=== PATIENT | male | born 1985 | race Caucasian/White ===

== ENCOUNTER 2020-10-06 15:49 | Emergency (ER) | payer SELFPAY ==
[2020-10-06 16:39] VITALS: BP 167/94; PULSE 85; RESP 16; TEMP 36.9; O2SAT 98; BMI 22.6
--- NOTE | 2020-10-06 19:53 | ED.DENTAL ---
HPI - Dental/Oral General Chief complaint: Dental/Oral Stated complaint: swollen face Source: patient Mode of arrival: ambulatory Limitations: no limitations History of Present Illness HPI Narrative: 35-year-old male no significant past medical history presents with 3 days of dental pain with abscess. He does not describe fevers, chills, diaphoresis, chest pain or pressure, palpitations, weakness, lightheadedness, nausea, vomiting, diarrhea or edema. MD Complaint: tooth pain Teeth map: 1. Swelling and erythema 2. Tooth 11. Is broken with significant caries Onset (ago): day(s) (3) Duration: constant Severity: moderate Severity scale (1-10): 8 Relieving factors: nothing Exacerbating factors: chewing, cold, heat and drinking fluids Context: history of dental caries and poor dental care Associated symptoms: gum swelling Treatment prior to arrival: oral analgesic Related Data Previous Rx's Medication Instructions Recorded amoxicillin-pot clavulanate 1 tab PO Q12H 10 Days #20 tab 10/06/20 [Augmentin] Allergies Allergy/AdvReac Type Severity Reaction Status Date / Time No Known Allergies Allergy Verified 10/06/20 20:34 Review of Systems Review of Systems: Constitutional: No Fever, No Chills ENT/Mouth: No swallowing difficulty, no change in voice, positive dental pain, positive jaw pain, positive facial swelling Eyes: No Eye Pain, No Swelling Cardiovascular: No Chest Pain, No SOB Respiratory: No Cough, No Sputum, No Wheezing, No Smoke Exposure, No Dyspnea Gastrointestinal: No Nausea, No Vomiting, No Diarrhea Genitourinary: No Dysuria Musculoskeletal: No Myalgias Skin: No rash Neuro: No Weakness, No Numbness, No Headache Yes all other systems are reviewed and are negative [facility] Past Medical History Attestation statement: The following information was validated with the patient. Social History Social History Advance Directives: No Advance Directives Information Provided: Yes Physical Exam Vital Signs: Vital Signs: Last Vital Signs Temp 98.9 F 10/06/20 20:54 Pulse 61 10/06/20 20:54 Resp 16 10/06/20 20:54 BP 157/97 H 10/06/20 20:54 Pulse Ox 98 10/06/20 20:54 Body Mass Index 22.6 Appearance: Alert. Oriented X3. Moderate distress. Eyes: Pupils equal, round and reactive to light. ENT: Pharynx normal. Tooth 11. Multiple caries, swelling noted above the dentate line, facial swelling noted, negative sinus pain to palpation and percussion. Neck: Normal inspection. Neck supple. CVS: Normal heart rate and rhythm. Pulses normal. Respiratory: No respiratory distress. Breath sounds normal. Abdomen: Soft and nontender. Skin: Skin warm and dry. Normal skin color. Normal skin turgor. Extremities: No lower extremity edema. Neuro: No motor deficit. No sensory deficit. Course Course Course Narrative: 35-year-old male with no significant past medical history presents with dental abscess and caries. Discussion with patient regarding care, plan is to try to drain the abscess, lidocaine 2%, 2 mL injected in to the dentate line above the tooth 11., 18 gauge needle used in attempt to aspirate, small amount of purulent and sanguineous fluid expressed from site. Patient tolerated procedure well although it was very painful for him. We did provide pain management of oxycodone 5 mg tablet. Patient will be discharged home with Augmentin, he does not have a dentist he was given a dental sheet and advised to make phone calls to find provider that would accept him tomorrow or the following day. Patient verbalized understanding of and agrees to plan of care to discharge home. MDM - Dental/Oral Differential Diagnosis Differential diagnosis: Likely gingival abscess, dental caries, toothache, dental abscess, fracture of tooth and aphthous ulcer Medical Records Attestation: I reviewed the patient's medical records. Lab Data Attestation: I reviewed the patient's lab results. Discharge Plan Discharge Clinical Impression: Dental abscess Patient Disposition: Home, Self-Care Instructions: Dental Abscess (ED) Additional Instructions: You were evaluated for dental abscess. Please follow-up with a dentist tomorrow. You must call and make an appointment. Please take Augmentin as directed. This is an antibiotic. Use Anbesol or Orajel for pain management. You may alternate Tylenol and Motrin. Thank you for choosing this emergency department for evaluation. Please follow-up with primary care physician as needed. Return to the emergency department for any new, concerning, or worsening symptoms. Prescriptions: New amoxicillin-pot clavulanate [Augmentin] 875-125 mg tablet 1 tab PO Q12H 10 Days Qty: 20 RF: 0 Interventions: ED Discharge Assessment Last Done: 10/06/20 20:56 Discharge Date/Time: 10/06/20 20:57
[2020-10-06] MEDS: Amoxicillin/Potassium Clav 875 MG TABLET PO (20:40)
[2020-10-06] MEDS: Ibuprofen 600 MG TABLET PO (20:40)
[2020-10-06] MEDS: Lidocaine HCl 2 % MPF 5 ML VIAL SUBCUT (20:41)
[2020-10-06] MEDS: oxyCODONE HCl Immed Release 5 MG TABLET PO (20:42)
[2020-10-06 20:54] VITALS: BP 157/97; PULSE 61; RESP 16; TEMP 37.2; O2SAT 98
--- NOTE | 2021-07-29 09:00 | ECG_ITS ---
Test Reason : DIZZINESS Blood Pressure : / mmHG Vent. Rate : 066 BPM Atrial Rate : 066 BPM P-R Int : 146 ms QRS Dur : 114 ms QT Int : 394 ms P-R-T Axes : 053 065 089 degrees QTc Int : 413 ms Normal sinus rhythm Cannot rule out Anteroseptal infarct (cited on or before 29-JUL-2021) ST & T wave abnormality, consider lateral ischemia Abnormal ECG When compared with ECG of 29-JUL-2021 01:52, ST less elevated in Anterior leads Referred By: Molly Lal Electronically Signed By:SAI MORIN MD
== END 2020-10-06 20:57 | disposition home or self-care (01) ==
PROVIDERS: Emergency Provider Emergency Medicine
DX: K04.7 Periapical abscess without sinus (principal)
CPT/HCPCS: 90471; 90715; 93005; 99284

== ENCOUNTER 2020-11-26 07:44 | Outpatient (REF) | payer MEDICAID, SELFPAY | END 2020-11-26 07:45 | disposition home or self-care (01) | LOC: HO.LAB 07:44 | PROVIDERS: Visit Provider Internal Medicine | DX: Z20.822 Contact with and (suspected) exposure to COVID-19 (principal) | CPT/HCPCS: 36415; C9803; U0003; U0005 ==

== ENCOUNTER 2020-12-21 22:30 | Emergency (ER) | payer MEDICAID, SELFPAY ==
--- NOTE | ~2020-12-21 | XR_ITS ---
EXAMINATION: XR CHEST CLINICAL INFORMATION: Chest pain COMPARISON: None TECHNIQUE: 2 views of the chest were obtained. FINDINGS: The lungs are clear with no focal consolidation. No evidence of pneumothorax, pulmonary edema, or pleural effusions. The cardiomediastinal silhouette is unremarkable. No acute osseous findings. XR/XR chest 2V IMPRESSION: No acute cardiopulmonary findings.
[2020-12-21 23:09] VITALS: BP 121/76; PULSE 86; RESP 18; TEMP 36.7; O2SAT 99; BMI 22.6
--- NOTE | 2020-12-22 00:53 | ECG_ITS ---
Test Reason : CP Blood Pressure : / mmHG Vent. Rate : 085 BPM Atrial Rate : 085 BPM P-R Int : 138 ms QRS Dur : 074 ms QT Int : 334 ms P-R-T Axes : 066 077 066 degrees QTc Int : 397 ms Normal sinus rhythm Normal ECG No previous ECGs available Referred By: Jodee Simeon Electronically Signed By:Jose Alfredo Hawley
--- NOTE | 2020-12-22 01:05 | ED.CHESTPAIN ---
HPI - Chest Pain General Chief Complaint: Chest Pain Stated Complaint: high bp Time Seen by Provider: 12/21/20 23:44 Source: patient Mode of arrival: ambulatory Limitations: no limitations History of Present Illness HPI narrative: 2 days of chest pain in patient at times can be coughing, walking, moving or at rest and feels a punch in chest some mild dyspnea, no fevers, no pain now MD complaint: chest pain Onset (ago): day(s) (2) Timing of current episode: episodic Prior episodes: No Onset: during rest and during exertion Pain location: substernal Pain radiation: none Severity: mild Relieving factors: nothing Exacerbating factors: nothing Associated symptoms: dyspnea Treatment prior to arrival: none Related Data Previous Rx's Medication Instructions Recorded amoxicillin-pot clavulanate 1 tab PO Q12H 10 Days #20 tab 10/06/20 [Augmentin] Allergies Allergy/AdvReac Type Severity Reaction Status Date / Time No Known Allergies Allergy Verified 12/21/20 23:09 Review of Systems Review of Systems: Constitutional : No Weight loss, No Fever, No Chills ENT/Mouth : No sore throat, No Rhinorrhea Eyes: No Eye Pain, No Swelling Cardiovascular : pos Chest Pain, pos SOB, no Dyspnea on Exertion, No Orthopnea, No Edema, No Palpitations Respiratory : No Cough, No Sputum Gastrointestinal : no Nausea, No Vomiting, No Diarrhea, No abdominal Pain, No Hematochezia, No Melena Genitourinary : No Dysuria, No Urinary Frequency Musculoskeletal : No joint pain, No Myalgias, No Joint Swelling Skin : No Skin Lesions, No rash Neuro : No Weakness, No Numbness, No Dizziness, No Headache Psych : No Anxiety/Panic, No Depression Heme/Lymph: No Bruising, No Lymphadenopathy Endocrine : No Polyuria, No Polydipsia All other systems reviewed and are negative PMFSH Past Medical History Attestation statement: The following information was validated with the patient. Medical History HTN (hypertension) Social History Social History Smoking Status: Current every day smoker Use of substances other than those prescribed or required for medical reasons: No Advance Directives: No Physical Exam Vital Signs: Vital Signs: Last Vital Signs Temp 98.0 F 12/21/20 23:09 Pulse 86 12/21/20 23:09 Resp 18 12/21/20 23:09 BP 121/76 12/21/20 23:09 Pulse Ox 99 12/21/20 23:09 Body Mass Index 22.6 Appearance: Alert. Oriented X3. No acute distress. Eyes: Pupils equal, round and reactive to light. ENT: Pharynx normal. Neck: Normal inspection. Neck supple. CVS: Normal heart rate and rhythm. Pulses normal. Respiratory: No respiratory distress. Breath sounds normal. Abdomen: Soft and nontender. Skin: Skin warm and dry. Normal skin color. Normal skin turgor. Extremities: No lower extremity edema. No calf ttp Neuro: Oriented X 3. No motor deficit. No sensory deficit. MDM - Chest Pain MDM Narrative Medical decision making narrative: 35 yo male atypical chest pain, PERC negative, no pain now, not related to exertion seems atypical - distal pulses symmetric and intact doubt dissection, will obtain CXR, COVID swab, EKG, troponin x 1, dispo per results and findings Lab Data Result diagrams: 12/22/20 01:38 Labs: Lab Results 12/22/20 12/22/20 12/22/20 Range/Units 01:38 01:38 01:38 Sodium 141 (135-145) mmol/L Potassium 4.2 (3.3-5.1) mmol/L Chloride 102 (96-108) mmol/L Carbon Dioxide 31 H (22-29) mmol/L Anion Gap 12 (12-20) BUN 12 (9-16) mg/dL Creatinine 1.04 (0.5-1.4) mg/dL Estim Creat Clear Calc 89.0 Estimated GFR > 60 Random Glucose 74 (60-115) mg/dL Calcium 8.8 (8.4-10.2) mg/dL Troponin I High Sens < 3.5 (<3.5-35.0) ng/L COVID-19 (INDU) Negative (Negative) COVID-19 Clin Com See Note ECG Data ECG #1: Attestation: I personally reviewed and interpreted this ECG as follows: ECG interpretation date: 12/22/20 ECG interpretation time: 01:06 Interpretation: Rate: 85 Rhythm: NSR [place]: normal Normal P waves. Normal TEE. Normal QRS complex. ST T wave : normal, no BRITTANI qTC: normal prior studies: no acute ischemia The study has been interpreted contemporaneously by me. . Discharge Plan Discharge Clinical Impression: Atypical chest pain Patient Disposition: Home, Self-Care Instructions: Chest Pain (ED) Additional Instructions: return to ED for any worsening symptoms or concerns chest xray, EKG, heart markers in your blood, COVID swab were negative Prescriptions: No Action amoxicillin-pot clavulanate [Augmentin] 875-125 mg tablet 1 tab PO Q12H 10 Days Qty: 20 RF: 0 Referrals: Physician,None [Primary Care Provider] - 2 days (if not better, obtain PCP ) Stand Alone Forms: Work/School Release
[2020-12-22 02:01] LABS: COVID-19 Test Negative (Negative)
[2020-12-22 02:05] LABS: Blood Urea Nitrogen 12 mg/dL (9-16); Calcium 8.8 mg/dL (8.4-10.2); Estimated Glomerular Filt Rate > 60; Glucose Random 74 mg/dL (60-115)
[2020-12-22 02:08] LABS: Anion Gap 12 (12-20); Carbon Dioxide 31 mmol/L (22-29); Chloride 102 mmol/L (96-108); Potassium 4.2 mmol/L (3.3-5.1); Sodium 141 mmol/L (135-145)
[2020-12-22 02:10] LABS: Troponin-I High Sensitivity < 3.5 ng/L (<3.5-35.0)
== END 2020-12-22 02:32 | disposition home or self-care (01) ==
PROVIDERS: Emergency Provider Emergency Medicine
DX: R07.89 Other chest pain (principal); R06.00 Dyspnea, unspecified; F17.200 Nicotine dependence, unspecified, uncomplicated; Z20.822 Contact with and (suspected) exposure to COVID-19; Z71.6 Tobacco abuse counseling; Z79.899 Other long term (current) drug therapy
CPT/HCPCS: 36415; 71046; 80048; 84484; 87635; 93005; 99283

== ENCOUNTER 2021-07-29 01:43 | Observation (INO) | payer MEDICAID, SELFPAY ==
[2021-07-29] VITALS (15 sets, daily range): BP systolic 106–132; BP diastolic 65–93; PULSE 58–85; RESP 12–20; TEMP 36.8–37.1; O2SAT 94–100; BMI 25.0
--- NOTE | ~2021-07-29 | XR_ITS ---
EXAMINATION: XR CHEST CLINICAL INFORMATION: Chest pain COMPARISON: 12/22/2020 TECHNIQUE: Frontal view of the chest was obtained. FINDINGS: No significant abnormality is noted involving the heart, lungs, mediastinum, bony thorax or soft tissues. XR/XR chest 1V IMPRESSION: Unremarkable examination.
--- NOTE | 2021-07-29 01:59 | ECG_ITS ---
Test Reason : CHEST TIGHTNESS Blood Pressure : / mmHG Vent. Rate : 080 BPM Atrial Rate : 080 BPM P-R Int : 144 ms QRS Dur : 078 ms QT Int : 356 ms P-R-T Axes : 063 071 105 degrees QTc Int : 410 ms Normal sinus rhythm ST elevation in Anterior leads * ACUTE NM Abnormal ECG When compared with ECG of 22-DEC-2020 00:00, Anteroseptal infarct is now Present T wave inversion now evident in Anterolateral leads Referred By: Kojo Harmon Electronically Signed By:SAI MORIN MD
--- NOTE | 2021-07-29 02:15 | PC.NURSE ---
Pt transferred from 13H into room 9. IV x 2 established, IV to LAC placed by EMS infiltrated and removed. EKG and labs obtained and sent. Pt medicated with one Nitro per DEC. at bedside. Awaiting labs.
[2021-07-29] MEDS: Nitroglycerin 0.4 MG TAB.SUBL SUBLINGUAL (02:22)
--- NOTE | 2021-07-29 02:26 | ED_ITS ---
HPI - Chest Pain General Chief Complaint: Chest Pain Stated Complaint: chest tightness Time Seen by Provider: 07/29/21 01:58 Source: patient Mode of arrival: EMS History of Present Illness HPI narrative: 35-year-old male with history of cocaine use in recent NV secondary to cocaine use and treated at [facility] with stent vijay palmer now presents via EMS with acute onset of nonradiating chest discomfort that worsens with deep inspiration but is not associated with dizziness, headache, nausea, sweating, and ?a little bit of shortness of breath?. Patient states that this pain started while he was cleaning up his room in denies any use of cocaine after he was discharged from [facility]. Patient does state that he has continue to smoke cigarettes and is taking his medications as prescribed. Patient states that the pain is worse with sitting up. EMS provided aspirin as well as initial dose of nitro and patient states that pa in did improve but has now returned. Related Data Home Medications Medication Instructions Recorded Confirmed aspirin 81 mg tablet 81 mg PO DAILY 07/29/21 07/29/21 atorvastatin 80 mg tablet 80 mg PO BEDTIME 07/29/21 07/29/21 lisinopril 2.5 mg tablet 2.5 mg PO DAILY 07/29/21 07/29/21 metoprolol succinate 25 mg 12.5 mg PO DAILY 07/29/21 07/29/21 tablet,extended release 24 hr ticagrelor 90 mg tablet (Brilinta) 90 mg PO BID 07/29/21 07/29/21 Allergies Allergy/AdvReac Type Severity Reaction Status Date / Time No Known Allergies Allergy Verified 12/21/20 23:09 Review of Systems Review of Systems: Pertinent positives and negatives as stated in HPI 10 point review of systems is otherwise negative. [facility] Past Medical History Source: nursing notes reviewed Medical History HTN (hypertension) Social History Social History Advance Directives: No Physical Exam Vital Signs: Vital Signs: Last Vital Signs Temp 98.8 F 07/29/21 01:52 Pulse 80 07/29/21 02:29 Resp 16 07/29/21 02:29 BP 107/70 07/29/21 02:29 Pulse Ox 97 07/29/21 02:29 Body Mass Index 25.0 VITAL SIGNS: Reviewed. GENERAL: Well developed, well nourished, in no acute distress. HEAD: Normocephalic/atraumatic EYES: PERRLA, EOMI OROPHARYNX: no oral lesions noted, posterior pharynx clear NECK: Supple, no adenopathy LUNGS: Normal breath sounds. No adventitious sounds or accessory muscle use. SpO2<100>, there is chest wall reproducible pain on palpation along the anterior chest and on to mid axillary, there is no crepitus CARDIOVASCULAR: Regular rate and rhythm without noted murmurs, no JVD or lower extremity edema. ABDOMEN: Soft, non-tender, non-distended with bowel sounds, no palpable masses SKIN: Inspection of the skin reveals no rashes, ulcerations, jaundice, pallor, or petechiae. NEUROLOGIC: Alert and oriented x 4. Strength and sensation to light touch were grossly intact x 4. Course Course Course Narrative: 35-year-old male with history and clinical presentation concerning for possible ischemia and on review EKG Q-waves are noted as well as T-wave inversions in lead 1 as well as V4. Obtaining further EKGs from [facility] as well as providing further nitro, labs, and chest x-ray. Low clinical suspicion for pericarditis, pneumonia. On review of all investigations troponin is mildly elevated at 12 and on comparison for of EKG with [facility] findings there are comparable Q-wave and ischemic changes. This case was discussed with Cardiology and both the current EKG as well as a comparison from [facility] were provided for review. At this time there are no acute interventions recommended in this case was discussed with the inpatient hospitalist who accepts admission. Patient is currently asymptomatic for chest pain and will obtain serial troponins. MDM - Chest Pain Lab Data Result diagrams: 07/29/21 02:20 07/29/21 02:20 Labs: Lab Results 07/29/21 07/29/21 07/29/21 Range/Units 02:20 02:20 02:20 WBC 6.0 (4.8-10.8) X10*3/uL RBC 4.04 L (4.60-5.80) X10*6/uL Hgb 11.3 L (14.0-18.0) g/dl Hct 33.9 L (42-52) % MCV 83.9 (80-98) fL MCH 28.0 (27.0-33.0) pg MCHC 33.3 (31.0-36.0) g/dl RDW 13.6 (11.0-16.0) % Plt Count 194 (160-400) X10*3/uL MPV 11.2 (9.4-12.4) fL Immature Gran % (Auto) 0.2 (0.0-0.4) % Neut % (Auto) 65.2 (45-73) % Lymph % (Auto) 24.6 (20-40) % [place] % (Auto) 8.8 (2-11) % Eos % (Auto) 0.7 (0-4) % Baso % (Auto) 0.5 (0-2) % Lymph # (Auto) 1.5 (1.2-4.9) X10*3/uL [place] # (Auto) 0.5 (0.1-1.2) X10*3/uL Eos # (Auto) 0.0 (0.0-0.4) X10*3/uL Baso # (Auto) 0.0 (0.0-0.2) X10*3/uL Abs Immat Gran (auto) 0.01 (0.00-0.03) X10*3/uL Absolute Neuts (auto) 3.9 (2.0-8.3) X10*3/uL Absolute Nucleated RBC 0.000 (0.0-0.012) X10*3/uL Nucleated RBC % (auto) 0.0 (0.0-0.2) /100WBC PT (9.9-13.0) SEC INR (0.9-1.1) APTT (24.1-38.0) SEC Sodium 139 (135-145) mmol/L Potassium 4.2 (3.3-5.1) mmol/L Chloride 102 (96-108) mmol/L Carbon Dioxide 29 (22-29) mmol/L Anion Gap 12 (12-20) BUN 16 (9-16) mg/dL Creatinine 0.87 (0.5-1.4) mg/dL Estim Creat Clear Calc 110.7 Estimated GFR > 60 Random Glucose 90 (60-115) mg/dL Calcium 9.3 (8.4-10.2) mg/dL Troponin I High Sens 12.9 (<3.5-35.0) ng/L COVID-19 (INDU) (Negative) COVID-19 Clin Com 07/29/21 07/29/21 Range/Units 02:20 02:20 WBC (4.8-10.8) X10*3/uL RBC (4.60-5.80) X10*6/uL Hgb (14.0-18.0) g/dl Hct (42-52) % MCV (80-98) fL MCH (27.0-33.0) pg MCHC (31.0-36.0) g/dl RDW (11.0-16.0) % Plt Count (160-400) X10*3/uL MPV (9.4-12.4) fL Immature Gran % (Auto) (0.0-0.4) % Neut % (Auto) (45-73) % Lymph % (Auto) (20-40) % [place] % (Auto) (2-11) % Eos % (Auto) (0-4) % Baso % (Auto) (0-2) % Lymph # (Auto) (1.2-4.9) X10*3/uL [place] # (Auto) (0.1-1.2) X10*3/uL Eos # (Auto) (0.0-0.4) X10*3/uL Baso # (Auto) (0.0-0.2) X10*3/uL Abs Immat Gran (auto) (0.00-0.03) X10*3/uL Absolute Neuts (auto) (2.0-8.3) X10*3/uL Absolute Nucleated RBC (0.0-0.012) X10*3/uL Nucleated RBC % (auto) (0.0-0.2) /100WBC PT 11.9 (9.9-13.0) SEC INR 1.0 (0.9-1.1) APTT 31.8 (24.1-38.0) SEC Sodium (135-145) mmol/L Potassium (3.3-5.1) mmol/L Chloride (96-108) mmol/L Carbon Dioxide (22-29) mmol/L Anion Gap (12-20) BUN (9-16) mg/dL Creatinine (0.5-1.4) mg/dL Estim Creat Clear Calc Estimated GFR Random Glucose (60-115) mg/dL Calcium (8.4-10.2) mg/dL Troponin I High Sens (<3.5-35.0) ng/L COVID-19 (INDU) Negative (Negative) COVID-19 Clin Com See Note ECG Data ECG #1: Attestation: I personally reviewed and interpreted this ECG as follows: Prior ECG tracings: available for review (Unfortunately, there are no dates or times listed on the provided EKGs however most recent demonstrate the same pattern of injury as on patient's presentation today.) Ischemic changes: q waves and t wave inversions Interpretation: Normal sinus rhythm, HR-80, no STEMI but there are noted Q-waves in T-wave inversions demonstrating history of recent NV and on review of EKG from [facility] consistent. Discharge Plan Discharge Clinical Impression: Chest pain, ACS (acute coronary syndrome) Patient Disposition: Admitted As Inpatient Prescriptions: No Action atorvastatin 80 mg Tablet 80 mg PO BEDTIME RF: 0 aspirin 81 mg Tablet 81 mg PO DAILY RF: 0 metoprolol succinate 25 mg Tablet Extended Release 24 Hr 12.5 mg PO DAILY RF: 0 lisinopril 2.5 mg Tablet 2.5 mg PO DAILY RF: 0 Brilinta 90 mg Tablet 90 mg PO BID RF: 0
[2021-07-29 02:32] LABS: Basophils Percent Auto 0.5 % (0-2); Eosinophils Percent Auto 0.7 % (0-4); Hematocrit 33.9 % (42-52); Hemoglobin 11.3 g/dl (14.0-18.0); Imm Gran Abs Auto 0.01 X10*3/uL (0.00-0.03); Imm Gran Pct Auto 0.2 % (0.0-0.4); Lymphocytes Absolute Auto 1.5 X10*3/uL (1.2-4.9); Lymphocytes Percent Auto 24.6 % (20-40); MANUAL DIFF FLAG NO; Mean Corpuscular HGB Conc 33.3 g/dl (31.0-36.0); Mean Corpuscular Volume 83.9 fL (80-98); Mean Platelet Volume 11.2 fL (9.4-12.4); Monocytes Absolute Auto 0.5 X10*3/uL (0.1-1.2); Monocytes Percent Auto 8.8 % (2-11); Neutrophils Absolute Auto 3.9 X10*3/uL (2.0-8.3); Neutrophils Percent Auto 65.2 % (45-73); Platelet Count 194 X10*3/uL (160-400); Red Blood Count 4.04 X10*6/uL (4.60-5.80); Red Cell Distribution Width 13.6 % (11.0-16.0)
--- NOTE | 2021-07-29 02:33 | PC.NURSE ---
Pt noted to be pain free at this time after one Nitro by EMS and an additional Nitro by CELI Laws. CXR at bedside.
[2021-07-29 02:38] LABS: Prothrombin Time 11.9 SEC (9.9-13.0)
[2021-07-29 02:40] LABS: Partial Thromboplastin Time 31.8 SEC (24.1-38.0)
[2021-07-29 02:46] LABS: Anion Gap 12 (12-20); Blood Urea Nitrogen 16 mg/dL (9-16); COVID-19 Test Negative (Negative); Calcium 9.3 mg/dL (8.4-10.2); Carbon Dioxide 29 mmol/L (22-29); Chloride 102 mmol/L (96-108); Creatinine Clr Calc Pharmacy 110.7; Estimated Glomerular Filt Rate > 60; Glucose Random 90 mg/dL (60-115); IDNOW Serial# 9DD0AD1C; Potassium 4.2 mmol/L (3.3-5.1); Sodium 139 mmol/L (135-145)
[2021-07-29 02:54] LABS: Troponin-I High Sensitivity 12.9 ng/L (<3.5-35.0)
[2021-07-29 04:47] LABS: Amphetamine Screen Urine Not Detected (Not Detect); Barbiturates, Urine Not Detected (Not Detect); Benzodiazepines Screen Urine Not Detected (Not Detect); Cannabinoid Screen Urine Not Detected (Not Detect); Cocaine Screen Urine POSITIVE (Not Detect); Fentanyl, urine Not Detected (Not Detect); Opiate Screen Urine Not Detected (Not Detect); Phencyclidine Screen Urine Not Detected (Not Detect)
--- NOTE | 2021-07-29 04:48 | PM.IMHP ---
History of Present Illness Date of Service: 07/29/21 Chief Complaint: Chest pain 35-year-old male with a past medical history of cocaine abuse, recent STEMI on 07/14/21 status post stent placement, currently on Brilinta presented to the hospital today with a chief complaint of chest pain. Patient reports that he was cleaning his room mentioned only felt tightness in his left side of the chest, 7 of 10 in intensity, nonradiating, no associated lightheadedness dizziness or sweating; subsequently call EMS; mentions that EMS gave him sublingual nitroglycerin with slight improvement in his pain and in the ER he got another dose of sublingual nitroglycerin with improvement in his pain. At the time of my interview patient denies any chest pain palpitations lightheadedness or dizziness. Denies any fever chills cough. Denies any numbness tingling or focal weakness. Patient reports that he has been complaint with his home medications including Brilinta. Patient denies using any more cocaine after the heart stent. Review of all other systems is negative except mentioned above ER course: Per ER team patient chest pain improved; troponin was 12.9. Holding new EKGs were sent to Dr. borges, not concern for STEMI. Admitted to the hospital for further management. [facility] Medical History HTN (hypertension) Pertinent family history: Grandfather has heart disease Social History Advance Directives: No Meds Allergies Allergy/AdvReac Type Severity Reaction Status Date / Time No Known Allergies Allergy Verified 12/21/20 23:09 Active Medications: Current Medications Nitroglycerin (Nitroglycerin 0.4 Mg Tab.Subl) 0.4 mg SUBLINGUAL [id number] PRN PRN Reason: Chest Pain Last Admin: 07/29/21 02:22 Dose: 0.4 mg Documented by: Home Medications Medication Instructions Recorded Confirmed Last Taken Type aspirin 81 mg tablet 81 mg PO DAILY 07/29/21 07/29/21 07/28/21 09:00 History atorvastatin 80 mg tablet 80 mg PO BEDTIME 07/29/21 07/29/21 07/27/21 21:00 History lisinopril 2.5 mg tablet 2.5 mg PO DAILY 07/29/21 07/29/2107/28/21 09:00 History metoprolol succinate 25 mg 12.5 mg PO DAILY 07/29/21 07/29/21 07/28/21 09:00 History tablet,extended release 24 hr ticagrelor 90 mg tablet (Brilinta) 90 mg PO BID 07/29/21 07/29/21 07/28/21 21:00 History Physical Exam Vital Signs and Narrative: Vital Signs: Last Vital Signs Temp 98.8 F 07/29/21 01:52 Pulse 76 07/29/21 04:20 Resp 16 07/29/21 04:20 BP 129/93 H 07/29/21 04:20 Pulse Ox 100 07/29/21 04:20 Body Mass Index 25.0 Gen: Appears be in no acute distress HEENT: NCAT, Moist mucosa. Pulmonary: Vesicular breath sounds, fair air entry CVS: Normal S1-S2 Abdomen: BS+, Soft, Nontender Extremities: Warm well perfused Neuro: Alert and awake. Results Labs CBC and Chem 7: 07/29/21 02:20 07/29/21 02:20 Labs: Laboratory Results - last 24 hr 07/29/21 07/29/21 07/29/21 02:20 02:20 02:20 MCV 83.9 MCH 28.0 MCHC 33.3 RDW 13.6 Plt Count 194 MPV 11.2 Immature Gran % (Auto) 0.2 Neut % (Auto) 65.2 Lymph % (Auto) 24.6 [place] % (Auto) 8.8 Eos % (Auto) 0.7 Baso % (Auto) 0.5 Lymph # (Auto) 1.5 [place] # (Auto) 0.5 Eos # (Auto) 0.0 Baso # (Auto) 0.0 Abs Immat Gran (auto) 0.01 Absolute Neuts (auto) 3.9 Absolute Nucleated RBC 0.000 Nucleated RBC % (auto) 0.0 PT INR APTT Anion Gap 12 Estim Creat Clear Calc 110.7 Estimated GFR > 60 Random Glucose 90 Calcium 9.3 Troponin I High Sens 12.9 Urine Opiates Screen Urine Fentanyl Screen Ur Barbiturates Screen Ur Phencyclidine Scrn Ur Amphetamines Screen U Benzodiazepines Scrn Urine Cocaine Screen U Marijuana (THC) Screen COVID-19 (INDU) COVID-19 Clin Com 07/29/21 07/29/2107/29/21 02:20 02:20 04:26 MCV MCH MCHC RDW Plt Count MPV Immature Gran % (Auto) Neut % (Auto) Lymph % (Auto) [place] % (Auto) Eos % (Auto) Baso % (Auto) Lymph # (Auto) [place] # (Auto) Eos # (Auto) Baso # (Auto) Abs Immat Gran (auto) Absolute Neuts (auto) Absolute Nucleated RBC Nucleated RBC % (auto) PT 11.9 INR 1.0 APTT 31.8 Anion Gap Estim Creat Clear Calc Estimated GFR Random Glucose Calcium Troponin I High Sens Urine Opiates Screen Not Detected Urine Fentanyl Screen Not Detected Ur Barbiturates Screen Not Detected Ur Phencyclidine Scrn Not Detected Ur Amphetamines Screen Not Detected U Benzodiazepines Scrn Not Detected Urine Cocaine Screen POSITIVE H U Marijuana (THC) Screen Not Detected COVID-19 (INDU) Negative COVID-19 Clin Com See Note Imaging Radiologist's Impressions: Impressions Chest X-Ray 07/29/21 02:26 IMPRESSION: Unremarkable examination. Assessment and Plan (1) Chest pain: Status: Acute 35-year-old male with a past medical history of cocaine abuse, recent STEMI on 07/14/21 status post stent placement, currently on Brilinta presented to the hospital today with a chief complaint of chest pain. Chest pain: Currently improved. Initial troponin 12.9. EKG were sent to Cardiology. Telemetry Cycle cardiac enzymes Sublingual nitroglycerin p.r.n. Continue home aspirin statin Brilinta. History of hypertension/hyperlipidemia: Stable. Continue home medications. DVT prophylaxis: Lovenox Code status: Full code Quality Stroke Does the patient have a stroke diagnosis?: No VTE Prior VTE?: No VTE Risk Level:: Medical - moderate - high VTE Device Contraindication: Treatment Not Indicated VTE Drug Contraindication: N/A - Med Ordered
[2021-07-29 05:18] LABS: MANUAL DIFF FLAG NO
[2021-07-29 05:19] LABS: Basophils Percent Auto 0.6 % (0-2); Eosinophils Percent Auto 0.6 % (0-4); Hematocrit 34.4 % (42-52); Hemoglobin 11.4 g/dl (14.0-18.0); Imm Gran Abs Auto 0.02 X10*3/uL (0.00-0.03); Imm Gran Pct Auto 0.3 % (0.0-0.4); Lymphocytes Absolute Auto 1.6 X10*3/uL (1.2-4.9); Lymphocytes Percent Auto 25.2 % (20-40); Mean Corpuscular HGB Conc 33.1 g/dl (31.0-36.0); Mean Corpuscular Hemoglobin 28.1 pg (27.0-33.0); Mean Corpuscular Volume 84.7 fL (80-98); Monocytes Absolute Auto 0.5 X10*3/uL (0.1-1.2); Neutrophils Absolute Auto 4.1 X10*3/uL (2.0-8.3); Neutrophils Percent Auto 65.3 % (45-73); Platelet Count 185 X10*3/uL (160-400); Red Blood Count 4.06 X10*6/uL (4.60-5.80); Red Cell Distribution Width 13.7 % (11.0-16.0); White Blood Count 6.2 X10*3/uL (4.8-10.8)
[2021-07-29] MEDS: Enoxaparin Sodium 40 MG/0.4 ML SYRINGE SUBCUT (05:23)
[2021-07-29 05:37] LABS: Anion Gap 12 (12-20); Blood Urea Nitrogen 14 mg/dL (9-16); Calcium 9.2 mg/dL (8.4-10.2); Carbon Dioxide 28 mmol/L (22-29); Chloride 103 mmol/L (96-108); Creatinine Clr Calc Pharmacy 114.7; Estimated Glomerular Filt Rate > 60; Glucose Random 115 mg/dL (60-115); Potassium 3.8 mmol/L (3.3-5.1); Sodium 139 mmol/L (135-145)
[2021-07-29 05:38] LABS: Troponin-I High Sensitivity 17.1 ng/L (<3.5-35.0)
[2021-07-29] MEDS: Aspirin 81 MG TAB.CHEW PO (08:16)
[2021-07-29] MEDS: Metoprolol Succinate ER 12.5 MG HALFTAB.ER.24H PO (08:17)
[2021-07-29] MEDS: Ticagrelor 90 MG TABLET PO ×2 (08:17→21:03)
[2021-07-29] MEDS: lisinopriL 2.5 MG TABLET PO (08:17)
[2021-07-29] MEDS: 0.9 % Sodium Chloride Flush 3 ML SYRINGE IVFLUSH ×2 (08:18→16:15)
--- NOTE | 2021-07-29 08:22 | PC.NURSE ---
Pt resting quietly in bed, alert/oriented. Denies any pain or discomfort at this time. NSR on tele. Skin color nomral for ethnicity, warm and dry. Speaking full sentences. Accepted AM meds but request to have Suboxone later in morning. Aware/agreeable to admission
--- NOTE | 2021-07-29 09:21 | P.CONCA_ITS ---
History of Present Illness History of Present Illness Date of Service: 07/29/21 Requesting physician: Anderson Tobin Consult reason: chest pain Chief complaint: Chest pain Narrative: I was requested to see Lyndon in cardiology consultation today for symptoms of precordial chest discomfort. He is a 35-year-old male with prior history of cocaine and polysubstance abuse suffering anterior STEMI in May this year undergoing complex stenting of the LAD into the diagonal branch for thrombotic plaque rupture. Patient subsequently developed ischemic cardiomyopathy with LVEF of 30-35%. He has presently to [facility] in the past as well with chest pain and has been ruled out and discharged home. He currently takes all his medications has been compliant within also compliant with his cardiac rehabilitation however he said he was data being again in cocaine the other day. He was cleaning his apartment and then developed precordial chest discomfort with some reproducible component. Patient then called 911 got sublingual nitroglycerin in the ambulance with partial relief and then got another sublingual nitroglycerin while in the ED with resolution of his discomfort. He EKG shows normal sinus rhythm with anteroseptal and anterior myocardial infarction with ST T wave changes suggestive of recent myocardial infarction. This is unchanged compared to his recent EKG end of June at [facility]. His troponins are flat and negative. His U tox is positive for cocaine. He has remained chest pain-free and hemodynamically stable. Currently complains of headaches Review of Systems Constitutional: Constitutional: Reports no additional constitutional complaints Eyes: Eyes: Reports no additional eye complaints Cardiovascular: Cardiovascular: Reports chest pain, Denies syncope, Denies l ightheadedness, Denies radiating jaw, neck or arm pain, Denies palpitations and Denies dyspnea Respiratory: Respiratory: Reports no additional respiratory complaints and Denies dyspnea Gastrointestinal: Gastrointestinal: Reports no additional gastrointestinal complaints Genitourinary: Genitourinary: Reports no additional male genitourinary complaints Musculoskeletal: Musculoskeletal: Reports no additional musculoskeletal complaints Integumentary/Breasts: Skin/Breast: Reports system reviewed and no additional complaints, except as docu Neurologic: Reports system reviewed and no additional complaints, except as documented and Denies syncope Psychiatric: Psychiatric: Reports no additional psychiatric complaints Endocrine: Endocrine: Reports no additional endocrine complaints and Denies palpitations Hematologic/Lymphatic: Hematologic/Lymphatic: Reports no additional hematologic/lymphatic complaints Allergic/Immunologic: Allergic/Immunologic: Reports no additional allergic/i mmunologic complaints [facility] Past Medical History Medical History CAD (coronary artery disease) HTN (hypertension) Ischemic cardiomyopathy Polysubstance dependence STEMI (ST elevation myocardial infarction) Family History Family History Family/Other CAD (coronary artery disease) Social History Social History Patient Tobacco Use Status: Current everyday Tobacco user Use of substances other than those prescribed or required for medical reasons: Yes Substance Use Type: Crack/Cocaine and Marijuana Advance Directives: No Meds Allergies Allergy/AdvReac Type Severity Reaction Status Date / Time No Known Allergies Allergy Verified 12/21/20 23:09 Active Medications: Current Medications Acetaminophen (Acetaminophen 325 Mg Tablet) 650 mg PO Q6H PRN PRN Reason: Pain, Mild (Pain Scale 1-3) Aspirin (Aspirin 81 Mg Tab.Chew) 81 mg PO DAILY [facility] Last Admin: 07/29/21 08:16 Dose: 81 mg Documented by: Atorvastatin Calcium (Atorvastatin Calcium 80 Mg Tablet) 80 mg PO BEDTIME [facility] Buprenorphine/Naloxone (Buprenorphine/Naloxone 4/1 Mg Film) 1 film SUBLINGUAL DAILY [facility] Enoxaparin Sodium (Enoxaparin Sodium 40 Mg/0.4 Ml Syringe) 40 mg SUBCUT Q24H [facility] Last Admin: 07/29/21 05:23 Dose: 40 mg Documented by: Lisinopril (Lisinopril 2.5 Mg Tablet) 2.5 mg PO DAILY [facility]; Protocol Last Admin: 07/29/21 08:17 Dose: 2.5 mg Documented by: Melatonin (Melatonin 3 Mg Tablet) 6 mg PO BEDTIME PRN PRN Reason: Insomnia Metoprolol Succinate (Metoprolol Succinate Er 12.5 Mg Halftab.Er.24h) 12.5 mg PO DAILY [facility]; Protocol Last Admin: 07/29/21 08:17 Dose: 12.5 mg Documented by: Nitroglycerin (Nitroglycerin 0.4 Mg Tab.Subl) 0.4 mg SUBLINGUAL Q5MX3 PRN PRN Reason: Chest Pain Senna (Sennosides 8.6 Mg Tablet) 17.2 mg PO BEDTIME PRN PRN Reason: Constipation Sodium Chloride (0.9 % Sodium Chloride Flush 3 Ml Syringe) 3 ml IVFLUSH QSHIFT [facility] Last Admin: 07/29/21 08:18 Dose: 3 ml Documented by: Ticagrelor (Ticagrelor 90 Mg Tablet) 90 mg PO BID [facility] Last Admin: 07/29/21 08:17 Dose: 90 mg Documented by: Trazodone HCl (Trazodone Hcl 25 Mg Halftab) 25 mg PO BEDTIME [facility] Home Medications Medication Instructions Recorded Confirmed Last Taken Type aspirin 81 mg tablet 81 mg PO DAILY 07/29/21 07/29/21 07/28/21 09:00 History atorvastatin 80 mg tablet 80 mg PO BEDTIME 07/29/21 07/29/21 07/27/21 21:00 History buprenorphine 4 mg-naloxone 1 mg 1 strip SUBLINGUAL DAILY 07/29/21 07/29/21 Unknown History sublingual film (Suboxone) lisinopril 2.5 mg tablet 2.5 mg PO DAILY 07/29/21 07/29/21 07/28/21 09:00 History metoprolol succinate 25 mg 12.5 mg PO DAILY 07/29/21 07/29/21 07/28/21 09:00 History tablet,extended release 24 hr ticagrelor 90 mg tablet (Brilinta) 90 mg PO BID 07/29/21 07/29/21 07/28/21 21:00 History trazodone 50 mg tablet 25 mg PO BEDTIME 07/29/21 07/29/21 07/27/21 21:00 History Physical Exam Vital Signs: Vital Signs: Last Vital Signs Temp 98.8 F 07/29/21 01:52 Pulse 64 07/29/21 09:06 Resp 12 07/29/21 09:06 BP 112/82 07/29/21 09:06 Pulse Ox 100 07/29/21 09:06 Body Mass Index 25.0 Const: General: cooperative, comfortable, no acute distress, alert and awake Nutritional Appearance: average body habitus Orientation/consciousness: patient oriented x3 Limitations: no limitations HENMT: Head: Yes normocephalic Neck: Neck: Yes trachea midline, Yes supple and Yes no JVD Chest: Chest palpation & inspection: normal inspection of the chest Resp: Effort & Inspection: normal respiratory effort Auscultation: clear to auscultation bilaterally Cardio: Jugular venous distension: no JVD Palpation: abnormal PMI displaced PMI Rate: regular rate Rhythm: regular rhythm Heart sounds: S1 normal heart sound present, S2 normal heart sound present, no click, no gallops, no murmurs and no rubs Peripheral pulses: Peripheral pulses 2+ throughout GI: Auscultation: normal bowel sounds Skin: General skin exam: no rashes or lesions noted Neuro: General: patient oriented x3 and no focal motor deficits Extrem: General: Yes no clubbing, cyanosis or edema Psych: Appearance: grossly normal Results Labs and Meds Result diagrams: 07/29/21 05:14 07/29/21 05:14 Lab results: Laboratory Results - last 24 hr 07/29/21 07/29/21 07/29/21 02:20 02:20 02:20 WBC 6.0 RBC 4.04 L Hgb 11.3 L Hct 33.9 L MCV 83.9 MCH 28.0 MCHC 33.3 RDW 13.6 Plt Count 194 MPV 11.2 Immature Gran % (Auto) 0.2 Neut % (Auto) 65.2 Lymph % (Auto) 24.6 [place] % (Auto) 8.8 Eos % (Auto) 0.7 Baso % (Auto) 0.5 Lymph # (Auto) 1.5 [place] # (Auto) 0.5 Eos # (Auto) 0.0 Baso # (Auto) 0.0 Abs Immat Gran (auto) 0.01 Absolute Neuts (auto) 3.9 Absolute Nucleated RBC 0.000 Nucleated RBC % (auto) 0.0 PT INR APTT Sodium 139 Potassium 4.2 Chloride 102 Carbon Dioxide 29 Anion Gap 12 BUN 16 Creatinine 0.87 Estim Creat Clear Calc 110.7 Estimated GFR > 60 Random Glucose 90 Calcium 9.3 Troponin I High Sens 12.9 Urine Opiates Screen Urine Fentanyl Screen Ur Barbiturates Screen Ur Phencyclidine Scrn Ur Amphetamines Screen U Benzodiazepines Scrn Urine Cocaine Screen U Marijuana (THC) Screen COVID-19 (INDU) COVID-19 Clin Com 07/29/21 07/29/21 07/29/21 02:20 02:20 04:26 WBC RBC Hgb Hct MCV MCH MCHC RDW Plt Count MPV Immature Gran % (Auto) Neut % (Auto) Lymph % (Auto) [place] % (Auto) Eos % (Auto) Baso % (Auto) Lymph # (Auto) [place] # (Auto) Eos # (Auto) Baso # (Auto) Abs Immat Gran (auto) Absolute Neuts (auto) Absolute Nucleated RBC Nucleated RBC % (auto) PT 11.9 INR 1.0 APTT 31.8 Sodium Potassium Chloride Carbon Dioxide Anion Gap BUN Creatinine Estim Creat Clear Calc Estimated GFR Random Glucose Calcium Troponin I High Sens Urine Opiates Screen Not Detected Urine Fentanyl Screen Not Detected Ur Barbiturates Screen Not Detected Ur Phencyclidine Scrn Not Detected Ur Amphetamines Screen Not Detected U Benzodiazepines Scrn Not Detected Urine Cocaine Screen POSITIVE H U Marijuana (THC) Screen Not Detected COVID-19 (INDU) Negative COVID-19 Clin Com See Note 07/29/21 07/29/21 07/29/21 05:14 05:14 05:14 WBC 6.2 RBC 4.06 L Hgb 11.4 L Hct 34.4 L MCV 84.7 MCH 28.1 MCHC 33.1 RDW 13.7 Plt Count 185 MPV 11.0 Immature Gran % (Auto) 0.3 Neut % (Auto) 65.3 Lymph % (Auto) 25.2 [place] % (Auto) 8.0 Eos % (Auto) 0.6 Baso % (Auto) 0.6 Lymph # (Auto) 1.6 [place]kin # (Auto) 0.5 Eos # (Auto) 0.0 Baso # (Auto) 0.0 Abs Immat Gran (auto) 0.02 Absolute Neuts (auto) 4.1 Absolute Nucleated RBC 0.000 Nucleated RBC % (auto) 0.0 PT INR APTT Sodium 139 Potassium 3.8 Chloride 103 Carbon Dioxide 28 Anion Gap 12 BUN 14 Creatinine 0.84 Estim Creat Clear Calc 114.7 Estimated GFR > 60 Random Glucose 115 Calcium 9.2 Troponin I High Sens 17.1 Urine Opiates Screen Urine Fentanyl Screen Ur Barbiturates Screen Ur Phencyclidine Scrn Ur Amphetamines Screen U Benzodiazepines Scrn Urine Cocaine Screen U Marijuana (THC) Screen COVID-19 (INDU) COVID-19 Clin Com Imaging Radiologist's impression: Impressions Chest X-Ray 07/29/21 02:26 IMPRESSION: Unremarkable examination. Assessment and Plan (1) Chest pain: Status: Acute Patient presents with precordial chest pain after moving furniture around the house with some reproducible features could represent musculoskeletal chest discomfort however his cocaine screen is also positive and could represent coronary vaso spasm. He has negative markers which are flat with EKG changes that are similar to recent EKG done at [facility] not suggestive of acute coronary syndrome. I had a very long discussion with him about dangers of using cocaine as this has already caused him to have anterior STEMI in May and ischemic cardiomyopathy. I have advised incompletely to abstain from cocaine use. He understands and agrees. He is advised to follow up with his primary carry out clerk in the near future. He says he has a upcoming appointment. Advised him to continue to take his medications. Dangers of using cocaine in the setting of using metoprolol were discussed with him as well. However metoprolol his require therapy given his recent IA as well as ischemic cardiomyopathy. Advised to add Norvasc 2.5 mg to his regimen as anti vasospastic agent. He is advised to seek emergency care if he has recurrent significant chest discomfort. (2) CAD (coronary artery disease): Status: Acute CAD with recent anterior STEMI with drug-eluting stent to the LAD and the diagonal bifurcation. Complex PCI. With residual moderately severe ischemic cardiomyopathy. Advised to follow up with his primary carry out clerk. Currently on low-dose neurohormonal modulation with lisinopril and metoprolol, continue the same. Avoidance of using cocaine was discussed with him again. Continue uninterrupted dual antiplatelet therapy. Continue high-intensity statin therapy. Target goal LDL less than 70 mg/dL. He is recommended to continue to pursue cardiac rehabilitation therapy at [facility]. Will sign of the case. Patient can be discharged home. Thank you for allowing me to partake in his care Procedures Date of Service Date of Service: 07/29/21
[2021-07-29] MEDS: Buprenorphine/Naloxone 4/1 mg FILM 1 FILM SUBLINGUAL (09:30)
--- NOTE | 2021-07-29 10:10 | MHC.CM.PN ---
Met with patient in regards to discharge planning. Patient lives with his sister, ambulates independently and had no services prior to coming to the hospital. No services anticipated to be needed because patient is not homebound. PCP verified as Dr Sanchez at [facility]. Patient received Pfizer vaccines on 03/21 and 07/13. Patient states he has a HCP at [facility]. [facility] does not have one on file. Patient will arrange his own transportation home when medically stable. Continue to monitor for d/c needs.
--- NOTE | 2021-07-29 10:37 | P.DS_ITS ---
DS: Providers Provider Date of Service: 07/30/21 Date of admission: 07/29/21 04:46 Primary care physician: [facility] Consults: 07/29/21 04:46 Consult to Cardiology Routine Consulting Provider: Chemo Romeo Reason for consultation: chest pain; recent MO; on brillinta DS: Diagnosis Discharge Diagnosis (1) Chest pain: Status: Acute (2) CAD (coronary artery disease): Status: Acute DS: Summary Hospital Course Hospital Course: Patient was observed for chest pain due to recent STEMI. His troponins remained normal. Chest pain resolved. he was seen by cardiology who recommended complete abstinence from cocaine and amlodipine 2.5mg to help with vasospasm. course was complicated by some nausea and vomitting due to opiate withdrawal percipated by suboxone, he was given supportive care, and is now feeling better and will be discharged home. Time Spent with Patient Time attestation: Total time spent providing and/or coordinating discharge services: Discharge coordination time: Greater than 30 minutes Quality: Stroke Does the patient have a stroke diagnosis?: No Physical Exam Vital Signs: Vital Signs: Last Vital Signs Temp 98.8 F 07/29/21 01:52 Pulse 64 07/29/21 09:06 Resp 12 07/29/21 09:06 BP 112/82 07/29/21 09:06 Pulse Ox 100 07/29/21 09:06 Body Mass Index 25.0 General: AO X 3, no acute distress Resp: CTA bilateral, no accessory muscles used CVS: S1,S2,RRR GI: soft, non tender, non distended Neuro: motor grossly intact, alert Psych: appropriate affect, appropriate insight DS: Data Data Completed and Pending Labs on day of discharge: Laboratory Results - last 24 hr 07/29/21 07/29/21 07/29/21 02:20 02:20 02:20 WBC 6.0 RBC 4.04 L Hgb 11.3 L Hct 33.9 L MCV 83.9 MCH 28.0 MCHC 33.3 RDW 13.6 Plt Count 194 MPV 11.2 Immature Gran % (Auto) 0.2 Neut % (Auto) 65.2 Lymph % (Auto) 24.6 [place] % (Auto) 8.8 Eos % (Auto) 0.7 Baso % (Auto) 0.5 Lymph # (Auto) 1.5 [place] # (Auto) 0.5 Eos # (Auto) 0.0 Baso # (Auto) 0.0 Abs Immat Gran (auto) 0.01 Absolute Neuts (auto) 3.9 Absolute Nucleated RBC 0.000 Nucleated RBC % (auto) 0.0 PT INR APTT Sodium 139 Potassium 4.2 Chloride 102 Carbon Dioxide 29 Anion Gap 12 BUN 16 Creatinine 0.87 Estim Creat Clear Calc 110.7 Estimated GFR > 60 Random Glucose 90 Calcium 9.3 Troponin I High Sens 12.9 Urine Opiates Screen Urine Fentanyl Screen Ur Barbiturates Screen Ur Phencyclidine Scrn Ur Amphetamines Screen U Benzodiazepines Scrn Urine Cocaine Screen U Marijuana (THC) Screen COVID-19 (INDU) COVID-[employer] 07/29/21 07/29/21 07/29/21 02:20 02:20 04:26 WBC RBC Hgb Hct MCV MCH MCHC RDW Plt Count MPV Immature Gran % (Auto) Neut % (Auto) Lymph % (Auto) [place] % (Auto) Eos % (Auto) Baso % (Auto) Lymph # (Auto) [place] # (Auto) Eos # (Auto) Baso # (Auto) Abs Immat Gran (auto) Absolute Neuts (auto) Absolute Nucleated RBC Nucleated RBC % (auto) PT 11.9 INR 1.0 APTT 31.8 Sodium Potassium Chloride Carbon Dioxide Anion Gap BUN Creatinine Estim Creat Clear Calc Estimated GFR Random Glucose Calcium Troponin I High Sens Urine Opiates Screen Not Detected Urine Fentanyl Screen Not Detected Ur Barbiturates Screen Not Detected Ur Phencyclidine Scrn Not Detected Ur Amphetamines Screen Not Detected U Benzodiazepines Scrn Not Detected Urine Cocaine Screen POSITIVE H U Marijuana (THC) Screen Not Detected COVID-19 (INDU) Negative COVID-[employer] See Note 07/29/21 07/29/21 07/29/21 05:14 05:14 05:14 WBC 6.2 RBC 4.06 L Hgb 11.4 L Hct 34.4 L MCV 84.7 MCH 28.1 MCHC 33.1 RDW 13.7 Plt Count 185 MPV 11.0 Immature Gran % (Auto) 0.3 Neut % (Auto) 65.3 Lymph % (Auto) 25.2 [place] % (Auto) 8.0 Eos % (Auto) 0.6 Baso % (Auto) 0.6 Lymph # (Auto) 1.6 [place] # (Auto) 0.5 Eos # (Auto) 0.0 Baso # (Auto) 0.0 Abs Immat Gran (auto) 0.02 Absolute Neuts (auto) 4.1 Absolute Nucleated RBC 0.000 Nucleated RBC % (auto) 0.0 PT INR APTT Sodium 139 Potassium 3.8 Chloride 103 Carbon Dioxide 28 Anion Gap 12 BUN 14 Creatinine 0.84 Estim Creat Clear Calc 114.7 Estimated GFR > 60 Random Glucose 115 Calcium 9.2 Troponin I High Sens 17.1 Urine Opiates Screen Urine Fentanyl Screen Ur Barbiturates Screen Ur Phencyclidine Scrn Ur Amphetamines Screen U Benzodiazepines Scrn Urine Cocaine Screen U Marijuana (THC) Screen COVID-19 (INDU) COVID-19 Clin Com Discharge Plan Discharge Patient Disposition: Home, Self-Care Discharge Diagnosis: chest pain Referrals: [facility] [Primary Care Provider] - 1 Week Discharge Medications: New amlodipine 2.5 mg tablet 2.5 mg PO DAILY Qty: 30 RF: 0 Continued atorvastatin 80 mg Tablet 80 mg PO BEDTIME RF: 0 aspirin 81 mg Tablet 81 mg PO DAILY RF: 0 metoprolol succinate 25 mg Tablet Extended Release 24 Hr 12.5 mg PO DAILY RF: 0 lisinopril 2.5 mg Tablet 2.5 mg PO DAILY RF: 0 Brilinta 90 mg Tablet 90 mg PO BID RF: 0 trazodone 50 mg tablet 25 mg PO BEDTIME RF: 0 buprenorphine-naloxone [Suboxone] 4-1 mg film 1 strip sublingual DAILY RF: 0 Discharge Orders: Discharge Order (Routine); Ordered 07/30/21 Ordered By: Carlos Conway Diet: advance to usual diet Activity on Discharge: As tolerated Stand Alone Forms: Patient Portal Discharge page Care Plan Goals: manage cad Health Concerns: cad Plan of Treatment: add amlodipine, no cocaine Assessment: see above
--- NOTE | 2021-07-29 12:15 | PC.NURSE ---
The pt remains alert and oriented x 3, resting comfortably in stretcher awaiting inpatient bed assignment. The pt denies chest pain at this time, respirations non-labored. He ambulated to and from the bathroom independently and with steady gait and was able to void without difficulty. Will contionue to monitor. SR, rate 60's, without ectopy noted on bedside monitor.
--- NOTE | 2021-07-29 13:58 | PC.NURSE ---
Lyndon notified staff that he wasn't feeling well - he stated he felt dizzy and lightheaded. At the time h was sitting up at the edge of the bed preparing to eat lunch. I assisted the pt to lie back in bed and placed him on all bedside monitors. He was visibly pale, no vomiting, +nausea. SR rate 70's on bedside monitored without ectopy. Radial pulses strong. He denies chest pain. Respirations non-labored. Repeat EKG performed and pt monitored closely. he is aware that once he feels better he is cleared for DC from hospital. He verbalizes an understanding of this.
--- NOTE | 2021-07-29 15:39 | PC.NURSE ---
Pt remains pale, vomted small amt of bile. Continues to deny pain or discomfort and vitals remain stable. POC 101. Dr Man robin and this RN to monitor prior to d/c
[2021-07-29 15:47] LABS: Glucose, Whole Blood 101 mg/dL (60-115)
--- NOTE | 2021-07-29 16:17 | PC.NURSE ---
The pt is sitting upright in bed, states he has continued/persistent nausea - I'm waiting to throw up again. He denies chest pain. No SOB. Speech clear and appropriate.
--- NOTE | 2021-07-29 16:52 | P.EN_ITS ---
Event Note Date of Service: 07/29/21 Event Note: discharge postponed as patient nauseous, vomitting, no abdominal p ain, VSS, ekg unchanged, no chest pain antimemetics, monitor labs
--- NOTE | 2021-07-29 16:52 | PM.EVENT ---
Event Note Date of Service: 07/29/21 Event Note: discharge postponed as patient nauseous, vomitting, no abdominal pain, VSS, ekg unchanged, no chest pain antimemetics, monitor labs
[2021-07-29] MEDS: ondansetron HCL 4 MG/2 ML VIAL IVPUSH (17:03)
--- NOTE | 2021-07-29 17:03 | PC.NURSE ---
Plan for pt to stay and continue with plan of admission and will control nausea/vomiting. Pt aware/agreeable
[2021-07-29] MEDS: traZODone HCL 25 MG HALFTAB PO (21:03)
[2021-07-29] MEDS: Atorvastatin Calcium 80 MG TABLET PO (21:03)
--- NOTE | 2021-07-30 03:02 | PC.NURSE ---
nurse to nurse report given to Nano ALATORRE
[2021-07-30 03:21] VITALS: BMI 25.0
[2021-07-30] MEDS: Enoxaparin Sodium 40 MG/0.4 ML SYRINGE SUBCUT (03:39)
[2021-07-30 04:00] VITALS: BP 113/74; PULSE 74; RESP 20; TEMP 36.7; O2SAT 98
[2021-07-30 07:52] LABS: Alanine Aminotransferase 13 U/L (0-40); Albumin Level 4.1 g/dL (3.5-5.0); Alkaline Phosphatase 87 U/L (39-117); Anion Gap 9 (12-20); Aspartate Amino Transferase 15 U/L (5-37); Bilirubin Direct < 0.2 mg/dL (0.0-0.5); Bilirubin Total 0.2 mg/dL (0.0-1.0); Blood Urea Nitrogen 11 mg/dL (9-16); Calcium 9.1 mg/dL (8.4-10.2); Carbon Dioxide 31 mmol/L (22-29); Chloride 102 mmol/L (96-108); Creatinine Clr Calc Pharmacy 117.5; Estimated Glomerular Filt Rate > 60; Glucose Fasting 126 mg/dL (60-99); Magnesium 2.1 mg/dL (1.6-2.6); Sodium 138 mmol/L (135-145); Total Protein 6.4 g/dL (6.5-8.0)
[2021-07-30 08:00] VITALS: BP 107/57; PULSE 74; RESP 16; TEMP 36.1; O2SAT 99
[2021-07-30 08:03] LABS: Hematocrit 34.3 % (42-52); Hemoglobin 11.2 g/dl (14.0-18.0); Mean Corpuscular HGB Conc 32.7 g/dl (31.0-36.0); Mean Corpuscular Hemoglobin 27.6 pg (27.0-33.0); Mean Corpuscular Volume 84.5 fL (80-98); Mean Platelet Volume 11.9 fL (9.4-12.4); Platelet Count 195 X10*3/uL (160-400); Red Blood Count 4.06 X10*6/uL (4.60-5.80); Red Cell Distribution Width 13.9 % (11.0-16.0); White Blood Count 5.7 X10*3/uL (4.8-10.8)
[2021-07-30] MEDS: Aspirin 81 MG TAB.CHEW PO (08:15)
[2021-07-30] MEDS: Ticagrelor 90 MG TABLET PO (08:15)
[2021-07-30] MEDS: 0.9 % Sodium Chloride Flush 3 ML SYRINGE IVFLUSH (08:15)
[2021-07-30 08:17] VITALS: BP 107/57; PULSE 74
[2021-07-30] MEDS: Metoprolol Succinate ER 12.5 MG HALFTAB.ER.24H PO (08:17)
[2021-07-30 08:20] VITALS: BP 107/57; PULSE 74
[2021-07-30] MEDS: lisinopriL 2.5 MG TABLET PO (08:20)
--- NOTE | 2021-07-30 10:24 | MHC.CM.PN ---
Patient has been medically cleared for dc to home today, no services.
== END 2021-07-30 11:00 | disposition home or self-care (01) ==
LOC: HO.ED 04:06 → HO.EDOVER 07:09 → HO.IMC 07-30 01:09
PROVIDERS: Emergency Medicine; Admitting Provider Hospitalist; Emergency Provider Student in an Organized Health Care Education/Training Program; PCP Registered Nurse Community Health; Visit Provider Internal Medicine
DX: R07.9 Chest pain, unspecified (principal); I21.09 ST elevation (STEMI) myocardial infarction involving other coronary artery of anterior wall; I25.119 Atherosclerotic heart disease of native coronary artery with unspecified angina pectoris; I25.5 Ischemic cardiomyopathy; I10 Essential (primary) hypertension; E78.00 Pure hypercholesterolemia, unspecified; R51.9 Headache, unspecified; F14.10 Cocaine abuse, uncomplicated; F12.10 Cannabis abuse, uncomplicated; F17.200 Nicotine dependence, unspecified, uncomplicated; Z20.822 Contact with and (suspected) exposure to COVID-19; Z95.5 Presence of coronary angioplasty implant and graft; Z79.02 Long term (current) use of antithrombotics/antiplatelets; Z79.899 Other long term (current) drug therapy
CPT/HCPCS: 36415; 71045; 80048; 80076; 80307; 82947; 83735; 84484; 85025; 85027; 85610; 85730; 87635; 93005; 96372; 96374; 99219; 99285; J1650; J2405

== ENCOUNTER 2021-08-13 03:59 | Emergency (ER) | payer MEDICAID, SELFPAY ==
--- NOTE | 2021-08-13 | ECG_ITS ---
Test Reason : CHEST TIGHTNESS Blood Pressure : / mmHG Vent. Rate : 077 BPM Atrial Rate : 077 BPM P-R Int : 152 ms QRS Dur : 078 ms QT Int : 364 ms P-R-T Axes : 072 064 107 degrees QTc Int : 411 ms Poor data quality Normal sinus rhythm with sinus arrhythmia Anteroseptal infarct (cited on or before 29-JUL-2021) T-wave inversion in Anterior leads Abnormal ECG When compared with ECG of 29-JUL-2021 13:53, No significant change was found Referred By: Jodee Simeon Electronically Signed By:SAI MORIN MD
--- NOTE | 2021-08-13 | ECG_ITS ---
Test Reason : CHEST TIGHTNESS Blood Pressure : / mmHG Vent. Rate : 068 BPM Atrial Rate : 068 BPM P-R Int : 136 ms QRS Dur : 084 ms QT Int : 366 ms P-R-T Axes : 025 057 110 degrees QTc Int : 389 ms Normal sinus rhythm Septal infarct (cited on or before 29-JUL-2021) T wave abnormality, consider anterior ischemia Abnormal ECG When compared with ECG of 13-AUG-2021 04:08, No significant change was found Referred By: Jodee Simeon Electronically Signed By:SAI MORIN MD
--- NOTE | ~2021-08-13 | XR_ITS ---
EXAMINATION: XR CHEST CLINICAL INFORMATION: Chest pain COMPARISON: 07/29/2021 TECHNIQUE: Frontal view of the chest was obtained. FINDINGS: The lungs are clear with no focal consolidation. No evidence of pneumothorax, pulmonary edema, or pleural effusions. The cardiomediastinal silhouette is unremarkable. No acute osseous findings. XR/XR chest 1V IMPRESSION: No acute cardiopulmonary findings.
[2021-08-13 04:03] VITALS: BP 143/91; PULSE 75; RESP 16; TEMP 36.5; O2SAT 100; BMI 25.0
--- NOTE | 2021-08-13 04:04 | ED.CHESTPAIN ---
HPI - Chest Pain General Chief Complaint: Chest Pain Stated Complaint: Chest tightness Time Seen by Provider: 08/13/21 04:00 Source: patient and old records reviewed Mode of arrival: ambulatory Limitations: no limitations History of Present Illness HPI narrative: started right after his cardiology appointment at [facility] - was started on new medication cannot remember the name MD complaint: chest pain Pertinent past history: coronary artery disease and prior [facility] (PCI to LAD with BK) Onset (ago): hour(s) (yesterday afternoon > 12 hours ago) Timing of current episode: constant Prior episodes: Yes Onset: during rest and during exertion Pain location: substernal, left chest and right chest Pain radiation: none Severity: mild Quality: tightness Relieving factors: nothing Exacerbating factors: nothing Associated symptoms: dyspnea Treatment prior to arrival: none Related Data Home Medications Medication Instructions Recorded Confirmed aspirin 81 mg tablet 81 mg PO DAILY 07/29/21 07/29/21 atorvastatin 80 mg tablet 80 mg PO BEDTIME 07/29/21 07/29/21 buprenorphine 4 mg-naloxone 1 mg 1 strip SUBLINGUAL DAILY 07/29/21 07/29/21 sublingual film (Suboxone) lisinopril 2.5 mg tablet 2.5 mg PO DAILY 07/29/21 07/29/21 metoprolol succinate 25 mg 12.5 mg PO DAILY 07/29/21 07/29/21 tablet,extended release 24 hr ticagrelor 90 mg tablet (Brilinta) 90 mg PO BID 07/29/21 07/29/21 trazodone 50 mg tablet 25 mg PO BEDTIME 07/29/21 07/29/21 Previous Rx's Medication Instructions Recorded amlodipine 2.5 mg tablet 2.5 mg PO DAILY #30 tab 07/29/21 Allergies Allergy/AdvReac Type Severity Reaction Status Date / Time No Known Allergies Allergy Verified 08/13/21 04:08 Review of Systems Review of Systems: Constitutional : No Weight loss, No Fever, No Chills ENT/Mouth : No sore throat, No Rhinorrhea Eyes: No Eye Pain, No Swelling Cardiovascular : pos Chest Pain, pos SOB, no Dyspnea on Exertion, No Orthopnea, No Edema, No Palpitations Respiratory : No Cough, No Sputum Gastrointestinal : no Nausea, No Vomiting, No Diarrhea, No abdominal Pain, No Hematochezia, No Melena Genitourinary : No Dysuria, No Urinary Frequency Musculoskeletal : No joint pain, No Myalgias, No Joint Swelling Skin : No Skin Lesions, No rash Neuro : No Weakness, No Numbness, No Dizziness, No Headache Psych : No Anxiety/Panic, No Depression Heme/Lymph: No Bruising, No Lymphadenopathy Endocrine : No Polyuria, No Polydipsia All other systems reviewed and are negative [facility] Past Medical History Attestation statement: The following information was validated with the patient. Medical History CAD (coronary artery disease) HTN (hypertension) Ischemic cardiomyopathy Polysubstance dependence STEMI (ST elevation myocardial infarction) Family History Family History Family/Other CAD (coronary artery disease) Social History Social History (Updated 08/13/21 @ 04:14 by Jodee Simeon DO) Patient Tobacco Use Status: Current everyday Tobacco user Cigarettes Per Day: 5 Years Smoked: 15 Second Hand Smoke Exposure: Yes Substance Use Type: Former Substance User Advance Directives: No Advance Directives Information Provided: Yes service: No Current occupational status: unemployed Physical Exam Vital Signs: Vital Signs: Last Vital Signs Temp 97.7 F 08/13/21 04:03 Pulse 67 08/13/21 04:35 Resp 16 08/13/21 04:35 BP 109/75 08/13/21 04:35 Pulse Ox 100 08/13/21 04:35 Body Mass Index 25.0 Appearance: Alert. Oriented X3. No acute distress. Eyes: Pupils equal, round and reactive to light. ENT: Pharynx normal. Neck: Normal inspection. Neck supple. CVS: Normal heart rate and rhythm. Pulses normal. Respiratory: No respiratory distress. Breath sounds normal. Abdomen: Soft and non-tender. Skin: Skin warm and dry. Normal skin color. Normal skin turgor. Extremities: No lower extremity edema. No calf ttp Neuro: Oriented X 3. No motor deficit. No sensory deficit. Course Course Course Narrative: troponin at baseline with 12 hours of symptoms EKG at baseline repeat troponin pending nitro resolved pain signed out to Dr. Lal pending repeat trop at 7am patient is + for cocaine again - discussed the serious risks this poses to his cardiac conditions patient remains pain free, currently resting at this time MDM - Chest Pain MDM Narrative Medical decision making narrative: 35 yo male with hx of STEMI - BK to LAD in May 2021 post cocaine abuse, ischemic cardiomyopathy EF 30% here with chest tightness and dyspnea since yesterday afternoon. He denies cocaine abuse. States this is different from his prior MIs. At this time he is PERC negative, distal pulses intact doubt dissection. EKG, CXR, troponin x 2. PO aspirin and nitro. Dispo per results and findings. Lab Data Result diagrams: 08/13/21 04:09 08/13/21 04:09 Labs: Lab Results 08/13/21 08/13/21 08/13/21 Range/Units 04:09 04:09 04:09 WBC 7.2 (4.8-10.8) X10*3/uL RBC 4.12 L (4.60-5.80) X10*6/uL Hgb 11.7 L (14.0-18.0) g/dl Hct 35.7 L (42-52) % MCV 86.7 (80-98) fL MCH 28.4 (27.0-33.0) pg MCHC 32.8 (31.0-36.0) g/dl RDW 13.8 (11.0-16.0) % Plt Count 160 (160-400) X10*3/uL MPV 11.3 (9.4-12.4) fL Immature Gran % (Auto) 0.3 (0.0-0.4) % Neut % (Auto) 53.1 (45-73) % Lymph % (Auto) 35.8 (20-40) % [place] % (Auto) 8.7 (2-11) % Eos % (Auto) 1.4 (0-4) % Baso % (Auto) 0.7 (0-2) % Lymph # (Auto) 2.6 (1.2-4.9) X10*3/uL [place] # (Auto) 0.6 (0.1-1.2) X10*3/uL Eos # (Auto) 0.1 (0.0-0.4) X10*3/uL Baso # (Auto) 0.1 (0.0-0.2) X10*3/uL Abs Immat Gran (auto) 0.02 (0.00-0.03) X10*3/uL Absolute Neuts (auto) 3.8 (2.0-8.3) X10*3/uL Absolute Nucleated RBC 0.000 (0.0-0.012) X10*3/uL Nucleated RBC % (auto) 0.0 (0.0-0.2) /100WBC PT (9.9-13.0) SEC INR (0.9-1.1) APTT (24.1-38.0) SEC Sodium 139 (135-145) mmol/L Potassium 3.9 (3.3-5.1) mmol/L Chloride 102 (96-108) mmol/L Carbon Dioxide 27 (22-29) mmol/L Anion Gap 14 (12-20) BUN 14 (9-16) mg/dL Creatinine 0.95 (0.5-1.4) mg/dL Estim Creat Clear Calc 105.0 Estimated GFR > 60 Random Glucose 107 (60-115) mg/dL Calcium 9.4 (8.4-10.2) mg/dL Magnesium 2.1 (1.6-2.6) mg/dL Total Bilirubin 0.2 (0.0-1.0) mg/dL Direct Bilirubin < 0.2 (0.0-0.5) mg/dL AST 19 (5-37) U/L ALT 11 (0-40) U/L Alkaline Phosphatase 91 (39-117) U/L Troponin I High Sens (<3.5-35.0) ng/L C-Reactive Protein 0.92 H (< or = 0.50) mg/dL B-Natriuretic Peptide 124 H (<100) pg/mL Total Protein 7.1 (6.5-8.0) g/dL Albumin 4.4 (3.5-5.0) g/dL Lipase 27 (8-78) U/L Urine Opiates Screen (Not Detect) Urine Fentanyl Screen (Not Detect) Ur Barbiturates Screen (Not Detect) Ur Phencyclidine Scrn (Not Detect) Ur Amphetamines Screen (Not Detect) U Benzodiazepines Scrn (Not Detect) Urine Cocaine Screen (Not Detect) U Marijuana (THC) Screen (Not Detect) COVID-19 (INDU) (Negative) COVID-19 Clin Com 08/13/21 08/13/21 08/13/21 Range/Units 04:09 04:09 04:09 WBC (4.8-10.8) X10*3/uL RBC (4.60-5.80) X10*6/uL Hgb (14.0-18.0) g/dl Hct (42-52) % MCV (80-98) fL MCH (27.0-33.0) pg MCHC (31.0-36.0) g/dl RDW (11.0-16.0) % Plt Count (160-400) X10*3/uL MPV (9.4-12.4) fL Immature Gran % (Auto) (0.0-0.4) % Neut % (Auto) (45-73) % Lymph % (Auto) (20-40) % [place] % (Auto) (2-11) % Eos % (Auto) (0-4) % Baso % (Auto) (0-2) % Lymph # (Auto) (1.2-4.9) X10*3/uL [place] # (Auto) (0.1-1.2) X10*3/uL Eos # (Auto) (0.0-0.4) X10*3/uL Baso # (Auto) (0.0-0.2) X10*3/uL Abs Immat Gran (auto) (0.00-0.03) X10*3/uL Absolute Neuts (auto) (2.0-8.3) X10*3/uL Absolute Nucleated RBC (0.0-0.012) X10*3/uL Nucleated RBC % (auto) (0.0-0.2) /100WBC PT 12.1 (9.9-13.0) SEC INR 1.1 (0.9-1.1) APTT 32.2 (24.1-38.0) SEC Sodium (135-145) mmol/L Potassium (3.3-5.1) mmol/L Chloride (96-108) mmol/L Carbon Dioxide (22-29) mmol/L Anion Gap (12-20) BUN (9-16) mg/dL Creatinine (0.5-1.4) mg/dL Estim Creat Clear Calc Estimated GFR Random Glucose (60-115) mg/dL Calcium (8.4-10.2) mg/dL Magnesium (1.6-2.6) mg/dL Total Bilirubin (0.0-1.0) mg/dL Direct Bilirubin (0.0-0.5) mg/dL AST (5-37) U/L ALT (0-40) U/L Alkaline Phosphatase (39-117) U/L Troponin I High Sens 19.2 (<3.5-35.0) ng/L C-Reactive Protein (< or = 0.50) mg/dL B-Natriuretic Peptide (<100) pg/mL Total Protein (6.5-8.0) g/dL Albumin (3.5-5.0) g/dL Lipase (8-78) U/L Urine Opiates Screen (Not Detect) Urine Fentanyl Screen (Not Detect) Ur Barbiturates Screen (Not Detect) Ur Phencyclidine Scrn (Not Detect) Ur Amphetamines Screen (Not Detect) U Benzodiazepines Scrn (Not Detect) Urine Cocaine Screen (Not Detect) U Marijuana (THC) Screen (Not Detect) COVID-19 (INDU) Negative (Negative) COVID-19 Clin Com See Note 08/13/21 Range/Units 04:34 WBC (4.8-10.8) X10*3/uL RBC (4.60-5.80) X10*6/uL Hgb (14.0-18.0) g/dl Hct (42-52) % MCV (80-98) fL MCH (27.0-33.0) pg MCHC (31.0-36.0) g/dl RDW (11.0-16.0) % Plt Count (160-400) X10*3/uL MPV (9.4-12.4) fL Immature Gran % (Auto) (0.0-0.4) % Neut % (Auto) (45-73) % Lymph % (Auto) (20-40) % [place] % (Auto) (2-11) % Eos % (Auto) (0-4) % Baso % (Auto) (0-2) % Lymph # (Auto) (1.2-4.9) X10*3/uL [place] # (Auto) (0.1-1.2) X10*3/uL Eos # (Auto) (0.0-0.4) X10*3/uL Baso # (Auto) (0.0-0.2) X10*3/uL Abs Immat Gran (auto) (0.00-0.03) X10*3/uL Absolute Neuts (auto) (2.0-8.3) X10*3/uL Absolute Nucleated RBC (0.0-0.012) X10*3/uL Nucleated RBC % (auto) (0.0-0.2) /100WBC PT (9.9-13.0) SEC INR (0.9-1.1) APTT (24.1-38.0) SEC Sodium (135-145) mmol/L Potassium (3.3-5.1) mmol/L Chloride (96-108) mmol/L Carbon Dioxide (22-29) mmol/L Anion Gap (12-20) BUN (9-16) mg/dL Creatinine (0.5-1.4) mg/dL Estim Creat Clear Calc Estimated GFR Random Glucose (60-115) mg/dL Calcium (8.4-10.2) mg/dL Magnesium (1.6-2.6) mg/dL Total Bilirubin (0.0-1.0) mg/dL Direct Bilirubin (0.0-0.5) mg/dL AST (5-37) U/L ALT (0-40) U/L Alkaline Phosphatase (39-117) U/L Troponin I High Sens (<3.5-35.0) ng/L C-Reactive Protein (< or = 0.50) mg/dL B-Natriuretic Peptide (<100) pg/mL Total Protein (6.5-8.0) g/dL Albumin (3.5-5.0) g/dL Lipase (8-78) U/L Urine Opiates Screen Not Detected (Not Detect) Urine Fentanyl Screen Not Detected (Not Detect) Ur Barbiturates Screen Not Detected (Not Detect) Ur Phencyclidine Scrn Not Detected (Not Detect) Ur Amphetamines Screen Not Detected (Not Detect) U Benzodiazepines Scrn Not Detected (Not Detect) Urine Cocaine Screen POSITIVE H (Not Detect) U Marijuana (THC) Screen Not Detected (Not Detect) COVID-19 (INDU) (Negative) COVID-19 Clin Com ECG Data ECG #1: Attestation: I personally reviewed and interpreted this ECG as follows: ECG interpretation date: 08/13/21 ECG interpretation time: 04:13 Interpretation: Rate: Rhythm: NSR [place]: normal Normal P waves. Normal TEE. Normal QRS complex. Poor R wave progression ST T wave : no BRITTANI, inverted in V1-V4, I and aVL qTC: normal prior studies: no change from priors (post STEMI) The study has been interpreted contemporaneously by me. . Scores Additional Scores PERC Score: Score: 0 Discharge Plan Discharge Clinical Impression: Positive urine drug screen Chest pain Qualifiers: Chest pain type: unspecified Qualified Code(s): R07.9 - Chest pain, unspecified Instructions: Chest Pain (ED) Additional Instructions: return to ED for any worsening symptoms or concerns continue all of your medications please notify your controlled area checker (heart doctor) Prescriptions: No Action atorvastatin 80 mg Tablet 80 mg PO BEDTIME RF: 0 aspirin 81 mg Tablet 81 mg PO DAILY RF: 0 metoprolol succinate 25 mg Tablet Extended Release 24 Hr 12.5 mg PO DAILY RF: 0 lisinopril 2.5 mg Tablet 2.5 mg PO DAILY RF: 0 Brilinta 90 mg Tablet 90 mg PO BID RF: 0 trazodone 50 mg tablet 25 mg PO BEDTIME RF: 0 buprenorphine-naloxone [Suboxone] 4-1 mg film 1 strip sublingual DAILY RF: 0 amlodipine 2.5 mg tablet 2.5 mg PO DAILY Qty: 30 RF: 0
--- NOTE | 2021-08-13 04:13 | PC.NURSE ---
at bedside for primary eval.
[2021-08-13 04:15] VITALS: BP 139/89; PULSE 76; RESP 16; O2SAT 100
[2021-08-13 04:21] VITALS: BP 130/94; PULSE 66
[2021-08-13 04:21] LABS: MANUAL DIFF FLAG NO
[2021-08-13] MEDS: Nitroglycerin 0.4 MG TAB.SUBL SUBLINGUAL (04:21)
[2021-08-13] MEDS: Aspirin 81 MG TAB.CHEW PO (04:22)
[2021-08-13 04:23] LABS: Basophils Absolute Auto 0.1 X10*3/uL (0.0-0.2); Basophils Percent Auto 0.7 % (0-2); Eosinophils Absolute Auto 0.1 X10*3/uL (0.0-0.4); Eosinophils Percent Auto 1.4 % (0-4); Hematocrit 35.7 % (42-52); Hemoglobin 11.7 g/dl (14.0-18.0); Imm Gran Abs Auto 0.02 X10*3/uL (0.00-0.03); Imm Gran Pct Auto 0.3 % (0.0-0.4); Lymphocytes Absolute Auto 2.6 X10*3/uL (1.2-4.9); Lymphocytes Percent Auto 35.8 % (20-40); Mean Corpuscular HGB Conc 32.8 g/dl (31.0-36.0); Mean Corpuscular Hemoglobin 28.4 pg (27.0-33.0); Mean Corpuscular Volume 86.7 fL (80-98); Mean Platelet Volume 11.3 fL (9.4-12.4); Monocytes Absolute Auto 0.6 X10*3/uL (0.1-1.2); Monocytes Percent Auto 8.7 % (2-11); Neutrophils Absolute Auto 3.8 X10*3/uL (2.0-8.3); Neutrophils Percent Auto 53.1 % (45-73); Platelet Count 160 X10*3/uL (160-400); Red Blood Count 4.12 X10*6/uL (4.60-5.80); Red Cell Distribution Width 13.8 % (11.0-16.0); White Blood Count 7.2 X10*3/uL (4.8-10.8)
[2021-08-13 04:30] LABS: INTERNATIONAL NORM RATIO 1.1 (0.9-1.1); Prothrombin Time 12.1 SEC (9.9-13.0)
--- NOTE | 2021-08-13 04:31 | PC.NURSE ---
IV established, labs and Covid swab obtained. EKG obtained by product support technician. Pt medicated per DEC. Urine sample obtained. CXR at bedside. Continue to monitor.
[2021-08-13 04:35] VITALS: BP 109/75; PULSE 67; RESP 16; O2SAT 100
[2021-08-13 04:37] LABS: COVID-19 Test Negative (Negative)
[2021-08-13 04:38] LABS: Alanine Aminotransferase 11 U/L (0-40); Albumin Level 4.4 g/dL (3.5-5.0); Alkaline Phosphatase 91 U/L (39-117); Anion Gap 14 (12-20); Aspartate Amino Transferase 19 U/L (5-37); Bilirubin Direct < 0.2 mg/dL (0.0-0.5); Bilirubin Total 0.2 mg/dL (0.0-1.0); Blood Urea Nitrogen 14 mg/dL (9-16); C Reactive Protein 0.92 mg/dL (< or = 0.50); Calcium 9.4 mg/dL (8.4-10.2); Carbon Dioxide 27 mmol/L (22-29); Chloride 102 mmol/L (96-108); Estimated Glomerular Filt Rate > 60; Glucose Random 107 mg/dL (60-115); Lipase 27 U/L (8-78); Magnesium 2.1 mg/dL (1.6-2.6); Potassium 3.9 mmol/L (3.3-5.1); Sodium 139 mmol/L (135-145); Total Protein 7.1 g/dL (6.5-8.0)
[2021-08-13 04:39] LABS: Partial Thromboplastin Time 32.2 SEC (24.1-38.0)
--- NOTE | 2021-08-13 04:41 | PC.NURSE ---
Pt noted to be pain free after one SL Nitro. VSS. Pt aware of plan for repeat Trop @ 0700.
[2021-08-13 04:44] LABS: B Type Natriuretic Peptide 124 pg/mL (<100); Troponin-I High Sensitivity 19.2 ng/L (<3.5-35.0)
[2021-08-13 05:05] LABS: Amphetamine Screen Urine Not Detected (Not Detect); Barbiturates, Urine Not Detected (Not Detect); Benzodiazepines Screen Urine Not Detected (Not Detect); Cannabinoid Screen Urine Not Detected (Not Detect); Cocaine Screen Urine POSITIVE (Not Detect); Fentanyl, urine Not Detected (Not Detect); Opiate Screen Urine Not Detected (Not Detect); Phencyclidine Screen Urine Not Detected (Not Detect)
--- NOTE | 2021-08-13 05:12 | PC.NURSE ---
MD at bedside discussing results and plan of care. Pt aware of 0700 Troponin.
[2021-08-13 06:17] VITALS: BP 97/62; PULSE 86; RESP 16; O2SAT 100
--- NOTE | 2021-08-13 06:48 | PC.NURSE ---
erp technical lead at bedside for repeat Troponin.
--- NOTE | 2021-08-13 06:50 | PC.NURSE ---
Lidocaine in MAR entered in error by MD, documented as not given by this RN.
[2021-08-13 07:16] LABS: Troponin-I High Sensitivity 20.5 ng/L (<3.5-35.0)
== END 2021-08-13 07:39 | disposition home or self-care (01) ==
PROVIDERS: Emergency Medicine; Emergency Provider Emergency Medicine
DX: R07.9 Chest pain, unspecified (principal); I25.10 Atherosclerotic heart disease of native coronary artery without angina pectoris; I25.5 Ischemic cardiomyopathy; I10 Essential (primary) hypertension; F14.10 Cocaine abuse, uncomplicated; I25.2 Old myocardial infarction; Z20.822 Contact with and (suspected) exposure to COVID-19
CPT/HCPCS: 36415; 71045; 80048; 80076; 80307; 83690; 83735; 83880; 84484; 85025; 85610; 85730; 86140; 87635; 93005; 99284

== ENCOUNTER 2021-08-14 00:55 | Emergency (ER) | payer MEDICAID, SELFPAY ==
--- NOTE | 2021-08-14 | ECG_ITS ---
Test Reason : CHEST PAIN Blood Pressure : / mmHG Vent. Rate : 075 BPM Atrial Rate : 075 BPM P-R Int : 138 ms QRS Dur : 076 ms QT Int : 362 ms P-R-T Axes : 049 050 102 degrees QTc Int : 404 ms Normal sinus rhythm Septal infarct , age undetermined T wave abnormality, consider anterolateral ischemia Abnormal ECG No significant changes seen Referred By: Generic ED Physician Electronically Signed By:SAI MORIN MD
--- NOTE | ~2021-08-14 | XR_ITS ---
EXAMINATION: XR CHEST CLINICAL INFORMATION: Chest pain COMPARISON: 08/13/2021 TECHNIQUE: Frontal view of the chest was obtained. FINDINGS: The lungs are clear with no focal consolidation. No evidence of pneumothorax, pulmonary edema, or pleural effusions. The cardiomediastinal silhouette is unremarkable. No acute osseous findings. XR/XR chest 1V IMPRESSION: No acute cardiopulmonary findings.
[2021-08-14 01:03] VITALS: BP 140/83; PULSE 94; RESP 20; TEMP 37.3; O2SAT 100; BMI 26.3
[2021-08-14 03:25] VITALS: BP 122/93; PULSE 77; RESP 16; TEMP 36.6; O2SAT 99
[2021-08-14 03:35] LABS: MANUAL DIFF FLAG NO
[2021-08-14 03:36] LABS: Basophils Absolute Auto 0.1 X10*3/uL (0.0-0.2); Basophils Percent Auto 0.8 % (0-2); Eosinophils Absolute Auto 0.1 X10*3/uL (0.0-0.4); Eosinophils Percent Auto 1.8 % (0-4); Hematocrit 33.9 % (42-52); Imm Gran Abs Auto 0.02 X10*3/uL (0.00-0.03); Imm Gran Pct Auto 0.3 % (0.0-0.4); Lymphocytes Absolute Auto 1.8 X10*3/uL (1.2-4.9); Lymphocytes Percent Auto 28.9 % (20-40); Mean Corpuscular HGB Conc 32.4 g/dl (31.0-36.0); Mean Corpuscular Volume 86.3 fL (80-98); Mean Platelet Volume 11.4 fL (9.4-12.4); Monocytes Absolute Auto 0.6 X10*3/uL (0.1-1.2); Monocytes Percent Auto 9.2 % (2-11); Neutrophils Absolute Auto 3.6 X10*3/uL (2.0-8.3); Platelet Count 155 X10*3/uL (160-400); Red Blood Count 3.93 X10*6/uL (4.60-5.80); Red Cell Distribution Width 13.6 % (11.0-16.0); White Blood Count 6.1 X10*3/uL (4.8-10.8)
[2021-08-14 03:57] LABS: Troponin-I High Sensitivity 15.2 ng/L (<3.5-35.0)
--- NOTE | 2021-08-14 03:57 | ED_ITS ---
HPI - Chest Pain General Chief Complaint: Chest Pain Stated Complaint: Chest Pain Time Seen by Provider: 08/14/21 02:43 Source: patient Mode of arrival: ambulatory History of Present Illness HPI narrative: 30-year-old male with history of CAD presents after being evaluated yesterday morning for sharp, nonradiating mid left chest pain that has not been associated with dizziness/headache/diaphoresis/nausea and has not been associated with exertion or change in position. Patient also denies any recent development of sore throat, cough and states that overall the pain has improved since 6:00 p.m. when it started. Patient states that each episode is very sharp and transient and that he ?gets scared?. Related Data Home Medications Medication Instructions Recorded Confirmed aspirin 81 mg tablet 81 mg PO DAILY 07/29/21 07/29/21 atorvastatin 80 mg tablet 80 mg PO BEDTIME 07/29/21 07/29/21 buprenorphine 4 mg-naloxone 1 mg 1 strip SUBLINGUAL DAILY 07/29/21 07/29/21 sublingual film (Suboxone) lisinopril 2.5 mg tablet 2.5 mg PO DAILY 07/29/21 07/29/21 metoprolol succinate 25 mg 12.5 mg PO DAILY 07/29/21 07/29/21 tablet,extended release 24 hr ticagrelor 90 mg tablet (Brilinta) 90 mg PO BID 07/29/21 07/29/21 trazodone 50 mg tablet 25 mg PO BEDTIME 07/29/21 07/29/21 Previous Rx's Medication Instructions Recorded amlodipine 2.5 mg tablet 2.5 mg PO DAILY #30 tab 07/29/21 Allergies Allergy/AdvReac Type Severity Reaction Status Date / Time No Known Allergies Allergy Verified 08/13/21 04:08 Review of Systems Review of Systems: Pertinent positives and negatives as stated in HPI 10 point review of systems is otherwise negative. [facility] Past Medical History Source: nursing notes reviewed Medical History CAD (coronary artery disease) HTN (hypertension) Ischemic cardiomyopathy Polysubstance dependence STEMI (ST elevation myocardial infarction) Family History Family History Family/Other CAD (coronary artery disease) Social History Social History Patient Tobacco Use Status: Current everyday Tobacco user Cigarettes Per Day: 5 Years Smoked: 15 Second Hand Smoke Exposure: Yes Substance Use Type: Former Substance User Advance Directives: No Advance Directives Information Provided: Yes service: No Current occupational status: unemployed Physical Exam Vital Signs: Vital Signs: Last Vital Signs Temp 97.9 F 08/14/21 03:25 Pulse 77 08/14/21 03:25 Resp 16 08/14/21 03:25 BP 122/93 H 08/14/21 03:25 Pulse Ox 99 08/14/21 03:25 Body Mass Index 26.3 VITAL SIGNS: Reviewed. GENERAL: Well developed, well nourished, in no acute distress. HEAD: Normocephalic/atraumatic EYES: PERRLA, EOMI OROPHARYNX: no oral lesions noted, posterior pharynx clear LUNGS: Normal breath sounds. No adventitious sounds or accessory muscle use. SpO2<99>, or able to provide reproducible pain on palpation with a single finger point at mid left chest wall CARDIOVASCULAR: Regular rate and rhythm without noted murmurs, no JVD or lower extremity edema. ABDOMEN: Soft, non-tender, non-distended with bowel sounds. SKIN: Inspection of the skin reveals no rashes or diaphoresis NEUROLOGIC: Alert and oriented x 4. Course Course Course Narrative: 35-year-old male with history and clinical presentation consistent with costochondritis, but due to cardiac history as well as substance use will ensure no acute changes from evaluation within the past 24 hours. On review of all investigations there are or no further acute findings and on re-evaluation after patient was provided with Tylenol and lidocaine patch he reports that his pain is completely resolved and has had no further episodes sharp transient pain, he denies any shortness of breath and on review of EKG and troponins patient remains stable with no acute EKG findings. MDM - Chest Pain Lab Data Result diagrams: 08/14/21 03:31 08/14/21 03:31 Labs: Lab Results 08/14/21 08/14/21 08/14/21 Range/Units 03:31 03:31 03:31 WBC 6.1 (4.8-10.8) X10*3/uL RBC 3.93 L (4.60-5.80) X10*6/uL Hgb 11.0 L (14.0-18.0) g/dl Hct 33.9 L (42-52) % MCV 86.3 (80-98) fL MCH 28.0 (27.0-33.0) pg MCHC 32.4 (31.0-36.0) g/dl RDW 13.6 (11.0-16.0) % Plt Count 155 L (160-400) X10*3/uL MPV 11.4 (9.4-12.4) fL Immature Gran % (Auto) 0.3 (0.0-0.4) % Neut % (Auto) 59.0 (45-73) % Lymph % (Auto) 28.9 (20-40) % [place] % (Auto) 9.2 (2-11) % Eos % (Auto) 1.8 (0-4) % Baso % (Auto) 0.8 (0-2) % Lymph # (Auto) 1.8 (1.2-4.9) X10*3/uL [place] # (Auto) 0.6 (0.1-1.2) X10*3/uL Eos # (Auto) 0.1 (0.0-0.4) X10*3/uL Baso # (Auto) 0.1 (0.0-0.2) X10*3/uL Abs Immat Gran (auto) 0.02 (0.00-0.03) X10*3/uL Absolute Neuts (auto) 3.6 (2.0-8.3) X10*3/uL Absolute Nucleated RBC 0.000 (0.0-0.012) X10*3/uL Nucleated RBC % (auto) 0.0 (0.0-0.2) /100WBC Sodium 138 (135-145) mmol/L Potassium 4.6 (3.3-5.1) mmol/L Chloride 106 (96-108) mmol/L Carbon Dioxide 26 (22-29) mmol/L Anion Gap 11 L (12-20) BUN 14 (9-16) mg/dL Creatinine 0.93 (0.5-1.4) mg/dL Estim Creat Clear Calc 103.6 Estimated GFR > 60 Random Glucose 100 (60-115) mg/dL Calcium 8.9 (8.4-10.2) mg/dL Total Bilirubin 0.3 (0.0-1.0) mg/dL AST 17 (5-37) U/L ALT 11 (0-40) U/L Alkaline Phosphatase 85 (39-117) U/L Troponin I High Sens 15.2 (<3.5-35.0) ng/L Total Protein 6.5 (6.5-8.0) g/dL Albumin 4.2 (3.5-5.0) g/dL ECG Data ECG #1: Attestation: I personally reviewed and interpreted this ECG as follows: Prior ECG tracings: available for review (07/14/2021 no acute changes on comparison) Interpretation: Normal sinus rhythm, HR-75, patient maintains consistent morphology of EKG on comparison to multiple priors, IN/QRS/QTC are within normal limits. Discharge Plan Discharge Clinical Impression: Chest pain, Polysubstance dependence, Costalchondritis Patient Disposition: Home, Self-Care Instructions: Chest Pain (ED), Chest Wall Pain (ED), Costochondritis (ED) Additional Instructions: 1. Resume all home medications. 2. Stop using or exposure in yourself to any further cocaine. 3. Recommend using [id number] Tylenol as well as lidocaine patches to help improve the chest wall pain that you are experiencing. 4. Recommend that you follow-up with your primary care provider on Monday morning for re-evaluation as well as scheduling a follow-up appointment with jamil mane automobile upholsterer. Return to the ER for acute worsening of symptoms. Prescriptions: No Action atorvastatin 80 mg Tablet 80 mg PO BEDTIME RF: 0 aspirin 81 mg Tablet 81 mg PO DAILY RF: 0 metoprolol succinate 25 mg Tablet Extended Release 24 Hr 12.5 mg PO DAILY RF: 0 lisinopril 2.5 mg Tablet 2.5 mg PO DAILY RF: 0 Brilinta 90 mg Tablet 90 mg PO BID RF: 0 trazodone 50 mg tablet 25 mg PO BEDTIME RF: 0 buprenorphine-naloxone [Suboxone] 4-1 mg film 1 strip sublingual DAILY RF: 0 amlodipine 2.5 mg tablet 2.5 mg PO DAILY Qty: 30 RF: 0 Referrals: [facility] [Primary Care Provider] - 2 days
[2021-08-14 04:03] LABS: Alanine Aminotransferase 11 U/L (0-40); Albumin Level 4.2 g/dL (3.5-5.0); Alkaline Phosphatase 85 U/L (39-117); Anion Gap 11 (12-20); Aspartate Amino Transferase 17 U/L (5-37); Bilirubin Total 0.3 mg/dL (0.0-1.0); Blood Urea Nitrogen 14 mg/dL (9-16); Calcium 8.9 mg/dL (8.4-10.2); Carbon Dioxide 26 mmol/L (22-29); Chloride 106 mmol/L (96-108); Creatinine Clr Calc Pharmacy 103.6; Estimated Glomerular Filt Rate > 60; Glucose Random 100 mg/dL (60-115); Potassium 4.6 mmol/L (3.3-5.1); Sodium 138 mmol/L (135-145); Total Protein 6.5 g/dL (6.5-8.0)
[2021-08-14] MEDS: Lidocaine 4 % Patch ADH..PATCH 1 PATCH TRANSDERMA (04:35)
[2021-08-14] MEDS: Acetaminophen 325 MG TABLET 975 MG PO (04:35)
[2021-08-14 05:49] VITALS: BP 111/77; PULSE 86; RESP 14; O2SAT 98
== END 2021-08-14 05:50 | disposition home or self-care (01) ==
PROVIDERS: Emergency Provider Student in an Organized Health Care Education/Training Program
DX: R07.9 Chest pain, unspecified (principal); M94.0 Chondrocostal junction syndrome [Tietze]; I25.10 Atherosclerotic heart disease of native coronary artery without angina pectoris; F19.20 Other psychoactive substance dependence, uncomplicated; Z79.899 Other long term (current) drug therapy
CPT/HCPCS: 36415; 71045; 80053; 84484; 85025; 93005; 99283; 99284

== ENCOUNTER 2022-06-13 01:35 | Emergency (ER) | payer MEDICAID, SELFPAY ==
--- NOTE | ~2022-06-13 | XR_ITS ---
EXAMINATION: XR CHEST CLINICAL INFORMATION: Chest congestion COMPARISON: 08/14/2021 TECHNIQUE: 2 views of the chest were obtained. FINDINGS: The lungs are clear with no focal consolidation. No evidence of pneumothorax, pulmonary edema, or pleural effusions. The cardiomediastinal silhouette is unremarkable. No acute osseous findings. XR/XR chest 2V IMPRESSION: No acute cardiopulmonary findings.
[2022-06-13 01:37] VITALS: BP 133/91; PULSE 92; RESP 19; TEMP 37.4; O2SAT 99; BMI 26.6
[2022-06-13 01:46] VITALS: BP 131/80; PULSE 80; RESP 18; O2SAT 100
[2022-06-13 02:19] LABS: COVID-19 Test Negative (Negative)
--- NOTE | 2022-06-13 02:33 | ECG_ITS ---
Test Reason : SOB Blood Pressure : / mmHG Vent. Rate : 066 BPM Atrial Rate : 066 BPM P-R Int : 138 ms QRS Dur : 082 ms QT Int : 350 ms P-R-T Axes : 150 141 220 degrees QTc Int : 366 ms Suspect limb lead reversal, interpretation assumes no reversal Unusual P axis, possible ectopic atrial rhythm Low voltage QRS Septal infarct (cited on or before 29-JUL-2021) Lateral infarct , age undetermined Inferior infarct , age undetermined ST & T wave abnormality, consider anterior ischemia Abnormal ECG When compared with ECG of 14-AUG-2021 02:34, Significant changes have occurred Referred By: Molly Lal Electronically Signed By:BRINA CLEARY
--- NOTE | 2022-06-13 02:35 | ED_ITS ---
HPI - General Adult General Chief complaint: Upper Respiratory Symptoms Stated complaint: dizzy, insomnia Time Seen by Provider: 06/13/22 02:26 Source: patient Mode of arrival: ambulatory Limitations: no limitations History of Present Illness HPI narrative: Patient comes to the emergency room complaining of cough, insomnia, flu-like symptoms. Patient states that he feels dizzy. Patient is unable to quite explain what he feels by dizzy, states that he does not feel well. Denies room spinning, no lightheadedness, no sensation of passing out. Of note, patient has cardiac history, has stents, patient does not have any chest pain or shortness of breath. Related Data Home Medications Medication Instructions Recorded Confirmed aspirin 81 mg tablet 81 mg PO DAILY 07/29/21 07/29/21 atorvastatin 80 mg tablet 80 mg PO BEDTIME 07/29/21 07/29/21 buprenorphine 4 mg-naloxone 1 mg 1 strip sublingual DAILY 07/29/21 07/29/21 sublingual film (Suboxone) lisinopril 2.5 mg tablet 2.5 mg PO DAILY 07/29/21 07/29/21 metoprolol succinate 25 mg 12.5 mg PO DAILY 07/29/21 07/29/21 tablet,extended release 24 hr ticagrelor 90 mg tablet (Brilinta) 90 mg PO BID 07/29/21 07/29/21 trazodone 50 mg tablet 25 mg PO BEDTIME 07/29/21 07/29/21 Previous Rx's Medication Instructions Recorded amlodipine 2.5 mg tablet 2.5 mg PO DAILY #30 tabs 07/29/21 acetaminophen 500 mg capsule 500 mg PO QID PRN fever or pain 06/13/22 #20 caps Allergies Allergy/AdvReac Type Severity Reaction Status Date / Time No Known Allergies Allergy Verified 06/13/22 01:41 Review of Systems Review of Systems: Constitutional : No Weight loss, complaining of subjective fever, chills, generalized malaise ENT/Mouth : No Hearing loss, No Ear Pain, No Nasal Congestion, No Sinus Pain, No Hoarseness, No sore throat, No Rhinorrhea, No Swallowing Difficulty Eyes: No Eye Pain, No Swelling, No Redness, No Foreign Body, No Discharge, No Vision Changes Cardiovascular : No Chest Pain, No SOB, No Dyspnea on Exertion, No Orthopnea, No Edema, No Palpitations Respiratory : No Cough, No Sputum, No Wheezing, No Smoke Exposure, No Dyspnea Gastrointestinal : No Nausea, No Vomiting, No Diarrhea, No Constipation, No ab dominal Pain, No Hematochezia, No Melena Genitourinary : no irregular bleeding, No Dysuria, No Urinary Frequency, No Hematuria, No Urinary Incontinence, No Urgency, No Flank Pain, No Urinary Flow Changes, No Hesitancy Musculoskeletal : No joint pain, No Myalgias, No Joint Swelling Skin : No Skin Lesions, No rash Neuro : No Weakness, No Numbness, No Paresthesias, No Loss of Consciousness, complaining of headache and dizziness Psych : No Anxiety/Panic, No Depression, No SI/HI/AH/VH, No Social Issues, Heme/Lymph: No Bruising, No Bleeding,No Lymphadenopathy Endocrine : No Polyuria, No Polydipsia, No Temperature Intolerance [facility] Past Medical History Medical History CAD (coronary artery disease) HTN (hypertension) Ischemic cardiomyopathy Polysubstance dependence STEMI (ST elevation myocardial infarction) Family History Family History Family/Other CAD (coronary artery disease) Social History Social History Patient Tobacco Use Status: Current everyday Tobacco user Cigarettes Per Day: 5 Years Smoked: 15 Second Hand Smoke Exposure: Yes Substance Use Type: Former Substance User Advance Directives: No Advance Directives Information Provided: Yes service: No Current occupational status: unemployed Physical Exam ED Vital Signs: Vital Signs - 24 hr 06/13/22 01:37 06/13/22 01:46 06/13/22 03:01 Temperature 99.4 F Pulse Rate 92 80 74 Respiratory Rate 19 18 Blood Pressure 133/91 H 131/80 115/72 Pulse Oximetry 99 100 Oxygen Delivery Method Room Air Room Air 06/13/22 03:01 06/13/22 03:03 Temperature Pulse Rate 75 76 Respiratory Rate Blood Pressure 129/84 126/84 Pulse Oximetry Oxygen Delivery Method BMI result Body Mass Index 26.6 Const Other: Appearance: Alert. Oriented X3. No acute distress. Eyes: Pupils equal, round and reactive to light. ENT: Pharynx normal. Neck: Normal inspection. Neck supple. No lymph nodes noted. No crepitus CVS: Normal heart rate and rhythm. Pulses normal. Normal S1 and S2 Respiratory: No respiratory distress. Breath sounds normal. No Wheezing. No rales Abdomen: Soft and nontender. No rigidity. No distention. Skin: Skin warm and dry. Normal skin color. Normal skin turgor. Extremities: No lower extremity edema. No Lacerations. No Rash Neuro: Oriented X 3. No motor deficit. No sensory deficit. Moving all extremities. No slurred speech. CN 2 through 12 grossly intact Psych: calm, cooperative, normal affect Course Course Course Narrative: Patient tested negative for influenza. Patient's labs are pending. Patient's troponin negative, EKG negative. Patient likely having a viral syndrome. Medical Decision Making Lab Data Result diagrams: 06/13/22 02:52 06/13/22 02:52 Labs: Lab Results 06/13/22 06/13/22 06/13/22 Range/Units 01:53 02:52 02:52 WBC 9.5 (4.8-10.8) X10*3/uL RBC 4.82 (4.60-5.80) X10*6/uL Hgb 13.1 L (14.0-18.0) g/dl Hct 40.2 L (42.0-52.0) % MCV 83.4 (80.0-98.0) fL MCH 27.2 (27.0-33.0) pg MCHC 32.6 (31.0-36.0) g/dl RDW 13.4 (11.0-16.0) % Plt Count 193 (160-400) X10*3/uL MPV 11.3 (9.4-12.4) fL Immature Gran % (Auto) 0.2 (0.0-0.4) % Neut % (Auto) 80.3 H (45-73) % Lymph % (Auto) 8.5 L (20-40) % Dolores % (Auto) 6.5 (2-11) % Eos % (Auto) 4.0 (0-4) % Baso % (Auto) 0.5 (0-2) % Lymph # (Auto) 0.8 L (1.2-4.9) X10*3/uL Dolores # (Auto) 0.6 (0.1-1.2) X10*3/uL Eos # (Auto) 0.4 (0.0-0.4) X10*3/uL Baso # (Auto) 0.1 (0.0-0.2) X10*3/uL Abs Immat Gran (auto) 0.02 (0.00-0.03) X10*3/uL Absolute Neuts (auto) 7.6 (2.0-8.3) x10*3/uL Absolute Nucleated RBC 0.000 (0.0-0.012) X10*3/uL Nucleated RBC % (auto) 0.0 (0.0-0.2) /100WBC Sodium 139 (135-145) mmol/L Potassium 4.2 (3.3-5.1) mmol/L Chloride 100 (96-108) mmol/L Carbon Dioxide 29 (22-29) mmol/L Anion Gap 14 (12-20) BUN 11 (9-16) mg/dL Creatinine 1.12 (0.5-1.4) mg/dL Estim Creat Clear Calc 85.2 Estimated GFR > 60 Random Glucose 98 (60-115) mg/dL Calcium 9.2 (8.4-10.2) mg/dL Total Bilirubin 0.2 (0.0-1.0) mg/dL Direct Bilirubin 0.2 (0.0-0.5) mg/dL AST 14 (5-37) U/L ALT 7 (0-40) U/L Alkaline Phosphatase 67 D (39-117) U/L Troponin I High Sens (<3.5-35.0) ng/L Total Protein 7.5 (6.5-8.0) g/dL Albumin 4.6 (3.5-5.0) g/dL COVID-19 ([facility]) Negative (Negative) COVID-19 Clin Com See Note 06/13/22 Range/Units 02:52 WBC (4.8-10.8) X10*3/uL RBC (4.60-5.80) X10*6/uL Hgb (14.0-18.0) g/dl Hct (42.0-52.0) % MCV (80.0-98.0) fL MCH (27.0-33.0) pg MCHC (31.0-36.0) g/dl RDW (11.0-16.0) % Plt Count (160-400) X10*3/uL MPV (9.4-12.4) fL Immature Gran % (Auto) (0.0-0.4) % Neut % (Auto) (45-73) % Lymph % (Auto) (20-40) % Dolores % (Auto) (2-11) % Eos % (Auto) (0-4) % Baso % (Auto) (0-2) % Lymph # (Auto) (1.2-4.9) X10*3/uL Dolores # (Auto) (0.1-1.2) X10*3/uL Eos # (Auto) (0.0-0.4) X10*3/uL Baso # (Auto) (0.0-0.2) X10*3/uL Abs Immat Gran (auto) (0.00-0.03) X10*3/uL Absolute Neuts (auto) (2.0-8.3) x10*3/uL Absolute Nucleated RBC (0.0-0.012) X10*3/uL Nucleated RBC % (auto) (0.0-0.2) /100WBC Sodium (135-145) mmol/L Potassium (3.3-5.1) mmol/L Chloride (96-108) mmol/L Carbon Dioxide (22-29) mmol/L Anion Gap (12-20) BUN (9-16) mg/dL Creatinine (0.5-1.4) mg/dL Estim Creat Clear Calc Estimated GFR Random Glucose (60-115) mg/dL Calcium (8.4-10.2) mg/dL Total Bilirubin (0.0-1.0) mg/dL Direct Bilirubin (0.0-0.5) mg/dL AST (5-37) U/L ALT (0-40) U/L Alkaline Phosphatase (39-117) U/L Troponin I High Sens 5.1 (<3.5-35.0) ng/L Total Protein (6.5-8.0) g/dL Albumin (3.5-5.0) g/dL COVID-19 ([facility]) (Negative) COVID-19 Clin Com ECG Data Attestation: I personally reviewed and interpreted this ECG as follows: (Heart rate 69, normal sinus rhythm, nonspecific ST changes in V3, QTC 372, no chest pain, troponin negative) Discharge Plan Discharge Clinical Impression: Acute viral syndrome Patient Disposition: Home, Self-Care Instructions: Viral Syndrome (ED) Additional Instructions: Please follow-up with your primary care physician tomorrow. If you have any worsening or new symptoms, please return to the emergency room or call 911 Prescriptions: New acetaminophen 500 mg capsule 500 mg PO QID PRN (Reason: fever or pain) Qty: 20 0RF No Action atorvastatin 80 mg Tablet 80 mg PO BEDTIME aspirin 81 mg Tablet 81 mg PO DAILY metoprolol succinate 25 mg Tablet Extended Release 24 Hr 12.5 mg PO DAILY lisinopril 2.5 mg Tablet 2.5 mg PO DAILY Brilinta 90 mg Tablet 90 mg PO BID trazodone 50 mg tablet 25 mg PO BEDTIME buprenorphine-naloxone [Suboxone] 4-1 mg film 1 strip sublingual DAILY amlodipine 2.5 mg tablet 2.5 mg PO DAILY Qty: 30 0RF
--- NOTE | 2022-06-13 02:45 | ECG_ITS ---
Test Reason : SOB Blood Pressure : / mmHG Vent. Rate : 069 BPM Atrial Rate : 069 BPM P-R Int : 136 ms QRS Dur : 078 ms QT Int : 348 ms P-R-T Axes : 041 021 090 degrees QTc Int : 372 ms Normal sinus rhythm Low voltage QRS Septal infarct (cited on or before 29-JUL-2021) T wave abnormality, consider anterior ischemia Abnormal ECG When compared with ECG of 13-JUN-2022 02:34, QRS axis Shifted left Referred By: Molly Lal Electronically Signed By:BRINA CLEARY
[2022-06-13 02:56] LABS: MANUAL DIFF FLAG NO
[2022-06-13] MEDS: Acetaminophen 325 MG TABLET 975 MG PO (02:56)
[2022-06-13] MEDS: 0.9 % Sodium Chloride 1,000 ML 999 ML IVCONT (02:56)
[2022-06-13 03:00] LABS: Basophils Absolute Auto 0.1 X10*3/uL (0.0-0.2); Basophils Percent Auto 0.5 % (0-2); Eosinophils Absolute Auto 0.4 X10*3/uL (0.0-0.4); Hematocrit 40.2 % (42.0-52.0); Hemoglobin 13.1 g/dl (14.0-18.0); Imm Gran Abs Auto 0.02 X10*3/uL (0.00-0.03); Imm Gran Pct Auto 0.2 % (0.0-0.4); Lymphocytes Absolute Auto 0.8 X10*3/uL (1.2-4.9); Lymphocytes Percent Auto 8.5 % (20-40); Mean Corpuscular HGB Conc 32.6 g/dl (31.0-36.0); Mean Corpuscular Hemoglobin 27.2 pg (27.0-33.0); Mean Corpuscular Volume 83.4 fL (80.0-98.0); Mean Platelet Volume 11.3 fL (9.4-12.4); Monocytes Absolute Auto 0.6 X10*3/uL (0.1-1.2); Monocytes Percent Auto 6.5 % (2-11); Neutrophils Absolute Auto 7.6 x10*3/uL (2.0-8.3); Neutrophils Percent Auto 80.3 % (45-73); Platelet Count 193 X10*3/uL (160-400); Red Blood Count 4.82 X10*6/uL (4.60-5.80); Red Cell Distribution Width 13.4 % (11.0-16.0); White Blood Count 9.5 X10*3/uL (4.8-10.8)
[2022-06-13 03:01] VITALS: BP 115/72; BP 129/84; PULSE 74; PULSE 75
[2022-06-13 03:03] VITALS: BP 126/84; PULSE 76
[2022-06-13 03:16] LABS: Troponin-I High Sensitivity 5.1 ng/L (<3.5-35.0)
[2022-06-13 03:17] LABS: Alanine Aminotransferase 7 U/L (0-40); Albumin Level 4.6 g/dL (3.5-5.0); Alkaline Phosphatase 67 U/L (39-117); Anion Gap 14 (12-20); Aspartate Amino Transferase 14 U/L (5-37); Bilirubin Direct 0.2 mg/dL (0.0-0.5); Bilirubin Total 0.2 mg/dL (0.0-1.0); Blood Urea Nitrogen 11 mg/dL (9-16); Calcium 9.2 mg/dL (8.4-10.2); Carbon Dioxide 29 mmol/L (22-29); Chloride 100 mmol/L (96-108); Creatinine Clr Calc Pharmacy 85.2; Estimated Glomerular Filt Rate > 60; Glucose Random 98 mg/dL (60-115); Potassium 4.2 mmol/L (3.3-5.1); Sodium 139 mmol/L (135-145); Total Protein 7.5 g/dL (6.5-8.0)
== END 2022-06-13 03:56 | disposition home or self-care (01) ==
PROVIDERS: Emergency Provider Emergency Medicine
DX: B34.9 Viral infection, unspecified (principal); Z20.822 Contact with and (suspected) exposure to COVID-19; R42 Dizziness and giddiness; I10 Essential (primary) hypertension; F11.20 Opioid dependence, uncomplicated; F17.210 Nicotine dependence, cigarettes, uncomplicated; Z79.899 Other long term (current) drug therapy; Z79.02 Long term (current) use of antithrombotics/antiplatelets; Z79.82 Long term (current) use of aspirin
CPT/HCPCS: 36415; 71046; 80048; 80076; 84484; 85025; 87635; 93005; 99283; 99284

== ENCOUNTER 2022-07-13 14:48 | Observation (INO) | payer MEDICAID, SELFPAY ==
--- NOTE | ~2022-07-13 | CT_ITS ---
EXAMINATION: CT ABDOMEN AND PELVIS WITH CONTRAST CLINICAL INFORMATION: GI bleed. Weight loss and anemia. Evaluate for GI mass. COMPARISON: None TECHNIQUE: Multidetector volumetric images were obtained from the superior aspect of the liver through the pubic symphysis following administration 85 mL of Omnipaque 350 intravenous contrast. Sagittal and coronal reformatted images were obtained on the technologist's workstation. Oral contrast: No This CT examination was performed using dose optimization techniques as appropriate, variously including the following: *Automated exposure control *Adjustment of mA and/or kV according to patient size (this includes techniques or standardized protocols for targeted exams where dose is matched to indication/reason for exam; i.e. extremities or head) *Use of iterative reconstruction technique DLP: 538 mGy-cm FINDINGS: LUNG BASES: The visualized lung bases are unremarkable. LIVER, GALLBLADDER, AND BILIARY TREE: The liver is normal in size, shape, and attenuation. 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 No suspicious hepatic lesion or biliary ductal dilatation is present. The gallbladder is unremarkable with no evidence of radiopaque gallstones, gallbladder wall thickening, or obvious pericholecystic inflammatory changes. PANCREAS: Unremarkable. SPLEEN: Unremarkable. ADRENAL GLANDS: Unremarkable. KIDNEYS AND URETERS: The kidneys are normal in size, shape, and attenuation. No hydronephrosis, hydroureter, or calculi seen. No perinephric stranding. BLADDER: Unremarkable. GASTROINTESTINAL TRACT /LYMPH NODES: There is a 4.8 x 2.9 x 3.3 cm heterogeneously enhancing mass in the cecum. A malignant lymph node is present posterior to the ascending colon measuring 2.0 x 2.0 cm. There are a few additional small but likely pathologic lymph nodes posterior and medial to the ascending colon as well. Stomach and small bowel unremarkable. ABDOMINAL WALL: No significant hernia is appreciated. VASCULAR: Unremarkable. PELVIC VISCERA: Unremarkable. OSSEOUS STRUCTURES: No acute or suspicious osseous abnormalities. 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 * No evidence of distant metastatic disease. This critical result was discussed with Dr Alvarez at 07/14/2022 4:38 AM and it was ascertained that the content and urgency of the report was understood at the time of direct communication.
[2022-07-13 16:03] VITALS: BP 105/68; PULSE 75; RESP 18; TEMP 36.7; O2SAT 98; BMI 25.8
--- NOTE | 2022-07-13 16:07 | ECG_ITS ---
Test Reason : GI BLEED Blood Pressure : / mmHG Vent. Rate : 061 BPM Atrial Rate : 061 BPM P-R Int : 146 ms QRS Dur : 080 ms QT Int : 372 ms P-R-T Axes : 038 020 099 degrees QTc Int : 374 ms Normal sinus rhythm Low voltage QRS Cannot rule out Anteroseptal infarct (cited on or before 29-JUL-2021) T wave abnormality, consider lateral ischemia Abnormal ECG When compared with ECG of 13-JUN-2022 02:45, Questionable change in initial forces of Anterior leads Referred By: Generic ED Physician Electronically Signed By:BRINA CLEARY
[2022-07-13 16:35] LABS: MANUAL DIFF FLAG NO
[2022-07-13 16:39] LABS: Basophils Absolute Auto 0.1 X10*3/uL (0.0-0.2); Eosinophils Absolute Auto 0.6 X10*3/uL (0.0-0.4); Eosinophils Percent Auto 9.1 % (0-4); Hematocrit 34.5 % (42.0-52.0); Hemoglobin 11.2 g/dl (14.0-18.0); Imm Gran Abs Auto 0.02 X10*3/uL (0.00-0.03); Imm Gran Pct Auto 0.3 % (0.0-0.4); Lymphocytes Absolute Auto 1.9 X10*3/uL (1.2-4.9); Lymphocytes Percent Auto 30.6 % (20-40); Mean Corpuscular HGB Conc 32.5 g/dl (31.0-36.0); Mean Corpuscular Hemoglobin 28.1 pg (27.0-33.0); Mean Corpuscular Volume 86.7 fL (80.0-98.0); Mean Platelet Volume 11.4 fL (9.4-12.4); Monocytes Absolute Auto 0.4 X10*3/uL (0.1-1.2); Monocytes Percent Auto 6.9 % (2-11); Neutrophils Absolute Auto 3.3 x10*3/uL (2.0-8.3); Neutrophils Percent Auto 52.1 % (45-73); Platelet Count 203 X10*3/uL (160-400); Red Blood Count 3.98 X10*6/uL (4.60-5.80); Red Cell Distribution Width 13.3 % (11.0-16.0); White Blood Count 6.3 X10*3/uL (4.8-10.8)
[2022-07-13 17:05] LABS: Alanine Aminotransferase 8 U/L (0-40); Albumin Level 4.2 g/dL (3.5-5.0); Alkaline Phosphatase 58 U/L (39-117); Anion Gap 15 (12-20); Aspartate Amino Transferase 12 U/L (5-37); Bilirubin Total < 0.2 mg/dL (0.0-1.0); Blood Urea Nitrogen 17 mg/dL (9-16); Carbon Dioxide 26 mmol/L (22-29); Chloride 103 mmol/L (96-108); Estimated Glomerular Filt Rate > 60; Glucose Random 87 mg/dL (60-115); Potassium 4.4 mmol/L (3.3-5.1); Sodium 140 mmol/L (135-145); Total Protein 6.6 g/dL (6.5-8.0)
[2022-07-13 23:42] VITALS: BP 100/64; PULSE 57; RESP 18; TEMP 36.9; O2SAT 99
[2022-07-14 02:28] VITALS: BP 92/57; PULSE 61; RESP 14; O2SAT 98
[2022-07-14 02:41] LABS: Basophils Absolute Auto 0.1 X10*3/uL (0.0-0.2); Basophils Percent Auto 1.2 % (0-2); Eosinophils Absolute Auto 0.7 X10*3/uL (0.0-0.4); Eosinophils Percent Auto 10.3 % (0-4); Hematocrit 32.6 % (42.0-52.0); Hemoglobin 10.5 g/dl (14.0-18.0); Imm Gran Abs Auto 0.02 X10*3/uL (0.00-0.03); Imm Gran Pct Auto 0.3 % (0.0-0.4); Lymphocytes Absolute Auto 2.4 X10*3/uL (1.2-4.9); Lymphocytes Percent Auto 35.3 % (20-40); MANUAL DIFF FLAG NO; Mean Corpuscular HGB Conc 32.2 g/dl (31.0-36.0); Mean Corpuscular Hemoglobin 27.7 pg (27.0-33.0); Mean Platelet Volume 11.1 fL (9.4-12.4); Monocytes Absolute Auto 0.5 X10*3/uL (0.1-1.2); Monocytes Percent Auto 7.4 % (2-11); Neutrophils Absolute Auto 3.1 x10*3/uL (2.0-8.3); Neutrophils Percent Auto 45.5 % (45-73); Platelet Count 178 X10*3/uL (160-400); Red Blood Count 3.79 X10*6/uL (4.60-5.80); Red Cell Distribution Width 13.5 % (11.0-16.0); White Blood Count 6.8 X10*3/uL (4.8-10.8)
--- NOTE | 2022-07-14 03:10 | ED.GIBLEED ---
HPI - GI Bleed General Chief complaint: GI Bleed Stated complaint: bleeding from rectum Time Seen by Provider: 07/14/22 02:53 Source: patient Mode of arrival: ambulatory Limitations: no limitations History of Present Illness HPI Narrative: 36-year-old male who presents emergency department for evaluation of lower GI bleed. patient states has had 2-3 bowel movements which have consisted of bright red blood and dark black stool. He states that he has had approximately 10 lb weight loss over the last 2-3 weeks which is unintentional. States that he was feeling weak, dizzy and lightheaded. He denied abdominal pain. He denied chest pain, shortness of breath, nausea or vomiting. Patient states that his brother had colon cancer at age 30. He states that his mother had stomach cancer at age 50. The patient does have a history of myocardial infarction 1 year prior with stenting. He also has ischemic cardiomyopathy. The patient takes aspirin and Brilinta for his coronary disease/stent MD complaint: gross hematochezia and other ( dark stool) Onset (ago): day(s) (1) Pain Consistency: intermittent Severity: moderate Relieving factors: none Exacerbating factors: none Associated symptoms: malaise, weakness and other ( dizziness) Treatments Prior to Arrival: none Related Data Home Medications Medication Instructions Recorded Confirmed aspirin 81 mg tablet 81 mg PO DAILY 07/29/21 07/29/21 atorvastatin 80 mg tablet 80 mg PO BEDTIME 07/29/21 07/29/21 buprenorphine 4 mg-naloxone 1 mg 1 strip sublingual DAILY 07/29/21 07/29/21 sublingual film (Suboxone) lisinopril 2.5 mg tablet 2.5 mg PO DAILY 07/29/21 07/29/21 metoprolol succinate 25 mg 12.5 mg PO DAILY 07/29/21 07/29/21 tablet,extended release 24 hr ticagrelor 90 mg tablet (Brilinta) 90 mg PO BID 07/29/21 07/29/21 trazodone 50 mg tablet 25 mg PO BEDTIME 07/29/21 07/29/21 Previous Rx's Medication Instructions Recorded amlodipine 2.5 mg tablet 2.5 mg PO DAILY #30 tabs 07/29/21 acetaminophen 500 mg capsule 500 mg PO QID PRN fever or pain 06/13/22 #20 caps Allergies Allergy/AdvReac Type Severity Reaction Status Date / Time No Known Allergies Allergy Verified 06/13/22 01:41 Review of Systems Review of Systems: Yes all other systems are reviewed and are negative [facility] Past Medical History [facility] Narrative: Social history: The patient smokes 1/2 pack of cigarettes per day times 12 years. The patient states that he drinks alcohol mainly on the weekends up to 2 cups of liquor. He states he is a former substance user, he has used Percocet in the past, he is currently on Suboxone. Medical History CAD (coronary artery disease) HTN (hypertension) Ischemic cardiomyopathy Polysubstance dependence STEMI (ST elevation myocardial infarction) Family History Family History Family/Other CAD (coronary artery disease) Social History Social History Patient Tobacco Use Status: Current everyday Tobacco user Cigarettes Per Day: 5 Years Smoked: 15 Second Hand Smoke Exposure: Yes Substance Use Type: Former Substance User Advance Directives: No Advance Directives Information Provided: No service: No Current occupational status: unemployed Physical Exam Vital Signs: Vital Signs: Last Vital Signs Temp 98.4 F 07/13/22 23:42 Pulse 70 07/14/22 04:11 Resp 14 07/14/22 02:28 BP 103/67 07/14/22 04:11 Pulse Ox 98 07/14/22 02:28 O2 Del Method 07/14/22 02:28 BMI result Body Mass Index 25.8 Const: General: cooperative and no acute distress Orientation/consciousness: oriented to person and oriented to place Limitations: no limitations HEENT: Head: Yes normal to inspection, Yes normocephalic and Yes atraumatic Ears: external ears normal General nose exam: Normal external nose present Face and sinus: Yes normal facial exam Mouth: Normal oral and palatal mucosa present Throat: Yes posterior oropharynx normal Eyes: General: appearance normal, both eyes and all related structures Pupils: Equal, round and reactive pupils present Neck: Neck: Yes normal visual inspection, Yes no lymphadenopathy, Yes trachea midline and Yes supple Chest: Chest palpation & inspection: normal inspection of the chest and normal palpation of entire chest wall Resp: Effort & Inspection: normal respiratory effort and able to speak in complete sentences Auscultation: clear to auscultation bilaterally Cardio: Rate: regular rate Rhythm: regular rhythm Heart sounds: S1 normal heart sound present, S2 normal heart sound present and no murmurs GI: Inspection: Yes normal to inspection Palpation (GI): Soft to palpation, Tenderness to palpation present (GI) in the LLQ ( Iggy-lb-cqrddinc) and no guarding Auscultation: normal bowel sounds Rectal Exam - Male: Yes Visual inspection abnormal, Yes normal sphincter tone and Yes heme positive stool ( dark red stool) : General: Yes no CVA tenderness Back/Spine/Pelvis: Back: no CVA tenderness Skin: General skin exam: no rashes or lesions noted Neuro: General: oriented to person and oriented to place Cranial nerves: Yes CN's II-XII intact bilaterally and Yes Equal, round and reactive pupils present Cognition (Neuro): normal cognition Motor exam (neuro): 5/5 motor strength present throughout Extrem: General: Yes normal to inspection Psych: Appearance: grossly normal Speech and movement: Normal speech and movement present Affect: normal affect Attitude: cooperative Thought process: Normal thought process present Thought content: Normal thought content present Course Course Course Narrative: 36-year-old male who presents emergency department for evaluation of 3 episodes dark bloody stool x1 day and10 lb weight loss over 2 weeks. Vital signs revealed a low blood pressure of 92/57. Abdominal exam did reveal left lower quadrant tenderness. Rectal exam revealed dark red stool which was Hemoccult positive. Laboratory evaluation , type and screen and CT scan of the abdomen pelvis Was ordered. 0318: Laboratory evaluation: Normal soak anemia with an H&H of 10.5 and 32.6 with an MCV of 86 (chronic 07/29/2020 H&H 11.3 and 33.9 ), elevated BUN 17. 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 * No evidence of distant metastatic disease. Dictated By:Mark Ventura MD I I did discuss the patient's presentation in the radiology reading with the covering surgeon, Dr. Muniz who will come to the emergency department and evaluate the patient. 0556: Dr. Muniz reviewed the patient's record, given his ischemic cardiomyopathy, recent MT, polysubstance abuse, he recommended the patient be admitted to the hospitalist and GI consult for colonoscopy and biopsy of the mass. I will discuss admission with the covering hospitalist. 0643: Patient was discussed over tiger text with Dr. Tobin and the patient will be admitted to the hospitalist service. I did discuss the patient's presentation with the covering gastrologist, Dr. Leonard. He wants the patient to be NPO and prepped for colonoscopy tomorrow. MDM - GI Bleed Lab Data Attestation: I reviewed the patient's lab results. Result diagrams: 07/14/22 02:37 07/13/22 16:21 Labs: Lab Results 07/13/22 07/13/22 07/14/22 Range/Units 16:21 16:21 02:37 WBC 6.3 6.8 (4.8-10.8) X10*3/uL RBC 3.98 L 3.79 L (4.60-5.80) X10*6/uL Hgb 11.2 L 10.5 L (14.0-18.0) g/dl Hct 34.5 L 32.6 L (42.0-52.0) % MCV 86.7 86.0 (80.0-98.0) fL MCH 28.1 27.7 (27.0-33.0) pg MCHC 32.5 32.2 (31.0-36.0) g/dl RDW 13.3 13.5 (11.0-16.0) % Plt Count 203 178 (160-400) X10*3/uL MPV 11.4 11.1 (9.4-12.4) fL Immature Gran % (Auto) 0.3 0.3 (0.0-0.4) % Neut % (Auto) 52.1 45.5 (45-73) % Lymph % (Auto) 30.6 35.3 (20-40) % Leslie % (Auto) 6.9 7.4 (2-11) % Eos % (Auto) 9.1 H 10.3 H (0-4) % Baso % (Auto) 1.0 1.2 (0-2) % Lymph # (Auto) 1.9 2.4 (1.2-4.9) X10*3/uL [place] # (Auto) 0.4 0.5 (0.1-1.2) X10*3/uL Eos # (Auto) 0.6 H 0.7 H (0.0-0.4) X10*3/uL Baso # (Auto) 0.1 0.1 (0.0-0.2) X10*3/uL Abs Immat Gran (auto) 0.02 0.02 (0.00-0.03) X10*3/uL Absolute Neuts (auto) 3.3 3.1 (2.0-8.3) x10*3/uL Absolute Nucleated RBC 0.000 0.000 (0.0-0.012) X10*3/uL Nucleated RBC % (auto) 0.0 0.0 (0.0-0.2) /100WBC Sodium 140 (135-145) mmol/L Potassium 4.4 (3.3-5.1) mmol/L Chloride 103 (96-108) mmol/L Carbon Dioxide 26 (22-29) mmol/L Anion Gap 15 (12-20) BUN 17 H D (9-16) mg/dL Creatinine 0.98 (0.5-1.4) mg/dL Estim Creat Clear Calc 94.0 Estimated GFR > 60 Random Glucose 87 (60-115) mg/dL Calcium 9.0 (8.4-10.2) mg/dL Total Bilirubin < 0.2 (0.0-1.0) mg/dL AST 12 (5-37) U/L ALT 8 (0-40) U/L Alkaline Phosphatase 58 (39-117) U/L Total Protein 6.6 (6.5-8.0) g/dL Albumin 4.2 (3.5-5.0) g/dL Stool Occult Blood (NEGATIVE) COVID-19 ([facility]) (Negative) COVID-19 Clin Com Blood Type Antibody Screen 07/14/22 07/14/22 07/14/22 Range/Units 03:35 03:35 06:49 WBC (4.8-10.8) X10*3/uL RBC (4.60-5.80) X10*6/uL Hgb (14.0-18.0) g/dl Hct (42.0-52.0) % MCV (80.0-98.0) fL MCH (27.0-33.0) pg MCHC (31.0-36.0) g/dl RDW (11.0-16.0) % Plt Count (160-400) X10*3/uL MPV (9.4-12.4) fL Immature Gran % (Auto) (0.0-0.4) % Neut % (Auto) (45-73) % Lymph % (Auto) (20-40) % Leslie % (Auto) (2-11) % Eos % (Auto) (0-4) % Baso % (Auto) (0-2) % Lymph # (Auto) (1.2-4.9) X10*3/uL Leslie # (Auto) (0.1-1.2) X10*3/uL Eos # (Auto) (0.0-0.4) X10*3/uL Baso # (Auto) (0.0-0.2) X10*3/uL Abs Immat Gran (auto) (0.00-0.03) X10*3/uL Absolute Neuts (auto) (2.0-8.3) x10*3/uL Absolute Nucleated RBC (0.0-0.012) X10*3/uL Nucleated RBC % (auto) (0.0-0.2) /100WBC Sodium (135-145) mmol/L Potassium (3.3-5.1) mmol/L Chloride (96-108) mmol/L Carbon Dioxide (22-29) mmol/L Anion Gap (12-20) BUN (9-16) mg/dL Creatinine (0.5-1.4) mg/dL Estim Creat Clear Calc Estimated GFR Random Glucose (60-115) mg/dL Calcium (8.4-10.2) mg/dL Total Bilirubin (0.0-1.0) mg/dL AST (5-37) U/L ALT (0-40) U/L Alkaline Phosphatase (39-117) U/L Total Protein (6.5-8.0) g/dL Albumin (3.5-5.0) g/dL Stool Occult Blood POSITIVE (NEGATIVE) COVID-19 ([facility]) Negative (Negative) COVID-19 Clin Com See Note Blood Type A Positive Antibody Screen NEGATIVE ECG Data Attestation: I personally reviewed and interpreted this ECG as follows: Interpretation: 0750: Normal sinus rhythm with a rate of 75, normal MS interval, QRS duration and QTC interval, inverted T-wave in lead 1 and aVL, V1 through V4, less than [address] segment elevation the 1 through V4, Q-wave V1 and V2, compared to EKG dated 06/13/2022, T-wave abnormalities, Q-waves in ST segment abnormalities are all old. Critical Care Time Critical Care Time Critical Care Time: Yes Total Critical Care Time: 45 Attestation: Critical Care: The patient was critically ill with a high probability of imminent or life threatening deterioration. I spent greater than 30 minutes of discontinuous time evaluating the patient,delivering critical care at the bedside, discussing and evaluating pertinent data with consultants. Critical care time does not include time spent performing separately billable procedures or teaching. Total time spent performing critical care was 45 minutes. Discharge Plan Discharge Clinical Impression: Colonic mass, Hematochezia, Microcytic anemia Prescriptions: No Action atorvastatin 80 mg Tablet 80 mg PO BEDTIME aspirin 81 mg Tablet 81 mg PO DAILY metoprolol succinate 25 mg Tablet Extended Release 24 Hr 12.5 mg PO DAILY lisinopril 2.5 mg Tablet 2.5 mg PO DAILY Brilinta 90 mg Tablet 90 mg PO BID trazodone 50 mg tablet 25 mg PO BEDTIME buprenorphine-naloxone [Suboxone] 4-1 mg film 1 strip sublingual DAILY amlodipine 2.5 mg tablet 2.5 mg PO DAILY Qty: 30 0RF acetaminophen 500 mg capsule 500 mg PO QID PRN (Reason: fever or pain) Qty: 20 0RF
[2022-07-14] MEDS: 0.9 % Sodium Chloride 1,000 ML 999 ML IV (03:25)
[2022-07-14 03:38] LABS: OBS1 POSITIVE (NEGATIVE)
[2022-07-14 03:39] LABS: OBS Int Ctl Valid YES
[2022-07-14] MEDS: iohexoL 350 MG/ML 100 ML INFUS..BTL 85 ML IV (03:58)
[2022-07-14 04:11] VITALS: BP 103/67; PULSE 70
--- NOTE | 2022-07-14 06:35 | ECG_ITS ---
Test Reason : repeat Blood Pressure : / mmHG Vent. Rate : 075 BPM Atrial Rate : 075 BPM P-R Int : 142 ms QRS Dur : 076 ms QT Int : 368 ms P-R-T Axes : 061 047 094 degrees QTc Int : 410 ms Normal sinus rhythm Low voltage QRS Cannot rule out Anteroseptal infarct (cited on or before 29-JUL-2021) T wave abnormality, consider lateral ischemia Abnormal ECG When compared with ECG of 13-JUL-2022 16:23, Questionable change in initial forces of Anterior leads Referred By: Dallas Alvarez Electronically Signed By:BRINA CLEARY
[2022-07-14] MEDS: Lactated Ringers 1,000 ML 125 ML IVCONT (06:42)
[2022-07-14 07:22] LABS: COVID-19 Test Negative (Negative)
--- NOTE | 2022-07-14 08:12 | PC.NURSE ---
Dr Leonard to bedside to discuss pln w pt, i confirmed w that pt was clear liquids for now, pt w nad, drinking aple juice, pharmacy working on med rec
--- NOTE | 2022-07-14 08:14 | PM.EVENT ---
Event Note Date of Service: 07/14/22 Event Note: GI pt seen and examined, discussed with Dr Alvarez, consult dictated. We have scheduled colonoscopy for 07/15 for evaluation of rectal bleeding and the cecal lesion seen on ct imaging. Antiplatelet medications on hold for this and bowel prep to be done today. Clear liquid diet today.
[2022-07-14 08:19] VITALS: BP 113/79; PULSE 73; RESP 12; O2SAT 99
--- NOTE | 2022-07-14 09:02 | P.HPHOSP_ITS ---
History of Present Illness Date of Service: 07/14/22 Chief Complaint: rectal bleeding This is a 36 year old male with a PMH of CAD s/p NE with stenting and now on DAPT last year, cocaine use (last use reported several days prior to admission), family history of colon Ca @ age 30 in his brother, chronic opiate dependence on suboxone who presetnted to the ED with complaints of bright red and maroon colored stools on the day prior to hospitalization. The patient reports that his had no happened before. He denies any abdominal pain. He reports a loss of appetite and weight. He reports an unintentional weight loss of about 10 lbs over the last several weeks. He endorses a FH of cancer in his younger brother who was diagnosed with colon Ca at the age of 30. Also reports a history of gastric Ca in his mother when she was around 50. In regards to his cocaine use, he reports that this has decreased significantly since his NE last year. However, over the last several weeks he has used it several times (snorting). Currently, he denies any active chest pain, sob or cough. Review of Systems Review of Systems: negative except HPI [facility] Medical History CAD (coronary artery disease) HTN (hypertension) Ischemic cardiomyopathy Polysubstance dependence STEMI (ST elevation myocardial infarction) Family History (Updated 07/14/22 @ 10:12 by Demar Joy MD) Family/Other CAD (coronary artery disease) Colon cancer, Onset Age: 30 Social History Patient Tobacco Use Status: Current everyday Tobacco user Cigarettes Per Day: 5 Years Smoked: 15 Second Hand Smoke Exposure: Yes Substance Use Type: Former Substance User Advance Directives: No Advance Directives Information Provided: No service: No Current occupational status: unemployed Meds Allergies Allergy/AdvReac Type Severity Reaction Status Date / Time No Known Allergies Allergy Verified 06/13/22 01:41 Active Medications: Current Medications Acetaminophen (Acetaminophen 325 Mg Tablet) 650 mg PO Q6H PRN PRN Reason: Pain, Mild (Pain Scale 1-3) Atorvastatin Calcium (Atorvastatin Calcium 80 Mg Tablet) 80 mg PO BEDTIME PETR Buprenorphine/Naloxone (Buprenorphine/Naloxone 8/2 Mg Film) film SUBLINGUAL DAILY PETR Metoprolol Succinate (Metoprolol Succinate Er 25 Mg Tab.Er.24h) 25 mg PO DAILY PETR; Protocol Non-Formulary Medication (Pantoprazole) 1 tab PO DAILY [facility] Ondansetron HCl (Ondansetron Hcl 4 Mg/2 Ml Vial) 4 mg IVPUSH Q8H PRN PRN Reason: Nausea and Vomiting Polyethylene Glycol/Electrolytes (Peg 3350/Na Sulf,Bicarb,Cl/Kcl 4,000 Ml Soln.Recon) 4,000 ml PO ONCE@1300 ONE Stop: 07/14/22 13:01 Sacubitril/Valsartan (Sacubitril/Valsartan 49/51 1 Tab Tablet) 1 tab PO BID PETR; Protocol Sodium Chloride (0.9 % Sodium Chloride Flush 3 Ml Syringe) 3 ml IVFLUSH QSHIFT [facility] Trazodone HCl (Trazodone Hcl 100 Mg Tablet) 100 mg PO BEDTIME [facility] Home Medications Medication Instructions Recorded Confirmed Last Taken Type atorvastatin 80 mg tablet 80 mg PO BEDTIME 07/29/21 07/14/22 07/27/21 21:00 History metoprolol succinate 25 mg 25 mg PO DAILY 07/29/21 07/14/22 07/28/21 09:00 History tablet,extended release 24 hr ticagrelor 90 mg tablet (Brilinta) 90 mg PO BID 07/29/21 07/14/22 07/28/21 21:00 History aspirin 81 mg tablet,delayed 1 tab PO DAILY 07/14/22 07/14/22 Unknown History release buprenorphine 8 mg-naloxone 2 mg 0.5 strip sublingual DAILY 07/14/22 07/14/22 Unknown History sublingual film (Suboxone) pantoprazole 40 mg tablet,delayed 1 tab PO DAILY 07/14/22 07/14/22 Unknown History release sacubitril 49 mg-valsartan 51 mg 1 tab PO BID 07/14/22 07/14/22 Unknown History tablet (Entresto) trazodone 100 mg tablet 1 tab PO BEDTIME 07/14/22 07/14/22 Unknown History Physical Exam Vital Signs and Narrative: Vital Signs: Last Vital Signs Temp 98.4 F 07/13/22 23:42 Pulse 73 07/14/22 08:19 Resp 12 07/14/22 08:19 BP 113/79 07/14/22 08:19 Pulse Ox 99 07/14/22 08:19 O2 Del Method 07/14/22 08:19 BMI result Body Mass Index 25.8 Const: Other: Constitutional - Awake and Alert, No apparent distress Eyes - PERRLA, EOMI Cardiovascular - S1S2, RRR, No edema Respiratory - Normal lung expansion, Normal respiratory effort, No respiratory distress, CTA bilaterally Gastrointestinal - NT / ND; +BS; No rebound or guarding - No CVA tenderness Extremities - no calf tenderness bilaterally, no swelling Musculoskeletal - Normal inspection, normal ROM Skin - Warm/Dry Neurological - Alert & oriented x3, No focal deficit Psychological - Appropriate affect Results Labs CBC and Chem 7: 07/14/22 02:37 07/13/22 16:21 Labs: Laboratory Results - last 24 hr 07/13/22 07/13/22 07/14/22 16:21 16:21 02:37 MCV 86.7 86.0 MCH 28.1 27.7 MCHC 32.5 32.2 RDW 13.3 13.5 Plt Count 203 178 MPV 11.4 11.1 Immature Gran % (Auto) 0.3 0.3 Neut % (Auto) 52.1 45.5 Lymph % (Auto) 30.6 35.3 [place] % (Auto) 6.9 7.4 Eos % (Auto) 9.1 H 10.3 H Baso % (Auto) 1.0 1.2 Lymph # (Auto) 1.9 2.4 [place] # (Auto) 0.4 0.5 Eos # (Auto) 0.6 H 0.7 H Baso # (Auto) 0.1 0.1 Abs Immat Gran (auto) 0.02 0.02 Absolute Neuts (auto) 3.3 3.1 Absolute Nucleated RBC 0.000 0.000 Nucleated RBC % (auto) 0.0 0.0 Anion Gap 15 Estim Creat Clear Calc 94.0 Estimated GFR > 60 Random Glucose 87 Calcium 9.0 Total Bilirubin < 0.2 AST 12 ALT 8 Alkaline Phosphatase 58 Total Protein 6.6 Albumin 4.2 Stool Occult Blood COVID-19 ([facility]) COVID-19 Clin Com Blood Type Antibody Screen 07/14/22 07/14/22 07/14/22 03:35 03:35 06:49 MCV MCH MCHC RDW Plt Count MPV Immature Gran % (Auto) Neut % (Auto) Lymph % (Auto) [place] % (Auto) Eos % (Auto) Baso % (Auto) Lymph # (Auto) [place] # (Auto) Eos # (Auto) Baso # (Auto) Abs Immat Gran (auto) Absolute Neuts (auto) Absolute Nucleated RBC Nucleated RBC % (auto) Anion Gap Estim Creat Clear Calc Estimated GFR Random Glucose Calcium Total Bilirubin AST ALT Alkaline Phosphatase Total Protein Albumin Stool Occult Blood POSITIVE COVID-19 ([facility]) Negative COVID-19 Clin Com See Note Blood Type A Positive Antibody Screen NEGATIVE Imaging Radiologist's Impressions: Impressions Abdomen/Pelvis CT 07/14/22 03:50 IMPRESSION: * There 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 * No evidence of distant metastatic disease. This critical result was discussed with Dr Alvraez at 07/14/2022 4:38 AM and it was ascertained that the content and urgency of the report was understood at the time of direct communication. Assessment and Plan (1) Colonic mass: Status: Acute (2) Hematochezia: Status: Acute Plan 36 yo M with a PMH of CAD s/p NE and BK on DAPT, FH of colon Ca in brother and gastric Ca in mother, who presents after an acute episode of lower GI bleeidng. CT scan reveals a cecal mass and lymphadenopathy highly suspicious for malignancy. He will be admitted for coloscopic evaluation and biopsy. 1. Cecal Mass concern for malignancy given CT findings; also has FH of colon Ca in younger bro ther diagnosed at age 30 GI on board -- prep today with plans for scope tomorrow Gen Surg on board as well d/w Dr. Yarbrough from oncology -- will need outpatient f/u with her 2. Acute blood loss anemia due to lower GI bleed, likely from cecal mass 3. CAD s/p STEMI and LAD BK 3a. ischemic CMP hold DAPT, continue other meds pre-operative cardiology evaluation requested clniically stable without signs of angina 4. Cocaine abuse reports last use several days prior to hospitalization cessation has been advised Full Code DVT pptx, low risk, early ambualtion Quality Stroke Does the patient have a stroke diagnosis?: No VTE Prior VTE?: No VTE Risk Level:: Medical - low VTE Device Contraindication: Treatment Not Indicated VTE Drug Contraindication: Treatment Not Indicated
[2022-07-14] MEDS: Sacubitril/Valsartan 49/51 1 TAB TABLET PO (09:40)
[2022-07-14] MEDS: Metoprolol Succinate ER 25 MG TAB.ER.24H PO (09:40)
[2022-07-14] MEDS: 0.9 % Sodium Chloride Flush 3 ML SYRINGE IVFLUSH ×2 (09:41→19:48)
[2022-07-14] MEDS: Buprenorphine/Naloxone 8/2 mg FILM 1 FILM SUBLINGUAL (09:45)
--- NOTE | 2022-07-14 09:48 | PM.CNGS ---
History of Present Illness Consult details Consult date: 07/14/22 Requesting physician: Dallas Alvarez Narrative: 36-year-old male patient presenting emergency department with complaints of a large bloody bowel movement. He denies a prior history of bloody stool other than with hemorrhoids. He also reports a 10 lb weight loss over the last several months but he attributes this to depression. He denies abdominal pain, abdominal distension, nausea, or vomiting. He reports a family history of colon cancer in his brother when he was 30 years old. His mother also has a history of gastric cancer. It was recommended that he and his brothers undergo colonoscopy and this apparently was scheduled however he decided not to undergo the procedure. He is uncertain if any genetic testing was performed. Patient subsequently presented to the emergency department for further evaluation. A CT abdomen and pelvis revealed a mass in the cecum with enlarged lymph nodes suggestive of a cecal malignancy. Patient has a prior history of ischemic cardiomyopathy and cocaine use. He underwent a cardiac stent placement and is currently on Brilinta and aspirin. Previous echocardiogram revealed ejection fraction of 30-35%. Review of Systems Review of Systems: Yes all other systems are reviewed and are negative Constitutional: Constitutional: Denies chills, Denies fever(s), Denies headache(s), Reports poor appetite and Reports weakness ENT: Denies headache(s) Cardiovascular: Cardiovascular: Denies chest pain, Denies irregular heart rhythm, Denies palpitations and Denies dyspnea Respiratory: Respiratory: Denies cough, Denies excessive phlegm production and Denies dyspnea Gastrointestinal: Gastrointestinal: Denies abdominal pain, Denies bloating, Reports hematochezia, Reports change in bowel habits, Denies constipation, Denies heartburn, Denies diarrhea, Denies nausea and Denies vomiting Genitourinary: Genitourinary: Denies difficulty urinating and Denies urinary frequency Musculoskeletal: Musculoskeletal: Denies back pain, Denies muscle weakness and Denies numbness Integumentary/Breasts: Skin/Breast: Denies changing lesions and Denies unusual bruising Neurologic: Denies headache(s), Denies numbness, Denies paresthesias and Reports weakness Psychiatric: Psychiatric: Denies anxiety and Denies depression Endocrine: Endocrine: Denies palpitations Hematologic/Lymphatic: Hematologic/Lymphatic: Denies lymphadenopathy PMFSH Past Medical History Medical History CAD (coronary artery disease) HTN (hypertension) Ischemic cardiomyopathy Polysubstance dependence STEMI (ST elevation myocardial infarction) Family History Family History Family/Other CAD (coronary artery disease) Social History Social History Patient Tobacco Use Status: Current everyday Tobacco user Cigarettes Per Day: 5 Years Smoked: 15 Second Hand Smoke Exposure: Yes Substance Use Type: Former Substance User Advance Directives: No Advance Directives Information Provided: No service: No Current occupational status: unemployed Meds Allergies Allergy/AdvReac Type Severity Reaction Status Date / Time No Known Allergies Allergy Verified 06/13/22 01:41 Active Medications: Current Medications Acetaminophen (Acetaminophen 325 Mg Tablet) 650 mg PO Q6H PRN PRN Reason: Pain, Mild (Pain Scale 1-3) Atorvastatin Calcium (Atorvastatin Calcium 80 Mg Tablet) 80 mg PO BEDTIME [facility] Buprenorphine/Naloxone (Buprenorphine/Naloxone 8/2 Mg Film) 1 film SUBLINGUAL DAILY [facility] Last Admin: 07/14/22 09:45 Dose: 0.5 film Metoprolol Succinate (Metoprolol Succinate Er 25 Mg Tab.Er.24h) 25 mg PO DAILY [facility]; Protocol Last Admin: 07/14/22 09:40 Dose: 25 mg Omeprazole (Omeprazole 20 Mg Capsule.Dr) 20 mg PO DAILY@0630 [facility] Ondansetron HCl (Ondansetron Hcl 4 Mg/2 Ml Vial) 4 mg IVPUSH Q8H PRN PRN Reason: Nausea and Vomiting Polyethylene Glycol/Electrolytes (Peg 3350/Na Sulf,Bicarb,Cl/Kcl 4,000 Ml Soln.Recon) 4,000 ml PO ONCE@1300 ONE Stop: 07/14/22 13:01 Sacubitril/Valsartan (Sacubitril/Valsartan 49/51 1 Tab Tablet) 1 tab PO BID [facility]; Protocol Last Admin: 07/14/22 09:40 Dose: 1 tab Sodium Chloride (0.9 % Sodium Chloride Flush 3 Ml Syringe) 3 ml IVFLUSH QSHIFT [facility] Last Admin: 07/14/22 09:41 Dose: 3 ml Trazodone HCl (Trazodone Hcl 100 Mg Tablet) 100 mg PO BEDTIME [facility] Home Medications Medication Instructions Recorded Confirmed Last Taken Type atorvastatin 80 mg tablet 80 mg PO BEDTIME 07/29/21 07/14/22 07/27/21 21:00 History metoprolol succinate 25 mg 25 mg PO DAILY 07/29/21 07/14/22 07/28/21 09:00 History tablet,extended release 24 hr ticagrelor 90 mg tablet (Brilinta) 90 mg PO BID 07/29/21 07/14/22 07/28/21 21:00 History aspirin 81 mg tablet,delayed 1 tab PO DAILY 07/14/22 07/14/22 Unknown History release buprenorphine 8 mg-naloxone 2 mg 0.5 strip sublingual DAILY 07/14/22 07/14/22 Unknown History sublingual film (Suboxone) pantoprazole 40 mg tablet,delayed 1 tab PO DAILY 07/14/22 07/14/22 Unknown History release sacubitril 49 mg-valsartan 51 mg 1 tab PO BID 07/14/22 07/14/22 Unknown History tablet (Entresto) trazodone 100 mg tablet 1 tab PO BEDTIME 07/14/22 07/14/22 Unknown History Physical Exam Vital Signs: Vital Signs: Last Vital Signs Temp 98.4 F 07/13/22 23:42 Pulse 73 07/14/22 08:19 Resp 12 07/14/22 08:19 BP 113/79 07/14/22 08:19 Pulse Ox 99 07/14/22 08:19 O2 Del Method 07/14/22 08:19 BMI result Body Mass Index 25.8 Const: General: cooperative and no acute distress Nutritional Appearance: well nourished Orientation/consciousness: patient oriented x3 Limitations: no limitations HEENT: Head: Yes normocephalic and Yes atraumatic Ears: hearing grossly normal bilaterally Resp: Effort & Inspection: normal respiratory effort, no audible wheezes, no cough and no respiratory distress Cardio: Jugular venous distension: no JVD GI: Inspection: Yes normal to inspection Palpation (GI): Soft to palpation, nontender, no guarding and not rigid Percussion: Yes normal to percussion Auscultation: normal bowel sounds Skin: Other: Warm, dry, no rash Neuro: General: patient oriented x3 Extrem: General: Yes no clubbing, cyanosis or edema Results Labs Result diagrams: 07/14/22 02:37 07/13/22 16:21 Labs: Abnormal lab results 07/13/22 07/13/22 07/14/22 Range/Units 16:21 16:21 02:37 RBC 3.98 L 3.79 L (4.60-5.80) X10*6/uL Hgb 11.2 L 10.5 L (14.0-18.0) g/dl Hct 34.5 L 32.6 L (42.0-52.0) % Eos % (Auto) 9.1 H 10.3 H (0-4) % Eos # (Auto) 0.6 H 0.7 H (0.0-0.4) X10*3/uL BUN 17 H D (9-16) mg/dL Short CBC 07/13/22 07/14/22 Range/Units 16:21 02:37 WBC 6.3 6.8 (4.8-10.8) X10*3/uL Hgb 11.2 L 10.5 L (14.0-18.0) g/dl Hct 34.5 L 32.6 L (42.0-52.0) % Plt Count 203 178 (160-400) X10*3/uL BMP 07/13/22 16:21 Sodium 140 Potassium 4.4 Chloride 103 Carbon Dioxide 26 BUN 17 H D Creatinine 0.98 Calcium 9.0 Liver Function 07/13/22 Range/Units 16:21 Total Bilirubin < 0.2 (0.0-1.0) mg/dL AST 12 (5-37) U/L ALT 8 (0-40) U/L Alkaline Phosphatase 58 (39-117) U/L Albumin 4.2 (3.5-5.0) g/dL All other labs normal. 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 Patient has a significant cardiac history with previous RI and ischemic cardiomyopathy. He is currently on Brilinta and aspirin. Patient will need GI consultation for colonoscopy and biopsy, cardiology consultation for preop evaluation. Will await further workup and discuss treatment options. Procedures Date of Service Date of Service: 07/14/22
--- NOTE | 2022-07-14 10:00 | CONS_ITS ---
DATE OF SERVICE: 07/14/2022 REFERRING PHYSICIAN: Jose J Wakefield MD REASON FOR CONSULTATION: Abnormal CT scan of the colon and rectal bleeding. HISTORY OF PRESENT ILLNESS: The patient is a pleasant 36-year-old man, who was evaluated in the emergency department earlier today because of burgundy stools, which started yesterday. He has no complaints of abdominal pain, but has lost about 10 pounds by his own report without trying. He does have a family history of colon cancer in his brother at age 30, and his mother having stomach cancer at age 50. He has a previous history of coronary artery disease and is status post IA with stent placement and has a history of ischemic cardiomyopathy. He also uses cocaine, last [address] imaging in the emergency department shows what appears to be a cecal mass with possible malignant lymphadenopathy. His hematocrit on admission was 34.5 down slightly from 40.2 earlier in May. He does take aspirin and Brilinta, which are being held. PAST MEDICAL HISTORY: 1. Coronary artery disease with history of IA, stent placement, and ischemic cardiomyopathy. 2. Substance abuse as above. 3. Rectal bleeding. CURRENT MEDICATIONS: His current medication list is reviewed in the chart. ALLERGIES: THERE ARE NONE REPORTED. FAMILY HISTORY: As above. SOCIAL HISTORY: He uses substances as above. REVIEW OF SYSTEMS: SKIN: No pruritus. HEENT: Negative. CARDIOPULMONARY: He denies shortness of breath or chest pain. GASTROINTESTINAL: As above. GENITOURINARY: Negative. NEUROPSYCHIATRIC: Negative. PHYSICAL EXAMINATION: GENERAL: Shows a pleasant male, lying comfortably in bed. VITAL SIGNS: Reviewed in the electronic medical record and are stable. SKIN: Anicteric. HEENT: Shows no scleral icterus. NECK: Without lymphadenopathy or thyromegaly. LUNGS: Clear. HEART: Shows regular rate and rhythm. S1, S2. No murmur. ABDOMEN: Soft without focal masses or tenderness. Bowel sounds are present. No organomegaly is noted. EXTREMITIES: Without edema. LABORATORY DATA: Laboratory data and CT scanning are reviewed. IMPRESSION: 1. Rectal bleeding. 2. Abnormal CT scan of the colon. PLAN: The patient will need colonoscopy for further evaluation. I have discussed risks and benefits of the procedure with him. He understands these and agrees to proceed. His presentation is quite consistent with a malignancy in the cecum, which is unusual given his young age. Because of his family history, he will likely be referred for genetic counseling, pending the results of his colonoscopy. I have discussed risks and benefits of the procedure with him. He understands and agrees to proceed. He can have clear liquids today and we will arrange for the procedure tomorrow in the unlikely event that there is no abnormal finding on his colonoscopy. I would perform upper endoscopy at the same time and I discussed this with him. I do not think this will be necessary. Thank you for asking me to see him. We will continue to hold his anti-platelet medications. MD SILVIO Marie/LOU / [phone]
--- NOTE | 2022-07-14 11:17 | PHA.MEDREC ---
Pharmacy Consult ? Medication Reconciliation Pharmacy has completed the medication reconciliation. spoke with pt. He fills suboxone 8/2 mg film and takes half of the film in the morning and the other half of the film at night.
[2022-07-14 12:29] VITALS: BP 113/76; PULSE 65; RESP 10; O2SAT 99
[2022-07-14] MEDS: PEG 3350/Na Sulf,Bicarb,Cl/KCL 4,000 ML SOLN.RECON 4000 ML PO (15:21)
--- NOTE | 2022-07-14 15:28 | PC.NURSE ---
PT REMAINS A&OX3 IN NAD. DENIES PAIN, DIZZINESS AND SOB. NO EPISODES OF HEMATOCHEZIA SINCE THIS MORNING. VISITOR AT BEDSIDE. PROVIDED WITH GOLYTELY, INSTRUCTED ON APPROPRIATE CONSUMPTION AND EFFECTS. PT REFUSED BEDSIDE COMMODE. AMBULATING STEADILY AND INDEPENDENTLY WITH NO ISSUE.
[2022-07-14 16:00] VITALS: BP 113/76; PULSE 71; RESP 14; TEMP 36.5; O2SAT 98
--- NOTE | 2022-07-14 19:32 | MHC.CM.PN ---
TAMIA 07/14. Pt awaiting bed assignment. Pfizer x2 (03/21/21 & 07/13/21). PCP at [facility]. HCP reviewed, completed and signed. Copies given and uploaded into [employer] and [employer]. HCP/mother Luciana Hewitt ([phone]). D/C plan: home without services. Pt has car in parking lot. CM to follow for d/c planning.
[2022-07-14] MEDS: Atorvastatin Calcium 80 MG TABLET PO (19:46)
[2022-07-14 21:58] VITALS: BP 108/66; PULSE 63; RESP 18; TEMP 36.6
[2022-07-14] MEDS: traZODone HCL 100 MG TABLET PO (22:10)
[2022-07-15] VITALS (9 sets, daily range): BP systolic 88–140; BP diastolic 43–82; PULSE 55–82; RESP 14–20; TEMP 36.1–36.8; O2SAT 97–100
[2022-07-15] MEDS: 0.9 % Sodium Chloride 1,000 ML 75 ML IVCONT (01:47)
[2022-07-15 06:50] LABS: Hematocrit 31.4 % (42.0-52.0); Hemoglobin 10.2 g/dl (14.0-18.0); Mean Corpuscular HGB Conc 32.5 g/dl (31.0-36.0); Mean Corpuscular Volume 86.3 fL (80.0-98.0); Mean Platelet Volume 11.6 fL (9.4-12.4); Platelet Count 167 X10*3/uL (160-400); Red Blood Count 3.64 X10*6/uL (4.60-5.80); Red Cell Distribution Width 13.4 % (11.0-16.0); White Blood Count 4.9 X10*3/uL (4.8-10.8)
--- NOTE | 2022-07-15 07:00 | CA_ITS ---
Transthoracic Echocardiogram Patient (Last, First, Middle): Lyndon Resendez L Gender: Male Date of : 1985 Age: 36 Procedure Date: 07/15/2022 Procedure Type: Transthoracic Echocardiogram [place] [facility] [place]: 167.64 cm Weight: 160. 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 There is normal left ventricular wall thickness. The left ventricular systolic function is borderline reduced. The visually estimated ejection fraction is between 45-50%. There is evidence of regional wall motion - E/E prime ratio is between 8 and 15 consistent with indeterminate filling pressures. - The apex, mid anterior, apical septum, mid inferoseptal, and mid anteroseptal segments are akinetic. - Normal right ventricular cavity size and systolic function. - There is mild dilatation of the sinuses of Valsalva measuring 3.70 cm. Findings Procedure Information Contrast agent, definity, is being given per protocol without apparent complications. Left Ventricle Normal left ventricular cavity size. There is normal left ventricular wall thickness. The left ventricular systolic function is borderline reduced. The visually estimated ejection fraction is between 45-50%. There is evidence of regional wall motion abnormalities. Abnormal diastolic function is noted. Spectral Doppler is indicative of a pseudonormal filling pattern. E/E prime ratio is between 8 and 15 consistent with indeterminate filling pressures. Wall Motion Rest Echo Findings The apex, mid anterior, apical septum, mid inferoseptal, and mid anteroseptal segments are akinetic. Right Ventricle Normal right ventricular cavity size and systolic function. Atria Both atria are normal in size. Aortic Valve Normal aortic valve structure and function. There is no aortic valve stenosis. There is no aortic valve regurgitation. Mitral Valve Normal mitral valve structure and function. There is no mitral valve regurgitation. There is no mitral valve stenosis. Pulmonic Valve Normal pulmonic valve structure and function. There is trace pulmonic valve regurgitation. Tricuspid Valve Normal tricuspid valve structure and function. There is no tricuspid valve regurgitation. Normal right atrial pressure. There is no evidence of pulmonary hypertension. Great Vessels There is mild dilatation of the sinuses of Valsalva measuring 3.70 cm. The visualized portions of the pulmonary artery and branches are normal. Venous The inferior vena cava is normal in size and collapses greater than 50% with inspiration. Pericardium/Pleural There is no evidence of pericardial effusion. Prior Study Comparison No prior study available for comparison. Measurements 2D Linear Measurements IVSd: 0.71 0.6-0.9/0.6-1.0 cm LVIDd: 5.28 3.9-5.3/4.2-5.9 cm LVIDs: 3.78 2.0-3.6 cm LVPWd: 0.61 0.7-1.1 cm LA Diam: 3.10 2.7-3.8/3.0-4.0 cm LV Mass: 146.32 67-162/88-224 g LVOT Diam: 2.30 3.0+(-)1.3 cm 2D Systolic Function EF 4C: 52.00 >55% EF 2C: 27.40 >55% Mitral Valve MV Pk E: 0.71 MV PK A: 0.59 MV Decel Time: 179.00 E/A: 1.20 E'Lateral: 5.87 E'Medial: 6.64 E/E' Med: 10.60 E/E' Lat: 12.00 PHT: 53.00 MVA PHT: 4.15 Decel Carlton: 3.94 Aortic Valve AoV Pk Param: 1.15 AoV Mn Param: 0.86 AoV VTI: 0.21 AoV Pk Grad: 5.00 Aov Mn Grad: 3.00 FLACO Cont.VTI: 3.32 LVOT LVOT Pk Param: 0.95 LVOT Mn Param: 0.68 LVOT VTI: 0.17 LVOT Pk Grad: 4.00 LVOT Mn Grad: 2.00 LVOT Diam: 2.30 LVOT Area: 4.15 Diastolic Function MV Pk E: 0.71 MV Pk A: 0.59 E/A: 1.20 E'Medial: 6.64 E/E' Med: 10.60 E' Laterial: 5.87 E/E' Lat: 12.00 Right Ventricle TAPSE (mm): 23.00 TVS' Param: 10.70 Tricuspid Valve TR Pk Param: 1.88 TR Pk Grad: 14.00 RA Press: 3.00 RVSP: 17.00 Great Vessels Aorta Sinus of Valsalva: 3.70 2.0-3.5 cm Ao Asc: 3.00 2.1-3.4 cm Pulmonary Veins Pulm Vein S/D 1.00 Pulmonary Valve PV Pk Param: 0.88 Peak PV Grad: 3.00 Updated in Other Vendor System with Status of Final Jose Alfredo Hawley MD electronically signed on 07/15/2022 3:36:40 PM with status of Final
[2022-07-15 07:06] LABS: Anion Gap 13 (12-20); Blood Urea Nitrogen 13 mg/dL (9-16); Calcium 9.1 mg/dL (8.4-10.2); Carbon Dioxide 29 mmol/L (22-29); Chloride 103 mmol/L (96-108); Creatinine Clr Calc Pharmacy 105.9; Estimated Glomerular Filt Rate > 60; Glucose Random 87 mg/dL (60-115); Sodium 141 mmol/L (135-145)
[2022-07-15] MEDS: Omeprazole 20 MG CAPSULE.DR PO (08:56)
[2022-07-15] MEDS: 0.9 % Sodium Chloride Flush 3 ML SYRINGE IVFLUSH (08:57)
[2022-07-15] MEDS: Sodium Phosphate,Mono-Dibasic 133 ML ENEMA PR ×2 (10:21→11:33)
[2022-07-15] MEDS: Buprenorphine/Naloxone 4/1 mg FILM 1 FILM SUBLINGUAL (10:25)
--- NOTE | 2022-07-15 11:48 | MHC.CM.PN ---
Per ROUNDS discussion, Patient is supposed to have a colonoscopy today and is not yet medically cleared for dc. Home is the goal and cM will continue to follow.
--- NOTE | 2022-07-15 12:12 | P.CONAN_ITS ---
HPI - Anesthesia Eval Consult details Narrative: 36 yo male patient for colonoscopy, possible EGD [facility] Active Problems Active Problems: All Active Problems (Updated 07/14/22 @ 05:33 by Dallas Alvarez MD) Colonic mass (Acute) Hematochezia (Acute) Microcytic anemia (Acute) Ischemic cardiomyopathy (Acute) Polysubstance dependence (Acute) CAD (coronary artery disease) (Acute) Chest pain (Acute)- denies recent chest pain Cocaine use- last 07/13/22 - before admission Smoker- last 07/13/22 On - last dose suboxone 07/15/22 EF 25%. Seen by cardiology. Intermediate risk Past Medical History Medical History CAD (coronary artery disease) HTN (hypertension) Ischemic cardiomyopathy Polysubstance dependence STEMI (ST elevation myocardial infarction) Family History Family History (Updated 07/14/22 @ 10:12 by Demar Joy MD) Family/Other CAD (coronary artery disease) Colon cancer, Onset Age: 30 Family history of problems with anesthesia: No Surgical History History of Problems with Anesthesia: No Social History Social History Housing: House Do you presently have visiting nurse or other home services: No Patient Tobacco Use Status: Never used Tobacco Cigarettes Per Day: 5 Years Smoked: 15 Second Hand Smoke Exposure: Yes Substance Use Type: Crack/Cocaine service: No Current occupational status: unemployed Meds Allergies Allergy/AdvReac Type Severity Reaction Status Date / Time No Known Allergies Allergy Verified 06/13/22 01:41 Active Medications: Current Medications Acetaminophen (Acetaminophen 325 Mg Tablet) 650 mg PO Q6H PRN PRN Reason: Pain, Mild (Pain Scale 1-3) Atorvastatin Calcium (Atorvastatin Calcium 80 Mg Tablet) 80 mg PO BEDTIME [facility] Last Admin: 07/14/22 19:46 Dose: 80 mg Buprenorphine/Naloxone (Buprenorphine/Naloxone 4/1 Mg Film) 1 film SUBLINGUAL DAILY [facility] Last Admin: 07/15/22 10:25 Dose: 1 film Sodium Chloride (Ns) 1,000 mls @ 75 mls/hr IVCONT .[id number] PETR Last Admin: 07/15/22 01:47 Dose: 75 mls/hr Metoprolol Succinate (Metoprolol Succinate Er 25 Mg Tab.Er.24h) 25 mg PO DAILY [facility]; Protocol Last Admin: 07/14/22 09:40 Dose: 25 mg Omeprazole (Omeprazole 20 Mg Capsule.Dr) 20 mg PO DAILY@0630 [facility] Last Admin: 07/15/22 08:56 Dose: 20 mg Ondansetron HCl (Ondansetron Hcl 4 Mg/2 Ml Vial) 4 mg IVPUSH Q8H PRN PRN Reason: Nausea and Vomiting Sacubitril/Valsartan (Sacubitril/Valsartan 49/51 1 Tab Tablet) 1 tab PO BID [facility]; Protocol Last Admin: 07/14/22 19:47 Dose: Not Given Sodium Biphosphate/Sodium Phosphate (Sodium Phosphate,Nicholas-Dibasic 133 Ml Enema) 133 ml TX ONCE [facility] Last Admin: 07/15/22 11:33 Dose: 133 ml Sodium Chloride (0.9 % Sodium Chloride Flush 3 Ml Syringe) 3 ml IVFLUSH QSHIFT [facility] Last Admin: 07/15/22 08:57 Dose: 3 ml Trazodone HCl (Trazodone Hcl 100 Mg Tablet) 100 mg PO BEDTIME [facility] Last Admin: 07/14/22 22:10 Dose: 100 mg Home Medications Medication Instructions Recorded Confirmed Last Taken Type atorvastatin 80 mg tablet 80 mg PO BEDTIME 07/29/21 07/14/22 07/27/21 21:00 History metoprolol succinate 25 mg 25 mg PO DAILY 07/29/21 07/14/22 07/28/21 09:00 History tablet,extended release 24 hr ticagrelor 90 mg tablet (Brilinta) 90 mg PO BID 07/29/21 07/14/22 07/28/21 21:00 History aspirin 81 mg tablet,delayed 1 tab PO DAILY 07/14/22 07/14/22 Unknown History release buprenorphine 8 mg-naloxone 2 mg 0.5 strip sublingual BID@07/14/22 07/14/22 Unknown History sublingual film (Suboxone) bupropion HCl 150 mg 24 hr tablet, 150 mg PO DAILY 07/14/22 07/14/22 Unknown History extended release nicotine 21 mg/24 hr daily 1 patch topical DAILY 07/14/22 07/14/22 Unknown History transdermal patch pantoprazole 40 mg tablet,delayed 1 tab PO DAILY 07/14/22 07/14/22 Unknown History release sacubitril 49 mg-valsartan 51 mg 1 tab PO BID 07/14/22 07/14/22 Unknown History tablet (Entresto) trazodone 100 mg tablet 1 tab PO BEDTIME 07/14/22 07/14/22 Unknown History Exam Exam Date and Time: July 15, 2022 1212 Height,Weight and Vital Signs: Height 5 ft 6 in Weight 72.575 kg Last Vital Signs Temp 98.2 F 07/15/22 07:55 Pulse 61 07/15/22 07:55 Resp 20 07/15/22 07:55 BP 115/70 07/15/22 07:55 Pulse Ox 100 07/15/22 07:55 O2 Del Method 07/15/22 07:55 Vital Signs Temp Pulse Resp BP Pulse Ox O2 Del Method 07/15/22 12:07 97 F 76 18 140/82 H 97 Room Air 07/15/22 07:55 98.2 F 61 20 115/70 100 Room Air 07/15/22 06:33 97/60 07/15/22 00:00 98.0 F 55 20 88/56 L 98 Room Air 07/14/22 21:58 97.9 F 63 18 108/66 Room Air 07/14/22 16:00 97.7 F 71 14 113/76 98 Room Air 07/14/22 12:29 65 10 L 113/76 99 Room Air Pertinent Lab Results Pertinent Lab Results: Laboratory Tests 07/13/22 07/13/22 07/14/22 16:21 16:21 02:37 WBC 6.3 6.8 RBC 3.98 L 3.79 L Hgb 11.2 L 10.5 L Hct 34.5 L 32.6 L MCV 86.7 86.0 MCH 28.1 27.7 MCHC 32.5 32.2 RDW 13.3 13.5 Plt Count 203 178 MPV 11.4 11.1 Immature Gran % (Auto) 0.3 0.3 Neut % (Auto) 52.1 45.5 Lymph % (Auto) 30.6 35.3 Nicholas % (Auto) 6.9 7.4 Eos % (Auto) 9.1 H 10.3 H Baso % (Auto) 1.0 1.2 Lymph # (Auto) 1.9 2.4 Nicholas # (Auto) 0.4 0.5 Eos # (Auto) 0.6 H 0.7 H Baso # (Auto) 0.1 0.1 Abs Immat Gran (auto) 0.02 0.02 Absolute Neuts (auto) 3.3 3.1 Absolute Nucleated RBC 0.000 0.000 Nucleated RBC % (auto) 0.0 0.0 Sodium 140 Potassium 4.4 Chloride 103 Carbon Dioxide 26 Anion Gap 15 BUN 17 H D Creatinine 0.98 Estim Creat Clear Calc 94.0 Estimated GFR > 60 Random Glucose 87 Calcium 9.0 Total Bilirubin < 0.2 AST 12 ALT 8 Alkaline Phosphatase 58 Total Protein 6.6 Albumin 4.2 Stool Occult Blood COVID-19 ([facility]) COVID-19 Clin Com Blood Type Antibody Screen 07/14/22 07/14/22 07/14/22 03:35 03:35 06:49 WBC RBC Hgb Hct MCV MCH MCHC RDW Plt Count MPV Immature Gran % (Auto) Neut % (Auto) Lymph % (Auto) Nicholas % (Auto) Eos % (Auto) Baso % (Auto) Lymph # (Auto) Nicholas # (Auto) Eos # (Auto) Baso # (Auto) Abs Immat Gran (auto) Absolute Neuts (auto) Absolute Nucleated RBC Nucleated RBC % (auto) Sodium Potassium Chloride Carbon Dioxide Anion Gap BUN Creatinine Estim Creat Clear Calc Estimated GFR Random Glucose Calcium Total Bilirubin AST ALT Alkaline Phosphatase Total Protein Albumin Stool Occult Blood POSITIVE COVID-19 ([facility]) Negative COVID-19 Clin Com See Note Blood Type A Positive Antibody Screen NEGATIVE 07/15/22 07/15/22 06:17 06:17 WBC 4.9 RBC 3.64 L Hgb 10.2 L Hct 31.4 L MCV 86.3 MCH 28.0 MCHC 32.5 RDW 13.4 Plt Count 167 MPV 11.6 Immature Gran % (Auto) Neut % (Auto) Lymph % (Auto) Nicholas % (Auto) Eos % (Auto) Baso % (Auto) Lymph # (Auto) Nicholas # (Auto) Eos # (Auto) Baso # (Auto) Abs Immat Gran (auto) Absolute Neuts (auto) Absolute Nucleated RBC 0.000 Nucleated RBC % (auto) 0.0 Sodium 141 Potassium 4.0 Chloride 103 Carbon Dioxide 29 Anion Gap 13 BUN 13 Creatinine 0.87 Estim Creat Clear Calc 105.9 Estimated GFR > 60 Random Glucose 87 Calcium 9.1 Total Bilirubin AST ALT Alkaline Phosphatase Total Protein Albumin Stool Occult Blood COVID-19 ([facility]) COVID-19 Clin Com Blood Type Antibody Screen Airway Mallampati Class: II TM Dist: >3cm Neck ROM: Full Partial: Upper and Lower Heart: RRR Lungs: CTAB Assessment and Plan Assessment Anesthesia Assessment: Anesthesia Plan Discussed Final Anesthetic Review Family History of Problems with Anesthesia: No History of Problems with Anesthesia: No NPO: Yes ASA Class: IV Final Preanesthetic Review: No Changes in Pt Med Stat, Meds/Allgs Chart Reviewed, Consent Obtained/Reviewed and Anes Risks/Benef Reviewed Patient Risk: High Procedure Risk: Low Assessment/Block/Sedation in SS: Assess/Block/Sedation-SS Anesthetic Plan Anesthetic Plan: MAC: Disposition: Standard PACU and Inp. Admit - IMC
--- NOTE | 2022-07-15 12:13 | MHC.SHP ---
Pre-Procedural Eval Section A Date of Service: 07/15/22 The patient is an INPATIENT: Yes Changes since office visit: No Cold of Flu in the past 2 weeks, No New Medical Problems, No Changes in Medication and No Patient answered all questions The History & Physical has been completed within 30 days and I have reviewed it.: Yes Section B Chief Complaint: GI bleed, Colonic Mass Allergies: Allergies Allergy/AdvReac Type Severity Reaction Status Date / Time No Known Allergies Allergy Verified 06/13/22 01:41 Plan I have reviewed the history and physical and performed a pertinent physical examination on my patient. No changes have occurred unless specified.
--- NOTE | 2022-07-15 12:15 | P.CONCA_ITS ---
History of Present Illness History of Present Illness Date of Service: 07/15/22 Requesting physician: Lauren Altamirano Chief complaint: Preop eval, h/o CAD Narrative: 36-year-old gentleman who is presenting for GI bleed and was diagnosed with colon mass with concern for malignancy. His brother had colon cancer diagnosed at age 30. He has background of cocaine use and was actively using before presentation. He also has history of acute anterior wall VT in May 2021. At that time he had occluded mid LAD which was treated with a 4 mm drug-eluting stent. He has been on aspirin and Brilinta before presentation. His presented in for STEMI was a left-sided chest discomfort and he has not experienced at recently. He is also denying any shortness of breath. His ejection fraction after the STEMI was 25 30%. There has not been any further assessment of his LVEF after the STEMI. He has been following at [facility]. [facility] Past Medical History Medical History CAD (coronary artery disease) HTN (hypertension) Ischemic cardiomyopathy Polysubstance dependence STEMI (ST elevation myocardial infarction) Family History Family History (Updated 07/14/22 @ 10:12 by Demar Joy MD) Family/Other CAD (coronary artery disease) Colon cancer, Onset Age: 30 Social History Social History Housing: House Do you presently have visiting nurse or other home services: No Patient Tobacco Use Status: Never used Tobacco Cigarettes Per Day: 5 Years Smoked: 15 Second Hand Smoke Exposure: Yes Substance Use Type: Crack/Cocaine service: No Current occupational status: unemployed Meds Allergies Allergy/AdvReac Type Severity Reaction Status Date / Time No Known Allergies Allergy Verified 06/13/22 01:41 Active Medications: Current Medications Acetaminophen (Acetaminophen 325 Mg Tablet) 650 mg PO Q6H PRN PRN Reason: Pain, Mild (Pain Scale 1-3) Atorvastatin Calcium (Atorvastatin Calcium 80 Mg Tablet) 80 mg PO BEDTIME [facility] Last Admin: 07/14/22 19:46 Dose: 80 mg Buprenorphine/Naloxone (Buprenorphine/Naloxone 4/1 Mg Film) 1 film SUBLINGUAL DAILY [facility] Last Admin: 07/15/22 10:25 Dose: 1 film Sodium Chloride (Ns) 1,000 mls @ 75 mls/hr IVCONT .[id number] [facility] Last Admin: 07/15/22 01:47 Dose: 75 mls/hr Metoprolol Succinate (Metoprolol Succinate Er 25 Mg Tab.Er.24h) 25 mg PO DAILY [facility]; Protocol Last Admin: 07/14/22 09:40 Dose: 25 mg Omeprazole (Omeprazole 20 Mg Capsule.Dr) 20 mg PO DAILY@0630 [facility] Last Admin: 07/15/22 08:56 Dose: 20 mg Ondansetron HCl (Ondansetron Hcl 4 Mg/2 Ml Vial) 4 mg IVPUSH Q8H PRN PRN Reason: Nausea and Vomiting Sacubitril/Valsartan (Sacubitril/Valsartan 49/51 1 Tab Tablet) 1 tab PO BID [facility]; Protocol Last Admin: 07/14/22 19:47 Dose: Not Given Sodium Biphosphate/Sodium Phosphate (Sodium Phosphate,[place]-Dibasic 133 Ml Enema) 133 ml [place] ONCE [facility] Last Admin: 07/15/22 11:33 Dose: 133 ml Sodium Chloride (0.9 % Sodium Chloride Flush 3 Ml Syringe) 3 ml IVFLUSH QSHIFT [facility] Last Admin: 07/15/22 08:57 Dose: 3 ml Trazodone HCl (Trazodone Hcl 100 Mg Tablet) 100 mg PO BEDTIME [facility] Last Admin: 07/14/22 22:10 Dose: 100 mg Home Medications Medication Instructions Recorded Confirmed Last Taken Type atorvastatin 80 mg tablet 80 mg PO BEDTIME 07/29/21 07/14/22 07/27/21 21:00 History metoprolol succinate 25 mg 25 mg PO DAILY 07/29/21 07/14/22 07/28/21 09:00 History tablet,extended release 24 hr ticagrelor 90 mg tablet (Brilinta) 90 mg PO BID 07/29/21 07/14/22 07/28/21 21:00 History aspirin 81 mg tablet,delayed 1 tab PO DAILY 07/14/22 07/14/22 Unknown History release buprenorphine 8 mg-naloxone 2 mg 0.5 strip sublingual BID@08,19 07/14/22 07/14/22 Unknown History sublingual film (Suboxone) bupropion HCl 150 mg 24 hr tablet, 150 mg PO DAILY 07/14/22 07/14/22 Unknown History extended release nicotine 21 mg/24 hr daily 1 patch topical DAILY 07/14/22 07/14/22 Unknown His tory transdermal patch pantoprazole 40 mg tablet,delayed 1 tab PO DAILY 07/14/22 07/14/22 Unknown History release sacubitril 49 mg-valsartan 51 mg 1 tab PO BID 07/14/22 07/14/22 Unknown History tablet (Entresto) trazodone 100 mg tablet 1 tab PO BEDTIME 07/14/22 07/14/22 Unknown History Physical Exam Vital Signs: Vital Signs: Last Vital Signs Temp 98.2 F 07/15/22 07:55 Pulse 61 07/15/22 07:55 Resp 20 07/15/22 07:55 BP 115/70 07/15/22 07:55 Pulse Ox 100 07/15/22 07:55 O2 Del Method 07/15/22 07:55 BMI result Body Mass Index 25.8 GENERAL APPEARANCE: in no acute distress, pleasant. NECK: no carotid bruit, no jugular venous distention. SKIN: no suspicious lesions, warm and dry. HEART: no murmurs, regular rate and rhythm. LUNGS: clear to auscultation bilaterally. ABDOMEN: soft, nontender. EXTREMITIES: no edema. PERIPHERAL PULSES: equal. NEUROLOGIC: No gross deficits, AAO X 3 Objective Labs and Meds Result diagrams: 07/15/22 06:17 07/15/22 06:17 Lab results: Laboratory Results - last 24 hr 07/15/22 07/15/22 06:17 06:17 WBC 4.9 RBC 3.64 L Hgb 10.2 L Hct 31.4 L MCV 86.3 MCH 28.0 MCHC 32.5 RDW 13.4 Plt Count 167 MPV 11.6 Absolute Nucleated RBC 0.000 Nucleated RBC % (auto) 0.0 Sodium 141 Potassium 4.0 Chloride 103 Carbon Dioxide 29 Anion Gap 13 BUN 13 Creatinine 0.87 Estim Creat Clear Calc 105.9 Estimated GFR > 60 Random Glucose 87 Calcium 9.1 Assessment and Plan (1) Colonic mass: Status: Acute (2) Hematochezia: Status: Acute (3) CAD (coronary artery disease): Status: Acute (4) Preop cardiovascular exam: Status: Acute (5) Ischemic cardiomyopathy: Status: Acute Plan 36-year-old gentleman who is presenting for hematochezia and has been diagnosed with a colon mass. He needs endoscopy and biopsy to understand if this is cancer and there is high concern that this is malignant. His brother had colon cancer at age 30. He is undergoing chemotherapy currently. The patient has background of cocaine use, previous LAD PCI in the setting of anterior wall VT and ischemic cardiomyopathy based on echocardiography from May 2021 with EF of 25-30%. Clinically he does not appears to be in heart failure currently. He is denying any chest discomfort. I have reviewed his labs and EKG. I have also looked through his chart at [facility]. I think he can proceed with colonoscopy/EGD with the intermediate risk for perioperative complications. He has completed 1 year of dual antiplatelet therapy and Brilinta does not need to be resumed. Post procedure and once he is stable from bleeding point of view I think aspirin should be resumed given known history of coronary disease and stent in his left anterior descending artery. Recommend checking echocardiogram to see if his ejection fraction is improved since the LAD PCI. Thank you for allowing me to participate in the care of your patient. Please feel free to contact me if you have any questions. Procedures Date of Service Date of Service: 07/15/22
--- NOTE | 2022-07-15 13:15 | P.BOP_ITS ---
Brief Operative Note Date of Service: 07/15/22 Pre-op diagnosis: cecal mass Post-op diagnosis: same Procedure: colonoscopy Surgeon: Roberto Leonard Anesthesia: MAC Was an Net Development Manager used for this Procedure?: No Estimated blood loss (mL): 5 Pathology: other Condition: stable Disposition: PACU
--- NOTE | 2022-07-15 13:26 | PM.EVENT ---
Event Note Date of Service: 07/15/22 Event Note: Colonoscopy note dictated poor prep friable cecal mass partially visualized due to prep and looping of scope biopsied 3 polyps seen, r colon, 45cm (bx), rectum, not removed due to recent asa and brilinta use. f/u bx results discussed with Dr Muniz.
--- NOTE | 2022-07-15 15:02 | PM.EVENT ---
Event Note Date of Service: 07/15/22 Event Note: Patient evaluated during colonoscopy today. Mass noted in cecum near the ileocecal valve. Biopsies obtained by Dr. Leonard. Findings are suggestive of a colon cancer. Patient will need a right hemicolectomy. Will discuss further with the patient.
--- NOTE | 2022-07-15 15:07 | HO.PM.IMPN ---
Subjective Subjective Date of Service: 07/15/22 Interval History: seen and examined this morning Follow-up for possible cecal mass Plan for colonoscopy today denies abdominal pain Review of Systems Review of Systems: Yes all other systems are reviewed and are negative Constitutional Constitutional: Denies chills and Denies fever(s) Cardiovascular Cardiovascular: Denies chest pain, Denies palpitations and Denies dyspnea Respiratory Respiratory: Denies cough and Denies dyspnea Gastrointestinal Gastrointestinal: Denies abdominal pain, Denies nausea and Denies vomiting Endocrine Endocrine: Denies palpitations Physical Exam Vital Signs: Vital Signs: Last Vital Signs Temp 98.1 F 07/15/22 13:48 Pulse 65 07/15/22 13:57 Resp 16 07/15/22 13:57 BP 101/60 07/15/22 13:57 Pulse Ox 100 07/15/22 13:57 O2 Del Method 07/15/22 13:57 BMI result Body Mass Index 25.8 Const: General: cooperative, comfortable, alert and awake Nutritional Appearance: average body habitus Orientation/consciousness: patient oriented x3 Resp: Effort & Inspection: normal respiratory effort and able to speak in complete sentences Cardio: Rate: regular rate Heart sounds: S1 normal heart sound present GI: Inspection: No distended Palpation (GI): Soft to palpation and nontender Neuro: General: patient oriented x3 and CN's II-XI intact bilaterally Extrem: General: Yes no pedal edema Objective Data Active Medications Acetaminophen (Acetaminophen 325 Mg Tablet) 650 mg PO Q6H PRN PRN Reason: Pain, Mild (Pain Scale 1-3) Atorvastatin Calcium (Atorvastatin Calcium 80 Mg Tablet) 80 mg PO BEDTIME [facility] Last Admin: 07/14/22 19:46 Dose: 80 mg Documented By: DREA Buprenorphine/Naloxone (Buprenorphine/Naloxone 4/1 Mg Film) 1 film SUBLINGUAL DAILY [facility] Last Admin: 07/15/22 10:25 Dose: 1 film Documented By: WILNER Sodium Chloride (Ns) 1,000 mls @ 75 mls/hr IVCONT .[id number] [facility] Last Admin: 07/15/22 01:47 Dose: 75 mls/hr Documented By: YASMEEN Lactated Ringer's (Lr) 1,000 mls @ 100 mls/hr IVCONT .Q10H [facility] Metoprolol Succinate (Metoprolol Succinate Er 25 Mg Tab.Er.24h) 25 mg PO DAILY [facility]; Protocol Last Admin: 07/14/22 09:40 Dose: 25 mg Documented By: HELLEN Omeprazole (Omeprazole 20 Mg Capsule.Dr) 20 mg PO DAILY@0630 [facility] Last Admin: 07/15/22 08:56 Dose: 20 mg Documented By: WILNER Ondansetron HCl (Ondansetron Hcl 4 Mg/2 Ml Vial) 4 mg IVPUSH Q8H PRN PRN Reason: Nausea and Vomiting Ondansetron HCl (Ondansetron Hcl 4 Mg/2 Ml Vial) 4 mg IVPUSH ONCE PRN PRN Reason: Nausea and Vomiting Sacubitril/Valsartan (Sacubitril/Valsartan 49/51 1 Tab Tablet) 1 tab PO BID [facility]; Protocol Last Admin: 07/14/22 19:47 Dose: Not Given Documented By: DREA Non-Admin Reason: Decreased Blood Pressure Sodium Biphosphate/Sodium Phosphate (Sodium Phosphate,[place]-Dibasic 133 Ml Enema) 133 ml [place] ONCE [facility] Last Admin: 07/15/22 11:33 Dose: 133 ml Documented By: WILNER Sodium Chloride (0.9 % Sodium Chloride Flush 3 Ml Syringe) 3 ml IVFLUSH QSHIFT [facility] Last Admin: 07/15/22 08:57 Dose: 3 ml Documented By: WILNER Trazodone HCl (Trazodone Hcl 100 Mg Tablet) 100 mg PO BEDTIME [facility] Last Admin: 07/14/22 22:10 Dose: 100 mg Documented By: YASMEEN Labs CBC & Chem 7: 07/15/22 06:17 07/15/22 06:17 Labs: Laboratory Results - last 24 hr 07/15/22 07/15/22 06:17 06:17 MCV 86.3 MCH 28.0 MCHC 32.5 RDW 13.4 Plt Count 167 MPV 11.6 Absolute Nucleated RBC 0.000 Nucleated RBC % (auto) 0.0 Anion Gap 13 Estim Creat Clear Calc 105.9 Estimated GFR > 60 Random Glucose 87 Calcium 9.1 Assessment and Plan (1) Colonic mass: Status: Acute (2) Hematochezia: Status: Acute (3) Ischemic cardiomyopathy: Status: Acute Plan 36 yo M with a PMH of CAD s/p OH and BK on DAPT, FH of colon Ca in brother and gastric Ca in mother, who presents after an acute episode of lower GI bleeidng. CT scan reveals a cecal mass and lymphadenopathy highly suspicious for malignancy. He will be admitted for coloscopic evaluation and biopsy. 1. Cecal Mass concern for malignancy given CT findings; also has FH of colon Ca in younger brother diagnosed at age 30 GI on board -- prep today with plans for scope tomorrow Gen Surg on board as well d/w Dr. Yarbrough from oncology -- will need outpatient f/u with her 2. Acute blood loss anemia due to lower GI bleed, likely from cecal mass 3. CAD s/p STEMI and LAD BK 3a. ischemic CMP hold DAPT, continue other meds pre-operative cardiology evaluation requested clniically stable without signs of angina 4. Cocaine abuse reports last use several days prior to hospitalization cessation has been advised Full Code DVT pptx, low risk, early ambualtion Quality Stroke Does the patient have a stroke diagnosis?: No VTE Prior VTE?: No VTE Risk Level:: Medical - low VTE Device Contraindication: Treatment Not Indicated VTE Drug Contraindication: Treatment Not Indicated
--- NOTE | 2022-07-15 15:29 | P.PNIM_ITS ---
Subjective Subjective Date of Service: 07/15/22 Interval History: seen and examined this morning Follow-up for cecal mass No abdominal pain Review of Systems Review of Systems: Yes all other systems are reviewed and are negative Constitutional Constitutional: Denies chills and Denies fever(s) ENT Ears, Nose, Mouth, and Throat: Denies dizziness Cardiovascular Cardiovascular: Denies chest pain and Denies dyspnea Respiratory Respiratory: Denies dyspnea Gastrointestinal Gastrointestinal: Denies abdominal pain, Denies nausea and Denies vomiting Neurologic Neurologic: Denies dizziness Physical Exam Vital Signs: Vital Signs: Last Vital Signs Temp 98.1 F 07/15/22 13:48 Pulse 65 07/15/22 13:57 Resp 16 07/15/22 13:57 BP 101/60 07/15/22 13:57 Pulse Ox 100 07/15/22 13:57 O2 Del Method 07/15/22 13:57 BMI result Body Mass Index 25.8 Const: General: cooperative, comfortable, alert and awake Nutritional Appearance: average body habitus Orientation/consciousness: patient oriented x3 Resp: Effort & Inspection: normal respiratory effort and able to speak in complete sentences Auscultation: clear to auscultation bilaterally Cardio: Rate: regular rate Heart sounds: S1 normal heart sound present and S2 normal heart sound present GI: Inspection: No distended Palpation (GI): Soft to palpation and nontender Neuro: General: patient oriented x3 and CN's II-XI intact bilaterally Extrem: General: Yes no pedal edema Objective Data Active Medications Acetaminophen (Acetaminophen 325 Mg Tablet) 650 mg PO Q6H PRN PRN Reason: Pain, Mild (Pain Scale 1-3) Atorvastatin Calcium (Atorvastatin Calcium 80 Mg Tablet) 80 mg PO BEDTIME [facility] Last Admin: 07/14/22 19:46 Dose: 80 mg Documented By: DREA Buprenorphine/Naloxone (Buprenorphine/Naloxone 4/1 Mg Film) 1 film SUBLINGUAL DAILY [facility] Last Admin: 07/15/22 10:25 Dose: 1 film Documented By: WILNER Metoprolol Succinate (Metoprolol Succinate Er 25 Mg Tab.Er.24h) 25 mg PO DAILY [facility]; Protocol Last Admin: 07/14/22 09:40 Dose: 25 mg Documented By: HELLEN Omeprazole (Omeprazole 20 Mg Capsule.Dr) 20 mg PO DAILY@0630 [facility] Last Admin: 07/15/22 08:56 Dose: 20 mg Documented By: WILNER Ondansetron HCl (Ondansetron Hcl 4 Mg/2 Ml Vial) 4 mg IVPUSH Q8H PRN PRN Reason: Nausea and Vomiting Ondansetron HCl (Ondansetron Hcl 4 Mg/2 Ml Vial) 4 mg IVPUSH ONCE PRN PRN Reason: Nausea and Vomiting Sacubitril/Valsartan (Sacubitril/Valsartan 49/51 1 Tab Tablet) 1 tab PO BID [facility]; Protocol Last Admin: 07/14/22 19:47 Dose: Not Given Documented By: DREA Non-Admin Reason: Decreased Blood Pressure Sodium Biphosphate/Sodium Phosphate (Sodium Phosphate,[place]-Dibasic 133 Ml Enema) 133 ml [place] ONCE [facility] Last Admin: 07/15/22 11:33 Dose: 133 ml Documented By: WILNER Sodium Chloride (0.9 % Sodium Chloride Flush 3 Ml Syringe) 3 ml IVFLUSH QSHIFT [facility] Last Admin: 07/15/22 08:57 Dose: 3 ml Documented By: WILNER Trazodone HCl (Trazodone Hcl 100 Mg Tablet) 100 mg PO BEDTIME [facility] Last Admin: 07/14/22 22:10 Dose: 100 mg Documented By: YASMEEN Labs CBC & Chem 7: 07/15/22 06:17 07/15/22 06:17 Labs: Laboratory Results - last 24 hr 07/15/22 07/15/22 06:17 06:17 MCV 86.3 MCH 28.0 MCHC 32.5 RDW 13.4 Plt Count 167 MPV 11.6 Absolute Nucleated RBC 0.000 Nucleated RBC % (auto) 0.0 Anion Gap 13 Estim Creat Clear Calc 105.9 Estimated GFR > 60 Random Glucose 87 Calcium 9.1 Assessment and Plan (1) Colonic mass: Status: Acute (2) Hematochezia: Status: Acute (3) Ischemic cardiomyopathy: Status: Acute Plan 36 yo M with a PMH of CAD s/p [place] and BK on DAPT, FH of colon Ca in brother and gastric Ca in mother, who presents after an acute episode of lower GI bleeidng. CT scan reveals a cecal mass and lymphadenopathy highly suspicious for malignancy. He will be admitted for coloscopic evaluation and biopsy. 1. Cecal Mass concern for malignancy given CT findings; also has FH of colon Ca in younger brother diagnosed at age 30 - seen by GI status post colonoscopy which confirmed cecal mass, biopsies taken and pending at this time seen by general surgery - Outpatient follow-up d/w Dr. Yarbrough from oncology -- will need outpatient f/u 2. Acute blood loss anemia due to lower GI bleed, likely from cecal mass H/H stable 3. CAD s/p STEMI and LAD BK 3a. ischemic CMP hold DAPT, continue other meds pre-operative cardiology evaluation requested- seen by Cardiology, YAZAN Franco, hold aspirin for 4 days per GI clinically stable without signs of angina repeat echocardiogram obtained, report pending 4. polysubstance use disorder Cocaine abuse - reports last use several days prior to hospitalization cessation has been advised continue suboxone - reports he was switched to bid dosing Full Code DVT pptx, low risk, early ambualtion likely d/c in am Quality Stroke Does the patient have a stroke diagnosis?: No VTE Prior VTE?: No VTE Risk Level:: Medical - low VTE Device Contraindication: Treatment Not Indicated VTE Drug Contraindication: Treatment Not Indicated
--- NOTE | 2022-07-15 15:56 | P.DS_ITS ---
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, admitted Has provider been notified: No 07/14/22 08:52 Consult to Gastroenterology Routine Consulting Provider: Roberto Leonard Reason for consultation: GI bleed, colonic mass Has provider been notified: Yes 07/14/22 08:58 Consult to Cardiology Routine Consulting Provider: Jose Alfredo Hawley Reason for consultation: pre-op eval, history of TX s/p stenting, colonoscopy 07/15 Attending physician on discharge: Demar Joy Discharging clinician: Lauren Altamirano DS: Diagnosis Discharge Diagnosis (1) Colonic mass: Status: Acute (2) Hematochezia: Status: Acute (3) Ischemic cardiomyopathy: Status: Acute DS: Summary Hospital Course Hospital Course: From H&P on day of admission This is a 36 year old male with a PMH of CAD s/p TX with stenting and now on DAPT last year, cocaine use (last use reported several days prior to admission), family history of colon Ca @ age 30 in his brother, chronic opiate dependence on suboxone who presetnted to the ED with complaints of bright red and maroon colored stools on the day prior to hospitalization. The patient reports that his had no happened before. He denies any abdominal pain. He reports a loss of appetite and weight. He reports an unintentional weight loss of about 10 lbs over the last several weeks. He endorses a FH of cancer in his younger brother who was diagnosed with colon Ca at the age of 30. Also reports a history of gastric Ca in his mother when she was around 50. In regards to his cocaine use, he reports that this has decreased significantly since his TX last year. However, over the last several weeks he has used it several times (snorting). Currently, he denies any active chest pain, sob or cough. patient was admitted to the hospital for hematochezia secondary to probable colonic mass. He was seen by GI underwent colonoscopy today which confirms colonic mass Suggestive of colon cancer. Biopsies obtained and pending at the time of discharge. Patient likely to need right hemicolectomy per surgery. Recommend outpatient follow-up with surgery and Oncology. due to underlying coronary artery disease he was seen in consultation by Cardiology for preoperative evaluation. He was recommended to discontinue Brilinta as he has been on it for over a year. GI recommended to hold aspirin for 4 days and then resume. Repeat echocardiogram was obtained which showed improvement in ejection fraction to 45-50%. He should follow up with his primary glass laminating operator for full preoperative evaluation prior to surgery. He was encouraged to abstain from all cocaine and illicit substance use Time Spent with Patient Time attestation: Total time spent providing and/or coordinating discharge services: Discharge coordination time: Greater than 30 minutes Quality: Safe Use of Opioids Does Pt have an Active Cancer Diagnosis on the Problem List?: No Quality: Stroke Does the patient have a stroke diagnosis?: No Physical Exam Vital Signs: Vital Signs: Last Vital Signs Temp 97.4 F 07/15/22 15:25 Pulse 82 07/15/22 15:25 Resp 17 07/15/22 15:25 BP 120/64 07/15/22 15:25 Pulse Ox 97 07/15/22 15:25 O2 Del Method 07/15/22 15:25 BMI result Body Mass Index 25.8 Const: General: cooperative, comfortable, alert and awake Nutritional Appearance: average body habitus Orientation/consciousness: patient oriented x3 Resp: Effort & Inspection: normal respiratory effort and able to speak in complete sentences Auscultation: clear to auscultation bilaterally Cardio: Rate: regular rate Heart sounds: S1 normal heart sound present and S2 normal heart sound present GI: Inspection: No distended Palpation (GI): Soft to palpation and nontender Neuro: General: patient oriented x3 and CN's II-XI intact bilaterally Extrem: General: Yes no pedal edema DS: Data Data Completed and Pending Pending studies at discharge: Pending at discharge 07/15/22 13:03 Surgical [PTH] Routine Labs on day of discharge: Laboratory Results - last 24 hr 07/15/22 07/15/22 06:17 06:17 WBC 4.9 RBC 3.64 L Hgb 10.2 L Hct 31.4 L MCV 86.3 MCH 28.0 MCHC 32.5 RDW 13.4 Plt Count 167 MPV 11.6 Absolute Nucleated RBC 0.000 Nucleated RBC % (auto) 0.0 Sodium 141 Potassium 4.0 Chloride 103 Carbon Dioxide 29 Anion Gap 13 BUN 13 Creatinine 0.87 Estim Creat Clear Calc 105.9 Estimated GFR > 60 Random Glucose 87 Calcium 9.1 Discharge Plan Discharge Patient Disposition: Home, Self-Care Discharge Diagnosis: cecal mass Referrals: Lora Yarbrough MD [Physician] - 1 Week [place] [Primary Care Provider] - 1 Week Chauncey Muniz MD [Physician] - 1 Week Discharge Medications: Continued atorvastatin 80 mg Tablet 80 mg PO BEDTIME metoprolol succinate 25 mg Tablet Extended Release 24 Hr 25 mg PO DAILY trazodone 100 mg tablet 1 tab PO BEDTIME pantoprazole 40 mg tablet,delayed release (DR/EC) 1 tab PO DAILY buprenorphine-naloxone [Suboxone] 8-2 mg film 0.5 strip sublingual BID@ Entresto 49-51 mg tablet 1 tab PO BID nicotine 21 mg/24 hr patch 24 hour 1 patch topical DAILY bupropion HCl 150 mg tablet extended release 24 hr 150 mg PO DAILY Held aspirin 81 mg tablet,delayed release (DR/EC) 1 tab PO DAILY Hold Instructions: Hold for 4 days, resume wednesday 07/18 Discontinued Brilinta 90 mg Tablet 90 mg PO BID Discharge Orders: Discharge Order (Routine); Ordered 07/15/22 Ordered By: Lauren Altamirano Activity on Discharge: As tolerated Stand Alone Forms: Patient Portal Discharge page Care Plan Goals: see below Health Concerns: cecal mass concerning for malignancy - biopsy pending at time of discharge GI bleeding due to cecal mass Plan of Treatment: call to schedule follow up appointment with Surgery - Dr. Muniz call to schedule appointment with Dr. Yarbrough of Oncology call to schedule follow-up appointment with your primary glass laminating operator for full preoperative evaluation avoid the use of cocaine and other illicit substances stop taking Brilinta do not take aspirin until MondayJuly 18 Assessment: see discharge summary Discharge Date/Time: 07/15/22 18:04
--- NOTE | 2022-07-15 16:06 | MHC.CM.PN ---
Patient has now been medically cleared for dc to home today, self care.
--- NOTE | 2022-07-16 01:26 | OP_ITS ---
SURGEON: Roberto Leonard MD INDICATIONS: Rectal bleeding and cecal mass noted on CAT scan. PREOPERATIVE DIAGNOSIS: POSTOPERATIVE DIAGNOSIS: PROCEDURE PERFORMED: ESTIMATED BLOOD LOSS: COMPLICATIONS: ANESTHESIA: ASSISTANTS: SPECIMENS: PROCEDURES: Colonoscopy to the cecum with biopsy. MEDICATIONS: Monitored anesthesia care. DESCRIPTION OF PROCEDURE: History and physical performed. The risks and benefits of the procedure were explained to the patient. Informed consent was obtained. The procedure was performed on 07/15/2022. The patient was placed in the left lateral decubitus position. A digital rectal exam was performed and was found to be normal. The Olympus pediatric video colonoscope was introduced into the rectum and advanced to the cecum without difficulty. The cecum was identified by transillumination, palpation, and identification of the ileocecal valve. Examination was performed. The scope was removed. He tolerated the procedure well and was taken to recovery area in stable condition. FINDINGS: The terminal ileum was not examined. There was a mass in the cecum corresponding to the findings on CT scan. The mass could only be partially visualized due to the prep and looping of the scope in the sigmoid. The mass was friable and bled easily with instrumentation. Biopsies were obtained from the mass. 3 polyps were identified, 1 in the right colon, 1 at 45 cm, which was biopsied and 1 in the rectum. The polyps were not removed because of the patient's recent antiplatelet therapy. There was a large amount of old blood and stool in the colon, which limited the sensitivity examination for detection of small polyps as the patient had not completed the prep properly. Thus, the exam was nondiagnostic for other polyps and will need to be repeated after his surgery. Dr. Muniz was present for the exam documenting the cecal lesion. Retroflexed examination was normal. IMPRESSION: 1. Cecal mass. 2. Colon polyps. 3. Incomplete bowel prep. RECOMMENDATIONS: Follow up the biopsy results. MD SILVIO Marie/SUYAPAL / [id number]
== END 2022-07-15 18:04 | disposition home or self-care (01) ==
LOC: HO.ED 07-14 08:15 → HO.EDOVER 07-14 09:04 → HO.IMC 07-14 18:43
PROVIDERS: Internal Medicine Gastroenterology; Admitting Provider Family Medicine; Emergency Provider Emergency Medicine Emergency Medical Services; Visit Provider Physician Assistant Medical
PROC: (CPT 45380; principal; 2022-07-15 12:10)
DX: K63.89 Other specified diseases of intestine (principal); K92.1 Melena; D50.9 Iron deficiency anemia, unspecified; I25.5 Ischemic cardiomyopathy; F14.10 Cocaine abuse, uncomplicated; F11.20 Opioid dependence, uncomplicated; R53.1 Weakness; Z20.822 Contact with and (suspected) exposure to COVID-19; I25.2 Old myocardial infarction; Z79.82 Long term (current) use of aspirin; Z79.899 Other long term (current) drug therapy; Z79.02 Long term (current) use of antithrombotics/antiplatelets; Z87.891 Personal history of nicotine dependence; Z80.0 Family history of malignant neoplasm of digestive organs
CPT/HCPCS: 45380; 36415; 74177; 80048; 80053; 82272; 85025; 85027; 86850; 86900; 86901; 87635; 88305; 88341; 88342; 93005; 93306; 99219; 99285; Q9957; Q9967

== ENCOUNTER → 2022-07-19 09:46 | Outpatient (BNVA) | payer MEDICAID, SELFPAY | PROVIDERS: Visit Provider Surgery | DX: C18.0 Malignant neoplasm of cecum (principal); Z80.0 Family history of malignant neoplasm of digestive organs | CPT/HCPCS: 99212 ==

== ENCOUNTER → 2022-07-19 13:47 | Outpatient (BNV) | payer MEDICAID, SELFPAY | PROVIDERS: Visit Provider Internal Medicine | DX: C18.0 Malignant neoplasm of cecum (principal) | CPT/HCPCS: 99205; 99214; 99215 ==

== ENCOUNTER 2022-07-27 10:15 | Outpatient (REF) | payer MEDICAID, SELFPAY ==
--- NOTE | ~2022-07-27 | CT_ITS ---
EXAMINATION: CT CHEST WITH CONTRAST CLINICAL INFORMATION: Colon cancer. Staging. COMPARISON: Previous chest x-ray most recent May 2022 TECHNIQUE: Multidetector volumetric CT imaging of the chest was obtained after the administration of 65 mL of Omnipaque 350 intravenous contrast without immediate adverse reactions. Axial MIP volume rendering provided. Sagittal and coronal reformatted images were obtained. This CT examination was performed using dose optimization techniques as appropriate, variously including the following: *Automated exposure control *Adjustment of mA and/or kV according to patient size (this includes techniques or standardized protocols for targeted exams where dose is matched to indication/reason for exam; i.e. extremities or head) *Use of iterative reconstruction technique DLP: 125 mGy-cm FINDINGS: LUNGS: The lungs are clear with no evidence of inflammation or nodules. MEDIASTINUM: Coronary artery stent. The mediastinum is otherwise normal. CORONARY ARTERY CALCIFICATION: None visualized on this study. PLEURA: There is no pleural effusion. No pleural mass or thickening. AXILLA: No lymphadenopathy. UPPER ABDOMEN: Small lipoma along the dome of the right lobe of the liver or osteomyelitis although similar to recent abdominal pelvic CT scan. OSSEOUS STRUCTURES: Unremarkable. CT/CT chest w IV con IMPRESSION: No evidence of metastatic disease. Fleischner guidelines were followed.
[2022-07-27] MEDS: iohexoL 350 MG/ML 75 ML INFUS..BTL IV (11:16)
== END 2022-07-27 10:16 | disposition home or self-care (01) ==
LOC: HO.CT 10:15
PROVIDERS: Visit Provider Internal Medicine
DX: C18.0 Malignant neoplasm of cecum (principal)
CPT/HCPCS: 71260; Q9967

== ENCOUNTER → 2022-08-05 10:26 | Outpatient (BNVA) | payer MEDICAID, SELFPAY | PROVIDERS: Visit Provider Surgery | DX: C18.0 Malignant neoplasm of cecum (principal); F14.20 Cocaine dependence, uncomplicated; Z80.0 Family history of malignant neoplasm of digestive organs | CPT/HCPCS: 99212 ==

== ENCOUNTER 2022-08-15 06:16 | Inpatient (IN) | payer MEDICAID, SELFPAY ==
[2022-08-15] VITALS (20 sets, daily range): BP systolic 102–137; BP diastolic 53–82; PULSE 60–82; RESP 13–20; TEMP 36.3–37.2; O2SAT 98–100; BMI 27.4
--- NOTE | 2022-08-15 | ECG_ITS ---
Test Reason : r/o arrhythmia Blood Pressure : / mmHG Vent. Rate : 068 BPM Atrial Rate : 068 BPM P-R Int : 148 ms QRS Dur : 084 ms QT Int : 368 ms P-R-T Axes : 029 002 086 degrees QTc Int : 391 ms Normal sinus rhythm Nonspecific T wave abnormality Lateral leads Intra-ventricular conduction delay Cannot rule out Anteroseptal infarct (cited on or before 29-JUL-2021) Abnormal ECG When compared with ECG of 14-JUL-2022 07:50, Questionable change in initial forces of Anterior leads T wave inversion less evident in Anterior leads Referred By: Lorraine Ogden Electronically Signed By:SAI MORIN MD
--- NOTE | ~2022-08-15 | XR_ITS ---
EXAMINATION: XR ABDOMEN KUB CLINICAL INDICATION: Incorrect count COMPARISON: None TECHNIQUE: AP view of the abdomen. FINDINGS: Nonobstructed abdominal bowel gas pattern. There is a thin metallic structure projecting over the right lung base. Surgical clips and skin melina are present. Left lower quadrant surgical drain and bulb are present. There is connector tubing overlying the right iliac crest. Surgical anastomotic sutures are seen in the region of the epigastrium, left abdomen, and central midline pelvis. Soft tissue gas and pneumoperitoneum seen within the abdominal wall soft tissues left greater than right. XR/XR abdomen 1V IMPRESSION: Metallic foreign bodies seen include: A thin linear metallic foreign body projecting over the right lung base, indeterminate. Recommend clinical correlation. Surgical clips and skin melina. Connector tubing from a blood pressure cuff overlying the right iliac crest. Expected postoperative changes.
[2022-08-15 06:33] LABS: COVID-19 Test Negative (Negative); IDNOW Serial# 9DB6401D
[2022-08-15] MEDS: Lactated Ringers 1,000 ML 100 ML IVCONT (06:52)
--- NOTE | 2022-08-15 07:15 | HO.ANESPROP2 ---
[facility] Active Problems Active Problems: All Active Problems (Updated 07/23/22 @ 00:04 by Catie Vasquez) Carcinoma of cecum (Acute) Family history of colon cancer (Acute) Cecal cancer (Acute) Colonic mass (Acute) Hematochezia (Acute) Microcytic anemia (Acute) Polysubstance dependence (Acute) Chest pain (Acute) Past Medical History Medical History CAD (coronary artery disease) HTN (hypertension) Ischemic cardiomyopathy Polysubstance dependence Preop cardiovascular exam STEMI (ST elevation myocardial infarction) Family History Family History Family/Other CAD (coronary artery disease) Colon cancer, Onset Age: 30 Mother Stomach cancer Brother Colon cancer Family history of problems with anesthesia: No Surgical History Surgical History History of colonoscopy (07/15/22) History of Problems with Anesthesia: No Social History Social History Housing: House Do you presently have visiting nurse or other home services: No Patient Tobacco Use Status: Current everyday Tobacco user Tobacco use type: Cigarette Cigarettes Per Day: 10 Years Smoked: 15 Second Hand Smoke Exposure: Yes Use of substances other than those prescribed or required for medical reasons: No Substance Use Type: Crack/Cocaine Are you DNR?: No Advance Directives: No Advance Directives Information Provided: Yes Advance Directives on File: No service: No Current occupational status: unemployed Meds Allergies Allergy/AdvReac Type Severity Reaction Status Date / Time No Known Allergies Allergy Verified 08/05/22 11:00 Active Medications: Current Medications Lactated Ringer's (Lr) 1,000 mls @ 100 mls/hr IVCONT .Q10H PETR Last Admin: 08/15/22 06:52 Dose: 100 mls/hr Home Medications Medication Instructions Recorded Confirmed Last Taken Type atorvastatin 80 mg tablet 80 mg PO BEDTIME 07/29/21 08/05/22 08/14/22 History metoprolol succinate 25 mg 25 mg PO DAILY 07/29/21 08/05/22 08/15/22 History tablet,extended release 24 hr aspirin 81 mg tablet,delayed 1 tab PO DAILY 07/14/22 08/05/22 08/14/22 History release buprenorphine 8 mg-naloxone 2 mg 0.5 strip sublingual BID@08,19 07/14/22 08/05/22 08/15/22 History sublingual film (Suboxone) bupropion HCl 150 mg 24 hr tablet, 150 mg PO DAILY 07/14/22 08/05/22 08/14/22 History extended release nicotine 21 mg/24 hr daily 1 patch topical DAILY 07/14/22 08/05/22 Unknown History transdermal patch pantoprazole 40 mg tablet,delayed 1 tab PO DAILY 07/14/22 08/05/22 08/15/22 History release sacubitril 49 mg-valsartan 51 mg 1 tab PO BID 07/14/22 08/05/22 08/14/22 History tablet (Entresto) trazodone 100 mg tablet 1 tab PO BEDTIME 07/14/22 08/05/22 08/14/22 History buprenorphine 2 mg-naloxone 0.5 mg 2 mg sublingual DAILY 07/19/22 08/05/22 Unknown History sublingual film (Suboxone) Exam Exam Date and Time: August 15, 2022 0715 Height,Weight and Vital Signs: Height 5 ft 6 in Weight 77.111 kg Last Vital Signs Temp 98.7 F 08/15/22 06:27 Pulse 82 08/15/22 06:27 Resp 16 08/15/22 06:27 BP 106/68 08/15/22 06:27 Pulse Ox 98 08/15/22 06:27 O2 Del Method 08/15/22 06:27 Pertinent Lab Results Pertinent Lab Results: Laboratory Tests 08/15/22 06:13 COVID-19 (INDU) Negative COVID-19 Clin Com See Note Airway Mallampati Class: II TM Dist: >3cm Neck ROM: Full Partial: Upper Loose/Missing/Broken Teeth: Yes and Upper Heart: RRR Lungs: CTA Assessment and Plan Assessment Anesthesia Assessment: Anesthesia Plan Discussed and Chart Reviewed Final Anesthetic Review Family History of Problems with Anesthesia: No History of Problems with Anesthesia: No NPO: Yes ASA Class: III Final Preanesthetic Review: Meds/Allgs Chart Reviewed, Consent Obtained/Reviewed and Anes Risks/Benef Reviewed Patient Risk: Intermediate Procedure Risk: Intermediate Anesthetic Plan Anesthetic Plan: GA Disposition: Standard PACU
[2022-08-15 07:25] LABS: Amphetamine Screen Urine Not Detected (Not Detect); Barbiturates, Urine Not Detected (Not Detect); Benzodiazepines Screen Urine Not Detected (Not Detect); Cannabinoid Screen Urine Not Detected (Not Detect); Cocaine Screen Urine POSITIVE (Not Detect); Fentanyl, urine Not Detected (Not Detect); Opiate Screen Urine Not Detected (Not Detect); Phencyclidine Screen Urine Not Detected (Not Detect)
[2022-08-15 08:09] LABS: Troponin-I High Sensitivity 4.3 ng/L (<3.5-35.0)
--- NOTE | 2022-08-15 13:59 | W.PM.OPN ---
Operative Note Operative Note Date of Service: 08/15/22 Narrative: Preoperative diagnosis: Cecal carcinoma, Jose syndrome Postoperative diagnosis: same Procedure: Total proctocolectomy with end Christine ileostomy Surgeon: Chauncey Muniz MD Online Marketing Analyst: Alicia Lake PA-C, JUAN Powell Anesthesia: general endotracheal Indications for procedure: 36-year-old male patient presenting with a recent history of blood per rectum found on CT to have a mass in the cecum suggestive of a neoplasm. Subsequent colonoscopy revealed a cecal mass biopsy proven adenocarcinoma. His brother also has a history of colon cancer at the age of 30 and was determined to have Jose syndrome. 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 Options of total abdominal colectomy with ileal rectal anastomosis verses total proctocolectomy with end ileostomy were discussed. We also discussed referral to a tertiary care center. Patient wishes to proceed with a total proctocolectomy and ileostomy. Operative findings: Palpable mass in the cecum. No evidence of metastasis on palpation of liver no peritoneal implants and no other palpable colonic masses. Several enlarged lymph nodes noted in the right colon mesentery. Specimen: Total proctocolectomy Estimated blood loss: 150 mL Complications: none Procedure details: patient was brought to the OR placed in a supine position. After administering general anesthesia the patient's abdomen was prepped with ChloraPrep and perineum prepped with Betadine. A French catheter was placed prior to the start of the procedure. Patient was placed in a lithotomy position as well. A surgical time-out was called the consent confirmed. Patient received preoperative antibiotics and Venodyne boots were in place. Local anesthesia was infiltrated below the umbilicus and a 7.5 cm incision made with a scalpel. The incision was carried out through subcutaneous tissue, through the anterior rectus sheath and into peritoneum. A hand port was then inserted in the abdomen insufflated to a pressure of 15 mmHg. 212 mm trocars were placed in the left lower quadrant and right lower quadrant. A 5 mm trocar was placed in the right upper quadrant and left lower quadrant. Patient was then placed in a Trendelenburg position rotated to the left. The terminal ileum was identified and the attachments to the abdominal sidewall taken down using electrocautery. Dissection was continued along the cecum in the abdominal sidewall. Ileocecal and right colic artery were identified. The mesentery overlying the vessel was cleaned and the vessel did just below the duodenum using a vascular staple. The right colon was then further dissected along the sidewall up to the hepatic flexure. At this point a portion of the terminal ileum was cleared of its mesentery using electrocautery. An Endo-ZAY stapler was then used to divide the ileum approximately 10 cm proximal to the ileocecal valve. The mesentery was then divided below the terminal ileum extending up along the right colon. Was done using LigaSure. Hemostasis was assured the a tired time using the LigaSure. The lesser sac was then entered along the mid transverse colon and the hepatic flexure further taken down from distal to proximal. When the hepatic flexure was completely mobilized the mesentery was further dissected up towards the middle colic artery and vein. This was then isolated and divided using a vascular stapler. Dissection was continued distally along the transverse colon to begin mobilizing the splenic flexure. Dissection was continued from medial to lateral at which point dissection was continued along the white line of Toldt on the left colon from distal a proximal up towards the splenic flexure. With this was completely mobilized the inferior mesenteric artery and vein were identified. These were dissected below the mesentery and isolated. Vessels were then divided using the vascular stapler. Dissection was continued then along the avascular plane in the presacral space. A complete mesorectal excision was included in the dissection the lateral suspensory ligaments and middle hemorrhoidal vessels were then divided using LigaSure. The section was continued down along the rectum to just above the anal rectal border. Care was taken to dissect as far down onto the pelvis using the LigaSure dissector. A TA 60 stapler was then obtained in used to divide the distal rectum. This required two firings of the stapler. The specimen was then divided with curved Way scissors and sent to pathology for further examination. Wounds were then thoroughly irrigated with saline solution, 2 L suctioned dry. The peritoneum was then closed over the pelvic hollows Using a running 3-0 Polysorb suture. A Jase-Plunkett drain was left in place in the pelvic all out brought out through 1 of the trocar incisions on the left lower quadrant. This was connected to bulb suction and secured to the skin using a 3-0 nylon suture. At this time a circular incision was made in the right lower quadrant just lateral to the umbilicus. This was carried out through subcutaneous tissue up to the Anterior rectus sheath. A cruciate incision was then made in the anterior rectus sheath. The rectus muscle was then bluntly dissected using a Zenaida clamp and peritoneum entered. Two finger dilatation was then performed. The end ileostomy was then brought up through this circular incision In preparation for an ileostomy. Fascia was then closed in the midline incision using a running 0 PDS looped suture. Wounds were thoroughly irrigated with saline solution and suctioned dry. Eight mL of Zenrelef was then infiltrated in all incisions. Alyssa's fascia was then reapproximated using interrupted 3-0 Polysorb sutures in the midline incision. Skin was closed using skin melina. The remaining trocar incisions were closed using interrupted 4-0 Polysorb suture. The ileostomy was then matured using interrupted 3-0 Polysorb sutures in 4 quadrants creating a pilot station. Additional sutures were then placed in between the 4 quadrants to completely mature the Ileostomy. Sterile dressings consisting of 2 x 2 gauze and Tegaderm were applied to the trocar incisions. A small ABD pad was applied to the midline incision and secured with paper tape. An ostomy appliance was then applied to the ileostomy. The patient tolerated the procedure well. Sponge, instrument, and needle counts were reported as correct. Patient was transferred to PACU in stable condition.
[2022-08-15] MEDS: HYDROmorphone HCl 0.5 MG/0.5 ML SYRINGE 0.25 MG IVPUSH ×4 (14:16→14:48)
[2022-08-15] MEDS: fentaNYL citrate/PF 100 MCG/2 ML VIAL 25 MCG IVPUSH (14:26)
[2022-08-15] MEDS: ondansetron HCL 4 MG/2 ML VIAL IVPUSH (16:13)
[2022-08-15] MEDS: Dextrose 5 % and Lactated Ring 1,000 ML 125 ML IVCONT ×2 (17:03→23:58)
[2022-08-15] MEDS: Acetaminophen 1,000 MG/100 ML PIGGYBACK 400 MG IV ×2 (18:15→23:57)
[2022-08-15] MEDS: 0.9 % Sodium Chloride Flush 3 ML SYRINGE IVFLUSH (18:16)
[2022-08-15] MEDS: HYDROmorphone HCl 0.5 MG/0.5 ML SYRINGE IVPUSH ×2 (18:16→21:02)
--- NOTE | 2022-08-15 18:54 | PHA.MEDREC ---
Pharmacy Consult ? Medication Reconciliation Pharmacy has completed the medication reconciliation. Patient recently had surgery, was unresponsive for almost the whole day. Spoke to family member in room who said he picks up at [facility]. Used [employer] claims to form list.
[2022-08-16] VITALS (10 sets, daily range): BP systolic 120–137; BP diastolic 67–80; PULSE 51–63; RESP 14–18; TEMP 36.6–37.3; O2SAT 93–97
[2022-08-16] MEDS: HYDROmorphone HCl 0.5 MG/0.5 ML SYRINGE IVPUSH ×3 (04:11→07:51)
[2022-08-16] MEDS: Acetaminophen 1,000 MG/100 ML PIGGYBACK 400 MG IV ×4 (06:08→23:08)
[2022-08-16] MEDS: Dextrose 5 % and Lactated Ring 1,000 ML 125 ML IVCONT ×2 (06:08→14:22)
[2022-08-16 06:35] LABS: MANUAL DIFF FLAG NO
[2022-08-16 06:39] LABS: Basophils Percent Auto 0.1 % (0-2); Hematocrit 28.2 % (42.0-52.0); Hemoglobin 9.2 g/dl (14.0-18.0); Imm Gran Abs Auto 0.09 X10*3/uL (0.00-0.03); Imm Gran Pct Auto 0.7 % (0.0-0.4); Lymphocytes Absolute Auto 1.1 X10*3/uL (1.2-4.9); Lymphocytes Percent Auto 8.9 % (20-40); Mean Corpuscular HGB Conc 32.6 g/dl (31.0-36.0); Mean Corpuscular Hemoglobin 27.4 pg (27.0-33.0); Mean Corpuscular Volume 83.9 fL (80.0-98.0); Mean Platelet Volume 11.9 fL (9.4-12.4); Monocytes Percent Auto 7.9 % (2-11); Neutrophils Absolute Auto 10.4 x10*3/uL (2.0-8.3); Neutrophils Percent Auto 82.4 % (45-73); Platelet Count 254 X10*3/uL (160-400); Red Blood Count 3.36 X10*6/uL (4.60-5.80); Red Cell Distribution Width 12.8 % (11.0-16.0); White Blood Count 12.7 X10*3/uL (4.8-10.8)
[2022-08-16 07:05] LABS: Anion Gap 13 (12-20); Blood Urea Nitrogen 7 mg/dL (9-16); Carbon Dioxide 29 mmol/L (22-29); Chloride 101 mmol/L (96-108); Creatinine Clr Calc Pharmacy 113.4; Estimated Glomerular Filt Rate > 60; Glucose Random 128 mg/dL (60-115); Potassium 4.2 mmol/L (3.3-5.1); Sodium 139 mmol/L (135-145)
--- NOTE | 2022-08-16 07:46 | P.PNGS_ITS ---
Subjective Subjective Date of Service: 08/16/22 Interval history: Complains of incisional pain. Denies nausea or vomiting. Has not been out of bed Physical Exam Vital Signs: Vital Signs: Last Vital Signs Temp 98.6 F 08/16/22 07:32 Pulse 57 08/16/22 07:32 Resp 18 08/16/22 07:32 BP 133/75 08/16/22 07:32 Pulse Ox 97 08/16/22 07:32 O2 Del Method 08/16/22 07:32 O2 Flow Rate 2 08/15/22 17:00 BMI result Body Mass Index 27.4 Const: General: tired appearing Nutritional Appearance: average body habitus Orientation/consciousness: patient oriented x3 Resp: Effort & Inspection: normal respiratory effort GI: Other: ABDIRASHID with serosanguineous fluid, incision clean, dry, and intact without discharge. Ostomy pink and patent, small amount of bloody discharge. Abdomen image: 1. Ileostomy 2. midline incision 3. ABDIRASHID drain Skin: Other: warm, dry, no rash Neuro: General: patient oriented x3 Extrem: General: Yes no clubbing, cyanosis or edema Objective Data Active Medications Albuterol Sulfate (Albuterol Sulfate (0.083%) 2.5 Mg/3 Ml Vial.Neb) 2.5 mg INHALE ONCE PRN PRN Reason: Wheezing Atorvastatin Calcium (Atorvastatin Calcium 80 Mg Tablet) 80 mg PO BEDTIME [facility] Buprenorphine/Naloxone (Buprenorphine/Naloxone 8/2 Mg Film) 1 film SUBLINGUAL DAILY [facility] Bupropion HCl (Bupropion Hcl Xl 150 Mg Tab.Er.24h) 150 mg PO DAILY [facility] Hydromorphone HCl (Hydromorphone Hcl 1 Mg/Ml Syringe) 0.75 mg IVPUSH Q3H PRN; Protocol PRN Reason: Pain, Severe (Pain Scale 7-10) Hydromorphone HCl (Hydromorphone Hcl 2 Mg Tablet) 2 mg PO Q6H PRN PRN Reason: Pain, Moderate (Pain Scale 4-6 Dextrose/Lactated Ringer's (D5lr) 1,000 mls @ 125 mls/hr IVCONT .Q8H [facility] Last Admin: 08/16/22 06:08 Dose: 125 mls/hr Documented By: DREA Acetaminophen (Ofirmev) 1,000 mg in 100 mls @ 400 mls/hr IV Q6H [facility] Last Infusion: 08/16/22 06:30 Dose: 0 mls/hr Documented By: DREA Metoprolol Succinate (Metoprolol Succinate Er 25 Mg Tab.Er.24h) 25 mg PO DAILY [facility]; Protocol Nicotine (Nicotine 21 Mg Patch.Td24) 21 mg TRANSDERMA DAILY [facility] Omeprazole (Omeprazole 20 Mg Capsule.Dr) 20 mg PO DAILY [facility] Ondansetron HCl (Ondansetron Hcl 4 Mg/2 Ml Vial) 4 mg IVPUSH QID PRN PRN Reason: Nausea Pharmacy Consult (Consult Rx Perform Med Rec) 1 each MISCELLANE ONCE PRN PRN Reason: Consult order Sacubitril/Valsartan (Sacubitril/Valsartan 49/51 1 Tab Tablet) 1 tab PO BID [facility]; Protocol Sodium Chloride (0.9 % Sodium Chloride Flush 3 Ml Syringe) 3 ml IVFLUSH QSHIFT [facility] Last Admin: 08/16/22 07:22 Dose: Not Given Documented By: CLEMENTINA Non-Admin Reason: IV Running Trazodone HCl (Trazodone Hcl 100 Mg Tablet) 100 mg PO BEDTIME [facility] Zolpidem Tartrate (Zolpidem Tartrate 5 Mg Tablet) 5 mg PO BEDTIME PRN PRN Reason: Insomnia Labs CBC & Chem 7: 08/16/22 06:02 08/16/22 06:02 Labs: Laboratory Results - last 24 hr 08/15/22 08/15/22 08/16/22 06:39 07:42 06:02 MCV 83.9 MCH 27.4 MCHC 32.6 RDW 12.8 Plt Count 254 D MPV 11.9 Immature Gran % (Auto) 0.7 H Neut % (Auto) 82.4 H Lymph % (Auto) 8.9 L [place] % (Auto) 7.9 Eos % (Auto) 0.0 Baso % (Auto) 0.1 Lymph # (Auto) 1.1 L [place] # (Auto) 1.0 Eos # (Auto) 0.0 Baso # (Auto) 0.0 Abs Immat Gran (auto) 0.09 H Absolute Neuts (auto) 10.4 H Absolute Nucleated RBC 0.000 Nucleated RBC % (auto) 0.0 Anion Gap Estim Creat Clear Calc Estimated GFR Random Glucose Calcium Troponin I High Sens 4.3 Blood Type A Positive Antibody Screen NEGATIVE 08/16/22 06:02 MCV MCH MCHC RDW Plt Count MPV Immature Gran % (Auto) Neut % (Auto) Lymph % (Auto) [place] % (Auto) Eos % (Auto) Baso % (Auto) Lymph # (Auto) [place] # (Auto) Eos # (Auto) Baso # (Auto) Abs Immat Gran (auto) Absolute Neuts (auto) Absolute Nucleated RBC Nucleated RBC % (auto) Anion Gap 13 Estim Creat Clear Calc 113.4 Estimated GFR > 60 Random Glucose 128 H D Calcium 9.0 Troponin I High Sens Blood Type Antibody Screen Procedures Date of Service Date of Service: 08/16/22 Progress Note: A&P Assessment and plan (1) Cecal cancer: Status: Acute (2) Family history of colon cancer: Status: Acute (3) Jose syndrome: Status: Acute Plan 36-year-old male patient with a family history of colon cancer 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 He is pod 1 following total proctocolectomy and ileostomy. He complains mainly of incisional pain this morning. I will adjust his pain medications. He was encouraged to get out of bed and ambulate today. Will DC French catheter later today. Repeat CBC in a.m.. Time Spent With Patient Time: Total time spent is greater than 50% in coordination of care (as documented) at patient's floor/unit and/or counseling patient: Quality Stroke Does the patient have a stroke diagnosis?: No VTE Prior VTE?: No VTE Risk Level:: Surgical - moderate VTE Device Contraindication: N/A - Device Ordered VTE Drug Contraindication: Treatment Not Indicated ( Bloody fluid per ABDIRASHID)
[2022-08-16] MEDS: Sacubitril/Valsartan 49/51 1 TAB TABLET PO ×2 (07:51→20:16)
[2022-08-16] MEDS: Omeprazole 20 MG CAPSULE.DR PO (07:51)
[2022-08-16] MEDS: Buprenorphine/Naloxone 8/2 mg FILM 1 FILM SUBLINGUAL (07:51)
[2022-08-16] MEDS: Metoprolol Succinate ER 25 MG TAB.ER.24H PO (07:52)
[2022-08-16] MEDS: buPROPion HCl XL 150 MG TAB.ER.24H PO (07:52)
[2022-08-16] MEDS: HYDROmorphone HCl 2 MG TABLET PO ×3 (09:39→23:08)
--- NOTE | 2022-08-16 10:42 | HO.POSTANES ---
Post Anesthesia Evaluation Post Anesthesia Evaluation Vital Signs: Vital Signs Temp Pulse Resp BP Pulse Ox O2 Del Method 08/16/22 07:51 18 08/16/22 07:32 98.6 F 57 18 133/75 97 Room Air 08/16/22 04:00 99.1 F 58 18 135/67 96 Room Air 08/16/22 00:07 99 F 63 16 129/72 97 Room Air Anesthesia: General Endotracheal-GETA Mental Status: Awake Pain Control: Satisfactory (incisional pain) Nausea/Vomiting: Mild Hydration: Adequate Anesthesia-Related Issues: No Anes. Related Issues
[2022-08-16] MEDS: HYDROmorphone HCl 1 MG/ML SYRINGE 0.75 MG IVPUSH ×4 (11:25→20:09)
--- NOTE | 2022-08-16 15:56 | MHC.CM.PN ---
PATIENT LIVES WITH SISTER AND IS INDEPENDENT WITH [facility]LS COVID VAX X 2. NO DME OR [facility]NA SERVICES IN THE HOME. NO HCP ON FILE. PATIENT WILL CONSIDER HIS AGENT(S) AND SPEAK WITH CASE MANAGEMENT WHEN HE DECIDES. FAMILY TO TRANSPORT HOME AT DC. CASE MANAGEMENT FOLLOWING FOR DC NEEDS.
[2022-08-16] MEDS: Atorvastatin Calcium 80 MG TABLET PO (20:15)
[2022-08-16] MEDS: traZODone HCL 100 MG TABLET PO (20:16)
--- NOTE | 2022-08-16 20:20 | MHC.PIE ---
p; pt c/o pain abd pressure like 07/25. note; prn dilaudid q3 last given at 1750. i; dr morejon notified; give early dose now e; will cont to monitor
[2022-08-16] MEDS: Dextrose 5 % and Lactated Ring 1,000 ML 80 ML IVCONT (22:23)
[2022-08-16] MEDS: HYDROmorphone HCl 1 MG/ML SYRINGE 0.5 MG IVPUSH (22:27)
[2022-08-17] MEDS: HYDROmorphone HCl 1 MG/ML SYRINGE 0.5 MG IVPUSH ×7 (02:03→23:19)
[2022-08-17 03:39] VITALS: BP 128/80; PULSE 60; RESP 14; TEMP 36.9; O2SAT 95
[2022-08-17] MEDS: Acetaminophen 1,000 MG/100 ML PIGGYBACK 400 MG IV ×4 (04:53→23:19)
[2022-08-17 06:59] LABS: MANUAL DIFF FLAG NO
[2022-08-17 07:02] LABS: Basophils Percent Auto 0.4 % (0-2); Eosinophils Percent Auto 0.4 % (0-4); Hematocrit 29.7 % (42.0-52.0); Hemoglobin 9.5 g/dl (14.0-18.0); Imm Gran Abs Auto 0.02 X10*3/uL (0.00-0.03); Imm Gran Pct Auto 0.2 % (0.0-0.4); Lymphocytes Absolute Auto 1.1 X10*3/uL (1.2-4.9); Lymphocytes Percent Auto 13.3 % (20-40); Mean Corpuscular Hemoglobin 26.9 pg (27.0-33.0); Mean Corpuscular Volume 84.1 fL (80.0-98.0); Mean Platelet Volume 11.8 fL (9.4-12.4); Monocytes Absolute Auto 0.7 X10*3/uL (0.1-1.2); Monocytes Percent Auto 8.7 % (2-11); Neutrophils Absolute Auto 6.4 x10*3/uL (2.0-8.3); Platelet Count 261 X10*3/uL (160-400); Red Blood Count 3.53 X10*6/uL (4.60-5.80); White Blood Count 8.3 X10*3/uL (4.8-10.8)
[2022-08-17 07:53] VITALS: BP 131/85; PULSE 60; RESP 18; TEMP 37.2; O2SAT 96
[2022-08-17] MEDS: Sacubitril/Valsartan 49/51 1 TAB TABLET PO ×2 (08:26→20:29)
[2022-08-17] MEDS: Omeprazole 20 MG CAPSULE.DR PO (08:27)
[2022-08-17] MEDS: Metoprolol Succinate ER 25 MG TAB.ER.24H PO (08:27)
[2022-08-17] MEDS: buPROPion HCl XL 150 MG TAB.ER.24H PO (08:27)
[2022-08-17] MEDS: Buprenorphine/Naloxone 8/2 mg FILM 1 FILM SUBLINGUAL (08:27)
[2022-08-17] MEDS: Nicotine 21 MG PATCH.TD24 TRANSDERMA (08:35)
--- NOTE | 2022-08-17 08:59 | P.PNGS_ITS ---
Subjective Subjective Date of Service: 08/17/22 Interval history: Still having difficulty with pain. Some nausea. Has not been OOB yet. Voiding on own. Ileostomy with stool output. Physical Exam Vital Signs: Vital Signs: Last Vital Signs Temp 99.0 F 08/17/22 07:53 Pulse 60 08/17/22 07:53 Resp 18 08/17/22 07:53 BP 131/85 08/17/22 07:53 Pulse Ox 96 08/17/22 07:53 O2 Del Method 08/17/22 07:53 O2 Flow Rate 2 08/15/22 17:00 BMI result Body Mass Index 27.4 Const: General: no acute distress and alert Orientation/consciousness: patient oriented x3 Resp: Effort & Inspection: normal respiratory effort Cardio: Rate: regular rate GI: Inspection: Yes distended (mild) and Yes incision (clean) Palpation (GI): Soft to palpation, Tenderness to palpation present (GI) (incisional), no guarding and not rigid Percussion: Yes normal to percussion Skin: General skin exam: no rashes or lesions noted Neuro: General: patient oriented x3 and moves all extremities Extrem: General: Yes no clubbing, cyanosis or edema Objective Data Active Medications Albuterol Sulfate (Albuterol Sulfate (0.083%) 2.5 Mg/3 Ml Vial.Neb) 2.5 mg IN DOSS ONCE PRN PRN Reason: Wheezing Atorvastatin Calcium (Atorvastatin Calcium 80 Mg Tablet) 80 mg PO BEDTIME [facility] Last Admin: 08/16/22 20:15 Dose: 80 mg Documented By: DREA Buprenorphine/Naloxone (Buprenorphine/Naloxone 8/2 Mg Film) 1 film SUBLINGUAL DAILY [facility] Last Admin: 08/17/22 08:27 Dose: 1 film Documented By: BRENNAN Bupropion HCl (Bupropion Hcl Xl 150 Mg Tab.Er.24h) 150 mg PO DAILY [facility] Last Admin: 08/17/22 08:27 Dose: 150 mg Documented By: BRENNAN Hydromorphone HCl (Hydromorphone Hcl 2 Mg Tablet) 2 mg PO Q6H PRN PRN Reason: Pain, Moderate (Pain Scale 4-6 Last Admin: 08/16/22 23:08 Dose: 2 mg Documented By: DREA Hydromorphone HCl (Hydromorphone Hcl 1 Mg/Ml Syringe) 0.5 mg IVPUSH Q2H PRN; Protocol PRN Reason: Pain, Severe (Pain Scale 7-10) Last Admin: 08/17/22 08:23 Dose: 0.5 mg Documented By: BRENNAN Dextrose/Lactated Ringer's (D5lr) 1,000 mls @ 80 mls/hr IVCONT .[id number] [facility] Last Admin: 08/16/22 22:23 Dose: 80 mls/hr Documented By: DREA Acetaminophen (Ofirmev) 1,000 mg in 100 mls @ 400 mls/hr IV Q6H [facility] Last Infusion: 08/17/22 05:09 Dose: 0 mls/hr Documented By: DREA Ketorolac Tromethamine (Ketorolac Tromethamine 30 Mg/Ml Vial) 30 mg IVPUSH Q6H PRN PRN Reason: abdominal pain Metoprolol Succinate (Metoprolol Succinate Er 25 Mg Tab.Er.24h) 25 mg PO DAILY [facility]; Protocol Last Admin: 08/17/22 08:27 Dose: 25 mg Documented By: BRENNAN Nicotine (Nicotine 21 Mg Patch.Td24) 21 mg TRANSDERMA DAILY [facility] Last Admin: 08/17/22 08:35 Dose: 21 mg Documented By: BRENNAN Omeprazole (Omeprazole 20 Mg Capsule.Dr) 20 mg PO DAILY [facility] Last Admin: 08/17/22 08:27 Dose: 20 mg Documented By: BRENNAN Ondansetron HCl (Ondansetron Hcl 4 Mg/2 Ml Vial) 4 mg IVPUSH QID PRN PRN Reason: Nausea Pharmacy Consult (Consult Rx Perform Med Rec) 1 each MISCELLANE ONCE PRN PRN Reason: Consult order Sacubitril/Valsartan (Sacubitril/Valsartan 49/51 1 Tab Tablet) 1 tab PO BID [facility]; Protocol Last Admin: 08/17/22 08:26 Dose: 1 tab Documented By: BRENNAN Sodium Chloride (0.9 % Sodium Chloride Flush 3 Ml Syringe) 3 ml IVFLUSH QSHIFT [facility] Last Admin: 08/17/22 08:35 Dose: Not Given Documented By: BRENNAN Non-Admin Reason: IV Running Trazodone HCl (Trazodone Hcl 100 Mg Tablet) 100 mg PO BEDTIME [facility] Last Admin: 08/16/22 20:16 Dose: 100 mg Documented By: DREA Zolpidem Tartrate (Zolpidem Tartrate 5 Mg Tablet) 5 mg PO BEDTIME PRN PRN Reason: Insomnia Labs CBC & Chem 7: 08/17/22 06:08 08/16/22 06:02 Labs: Laboratory Results - last 24 hr 08/17/22 06:08 MCV 84.1 MCH 26.9 L MCHC 32.0 RDW 13.0 Plt Count 261 MPV 11.8 Immature Gran % (Auto) 0.2 Neut % (Auto) 77.0 H Lymph % (Auto) 13.3 L [place] % (Auto) 8.7 Eos % (Auto) 0.4 Baso % (Auto) 0.4 Lymph # (Auto) 1.1 L [place] # (Auto) 0.7 Eos # (Auto) 0.0 Baso # (Auto) 0.0 Abs Immat Gran (auto) 0.02 Absolute Neuts (auto) 6.4 Absolute Nucleated RBC 0.000 Nucleated RBC % (auto) 0.0 Procedures Date of Service Date of Service: 08/17/22 Progress Note: A&P Assessment and plan (1) Jose syndrome: Status: Acute (2) Carcinoma of cecum: Status: Acute (3) Family history of colon cancer: Status: Acute (4) S/P total colectomy: Status: Acute Plan 36-year-old male patient with a family history of colon cancer 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 He is pod 2 following total proctocolectomy and ileostomy. Still having difficulty with pain- will add ketorolac. His incisions are clean and ileostomy viable appearing and now with stool output. Will advance to solid diet. He has not gotten OOB yet and this was strongly encouraged today- PT consulted. WBC has normalized. Time Spent With Patient Time: Total time spent is greater than 50% in coordination of care (as documented) at patient's floor/unit and/or counseling patient: Quality Stroke Does the patient have a stroke diagnosis?: No VTE Prior VTE?: No VTE Risk Level:: Surgical - moderate VTE Device Contraindication: N/A - Device Ordered VTE Drug Contraindication: Treatment Not Indicated ( Bloody fluid per ABDIRASHID)
[2022-08-17] MEDS: Ketorolac Tromethamine 30 MG/ML VIAL IVPUSH ×2 (10:07→18:16)
[2022-08-17] MEDS: Dextrose 5 % and Lactated Ring 1,000 ML 80 ML IVCONT ×2 (11:01→23:20)
[2022-08-17 11:29] VITALS: BP 130/75; PULSE 65; RESP 18; TEMP 37.2; O2SAT 96
[2022-08-17 16:00] VITALS: BP 142/71; PULSE 72; RESP 20; TEMP 37.1; O2SAT 97
[2022-08-17 20:00] VITALS: BP 155/70; PULSE 74; RESP 18; TEMP 36.4; O2SAT 95
[2022-08-17] MEDS: ondansetron HCL 4 MG/2 ML VIAL IVPUSH (20:21)
[2022-08-17] MEDS: Atorvastatin Calcium 80 MG TABLET PO (20:29)
[2022-08-17] MEDS: traZODone HCL 100 MG TABLET PO (20:29)
[2022-08-18] VITALS (7 sets, daily range): BP systolic 88–121; BP diastolic 52–79; PULSE 66–98; RESP 18–19; TEMP 36.4–36.6; O2SAT 96–98
[2022-08-18] MEDS: HYDROmorphone HCl 1 MG/ML SYRINGE 0.5 MG IVPUSH ×4 (02:05→08:57)
[2022-08-18] MEDS: ondansetron HCL 4 MG/2 ML VIAL IVPUSH (02:06)
--- NOTE | 2022-08-18 03:15 | PC.NURSE ---
08/17/22 2300 pt vomitted 400cc light green liquid medicated with zofran 4mg iv at 2024 not due for nausea med will continue to monitor.
[2022-08-18] MEDS: Omeprazole 20 MG CAPSULE.DR PO ×2 (04:44→08:38)
--- NOTE | 2022-08-18 04:52 | PC.NURSE ---
pt vomitted 800 cc green liquid instructed pt to hold off on po for now medicated with zofran at 0200 not due at this time. c/o acid reflux prilosec given early.
[2022-08-18] MEDS: Acetaminophen 1,000 MG/100 ML PIGGYBACK 400 MG IV ×4 (05:37→23:18)
--- NOTE | 2022-08-18 08:07 | PM.PNGS ---
Subjective Subjective Date of Service: 08/18/22 <Alicia Lake PA-C - Last Filed: 08/18/22 08:21> 08/18/22 <Chauncey Muniz MD - Last Filed: 08/18/22 08:22> Interval history: Feels ok this morning, tired. Had nausea and a couple episodes of vomiting yesterday. Has been OOB and ambulated halls a few times yesterday. Abd pain is better. <Alicia Lake PA-C - Last Filed: 08/18/22 08:21> Physical Exam Vital Signs: Vital Signs: Last Vital Signs Temp 97.9 F 08/18/22 03:31 Pulse 98 08/18/22 03:31 Resp 19 08/18/22 03:31 BP 111/77 08/18/22 03:31 Pulse Ox 96 08/18/22 03:31 O2 Del Method 08/18/22 03:31 O2 Flow Rate 2 08/15/22 17:00 BMI result Body Mass Index 27.4 <Alicia Lake PA-C - Last Filed: 08/18/22 08:21> Const: General: comfortable, no acute distress and alert <Alicia Lake PA-C - Last Filed: 08/18/22 08:21> Orientation/consciousness: patient oriented x3 <JAY Valdez Last Filed: 08/18/22 08:21> Resp: Effort & Inspection: normal respiratory effort <Alicia Lake PA-C - Last Filed: 08/18/22 08:21> GI: Other: ostomy pink, liquid output in appliance; ABDIRASHID drain with scanty serosanguineous drainage <Alicia Lake PA-C - Last Filed: 08/18/22 08:21> Inspection: Yes distended (mild) and Yes incision (clean) <JAY Valdez Last Filed: 08/18/22 08:21> Palpation (GI): Soft to palpation, Tenderness to palpation present (GI) (mild), no guarding and not rigid <JAY Valdez Last Filed: 08/18/22 08:21> Percussion: Yes normal to percussion <Alicia Lake PA-C - Last Filed: 08/18/22 08:21> Skin: General skin exam: no rashes or lesions noted <Alicia Lake PA-C - Last Filed: 08/18/22 08:21> Neuro: General: patient oriented x3 <Alicia Lake PA-C - Last Filed: 08/18/22 08:21> Extrem: General: Yes no clubbing, cyanosis or edema <Alicia Lake PA-C - Last Filed: 08/18/22 08:21> Objective Data Active Medications Albuterol Sulfate (Albuterol Sulfate (0.083%) 2.5 Mg/3 Ml Vial.Neb) 2.5 mg INHALE ONCE PRN PRN Reason: Wheezing Atorvastatin Calcium (Atorvastatin Calcium 80 Mg Tablet) 80 mg PO BEDTIME [facility] Last Admin: 08/17/22 20:29 Dose: 80 mg Documented By: BARB Buprenorphine/Naloxone (Buprenorphine/Naloxone 8/2 Mg Film) 1 film SUBLINGUAL DAILY [facility] Last Admin: 08/17/22 08:27 Dose: 1 film Documented By: BRENNAN Bupropion HCl (Bupropion Hcl Xl 150 Mg Tab.Er.24h) 150 mg PO DAILY [facility] Last Admin: 08/17/22 08:27 Dose: 150 mg Documented By: BRENNAN Hydromorphone HCl (Hydromorphone Hcl 2 Mg Tablet) 2 mg PO Q6H PRN PRN Reason: Pain, Moderate (Pain Scale 4-6 Last Admin: 08/16/22 23:08 Dose: 2 mg Documented By: DREA Hydromorphone HCl (Hydromorphone Hcl 1 Mg/Ml Syringe) 0.5 mg IVPUSH Q2H PRN; Protocol PRN Reason: Pain, Severe (Pain Scale 7-10) Last Admin: 08/18/22 06:32 Dose: 0.5 mg Documented By: BARB Dextrose/Lactated Ringer's (D5lr) 1,000 mls @ 80 mls/hr IVCONT .[id number] [facility] Last Admin: 08/17/22 23:20 Dose: 80 mls/hr Documented By: BARB Acetaminophen (Ofirmev) 1,000 mg in 100 mls @ 400 mls/hr IV Q6H [facility] Last Infusion: 08/18/22 05:52 Dose: 0 mls/hr Documented By: BARB Ketorolac Tromethamine (Ketorolac Tromethamine 30 Mg/Ml Vial) 30 mg IVPUSH Q6H PRN PRN Reason: abdominal pain Last Admin: 08/17/22 18:16 Dose: 30 mg Documented By: BRENNAN Loperamide HCl (Loperamide Hcl 2 Mg Capsule) 4 mg PO Q6H [facility] Metoprolol Succinate (Metoprolol Succinate Er 25 Mg Tab.Er.24h) 25 mg PO DAILY [facility]; Protocol Last Admin: 08/17/22 08:27 Dose: 25 mg Documented By: BRENNAN Nicotine (Nicotine 21 Mg Patch.Td24) 21 mg TRANSDERMA DAILY [facility] Last Admin: 08/17/22 08:35 Dose: 21 mg Documented By: BRENNAN Omeprazole (Omeprazole 20 Mg Capsule.Dr) 20 mg PO DAILY [facility] Last Admin: 08/18/22 04:44 Dose: 20 mg Documented By: BARB Ondansetron HCl (Ondansetron Hcl 4 Mg/2 Ml Vial) 4 mg IVPUSH QID PRN PRN Reason: Nausea Last Admin: 08/18/22 02:06 Dose: 4 mg Documented By: BARB Pharmacy Consult (Consult Rx Perform Med Rec) 1 each MISCELLANE ONCE PRN PRN Reason: Consult order Psyllium Hydrophilic Mucilloid (Psyllium Seed 3.4 Gm Powd.Pack) 3.4 gm PO DAILY [facility] Sacubitril/Valsartan (Sacubitril/Valsartan 49/51 1 Tab Tablet) 1 tab PO BID [facility]; Protocol Last Admin: 08/17/22 20:29 Dose: 1 tab Documented By: BARB Sodium Chloride (0.9 % Sodium Chloride Flush 3 Ml Syringe) 3 ml IVFLUSH QSHIFT [facility] Last Admin: 08/17/22 22:19 Dose: Not Given Documented By: BARB Non-Admin Reason: IV Running Trazodone HCl (Trazodone Hcl 100 Mg Tablet) 100 mg PO BEDTIME [facility] Last Admin: 08/17/22 20:29 Dose: 100 mg Documented By: BARB Zolpidem Tartrate (Zolpidem Tartrate 5 Mg Tablet) 5 mg PO BEDTIME PRN PRN Reason: Insomnia <JAY Valdez Last Filed: 08/18/22 08:21> Labs CBC & Chem 7: : 08/17/22 06:08 08/16/22 06:02 <JAY Valdez Last Filed: 08/18/22 08:21> Procedures Date of Service Date of Service: 08/18/22 <JAY Valdez Last Filed: 08/18/22 08:21> Progress Note: A&P Assessment and plan (1) S/P total colectomy: Status: Acute <JAY Valdez Last Filed: 08/18/22 08:21> (2) Jose syndrome: Status: Acute <JAY Valdez Last Filed: 08/18/22 08:21> (3) Carcinoma of cecum: Status: Acute <JAY Valdez Last Filed: 08/18/22 08:21> Assessment and Plan: 36-year-old male patient with a family history of colon cancer 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 He is pod 3 following total proctocolectomy and ileostomy, overall doing well post op. Having some nausea/vomiting. Abd is soft with mild distention. His incisions are clean and ileostomy remains viable appearing. Will put back on clear liquids for now given nausea- may have segmental ileus. Ileostomy with high output- will begin imodium, metamucil. Continue to monitor I&Os, will continue IVF for now. Will remove ABDIRASHID drain later today. Begin ileostomy education. <JAY Valdez Last Filed: 08/18/22 08:21> Time Spent With Patient Time: Total time spent is greater than 50% in coordination of care (as documented) at patient's floor/unit and/or counseling patient: <JAY Valdez Last Filed: 08/18/22 08:21> Quality Stroke Does the patient have a stroke diagnosis?: No <JAY Valdez Last Filed: 08/18/22 08:21> VTE Prior VTE?: No <Alicia Lake PA-C - Last Filed: 08/18/22 08:21> VTE Risk Level:: Surgical - moderate <Alicia Lake PA-C - Last Filed: 08/18/22 08:21> VTE Device Contraindication: N/A - Device Ordered <Alicia Lake PA-C - Last Filed: 08/18/22 08:21> VTE Drug Contraindication: Treatment Not Indicated ( Bloody fluid per ABDIRASHID) <Alicia Lake PA-C - Last Filed: 08/18/22 08:21>
--- NOTE | 2022-08-18 08:16 | P.PNGS_ITS ---
Subjective Subjective Date of Service: 08/18/22 Interval history: POD #3 Following total proctocolectomy with Christine ileostomy. Patient now producing copious amounts of clear liquid stool from ostomy. Wounds are clean and intact without redness or discharge. Patient reports some nausea this morning but was able to get out of bed 3 times yesterday. Physical Exam Vital Signs: Vital Signs: Last Vital Signs Temp 97.6 F 08/18/22 08:00 Pulse 78 08/18/22 08:00 Resp 18 08/18/22 08:00 BP 109/67 08/18/22 08:00 Pulse Ox 97 08/18/22 08:00 O2 Del Method 08/18/22 08:00 O2 Flow Rate 2 08/15/22 17:00 BMI result Body Mass Index 27.4 Const: Other: Sleepy but awake and comfortable. No acute distress, oriented x3 Resp: Other: breathing comfortably on room air GI: Other: midline incision is clean, dry, and intact without redness or discharge. Ostomy with clear green tinged fluid, watery in appearance. Abdomen otherwise soft and nondistended. ABDIRASHID with serosanguineous discharge. Skin: Other: Warm, dry, no rash Extrem: Other: no edema Objective Data Active Medications Albuterol Sulfate (Albuterol Sulfate (0.083%) 2.5 Mg/3 Ml Vial.Neb) 2.5 mg INHALE ONCE PRN PRN Reason: Wheezing Atorvastatin Calcium (Atorvastatin Calcium 80 Mg Tablet) 80 mg PO BEDTIME [facility] Last Admin: 08/17/22 20:29 Dose: 80 mg Documented By: BARB Buprenorphine/Naloxone (Buprenorphine/Naloxone 8/2 Mg Film) 1 film SUBLINGUAL DAILY [facility] Last Admin: 08/17/22 08:27 Dose: 1 film Documented By: BRENNAN Bupropion HCl (Bupropion Hcl Xl 150 Mg Tab.Er.24h) 150 mg PO DAILY [facility] Last Admin: 08/17/22 08:27 Dose: 150 mg Documented By: BRENNAN Hydromorphone HCl (Hydromorphone Hcl 2 Mg Tablet) 2 mg PO Q6H PRN PRN Reason: Pain, Moderate (Pain Scale 4-6 Last Admin: 08/16/22 23:08 Dose: 2 mg Documented By: DREA Hydromorphone HCl (Hydromorphone Hcl 1 Mg/Ml Syringe) 0.5 mg IVPUSH Q2H PRN; Protocol PRN Reason: Pain, Severe (Pain Scale 7-10) Last Admin: 08/18/22 06:32 Dose: 0.5 mg Documented By: BARB Dextrose/Lactated Ringer's (D5lr) 1,000 mls @ 80 mls/hr IVCONT .[id number] [facility] Last Admin: 08/17/22 23:20 Dose: 80 mls/hr Documented By: BARB Acetaminophen (Ofirmev) 1,000 mg in 100 mls @ 400 mls/hr IV Q6H [facility] Last Infusion: 08/18/22 05:52 Dose: 0 mls/hr Documented By: BARB Ketorolac Tromethamine (Ketorolac Tromethamine 30 Mg/Ml Vial) 30 mg IVPUSH Q6H PRN PRN Reason: abdominal pain Last Admin: 08/17/22 18:16 Dose: 30 mg Documented By: BRENNAN Loperamide HCl (Loperamide Hcl 2 Mg Capsule) 4 mg PO Q6H [facility] Metoprolol Succinate (Metoprolol Succinate Er 25 Mg Tab.Er.24h) 25 mg PO DAILY [facility]; Protocol Last Admin: 08/17/22 08:27 Dose: 25 mg Documented By: BRENNAN Nicotine (Nicotine 21 Mg Patch.Td24) 21 mg TRANSDERMA DAILY [facility] Last Admin: 08/17/22 08:35 Dose: 21 mg Documented By: BRENNAN Omeprazole (Omeprazole 20 Mg Capsule.Dr) 20 mg PO DAILY [facility] Last Admin: 08/18/22 04:44 Dose: 20 mg Documented By: BARB Ondansetron HCl (Ondansetron Hcl 4 Mg/2 Ml Vial) 4 mg IVPUSH QID PRN PRN Reason: Nausea Last Admin: 08/18/22 02:06 Dose: 4 mg Documented By: BARB Pharmacy Consult (Consult Rx Perform Med Rec) 1 each MISCELLANE ONCE PRN PRN Reason: Consult order Psyllium Hydrophilic Mucilloid (Psyllium Seed 3.4 Gm Powd.Pack) 3.4 gm PO DAILY [facility] Sacubitril/Valsartan (Sacubitril/Valsartan 49/51 1 Tab Tablet) 1 tab PO BID [facility]; Protocol Last Admin: 08/17/22 20:29 Dose: 1 tab Documented By: BARB Sodium Chloride (0.9 % Sodium Chloride Flush 3 Ml Syringe) 3 ml IVFLUSH QSHIFT [facility] Last Admin: 08/17/22 22:19 Dose: Not Given Documented By: BARB Non-Admin Reason: IV Running Trazodone HCl (Trazodone Hcl 100 Mg Tablet) 100 mg PO BEDTIME [facility] Last Admin: 08/17/22 20:29 Dose: 100 mg Documented By: BARB Zolpidem Tartrate (Zolpidem Tartrate 5 Mg Tablet) 5 mg PO BEDTIME PRN PRN Reason: Insomnia Labs CBC & Chem 7: 08/17/22 06:08 08/16/22 06:02 Procedures Date of Service Date of Service: 08/18/22 Progress Note: A&P Assessment and plan (1) S/P total colectomy: Status: Acute (2) Jose syndrome: Status: Acute (3) Carcinoma of cecum: Status: Acute Plan 36-year-old male patient 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 He is producing copious amounts of clear liquid stool per ostomy. Will start Imodium today. Recheck lytes in a.m. and monitor I & O's. Encouraged continued out of bed and ambulation. D/C ABDIRASHID today. Ostomy teaching. Time Spent With Patient Time: Total time spent is greater than 50% in coordination of care (as documented) at patient's floor/unit and/or counseling patient: Quality Stroke Does the patient have a stroke diagnosis?: No VTE Prior VTE?: No VTE Risk Level:: Surgical - moderate VTE Device Contraindication: N/A - Device Ordered VTE Drug Contraindication: Treatment Not Indicated ( Bloody fluid per ABDIRASHID)
[2022-08-18] MEDS: buPROPion HCl XL 150 MG TAB.ER.24H PO (08:37)
[2022-08-18] MEDS: Metoprolol Succinate ER 25 MG TAB.ER.24H PO (08:38)
[2022-08-18] MEDS: Sacubitril/Valsartan 49/51 1 TAB TABLET PO ×2 (08:38→19:53)
[2022-08-18] MEDS: Nicotine 21 MG PATCH.TD24 TRANSDERMA (08:38)
[2022-08-18] MEDS: Buprenorphine/Naloxone 8/2 mg FILM 1 FILM SUBLINGUAL (08:39)
[2022-08-18] MEDS: Loperamide HCl 2 MG CAPSULE 4 MG PO (08:57)
[2022-08-18] MEDS: Dextrose 5 % and Lactated Ring 1,000 ML 80 ML IVCONT ×2 (11:25→23:18)
[2022-08-18] MEDS: HYDROmorphone HCl 0.5 MG/0.5 ML SYRINGE IVPUSH ×3 (13:04→19:53)
[2022-08-18] MEDS: Ketorolac Tromethamine 30 MG/ML VIAL IVPUSH ×2 (16:29→23:24)
[2022-08-18] MEDS: Atorvastatin Calcium 80 MG TABLET PO (19:54)
[2022-08-18] MEDS: traZODone HCL 100 MG TABLET PO (19:54)
[2022-08-18] MEDS: HYDROmorphone HCl 2 MG TABLET PO (23:24)
[2022-08-19] MEDS: HYDROmorphone HCl 0.5 MG/0.5 ML SYRINGE IVPUSH ×4 (02:01→18:51)
[2022-08-19] MEDS: Zolpidem Tartrate 5 MG TABLET PO (02:03)
[2022-08-19 03:52] VITALS: BP 108/59; PULSE 73; RESP 18; TEMP 36.3; O2SAT 98
[2022-08-19] MEDS: Acetaminophen 1,000 MG/100 ML PIGGYBACK 400 MG IV ×3 (05:39→18:38)
[2022-08-19 05:56] LABS: Hematocrit 30.2 % (42.0-52.0); Hemoglobin 9.6 g/dl (14.0-18.0); Mean Corpuscular HGB Conc 31.8 g/dl (31.0-36.0); Mean Corpuscular Hemoglobin 26.9 pg (27.0-33.0); Mean Corpuscular Volume 84.6 fL (80.0-98.0); Platelet Count 290 X10*3/uL (160-400); Red Blood Count 3.57 X10*6/uL (4.60-5.80); Red Cell Distribution Width 12.8 % (11.0-16.0); White Blood Count 6.8 X10*3/uL (4.8-10.8)
[2022-08-19 06:45] LABS: Anion Gap 16 (12-20); Blood Urea Nitrogen 13 mg/dL (9-16); Calcium 8.9 mg/dL (8.4-10.2); Carbon Dioxide 27 mmol/L (22-29); Chloride 100 mmol/L (96-108); Creatinine Clr Calc Pharmacy 121.7; Estimated Glomerular Filt Rate > 60; Glucose Random 99 mg/dL (60-115); Potassium 3.7 mmol/L (3.3-5.1); Sodium 139 mmol/L (135-145)
[2022-08-19 07:54] VITALS: BP 112/65; PULSE 79; RESP 18; TEMP 36.6; O2SAT 97
--- NOTE | 2022-08-19 08:06 | P.PNGS_ITS ---
Subjective Subjective Date of Service: 08/19/22 Interval history: Tired this morning. Did not sleep at all last night. Denies nausea this morning. Wants to try solid food again. Physical Exam Vital Signs: Vital Signs: Last Vital Signs Temp 97.8 F 08/19/22 07:54 Pulse 79 08/19/22 07:54 Resp 18 08/19/22 07:54 BP 112/65 08/19/22 07:54 Pulse Ox 97 08/19/22 07:54 O2 Del Method 08/19/22 07:54 O2 Flow Rate 2 08/15/22 17:00 BMI result Body Mass Index 27.4 Const: General: comfortable, no acute distress and alert Orientation/consciousness: patient oriented x3 Resp: Effort & Inspection: normal respiratory effort GI: Other: ileostomy pink, more bilious output in appliance Inspection: No distended and Yes incision (clean) Palpation (GI): Soft to palpation, no guarding and not rigid Skin: General skin exam: no rashes or lesions noted Neuro: General: patient oriented x3 Objective Data Active Medications Albuterol Sulfate (Albuterol Sulfate (0.083%) 2.5 Mg/3 Ml Vial.Neb) 2.5 mg INHALE ONCE PRN PRN Reason: Wheezing Atorvastatin Calcium (Atorvastatin Calcium 80 Mg Tablet) 80 mg PO BEDTIME [facility] Last Admin: 08/18/22 19:54 Dose: 80 mg Documented By: BARB Buprenorphine/Naloxone (Buprenorphine/Naloxone 8/2 Mg Film) 1 film SUBLINGUAL DAILY [facility] Last Admin: 08/18/22 08:39 Dose: 0.5 film Documented By: GLENN Comments: pt refused full strip Bupropion HCl (Bupropion Hcl Xl 150 Mg Tab.Er.24h) 150 mg PO DAILY [facility] Last Admin: 08/18/22 08:37 Dose: 150 mg Documented By: GLENN Hydromorphone HCl (Hydromorphone Hcl 2 Mg Tablet) 2 mg PO Q6H PRN PRN Reason: Pain, Moderate (Pain Scale 4-6 Last Admin: 08/18/22 23:24 Dose: 2 mg Documented By: BARB Hydromorphone HCl (Hydromorphone Hcl 0.5 Mg/0.5 Ml Syringe) 0.5 mg IVPUSH Q2H PRN; Protocol PRN Reason: Pain, Severe (Pain Scale 7-10) Last Admin: 08/19/22 05:48 Dose: 0.5 mg Documented By: BARB Dextrose/Lactated Ringer's (D5lr) 1,000 mls @ 80 mls/hr IVCONT .[id number] [facility] Last Admin: 08/18/22 23:18 Dose: 80 mls/hr Documented By: BARB Acetaminophen (Ofirmev) 1,000 mg in 100 mls @ 400 mls/hr IV Q6H [facility] Last Infusion: 08/19/22 05:59 Dose: 0 mls/hr Documented By: BARB Ketorolac Tromethamine (Ketorolac Tromethamine 30 Mg/Ml Vial) 30 mg IVPUSH Q6H PRN PRN Reason: abdominal pain Last Admin: 08/18/22 23:24 Dose: 30 mg Documented By: BARB Metoprolol Succinate (Metoprolol Succinate Er 25 Mg Tab.Er.24h) 25 mg PO DAILY [facility]; Protocol Last Admin: 08/18/22 08:38 Dose: 25 mg Documented By: GLENN Nicotine (Nicotine 21 Mg Patch.Td24) 21 mg TRANSDERMA DAILY [facility] Last Admin: 08/18/22 08:38 Dose: 21 mg Documented By: GLENN Omeprazole (Omeprazole 20 Mg Capsule.Dr) 20 mg PO DAILY [facility] Last Admin: 08/18/22 08:38 Dose: 20 mg Documented By: GLENN Ondansetron HCl (Ondansetron Hcl 4 Mg/2 Ml Vial) 4 mg IVPUSH QID PRN PRN Reason: Nausea Last Admin: 08/18/22 02:06 Dose: 4 mg Documented By: BARB Pharmacy Consult (Consult Rx Perform Med Rec) 1 each MISCELLANE ONCE PRN PRN Reason: Consult order Psyllium Hydrophilic Mucilloid (Psyllium Seed 3.4 Gm Powd.Pack) 3.4 gm PO DAILY [facility] Last Admin: 08/18/22 08:39 Dose: 3.4 gm Documented By: GLENN Sacubitril/Valsartan (Sacubitril/Valsartan 49/51 1 Tab Tablet) 1 tab PO BID [facility]; Protocol Last Admin: 08/18/22 19:53 Dose: 1 tab Documented By: BARB Sodium Chloride (0.9 % Sodium Chloride Flush 3 Ml Syringe) 3 ml IVFLUSH QSHIFT [facility] Last Admin: 08/18/22 22:45 Dose: Not Given Documented By: BARB Non-Admin Reason: IV Running Trazodone HCl (Trazodone Hcl 100 Mg Tablet) 100 mg PO BEDTIME [facility] Last Admin: 08/18/22 19:54 Dose: 100 mg Documented By: BARB Zolpidem Tartrate (Zolpidem Tartrate 5 Mg Tablet) 5 mg PO BEDTIME PRN PRN Reason: Insomnia Last Admin: 08/19/22 02:03 Dose: 5 mg Documented By: BARB Labs CBC & Chem 7: 08/19/22 05:10 08/19/22 05:10 Labs: Laboratory Results - last 24 hr 08/19/22 08/19/22 05:10 05:10 MCV 84.6 MCH 26.9 L MCHC 31.8 RDW 12.8 Plt Count 290 MPV 11.0 Absolute Nucleated RBC 0.000 Nucleated RBC % (auto) 0.0 Anion Gap 16 Estim Creat Clear Calc 121.7 Estimated GFR > 60 Random Glucose 99 Calcium 8.9 Procedures Date of Service Date of Service: 08/19/22 Progress Note: A&P Assessment and plan (1) S/P total colectomy: Status: Acute (2) Jose syndrome: Status: Acute (3) Carcinoma of cecum: Status: Acute Plan 36-year-old male patient with a family history of colon cancer 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 He is pod 4 following total proctocolectomy and ileostomy, continues to do over all well post op. AM labs reviewed. Will advance back to solid diet. VSS. Abd remains benign with viable ileostomy. Output is slowing but remains around 1200cc. Will continue loperamide TID and metamucil. Will continue IVF for now given high output until PO intake adequate. ABDIRASHID drain removed yesterday. Ileostomy education. Hopefully home over the weekend with VNA services. Time Spent With Patient Time: Total time spent is greater than 50% in coordination of care (as documented) at patient's floor/unit and/or counseling patient: Quality Stroke Does the patient have a stroke diagnosis?: No VTE Prior VTE?: No VTE Risk Level:: Surgical - moderate VTE Device Contraindication: N/A - Device Ordered VTE Drug Contraindication: Treatment Not Indicated ( Bloody fluid per ABDIRASHID)
[2022-08-19] MEDS: Ketorolac Tromethamine 30 MG/ML VIAL IVPUSH (09:48)
[2022-08-19] MEDS: Loperamide HCl 2 MG CAPSULE PO ×3 (09:50→21:06)
[2022-08-19] MEDS: buPROPion HCl XL 150 MG TAB.ER.24H PO (09:50)
[2022-08-19] MEDS: Omeprazole 20 MG CAPSULE.DR PO (09:51)
[2022-08-19] MEDS: Sacubitril/Valsartan 49/51 1 TAB TABLET PO ×2 (09:52→21:06)
[2022-08-19] MEDS: Buprenorphine/Naloxone 8/2 mg FILM 1 FILM SUBLINGUAL (09:52)
[2022-08-19] MEDS: Metoprolol Succinate ER 25 MG TAB.ER.24H PO (09:52)
[2022-08-19] MEDS: Nicotine 21 MG PATCH.TD24 TRANSDERMA (09:52)
[2022-08-19 11:44] VITALS: BP 104/67; PULSE 86; RESP 18; TEMP 36.8; O2SAT 96
[2022-08-19] MEDS: Dextrose 5 % and Lactated Ring 1,000 ML 80 ML IVCONT (12:15)
--- NOTE | 2022-08-19 13:26 | MHC.CM.PN ---
PLAN IS ADVANCE DIET AND POSSIBLE HOME THIS WEEKEND.
[2022-08-19 13:37] VITALS: BP 104/67; PULSE 86; O2SAT 96
[2022-08-19] MEDS: Lidocaine 4 % Patch ADH..PATCH 1 PATCH TRANSDERMA (15:30)
[2022-08-19] MEDS: ondansetron HCL 4 MG/2 ML VIAL IVPUSH (15:33)
[2022-08-19 15:52] VITALS: BP 91/54; PULSE 78; RESP 16; TEMP 36.2; O2SAT 96
[2022-08-19 20:00] VITALS: BP 84/51; PULSE 61; RESP 18; TEMP 36; O2SAT 96
[2022-08-19] MEDS: Atorvastatin Calcium 80 MG TABLET PO (21:06)
[2022-08-19] MEDS: traZODone HCL 100 MG TABLET PO (21:06)
[2022-08-19] MEDS: 0.9 % Sodium Chloride Flush 3 ML SYRINGE IVFLUSH (21:06)
[2022-08-20] MEDS: Acetaminophen 1,000 MG/100 ML PIGGYBACK 400 MG IV ×4 (00:28→17:36)
[2022-08-20] MEDS: Ketorolac Tromethamine 30 MG/ML VIAL IVPUSH ×3 (00:29→19:55)
[2022-08-20] MEDS: Lactated Ringers 500 ML 999 ML IV ×2 (01:40→21:35)
[2022-08-20 04:00] VITALS: BP 90/55; PULSE 71; RESP 17; TEMP 36.1; O2SAT 96
[2022-08-20] MEDS: Dextrose 5 % and Lactated Ring 1,000 ML 80 ML IVCONT ×2 (04:04→17:35)
[2022-08-20] MEDS: HYDROmorphone HCl 2 MG TABLET PO (04:05)
[2022-08-20 08:00] VITALS: BP 99/50; PULSE 70; RESP 18; TEMP 36.3; O2SAT 96
[2022-08-20] MEDS: Loperamide HCl 2 MG CAPSULE PO ×3 (09:10→19:55)
[2022-08-20] MEDS: Sacubitril/Valsartan 49/51 1 TAB TABLET PO ×2 (09:10→19:55)
[2022-08-20] MEDS: buPROPion HCl XL 150 MG TAB.ER.24H PO (09:10)
[2022-08-20] MEDS: Metoprolol Succinate ER 25 MG TAB.ER.24H PO (09:10)
[2022-08-20] MEDS: Omeprazole 20 MG CAPSULE.DR PO ×2 (09:10→17:37)
[2022-08-20] MEDS: Nicotine 21 MG PATCH.TD24 TRANSDERMA (09:11)
[2022-08-20] MEDS: Buprenorphine/Naloxone 8/2 mg FILM 1 FILM SUBLINGUAL (09:11)
[2022-08-20] MEDS: Lidocaine 4 % Patch ADH..PATCH 1 PATCH TRANSDERMA (09:11)
[2022-08-20] MEDS: HYDROmorphone HCl 0.5 MG/0.5 ML SYRINGE IVPUSH ×2 (09:12→13:29)
--- NOTE | 2022-08-20 11:35 | P.PNGS_ITS ---
Subjective Subjective Date of Service: 08/20/22 Interval history: feeling ok. little pain no nause or vomiting but a little scared to eat as vomitted two days ago. had some light breakfast, admits to not drinking as much, felt tired Physical Exam Vital Signs: Vital Signs: Last Vital Signs Temp 97.4 F 08/20/22 08:00 Pulse 70 08/20/22 08:00 Resp 18 08/20/22 08:00 BP 99/50 L 08/20/22 08:00 Pulse Ox 96 08/20/22 08:00 O2 Del Method 08/20/22 08:00 O2 Flow Rate 2 08/15/22 17:00 BMI result Body Mass Index 27.4 Const: General: cooperative, healthy appearing and no acute distress HEENT: Head: Yes normal to inspection Resp: Effort & Inspection: normal respiratory effort Auscultation: clear to auscultation bilaterally Cardio: Rate: regular rate Rhythm: regular rhythm GI: Other: soft mild tenderness active bowel sounds - incisions ok and the ostomy putting out bilious material. Skin: General skin exam: no rashes or lesions noted Extrem: General: Yes normal to inspection Psych: Appearance: grossly normal Mental Status: mental status grossly normal Objective Data Active Medications Albuterol Sulfate (Albuterol Sulfate (0.083%) 2.5 Mg/3 Ml Vial.Neb) 2.5 mg INHALE ONCE PRN PRN Reason: Wheezing Atorvastatin Calcium (Atorvastatin Calcium 80 Mg Tablet) 80 mg PO BEDTIME [facility] Last Admin: 08/19/22 21:06 Dose: 80 mg Documented By: AMANDA Buprenorphine/Naloxone (Buprenorphine/Naloxone 8/2 Mg Film) 1 film SUBLINGUAL DAILY [facility] Last Admin: 08/20/22 09:11 Dose: 1 film Documented By: JAVIER Bupropion HCl (Bupropion Hcl Xl 150 Mg Tab.Er.24h) 150 mg PO DAILY [facility] Last Admin: 08/20/22 09:10 Dose: 150 mg Documented By: JAVIER Hydromorphone HCl (Hydromorphone Hcl 2 Mg Tablet) 2 mg PO Q6H PRN PRN Reason: Pain, Moderate (Pain Scale 4-6 Last Admin: 08/20/22 04:05 Dose: 2 mg Documented By: AMANDA Hydromorphone HCl (Hydromorphone Hcl 0.5 Mg/0.5 Ml Syringe) 0.5 mg IVPUSH Q2H PRN; Protocol PRN Reason: Pain, Severe (Pain Scale 7-10) Last Admin: 08/20/22 09:12 Dose: 0.5 mg Documented By: JAVIER Dextrose/Lactated Ringer's (D5lr) 1,000 mls @ 80 mls/hr IVCONT .[id number] [facility] Last Admin: 08/20/22 04:04 Dose: 80 mls/hr Documented By: AMANDA Acetaminophen (Ofirmev) 1,000 mg in 100 mls @ 400 mls/hr IV Q6H [facility] Last Infusion: 08/20/22 07:06 Dose: 0 mls/hr Documented By: AMANDA Ketorolac Tromethamine (Ketorolac Tromethamine 30 Mg/Ml Vial) 30 mg IVPUSH Q6H PRN PRN Reason: abdominal pain Last Admin: 08/20/22 06:35 Dose: 30 mg Documented By: AMANDA Lidocaine (Lidocaine 4 % Patch Adh..Patch) 1 patch TRANSDERMA DAILY [facility]; Protocol Last Admin: 08/20/22 09:11 Dose: 1 patch Documented By: JAVIER Loperamide HCl (Loperamide Hcl 2 Mg Capsule) 2 mg PO TID [facility] Last Admin: 08/20/22 09:10 Dose: 2 mg Documented By: JAVIER Metoprolol Succinate (Metoprolol Succinate Er 25 Mg Tab.Er.24h) 25 mg PO DAILY [facility]; Protocol Last Admin: 08/20/22 09:10 Dose: 25 mg Documented By: JAVIER Nicotine (Nicotine 21 Mg Patch.Td24) 21 mg TRANSDERMA DAILY [facility] Last Admin: 08/20/22 09:11 Dose: 21 mg Documented By: JAVIER Omeprazole (Omeprazole 20 Mg Capsule.Dr) 20 mg PO DAILY [facility] Last Admin: 08/20/22 09:10 Dose: 20 mg Documented By: JAVIER Ondansetron HCl (Ondansetron Hcl 4 Mg/2 Ml Vial) 4 mg IVPUSH QID PRN PRN Reason: Nausea Last Admin: 08/19/22 15:33 Dose: 4 mg Documented By: BRENNAN Pharmacy Consult (Consult Rx Perform Med Rec) 1 each MISCELLANE ONCE PRN PRN Reason: Consult order Psyllium Hydrophilic Mucilloid (Psyllium Seed 3.4 Gm Powd.Pack) 3.4 gm PO DAILY [facility] Last Admin: 08/20/22 09:18 Dose: 3.4 gm Documented By: JAVIER Sacubitril/Valsartan (Sacubitril/Valsartan 49/51 1 Tab Tablet) 1 tab PO BID [facility]; Protocol Last Admin: 08/20/22 09:10 Dose: 1 tab Documented By: JAVIER Sodium Chloride (0.9 % Sodium Chloride Flush 3 Ml Syringe) 3 ml IVFLUSH QSHIFT [facility] Last Admin: 08/20/22 09:11 Dose: Not Given Documented By: JAVIER Non-Admin Reason: IV Running Trazodone HCl (Trazodone Hcl 100 Mg Tablet) 100 mg PO BEDTIME [facility] Last Admin: 08/19/22 21:06 Dose: 100 mg Documented By: AMANDA Zolpidem Tartrate (Zolpidem Tartrate 5 Mg Tablet) 5 mg PO BEDTIME PRN PRN Reason: Insomnia Last Admin: 08/19/22 02:03 Dose: 5 mg Documented By: BARB Labs CBC & Chem 7: 08/19/22 05:10 08/19/22 05:10 Procedures Date of Service Date of Service: 08/20/22 Progress Note: A&P Assessment and plan (1) S/P total colectomy: Status: Acute Assessment and Plan: 36 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 mild dehydration from ostomy output neuro - pain meds suboxone resp - doing well - IS cardiac - has metorolol for htn, cont for now but watch bp gi- still some ileus but gi tract working, po ppi gu- good u/o - monitor ins/out fen - on po diet - need to take in lots of liquids - small amounts frequently, wath ostomy outputs and match with po intake, cont iv fluids to supplement ostomy outputs, check electrolyes jeanette ambulate ostomy teaching care Time Spent With Patient Time: Total time spent is greater than 50% in coordination of care (as documented) at patient's floor/unit and/or counseling patient: Quality Stroke Does the patient have a stroke diagnosis?: No VTE Prior VTE?: No VTE Risk Level:: Surgical - moderate VTE Device Contraindication: N/A - Device Ordered VTE Drug Contraindication: Treatment Not Indicated ( Bloody fluid per ABDIRASHID)
[2022-08-20 12:00] VITALS: BP 110/58; PULSE 80; RESP 18; TEMP 36.1
[2022-08-20 15:18] VITALS: BP 100/58; PULSE 66; RESP 18; TEMP 36.6; O2SAT 95
[2022-08-20 19:41] VITALS: BP 88/53; PULSE 66; RESP 17; TEMP 36.8; O2SAT 97
[2022-08-20] MEDS: Atorvastatin Calcium 80 MG TABLET PO (19:55)
[2022-08-20] MEDS: traZODone HCL 100 MG TABLET PO (19:55)
[2022-08-20] MEDS: ondansetron HCL 4 MG/2 ML VIAL IVPUSH (19:56)
[2022-08-20] MEDS: 0.9 % Sodium Chloride Flush 3 ML SYRINGE IVFLUSH (20:00)
[2022-08-20 23:35] VITALS: BP 93/55; PULSE 69; RESP 16; TEMP 36.1; O2SAT 96
[2022-08-21] VITALS (7 sets, daily range): BP systolic 90–104; BP diastolic 53–60; PULSE 63–78; RESP 14–18; TEMP 36.1–37.1; O2SAT 94–97
[2022-08-21] MEDS: Acetaminophen 1,000 MG/100 ML PIGGYBACK 400 MG IV ×2 (00:01→06:11)
[2022-08-21] MEDS: HYDROmorphone HCl 2 MG TABLET PO ×2 (00:07→06:15)
[2022-08-21] MEDS: Ketorolac Tromethamine 30 MG/ML VIAL IVPUSH ×3 (03:49→23:43)
[2022-08-21] MEDS: Dextrose 5 % and Lactated Ring 1,000 ML 80 ML IVCONT (06:11)
[2022-08-21 06:41] LABS: Anion Gap 13 (12-20); Blood Urea Nitrogen 10 mg/dL (9-16); Calcium 8.4 mg/dL (8.4-10.2); Carbon Dioxide 27 mmol/L (22-29); Chloride 104 mmol/L (96-108); Estimated Glomerular Filt Rate > 60; Glucose Random 110 mg/dL (60-115); Potassium 3.8 mmol/L (3.3-5.1); Sodium 140 mmol/L (135-145)
[2022-08-21] MEDS: Nicotine 21 MG PATCH.TD24 TRANSDERMA (09:30)
[2022-08-21] MEDS: Omeprazole 20 MG CAPSULE.DR PO ×2 (09:30→18:03)
[2022-08-21] MEDS: Lidocaine 4 % Patch ADH..PATCH 1 PATCH TRANSDERMA (09:31)
[2022-08-21] MEDS: Metoprolol Succinate ER 25 MG TAB.ER.24H PO (09:31)
[2022-08-21] MEDS: Loperamide HCl 2 MG CAPSULE PO ×3 (09:31→20:45)
[2022-08-21] MEDS: Buprenorphine/Naloxone 8/2 mg FILM 1 FILM SUBLINGUAL (09:31)
[2022-08-21] MEDS: Sacubitril/Valsartan 49/51 1 TAB TABLET PO ×2 (09:31→20:45)
[2022-08-21] MEDS: buPROPion HCl XL 150 MG TAB.ER.24H PO (09:31)
[2022-08-21] MEDS: HYDROmorphone HCl 0.5 MG/0.5 ML SYRINGE IVPUSH ×2 (09:32→12:02)
--- NOTE | 2022-08-21 16:49 | P.PNGS_ITS ---
Subjective Subjective Date of Service: 08/21/22 Interval history: patient complaining of feeling more nauseated and abdominal pain. Does not Want to eat too much but His ostomy is working. overnight still with episode of hypotension despite not having too much ostomy output. Seemingly responded to IV bolus patient did also increase his p.o. liquid intake as I encouraged him today to Physical Exam Vital Signs: Vital Signs: Last Vital Signs Temp 98.8 F 08/21/22 15:09 Pulse 74 08/21/22 15:09 Resp 18 08/21/22 15:09 BP 92/57 L 08/21/22 15:09 Pulse Ox 95 08/21/22 15:09 O2 Del Method 08/21/22 15:09 O2 Flow Rate 2 08/15/22 17:00 BMI result Body Mass Index 27.4 Const: General: cooperative, acute distress mild and lethargic Orientation/consciousness: patient oriented x3 and lethargic Resp: Effort & Inspection: normal respiratory effort Auscultation: clear to auscultation bilaterally Cardio: Rate: regular rate Rhythm: regular rhythm GI: Other: little distended in little hypoactive bowel sounds mild tenderness ostomy is working Skin: General skin exam: no rashes or lesions noted Neuro: General: patient oriented x3 Psych: Appearance: grossly normal Affect: Blunted affect present Attitude: cooperative Objective Data Active Medications Albuterol Sulfate (Albuterol Sulfate (0.083%) 2.5 Mg/3 Ml Vial.Neb) 2.5 mg INHALE ONCE PRN PRN Reason: Wheezing Atorvastatin Calcium (Atorvastatin Calcium 80 Mg Tablet) 80 mg PO BEDTIME [facility] Last Admin: 08/20/22 19:55 Dose: 80 mg Documented By: AMANDA Buprenorphine/Naloxone (Buprenorphine/Naloxone 8/2 Mg Film) 2 film SUBLINGUAL DAILY [facility] Bupropion HCl (Bupropion Hcl Xl 150 Mg Tab.Er.24h) 150 mg PO DAILY [facility] Last Admin: 08/21/22 09:31 Dose: 150 mg Documented By: JAVIER Hydromorphone HCl (Hydromorphone Hcl 0.5 Mg/0.5 Ml Syringe) 0.5 mg IVPUSH Q2H PRN; Protocol PRN Reason: Pain, Severe (Pain Scale 7-10) Last Admin: 08/21/22 12:02 Dose: 0.5 mg Documented By: JAVIER Lactated Ringer's (Lr) 500 mls @ 999 mls/hr IV .Q31M [facility] Last Infusion: 08/20/22 23:03 Dose: 0 mls/hr Documented By: AMANDA Ketorolac Tromethamine (Ketorolac Tromethamine 30 Mg/Ml Vial) 30 mg IVPUSH Q6H PRN PRN Reason: abdominal pain Last Admin: 08/21/22 03:49 Dose: 30 mg Documented By: AMANDA Lidocaine (Lidocaine 4 % Patch Adh..Patch) 1 patch TRANSDERMA DAILY [facility]; Protocol Last Admin: 08/21/22 09:31 Dose: 1 patch Documented By: JAVIER Loperamide HCl (Loperamide Hcl 2 Mg Capsule) 2 mg PO TID [facility] Last Admin: 08/21/22 09:31 Dose: 2 mg Documented By: JAVIER Metoprolol Succinate (Metoprolol Succinate Er 25 Mg Tab.Er.24h) 25 mg PO DAILY [facility]; Protocol Last Admin: 08/21/22 09:31 Dose: 25 mg Documented By: JAVIER Nicotine (Nicotine 21 Mg Patch.Td24) 21 mg TRANSDERMA DAILY [facility] Last Admin: 08/21/22 09:30 Dose: 21 mg Documented By: JAVIER Omeprazole (Omeprazole 20 Mg Capsule.Dr) 20 mg PO BIDWM [facility] Last Admin: 08/21/22 09:30 Dose: 20 mg Documented By: JAVIER Ondansetron HCl (Ondansetron Hcl 4 Mg/2 Ml Vial) 4 mg IVPUSH QID PRN PRN Reason: Nausea Last Admin: 08/20/22 19:56 Dose: 4 mg Documented By: AMANDA Pharmacy Consult (Consult Rx Perform Med Rec) 1 each MISCELLANE ONCE PRN PRN Reason: Consult order Psyllium Hydrophilic Mucilloid (Psyllium Seed 3.4 Gm Powd.Pack) 3.4 gm PO DAILY [facility] Last Admin: 08/21/22 09:35 Dose: Not Given Documented By: JAVIER Non-Admin Reason: Patient Refused Sacubitril/Valsartan (Sacubitril/Valsartan 49/51 1 Tab Tablet) 1 tab PO BID [facility]; Protocol Last Admin: 08/21/22 09:31 Dose: 1 tab Documented By: JAVIER Sodium Chloride (0.9 % Sodium Chloride Flush 3 Ml Syringe) 3 ml IVFLUSH QSHIFT [facility] Last Admin: 08/21/22 09:30 Dose: Not Given Documented By: JAVIER Non-Admin Reason: IV Running Trazodone HCl (Trazodone Hcl 100 Mg Tablet) 100 mg PO BEDTIME [facility] Last Admin: 08/20/22 19:55 Dose: 100 mg Documented By: AMANDA Labs CBC & Chem 7: 08/19/22 05:10 08/21/22 05:43 Labs: Laboratory Results - last 24 hr 08/21/22 05:43 Anion Gap 13 Estim Creat Clear Calc 128.0 Estimated GFR > 60 Random Glucose 110 Calcium 8.4 Procedures Date of Service Date of Service: 08/21/22 Progress Note: A&P Assessment and plan (1) S/P total colectomy: Status: Acute Plan overall patient doing well but maybe little ileus to much p.o. intake. I think his blood pressure may be secondary to some dehydration to continue with the IV fluids. Will encourage to pack down up subtle it food and continue with liquids today continue with IV fluids in addition. Check electrolytes tomorrow. Increased Suboxone and decrease Dilaudid Encourage ambulation Time Spent With Patient Time: Total time spent is greater than 50% in coordination of care (as documented) at patient's floor/unit and/or counseling patient: Quality Stroke Does the patient have a stroke diagnosis?: No VTE Prior VTE?: No VTE Risk Level:: Surgical - moderate VTE Device Contraindication: N/A - Device Ordered VTE Drug Contraindication: Treatment Not Indicated ( Bloody fluid per ABDIRASHID)
[2022-08-21] MEDS: 0.9 % Sodium Chloride Flush 3 ML SYRINGE IVFLUSH ×2 (18:04→23:43)
[2022-08-21] MEDS: traZODone HCL 100 MG TABLET PO (20:45)
[2022-08-21] MEDS: Atorvastatin Calcium 80 MG TABLET PO (20:45)
[2022-08-22] VITALS: BP 102/58; PULSE 77; RESP 18; TEMP 36.6; O2SAT 96
[2022-08-22 04:00] VITALS: BP 100/57; PULSE 80; RESP 20; TEMP 37; O2SAT 98
[2022-08-22] MEDS: Ketorolac Tromethamine 30 MG/ML VIAL IVPUSH (06:18)
[2022-08-22 06:32] LABS: MANUAL DIFF FLAG NO
[2022-08-22 06:36] LABS: Basophils Percent Auto 0.5 % (0-2); Eosinophils Absolute Auto 0.3 X10*3/uL (0.0-0.4); Eosinophils Percent Auto 5.9 % (0-4); Hematocrit 23.2 % (42.0-52.0); Hemoglobin 7.5 g/dl (14.0-18.0); Imm Gran Abs Auto 0.02 X10*3/uL (0.00-0.03); Imm Gran Pct Auto 0.3 % (0.0-0.4); Lymphocytes Absolute Auto 1.6 X10*3/uL (1.2-4.9); Lymphocytes Percent Auto 27.7 % (20-40); Mean Corpuscular HGB Conc 32.3 g/dl (31.0-36.0); Mean Corpuscular Hemoglobin 27.5 pg (27.0-33.0); Mean Platelet Volume 10.4 fL (9.4-12.4); Monocytes Absolute Auto 0.5 X10*3/uL (0.1-1.2); Monocytes Percent Auto 8.1 % (2-11); Neutrophils Absolute Auto 3.3 x10*3/uL (2.0-8.3); Neutrophils Percent Auto 57.5 % (45-73); Platelet Count 268 X10*3/uL (160-400); Red Blood Count 2.73 X10*6/uL (4.60-5.80); Red Cell Distribution Width 12.9 % (11.0-16.0); White Blood Count 5.8 X10*3/uL (4.8-10.8)
[2022-08-22 06:50] LABS: Magnesium 1.9 mg/dL (1.6-2.6); Phosphorus 3.1 mg/dL (2.7-4.5)
[2022-08-22 06:52] LABS: Anion Gap 14 (12-20); Blood Urea Nitrogen 8 mg/dL (9-16); Calcium 8.4 mg/dL (8.4-10.2); Carbon Dioxide 25 mmol/L (22-29); Chloride 104 mmol/L (96-108); Creatinine Clr Calc Pharmacy 134.9; Estimated Glomerular Filt Rate > 60; Glucose Random 96 mg/dL (60-115); Potassium 3.8 mmol/L (3.3-5.1); Sodium 139 mmol/L (135-145)
[2022-08-22 07:53] VITALS: BP 112/65; PULSE 75; RESP 18; TEMP 36.9; O2SAT 98
--- NOTE | 2022-08-22 09:16 | PM.PNGS ---
Subjective Subjective Date of Service: 08/22/22 <Alicia Lake PA-C - Last Filed: 08/22/22 09:23> 08/22/22 <Elmer Marsh MD - Last Filed: 08/22/22 10:06> Interval history: He feels well. Was put but back on clears over the weekend but he denies any nausea at all and reports he is hungry and wants solid food. Pain is controlled, still using IV analgesics. OOB and ambulating. He is emptying his appliance on his own. <Alicia Lake PA-C - Last Filed: 08/22/22 09:23> Physical Exam Vital Signs: Vital Signs: Last Vital Signs Temp 98.4 F 08/22/22 07:53 Pulse 75 08/22/22 07:53 Resp 18 08/22/22 07:53 BP 112/65 08/22/22 07:53 Pulse Ox 98 08/22/22 07:53 O2 Del Method 08/22/22 07:53 O2 Flow Rate 2 08/15/22 17:00 BMI result Body Mass Index 27.4 <Alicia Lake PA-C - Last Filed: 08/22/22 09:23> Const: General: comfortable, no acute distress, well developed and alert <JAY Valdez Last Filed: 08/22/22 09:23> Orientation/consciousness: patient oriented x3 <Alicia Lake PA-C - Last Filed: 08/22/22 09:23> Resp: Effort & Inspection: normal respiratory effort <JAY Valdez Last Filed: 08/22/22 09:23> Cardio: Rate: regular rate <JAY Valdez Last Filed: 08/22/22 09:23> GI: Other: ileostomy pink, large amount of liquid & soft stool in appliance <JAY Valdez Last Filed: 08/22/22 09:23> Inspection: No distended and Yes incision (clean) <JAY Valdez Last Filed: 08/22/22 09:23> Palpation (GI): Soft to palpation, Tenderness to palpation present (GI) (mild, incisional), no guarding and not rigid <Alicia Lake PA-C - Last Filed: 08/22/22 09:23> Percussion: Yes normal to percussion <Alicia Lake PA-C - Last Filed: 08/22/22 09:23> Skin: General skin exam: no rashes or lesions noted <Alicia Lake PA-C - Last Filed: 08/22/22 09:23> Neuro: General: patient oriented x3 <Alicia Lake PA-C - Last Filed: 08/22/22 09:23> Extrem: General: Yes no clubbing, cyanosis or edema <Alicia Lake PA-C - Last Filed: 08/22/22 09:23> Objective Data Active Medications Atorvastatin Calcium (Atorvastatin Calcium 80 Mg Tablet) 80 mg PO BEDTIME [facility] Last Admin: 08/21/22 20:45 Dose: 80 mg Documented By: STEPHANIE Buprenorphine/Naloxone (Buprenorphine/Naloxone 8/2 Mg Film) 2 film SUBLINGUAL DAILY [facility] Bupropion HCl (Bupropion Hcl Xl 150 Mg Tab.Er.24h) 150 mg PO DAILY [facility] Last Admin: 08/21/22 09:31 Dose: 150 mg Documented By: JAVIER Hydromorphone HCl (Hydromorphone Hcl 0.5 Mg/0.5 Ml Syringe) 0.5 mg IVPUSH Q2H PRN; Protocol PRN Reason: Pain, Severe (Pain Scale 7-10) Last Admin: 08/21/22 12:02 Dose: 0.5 mg Documented By: JAVIER Lactated Ringer's (Lr) 500 mls @ 999 mls/hr IV .Q31M [facility] Last Infusion: 08/20/22 23:03 Dose: 0 mls/hr Documented By: AMANDA Ketorolac Tromethamine (Ketorolac Tromethamine 30 Mg/Ml Vial) 30 mg IVPUSH Q6H PRN PRN Reason: abdominal pain Last Admin: 08/22/22 06:18 Dose: 30 mg Documented By: KINSEY Lidocaine (Lidocaine 4 % Patch Adh..Patch) 1 patch TRANSDERMA DAILY [facility]; Protocol Last Admin: 08/21/22 09:31 Dose: 1 patch Documented By: JAVIER Loperamide HCl (Loperamide Hcl 2 Mg Capsule) 2 mg PO TID [facility] Last Admin: 08/21/22 20:45 Dose: 2 mg Documented By: STEPHANIE Metoprolol Succinate (Metoprolol Succinate Er 25 Mg Tab.Er.24h) 25 mg PO DAILY [facility]; Protocol Last Admin: 08/21/22 09:31 Dose: 25 mg Documented By: JAVIER Nicotine (Nicotine 21 Mg Patch.Td24) 21 mg TRANSDERMA DAILY [facility] Last Admin: 08/21/22 09:30 Dose: 21 mg Documented By: JAVIER Omeprazole (Omeprazole 20 Mg Capsule.Dr) 20 mg PO BIDWM [facility] Last Admin: 08/21/22 18:03 Dose: 20 mg Documented By: STEPHANIE Ondansetron HCl (Ondansetron Hcl 4 Mg/2 Ml Vial) 4 mg IVPUSH QID PRN PRN Reason: Nausea Last Admin: 08/20/22 19:56 Dose: 4 mg Documented By: AMANDA Pharmacy Consult (Consult Rx Perform Med Rec) 1 each MISCELLANE ONCE PRN PRN Reason: Consult order Sacubitril/Valsartan (Sacubitril/Valsartan 49/51 1 Tab Tablet) 1 tab PO BID [facility]; Protocol Last Admin: 08/21/22 20:45 Dose: 1 tab Documented By: STEPHANIE Sodium Chloride (0.9 % Sodium Chloride Flush 3 Ml Syringe) 3 ml IVFLUSH QSHIFT [facility] Last Admin: 08/21/22 23:43 Dose: 3 ml Documented By: KINSEY Trazodone HCl (Trazodone Hcl 100 Mg Tablet) 100 mg PO BEDTIME [facility] Last Admin: 08/21/22 20:45 Dose: 100 mg Documented By: STEPHANIE <Alicia Lake PA-C - Last Filed: 08/22/22 09:23> Labs CBC & Chem 7: : 08/22/22 06:01 08/22/22 06:01 <Alicia Lake PA-C - Last Filed: 08/22/22 09:23> Labs: Laboratory Results - last 24 hr 08/22/22 08/22/22 08/22/22 06:01 06:01 06:01 MCV 85.0 MCH 27.5 MCHC 32.3 RDW 12.9 Plt Count 268 MPV 10.4 Immature Gran % (Auto) 0.3 Neut % (Auto) 57.5 Lymph % (Auto) 27.7 [place] % (Auto) 8.1 Eos % (Auto) 5.9 H Baso % (Auto) 0.5 Lymph # (Auto) 1.6 [place] # (Auto) 0.5 Eos # (Auto) 0.3 Baso # (Auto) 0.0 Abs Immat Gran (auto) 0.02 Absolute Neuts (auto) 3.3 Absolute Nucleated RBC 0.000 Nucleated RBC % (auto) 0.0 Anion Gap 14 Estim Creat Clear Calc 134.9 Estimated GFR > 60 Random Glucose 96 Calcium 8.4 Phosphorus 3.1 Magnesium 1.9 <Alicia Lake PA-C - Last Filed: 08/22/22 09:23> Procedures Date of Service Date of Service: 08/22/22 <Alicia Lake PA-C - Last Filed: 08/22/22 09:23> Progress Note: A&P Assessment and plan (1) S/P total colectomy: Status: Acute <Alicia Lake PA-C - Last Filed: 08/22/22 09:23> Assessment and Plan: Stoma functioning well Feels better compared to the weekend Asking about going home Readvance diet Out of bed to chair Seen and examined independently - agree with TERESSA Lake <Elmer Marsh MD - Last Filed: 08/22/22 10:06> (2) Jose syndrome: Status: Acute <Alicia Lake PA-C - Last Filed: 08/22/22 09:23> (3) Carcinoma of cecum: Status: Acute <JAY Valdez Last Filed: 08/22/22 09:23> Assessment and Plan: 36-year-old male patient with a family history of colon cancer 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 He is s/p total proctocolectomy and ileostomy, continues to do well over all post op. He denies nausea over weekend. Will advance back to solid diet. VSS. Abd remains benign with viable ileostomy with good output. Output becoming more soft & soft in nature. Will continue loperamide but d/c metamucil. H/H slightly drifted down this am but is asymptomatic and HR/BP normal. Will monitor and repeat CBC tomorrow. Ileostomy education. Hopefully home in next 1-2 days with VNA services. Discussed transition to oral analgesics in preparation for discharge. <Alicia Lake PA-C - Last Filed: 08/22/22 09:23> Time Spent With Patient Time: Total time spent is greater than 50% in coordination of care (as documented) at patient's floor/unit and/or counseling patient: <Alicia Lake PA-C - Last Filed: 08/22/22 09:23> Quality Stroke Does the patient have a stroke diagnosis?: No <Alicia Lake PA-C - Last Filed: 08/22/22 09:23> VTE Prior VTE?: No <Alicia Lake PA-C - Last Filed: 08/22/22 09:23> VTE Risk Level:: Surgical - moderate <Alicia Lake PA-C - Last Filed: 08/22/22 09:23> VTE Device Contraindication: N/A - Device Ordered <Alicia Lake PA-C - Last Filed: 08/22/22 09:23> VTE Drug Contraindication: Treatment Not Indicated ( Bloody fluid per ABDIRASHID) <Alicia Lake PA-C - Last Filed: 08/22/22 09:23>
[2022-08-22] MEDS: buPROPion HCl XL 150 MG TAB.ER.24H PO (09:38)
[2022-08-22] MEDS: Metoprolol Succinate ER 25 MG TAB.ER.24H PO (09:38)
[2022-08-22] MEDS: Loperamide HCl 2 MG CAPSULE PO ×3 (09:38→21:08)
[2022-08-22] MEDS: Omeprazole 20 MG CAPSULE.DR PO ×2 (09:38→17:19)
[2022-08-22] MEDS: Sacubitril/Valsartan 49/51 1 TAB TABLET PO ×2 (09:38→21:08)
[2022-08-22] MEDS: Buprenorphine/Naloxone 8/2 mg FILM 2 FILM SUBLINGUAL (09:39)
[2022-08-22] MEDS: Nicotine 21 MG PATCH.TD24 TRANSDERMA (09:39)
[2022-08-22] MEDS: Lidocaine 4 % Patch ADH..PATCH 1 PATCH TRANSDERMA (09:40)
[2022-08-22] MEDS: oxyCODONE HCl Immed Release 5 MG TABLET 10 MG PO ×4 (09:42→22:29)
[2022-08-22] MEDS: 0.9 % Sodium Chloride Flush 3 ML SYRINGE IVFLUSH ×3 (09:53→21:10)
[2022-08-22 11:50] VITALS: BP 98/59; PULSE 79; RESP 18; TEMP 36.8; O2SAT 95
[2022-08-22 15:51] VITALS: BP 87/5; PULSE 79; RESP 16; TEMP 36.5; O2SAT 98
[2022-08-22 17:51] VITALS: BP 100/63; PULSE 81; RESP 20; TEMP 36.4; O2SAT 98
[2022-08-22] MEDS: traZODone HCL 100 MG TABLET PO (21:09)
[2022-08-22] MEDS: Atorvastatin Calcium 80 MG TABLET PO (21:09)
[2022-08-23] VITALS: BP 102/58; PULSE 76; RESP 18; TEMP 36.8; O2SAT 96
[2022-08-23] MEDS: oxyCODONE HCl Immed Release 5 MG TABLET 10 MG PO ×4 (02:33→15:20)
[2022-08-23 02:37] LABS: Hemoglobin 8.7 g/dl (14.0-18.0); Mean Corpuscular HGB Conc 32.2 g/dl (31.0-36.0); Mean Corpuscular Hemoglobin 27.2 pg (27.0-33.0); Mean Corpuscular Volume 84.4 fL (80.0-98.0); Mean Platelet Volume 9.6 fL (9.4-12.4); Platelet Count 335 X10*3/uL (160-400); Red Cell Distribution Width 12.8 % (11.0-16.0)
[2022-08-23 03:10] VITALS: BP 92/56; PULSE 77; RESP 18; TEMP 36.3; O2SAT 98
[2022-08-23 07:31] VITALS: BP 102/58; PULSE 73; RESP 18; TEMP 37.2; O2SAT 94
[2022-08-23] MEDS: Ketorolac Tromethamine 30 MG/ML VIAL IVPUSH (09:21)
[2022-08-23] MEDS: 0.9 % Sodium Chloride Flush 3 ML SYRINGE IVFLUSH (09:23)
[2022-08-23] MEDS: Sacubitril/Valsartan 49/51 1 TAB TABLET PO (09:25)
[2022-08-23] MEDS: Loperamide HCl 2 MG CAPSULE PO (09:25)
[2022-08-23] MEDS: buPROPion HCl XL 150 MG TAB.ER.24H PO (09:25)
[2022-08-23] MEDS: Omeprazole 20 MG CAPSULE.DR PO (09:25)
[2022-08-23] MEDS: Nicotine 21 MG PATCH.TD24 TRANSDERMA (09:26)
[2022-08-23] MEDS: Lidocaine 4 % Patch ADH..PATCH 1 PATCH TRANSDERMA (09:26)
[2022-08-23] MEDS: Buprenorphine/Naloxone 8/2 mg FILM 2 FILM SUBLINGUAL (09:27)
[2022-08-23 11:40] VITALS: BP 94/54; PULSE 71; RESP 17; TEMP 36.7; O2SAT 97
--- NOTE | 2022-08-23 12:51 | P.PNGS_ITS ---
Subjective Subjective Date of Service: 08/23/22 Interval history: feels well good PO intake stoma functioning Physical Exam Vital Signs: Vital Signs: Last Vital Signs Temp 98.0 F 08/23/22 11:40 Pulse 71 08/23/22 11:40 Resp 17 08/23/22 11:40 BP 94/54 L 08/23/22 11:40 Pulse Ox 97 08/23/22 11:40 O2 Del Method 08/23/22 11:40 O2 Flow Rate 2 08/15/22 17:00 BMI result Body Mass Index 27.4 Const: General: comfortable and no acute distress Resp: Effort & Inspection: normal respiratory effort Cardio: Rate: regular rate GI: Palpation (GI): Soft to palpation and not firm Objective Data Active Medications Atorvastatin Calcium (Atorvastatin Calcium 80 Mg Tablet) 80 mg PO BEDTIME [facility] Last Admin: 08/22/22 21:09 Dose: 80 mg Documented By: DAY Buprenorphine/Naloxone (Buprenorphine/Naloxone 8/2 Mg Film) 2 film SUBLINGUAL DAILY [facility] Last Admin: 08/23/22 09:27 Dose: 1 film Documented By: ANNALEE Comments: pt requested to be given only 1 film Bupropion HCl (Bupropion Hcl Xl 150 Mg Tab.Er.24h) 150 mg PO DAILY [facility] Last Admin: 08/23/22 09:25 Dose: 150 mg Documented By: ANNALEE Hydromorphone HCl (Hydromorphone Hcl 0.5 Mg/0.5 Ml Syringe) 0.5 mg IVPUSH Q2H PRN; Protocol PRN Reason: Pain, Severe (Pain Scale 7-10) Last Admin: 08/21/22 12:02 Dose: 0.5 mg Documented By: JAVIER Lactated Ringer's (Lr) 500 mls @ 999 mls/hr IV .Q31M [facility] Last Infusion: 08/20/22 23:03 Dose: 0 mls/hr Documented By: AMANDA Ketorolac Tromethamine (Ketorolac Tromethamine 30 Mg/Ml Vial) 30 mg IVPUSH Q6H PRN PRN Reason: abdominal pain Last Admin: 08/23/22 09:21 Dose: 30 mg Documented By: ANNALEE Lidocaine (Lidocaine 4 % Patch Adh..Patch) 1 patch TRANSDERMA DAILY [facility]; Protocol Last Admin: 08/23/22 09:26 Dose: 1 patch Documented By: ANNALEE Loperamide HCl (Loperamide Hcl 2 Mg Capsule) 2 mg PO TID [facility] Last Admin: 08/23/22 09:25 Dose: 2 mg Documented By: ANNALEE Metoprolol Succinate (Metoprolol Succinate Er 25 Mg Tab.Er.24h) 25 mg PO DAILY [facility]; Protocol Last Admin: 08/23/22 07:51 Dose: Not Given Documented By: ANNALEE Non-Admin Reason: held, low BP's Nicotine (Nicotine 21 Mg Patch.Td24) 21 mg TRANSDERMA DAILY [facility] Last Admin: 08/23/22 09:26 Dose: 21 mg Documented By: ANNALEE Omeprazole (Omeprazole 20 Mg Capsule.Dr) 20 mg PO BIDWM [facility] Last Admin: 08/23/22 09:25 Dose: 20 mg Documented By: ANNALEE Ondansetron HCl (Ondansetron Hcl 4 Mg/2 Ml Vial) 4 mg IVPUSH QID PRN PRN Reason: Nausea Last Admin: 08/20/22 19:56 Dose: 4 mg Documented By: AMANDA Oxycodone HCl (Oxycodone Hcl Immed Release 5 Mg Tablet) 5 mg PO Q4H PRN PRN Reason: Pain, Moderate (Pain Scale 4-6 Oxycodone HCl (Oxycodone Hcl Immed Release 5 Mg Tablet) 10 mg PO Q4H PRN PRN Reason: Pain, Severe (Pain Scale 7-10) Last Admin: 08/23/22 11:04 Dose: 10 mg Documented By: ANNALEE Pharmacy Consult (Consult Rx Perform Med Rec) 1 each MISCELLANE ONCE PRN PRN Reason: Consult order Sacubitril/Valsartan (Sacubitril/Valsartan 49/51 1 Tab Tablet) 1 tab PO BID [facility]; Protocol Last Admin: 08/23/22 09:25 Dose: 1 tab Documented By: ANNALEE Sodium Chloride (0.9 % Sodium Chloride Flush 3 Ml Syringe) 3 ml IVFLUSH QSHIFT [facility] Last Admin: 08/23/22 09:23 Dose: 3 ml Documented By: ANNALEE Trazodone HCl (Trazodone Hcl 100 Mg Tablet) 100 mg PO BEDTIME [facility] Last Admin: 08/22/22 21:09 Dose: 100 mg Documented By: DAY Labs CBC & Chem 7: 08/23/22 02:30 08/22/22 06:01 Labs: Laboratory Results - last 24 hr 08/23/22 02:30 MCV 84.4 MCH 27.2 MCHC 32.2 RDW 12.8 Plt Count 335 MPV 9.6 Absolute Nucleated RBC 0.000 Nucleated RBC % (auto) 0.0 Procedures Date of Service Date of Service: 08/23/22 Progress Note: A&P Assessment and plan (1) Jose syndrome: Status: Acute Assessment and Plan: status post subtotal colectomy stoma with good output good pain control Good GI function BP on the low side - he is on multiple antihypertensives so we will consult the hospitals about discharge meds for hypertension follow-up instructions given doing well clinically Time Spent With Patient Time: Total time spent is greater than 50% in coordination of care (as documented) at patient's floor/unit and/or counseling patient: Quality Stroke Does the patient have a stroke diagnosis?: No VTE Prior VTE?: No VTE Risk Level:: Surgical - moderate VTE Device Contraindication: N/A - Device Ordered VTE Drug Contraindication: Treatment Not Indicated ( Bloody fluid per ABDIRASHID)
--- NOTE | 2022-08-23 14:13 | HO.PM.IMCN ---
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 Patient has a history of cecal mass. His postoperative course has gone well however blood pressures have been low recently. Patient is on Entresto as well as metoprolol. His labs are within acceptable limits other vital signs stable. Plan would be to address his medications regarding his blood pressure. Review of Systems Review of Systems: Denies any recent fever chills or decrease in appetite respiratory denies any shortness of breath coverage production cardiovascular denies chest pain gastrointestinal denies any dysphagia abdominal pain nausea vomiting or diarrhea genitourinary denies any dysuria frequency or hematuria musculoskeletal denies any joint pain or swelling neuropsych denies any weakness or seizures all other systems reviewed are negative [facility] Medical History CAD (coronary artery disease) HTN (hypertension) Ischemic cardiomyopathy Polysubstance dependence Preop cardiovascular exam STEMI (ST elevation myocardial infarction) Family History Family/Other CAD (coronary artery disease) Colon cancer, Onset Age: 30 Mother Stomach cancer Brother Colon cancer Surgical History History of colonoscopy (07/15/22) Social History Household Members: Family Housing: House Do you presently have visiting nurse or other home services: No Patient Tobacco Use Status: Current everyday Tobacco user Tobacco use type: Cigarette Cigarettes Per Day: 7 Years Smoked: 15 Smoked in Last 30 Days: Yes Patient Interested in Nicotine Replacement: No Second Hand Smoke Exposure: Yes Use of substances other than those prescribed or required for medical reasons: No Substance Use Type: Crack/Cocaine Currently Displaying Signs/Symptoms of Drug Intoxication Withdrawal: No Have you been hit, kicked, punched, or otherwise hurt by someone within the past year? If so, by whom?: No Do you feel safe in your current relationship?: Yes Is there a partner from a previous relationship who is making you feel unsafe now?: No Are you made to feel afraid or neglected: No Are you DNR?: No Advance Directives: No Advance Directives Information Provided: Yes Advance Directives on File: No Do you have thoughts of harming others: None Do you have a plan to hurt others: No Plan Recently lost weight without trying: No Nutrition Risks: Acute nausea or vomiting x1 week Poor oral hygiene: No service: No Current occupational status: unemployed Meds Allergies Allergy/AdvReac Type Severity Reaction Status Date / Time No Known Allergies Allergy Verified 08/05/22 11:00 Active Medications: Current Medications Atorvastatin Calcium (Atorvastatin Calcium 80 Mg Tablet) 80 mg PO BEDTIME [facility] Last Admin: 08/22/22 21:09 Dose: 80 mg Buprenorphine/Naloxone (Buprenorphine/Naloxone 8/2 Mg Film) 2 film SUBLINGUAL DAILY [facility] Last Admin: 08/23/22 09:27 Dose: 1 film Bupropion HCl (Bupropion Hcl Xl 150 Mg Tab.Er.24h) 150 mg PO DAILY [facility] Last Admin: 08/23/22 09:25 Dose: 150 mg Hydromorphone HCl (Hydromorphone Hcl 0.5 Mg/0.5 Ml Syringe) 0.5 mg IVPUSH Q2H PRN; Protocol PRN Reason: Pain, Severe (Pain Scale 7-10) Last Admin: 08/21/22 12:02 Dose: 0.5 mg Lactated Ringer's (Lr) 500 mls @ 999 mls/hr IV .Q31M [facility] Last Infusion: 08/20/22 23:03 Dose: Infused Ketorolac Tromethamine (Ketorolac Tromethamine 30 Mg/Ml Vial) 30 mg IVPUSH Q6H PRN PRN Reason: abdominal pain Last Admin: 08/23/22 09:21 Dose: 30 mg Lidocaine (Lidocaine 4 % Patch Adh..Patch) 1 patch TRANSDERMA DAILY [facility]; Protocol Last Admin: 08/23/22 09:26 Dose: 1 patch Loperamide HCl (Loperamide Hcl 2 Mg Capsule) 2 mg PO TID [facility] Last Admin: 08/23/22 09:25 Dose: 2 mg Metoprolol Succinate (Metoprolol Succinate Er 25 Mg Tab.Er.24h) 25 mg PO DAILY [facility]; Protocol Last Admin: 08/23/22 07:51 Dose: Not Given Nicotine (Nicotine 21 Mg Patch.Td24) 21 mg TRANSDERMA DAILY [facility] Last Admin: 08/23/22 09:26 Dose: 21 mg Omeprazole (Omeprazole 20 Mg Capsule.Dr) 20 mg PO BIDWM [facility] Last Admin: 08/23/22 09:25 Dose: 20 mg Ondansetron HCl (Ondansetron Hcl 4 Mg/2 Ml Vial) 4 mg IVPUSH QID PRN PRN Reason: Nausea Last Admin: 08/20/22 19:56 Dose: 4 mg Oxycodone HCl (Oxycodone Hcl Immed Release 5 Mg Tablet) 5 mg PO Q4H PRN PRN Reason: Pain, Moderate (Pain Scale 4-6 Oxycodone HCl (Oxycodone Hcl Immed Release 5 Mg Tablet) 10 mg PO Q4H PRN PRN Reason: Pain, Severe (Pain Scale 7-10) Last Admin: 08/23/22 11:04 Dose: 10 mg Pharmacy Consult (Consult Rx Perform Med Rec) 1 each MISCELLANE ONCE PRN PRN Reason: Consult order Sacubitril/Valsartan (Sacubitril/Valsartan 49/51 1 Tab Tablet) 1 tab PO BID [facility]; Protocol Last Admin: 08/23/22 09:25 Dose: 1 tab Sodium Chloride (0.9 % Sodium Chloride Flush 3 Ml Syringe) [facility] Admin: 08/23/22 09:23 Dose: 3 ml Trazodone HCl (Trazodone Hcl 100 Mg Tablet) 100 mg PO BEDTIME [facility] Last Admin: 08/22/22 21:09 Dose: 100 mg Home Medications Medication Instructions Recorded Confirmed Last Taken Type atorvastatin 80 mg tablet 80 mg PO BEDTIME 07/29/21 08/15/22 07/27/21 21:00 History metoprolol succinate 25 mg 25 mg PO DAILY 07/29/21 08/15/22 07/28/21 09:00 History tablet,extended release 24 hr aspirin 81 mg tablet,delayed 1 tab PO DAILY 07/14/22 08/15/22 Unknown History release buprenorphine 8 mg-naloxone 2 mg 1 strip sublingual DAILY 07/14/22 08/15/22 Unknown History sublingual film (Suboxone) bupropion HCl 150 mg 24 hr tablet, 150 mg PO DAILY 07/14/22 08/15/22 Unknown History extended release nicotine 21 mg/24 hr daily 1 patch topical DAILY 07/14/22 08/15/22 Unknown History transdermal patch pantoprazole 40 mg tablet,delayed 1 tab PO DAILY 07/14/22 08/15/22 Unknown History release sacubitril 49 mg-valsartan 51 mg 1 tab PO BID 07/14/22 08/15/22 Unknown History tablet (Entresto) trazodone 100 mg tablet 1 tab PO BEDTIME 07/14/22 08/15/22 Unknown History ferrous sulfate 325 mg (65 mg 1 tab PO Q OTHER DAY 08/15/22 08/15/22 Unknown History iron) tablet (FeroSul) Physical Exam Vital Signs and Narrative: Vital Signs: Last Vital Signs Temp 98.0 F 08/23/22 11:40 Pulse 71 08/23/22 11:40 Resp 17 08/23/22 11:40 BP 94/54 L 08/23/22 11:40 Pulse Ox 97 08/23/22 11:40 O2 Del Method 08/23/22 11:40 O2 Flow Rate 2 08/15/22 17:00 BMI result Body Mass Index 27.4 Results Labs CBC and Chem 7: 08/23/22 02:30 08/22/22 06:01 Labs: Laboratory Results - last 24 hr 08/23/22 02:30 MCV 84.4 MCH 27.2 MCHC 32.2 RDW 12.8 Plt Count 335 MPV 9.6 Absolute Nucleated RBC 0.000 Nucleated RBC % (auto) 0.0 Assessment and Plan (1) S/P total colectomy: Status: Acute Plan 36-year-old man admitted by general surgery and is status post colectomy with ileostomy sign Colectomy Management as per surgical team Hypertension with hypotension Systolic blood pressures have been running low sometimes in the 80s. Patient is on man metoprolol and Entresto Would suggest holding the Entresto, continuing the metoprolol and following up with his webmaster after discharge to manage these medications Chronic normocytic anemia Stable Substance abuse Should seek outpatient resources History of CAD continue aspirin, statin and beta-[place] Ischemic cardiomyopathy On Entresto, hold for now due to hypotension Mental health Continue home medications DVT prophylaxis with pneumatic compression boots Attending Dr. Lowe Full code
--- NOTE | 2022-08-23 14:29 | W.MHC.F2F ---
Service Date Service Date: 08/23/22 Encounter Date of encounter: 08/23/22 Reasons for Services Signs and symptoms assessed: Abdominal pain, tenderness, ostomy output, incision appearance, vitals Reason for chcf: wound care (ostomy care) and postoperative assessment and/or care Homebound: Leaving the home is medically contraindicated at this time without the asist of a device and/or another person due th the listed conditions above and below. Reason homebound: weakness related to hospital stay and unable to drive Homebound supporting statement: Mr. Resendez is s/p total proctocolectomy with end ileostomy. He had a slow but uncomplicated recovery. He will need visiting nurses for ostomy education and care. Certification: Based on the above findings, I certify that this patient is confined to the home and needs intermittent chcf care, physical therapy and/or speech therapy, or continues to need occupational therapy. The patient is under my care, and I have initiated the establishment of the plan of care. The patient will be followed by a physician who will periodically review the plan of care.
--- NOTE | 2022-08-23 14:34 | MHC.CM.PN ---
PATIENT IS DC TO HOME WITH [facility]. HE WILL BE STAYING WITH HIS COUSIN AT [address] [place] [address] [facility].
[2022-08-23 15:18] VITALS: BP 101/60; PULSE 101; RESP 18; TEMP 36.5; O2SAT 97
--- NOTE | 2022-08-24 09:37 | P.DS_ITS ---
DS: Providers Provider Date of Service: 08/23/22 Date of admission: 08/15/22 06:16 Date of discharge: 08/23/22 Primary care physician: [facility] Attending physician on admission: Chauncey Muniz Consults: 08/23/22 10:09 Consult to Hospitalist Routine Consulting Provider: Hospitalist Reason For Exam: guidance on antihypertensives prior to d/c,soft BP Attending physician on discharge: Elmer Marsh DS: Diagnosis Discharge Diagnosis (1) S/P total colectomy: Status: Acute DS: Summary Hospital Course Hospital Course: BRIEF HPI: 36-year-old male patient presenting with a recent history of blood per rectum found on CT to have a mass in the cecum suggestive of a neoplasm. Subsequent colonoscopy revealed a cecal mass biopsy proven adenocarcinoma. His brother also has a history of colon cancer at the age of 30 and was determined to have Jose syndrome. The patient was subsequently tested and also is posit sapna for Jose syndrome. Options of total abdominal colectomy with ileal rectal anastomosis verses total proctocolectomy with end ileostomy were discussed. Referral to a tertiary care center was also discussed. Patient wishes to proceed with a total proctocolectomy and end ileostomy and presents now for the procedure. HOSPITAL COURSE: On 08/15/22, a total protcocolectomy with end ileostomy was pe rformed by Dr. Muniz without complication. The patient tolerated the procedure well and was admitted following for recovery. Operative findings included palpable mass in the cecum with no evidence of metastasis on palpation of liver, no peritoneal implants and no other palpable colonic masses. Several enlarged lymph nodes noted in the right colon mesentery. He had an uncomplicated but slow recovery course. He had difficulty with pain control on the first few post operative days. His analgesics were adjusted with good effect. His patrick catheter was removed on POD #1. His ostomy began produ cing enteric contents on POD #2. He was tolerating clear liquids without nausea or vomiting and was advanced to solid diet on POD #2. He had been hesistant to get OOB and therefore PT was consulted to facilitate ambulation and mobility. Ileostomy education was performed. Over the next few post operative days, he began to have a high amount of liquid stool output from his ostomy. He was started on metamucil and imodium to slow the output down. IVF were continued and increasing PO intake was encouraged. His ABDIRASHID drain had scanty serosanguineous output and was removed. He however did develop nausea/vomiting which was likely from segmental ileus and his diet was deescalated back to clear liquids for two days. This was later advanced back to a solid diet after the nausea/vomiting improved. He was bolused for asymptomatic hypotension with appropriate response in BP. His H/H drifted down after that but began to trend back up the following day. There was no evidence of active bleed. His ileostomy output began to bulk up and slow and therefore the metamucil was discontinued. His IVF were discontinued. He was transitioned to oral analgesics. On POD #8, he felt well with good PO pain meds, was ambulating, tolerating a solid diet with good ileostomy function. His abdomen was benign with clean incision and viable ostomy. His BP was on the softer side and therefore hospitalist consult was obt ained who recommended continuing the metoprolol at home but holding the Entresto until he was seen by his PCP and/or group fitness manager. This was discussed with the patient. He felt ready for discharge to home. He was discharged to home on 08/23/22 in stable condition with VNA services. He is to follow up with Dr. Muniz in office and his PCP/group fitness manager. He has an appointment with oncology next week. Status at Discharge Functional status at discharge: uses cane/walker (FOR POST OP PAIN) Overall status at discharge: patient is progressing back to baseline Time Spent with Patient Time attestation: Total time spent providing and/or coordinating discharge services: Discharge coordination time: Greater than 30 minutes Quality: Safe Use of Opioids Does Pt have an Active Cancer Diagnosis on the Problem List?: Yes Opioid Measure Date for [facility] Report: 07/25/22 Opioid Measure Time for [facility] Report: 09:38 Quality: Stroke Does the patient have a stroke diagnosis?: No Physical Exam Vital Signs: Vital Signs: Last Vital Signs Temp 97.7 F 08/23/22 15:18 Pulse 101 H 08/23/22 15:18 Resp 18 08/23/22 15:18 BP 101/60 08/23/22 15:18 Pulse Ox 97 08/23/22 15:18 O2 Del Method 08/23/22 15:18 O2 Flow Rate 2 08/15/22 17:00 BMI result Body Mass Index 27.4 Const: General: comfortable, no acute distress, well developed and alert Orientation/consciousness: patient oriented x3 Resp: Effort & Inspection: normal respiratory effort GI: Other: ileostomy pink, liquid and stool output in bag Inspection: No distended and Yes incision (clean) Palpation (GI): Soft to palpation, Tenderness to palpation present (GI) (incisional, mild), no guarding and not rigid Percussion: Yes normal to percussion Skin: General skin exam: no rashes or lesions noted Neuro: General: patient oriented x3 and moves all extremities Extrem: General: Yes no clubbing, cyanosis or edema DS: Data Data Completed and Pending Completed studies during hospitalization [Text1]: 08/15/22 12:53 Surgical [PTH] Routine Colon, total proctocolectomy: - Adenocarcinoma, moderately differentiated, extending to serosal surface; margins negative. - Vermiform appendix within normal limits. - 17 lymph nodes negative for metastatic carcinoma. - pT4a N0 (AJCC Stage 8th ed.). Procedures Bypass Ileum to Cutaneous, Open Approach (08/15/22) Resection of Rectum, Open Approach (08/15/22) Resection of Right Large Intestine, Open Approach (08/15/22) Discharge Plan Discharge Anticipated Discharge Date/Time: 08/21/22 14:54 Patient Disposition: Home Health Service Discharge Diagnosis: s/p total colectomy with end ileostomy Referrals: [facility] [Outside] - 1 Week Lora Yarbrough MD [Physician] - 1 Week [facility] [Primary Care Provider] - 1 Week Chauncey Muniz MD [Physician] - 1 Week Discharge Medications: New oxycodone 5 mg tablet 5 mg PO Q4H PRN (Reason: pain (scale score 7-10)) Qty: 30 0RF Rx Instructions: Partial Fill upon patient request. (DME) cane Device See Rx Instructions .Route Qty: 1 0RF Rx Instructions: As directed Continued atorvastatin 80 mg Tablet 80 mg PO BEDTIME metoprolol succinate 25 mg Tablet Extended Release 24 Hr 25 mg PO DAILY aspirin 81 mg tablet,delayed release (DR/EC) 1 tab PO DAILY Hold Instructions: Hold for 4 days, resume wednesday 07/18 trazodone 100 mg tablet 1 tab PO BEDTIME pantoprazole 40 mg tablet,delayed release (DR/EC) 1 tab PO DAILY buprenorphine-naloxone [Suboxone] 8-2 mg film 1 strip sublingual DAILY nicotine 21 mg/24 hr patch 24 hour 1 patch topical DAILY bupropion HCl 150 mg tablet extended release 24 hr 150 mg PO DAILY ferrous sulfate [FeroSul] 325 mg (65 mg iron) tablet 1 tab PO Q OTHER DAY Held Entresto 49-51 mg tablet 1 tab PO BID Hold Instructions: Resume on 09/20/22. Hold until you see your primary care provider or group fitness manager regarding your hypertension. Discontinued polyethylene glycol 3350 [ClearLax] 17 gram/dose powder 17 g PO DAILY Discharge Orders: Discharge Order (Routine); Ordered 08/23/22 Ordered By: Alicia Lake Diet: Regular diet Activity on Discharge: No heavy lifting Stand Alone Forms: Patient Portal Discharge page Activity Restrictions/Additional Instructions: If the incision area is tender, you may apply an ice pack for short intervals (No more than 20 minutes on, followed by at least 20 minutes off). Do not apply heat. Do not use creams, lotions, or topical antibiotics unless instructed to do so by your surgeon. These can cause infection or allergic reaction. Ok to shower. You have melina closing your incision and these will be removed approximately 10-14 days after surgery. NO HEAVY LIFTING (>10lbs) or strenuous activity. Follow up in office with Dr. Muniz in 1 week. ([phone]) ILEOSTOMY CARE: COLOPLAST #[id number]; apply appliance to ostomy every 3-4 days and as needed. Call Your Doctor If: -Your temperature exceeds 101.5? F -You experience excessive pain or swelling -You have an unexpected reaction to medication -You have excessive bleeding -You experience continued vomiting/nausea -Your incision begins to separate -Your incision shows signs of infection such as increased redness, swelling, excessive pain, drainage (light blood or clear fluid is normal) or heat Care Plan Goals: Return to baseline health and gradual return to activity following recovery period. Health Concerns: Jose syndrome colon CA s/p total colectomy with end ileostomy Plan of Treatment: Ileostomy care Pain control F/u in office with Dr. Muniz and Dr. Yarbrough. Assessment: Doing well post op. Discharge Date/Time: 08/23/22 17:32
== END 2022-08-23 17:32 | disposition home health service (06) | DRG 230 ==
LOC: HO.SSSA 06:17 → HO.S3 14:03
PROVIDERS: Anesthesiology; Physician Assistant Surgical; Surgery; Admitting Provider Surgery; Visit Provider Surgery
PROC: 0DTE0ZZ Resection of Large Intestine, Open Approach (ICD-10-PCS; principal; 2022-08-15 07:30)
DX: C18.0 Malignant neoplasm of cecum (principal); F11.20 Opioid dependence, uncomplicated; I95.81 Postprocedural hypotension; F17.210 Nicotine dependence, cigarettes, uncomplicated; I25.5 Ischemic cardiomyopathy; I25.10 Atherosclerotic heart disease of native coronary artery without angina pectoris; I25.2 Old myocardial infarction; Z71.6 Tobacco abuse counseling; Z15.09 Genetic susceptibility to other malignant neoplasm; Z20.822 Contact with and (suspected) exposure to COVID-19; Z79.82 Long term (current) use of aspirin; Z79.899 Other long term (current) drug therapy
CPT/HCPCS: 36415; 74018; 80048; 80307; 83735; 84100; 84484; 85025; 85027; 86850; 86900; 86901; 87635; 88309; 88313; 93005; 97116; 97162; 97530; C1758; C9088; J0131; J1100; J1170; J1885; J2250; J2370; J2405; J2550; J2795; J3010

== ENCOUNTER 2023-03-14 15:03 | Outpatient (REF) | payer MEDICAID, SELFPAY | END 2023-03-14 15:04 | disposition home or self-care (01) | LOC: HO.MDS 15:03 | PROVIDERS: Visit Provider Internal Medicine | DX: D50.9 Iron deficiency anemia, unspecified (principal) | CPT/HCPCS: 96365; J1756 ==

== ENCOUNTER 2023-03-21 14:35 | Outpatient (REF) | payer MEDICAID, SELFPAY | END 2023-03-21 14:36 | disposition home or self-care (01) | LOC: HO.MDS 14:35 | PROVIDERS: Visit Provider Internal Medicine | DX: D50.9 Iron deficiency anemia, unspecified (principal) | CPT/HCPCS: 96365; J1756 ==

== ENCOUNTER 2023-04-11 14:05 | Outpatient (REF) | payer MEDICAID, SELFPAY | END 2023-04-11 14:06 | disposition home or self-care (01) | LOC: HO.MDS 14:05 | PROVIDERS: Visit Provider Internal Medicine | DX: D50.9 Iron deficiency anemia, unspecified (principal) | CPT/HCPCS: 96365; J1756 ==

== ENCOUNTER 2023-04-19 15:38 | Outpatient (REF) | payer MEDICAID, SELFPAY ==
--- NOTE | ~2023-04-19 | XR_ITS ---
EXAMINATION: XR CHEST CLINICAL INFORMATION: Surveillance of colon carcinoma COMPARISON: Chest CT from 07/27/2022. Chest radiograph from 06/13/2022. TECHNIQUE: Frontal view of the chest was obtained. FINDINGS: Lungs are well-inflated and clear. Trachea is midline in position. No interstitial disease, consolidation or pulmonary nodules. No pleural effusion or pneumothorax. Cardiac silhouette and pulmonary vessels are normal in size. The mediastinum and tobi have normal contour. The visualized bones and upper abdomen are unremarkable. XR/XR chest 1V IMPRESSION: * No radiographic evidence of metastatic disease within the chest. No lung nodules. * No acute cardiopulmonary abnormality.
--- NOTE | ~2023-04-19 | CT_ITS ---
EXAMINATION: CT ABDOMEN AND PELVIS WITH CONTRAST CLINICAL INFORMATION: Colon carcinoma surveillance COMPARISON: 07/14/2022 TECHNIQUE: Multidetector volumetric images were obtained from the superior aspect of the liver through the pubic symphysis following administration 85 mL of Omnipaque 350 intravenous contrast. Sagittal and coronal reformatted images were obtained on the technologist's workstation. Oral contrast: No This CT examination was performed using dose optimization techniques as appropriate, variously including the following: *Automated exposure control *Adjustment of mA and/or kV according to patient size (this includes techniques or standardized protocols for targeted exams where dose is matched to indication/reason for exam; i.e. extremities or head) *Use of iterative reconstruction technique DLP: 279 mGy-cm FINDINGS: LUNG BASES: The visualized lung bases are unremarkable. LIVER, GALLBLADDER, AND BILIARY TREE: Subcapsular cyst laterally similar. No new findings. No biliary ductal dilatation. The gallbladder is unremarkable with no evidence of radiopaque gallstones, gallbladder wall thickening, or obvious pericholecystic inflammatory changes. PANCREAS: Unremarkable. SPLEEN: Unremarkable. ADRENAL GLANDS: Unremarkable. KIDNEYS AND URETERS: The kidneys are normal in size, shape, and attenuation. No hydronephrosis, hydroureter, or calculi seen. No perinephric stranding. BLADDER: Unremarkable. GASTROINTESTINAL TRACT: Postsurgical changes consistent with subtotal colectomy. Ileostomy right lower quadrant. Previously noted mesenteric lymph nodes no longer present. No obstruction. No serosal mesenteric lesion. ABDOMINAL WALL: No significant hernia is appreciated. LYMPH NODES: Normal. VASCULAR: Unremarkable. PELVIC VISCERA: Unremarkable. OSSEOUS STRUCTURES: Unremarkable. CT/CT abdomen pelvis w IV con IMPRESSION: Postsurgical changes as above. No evidence for any recurrent disease. Fleischner guidelines were followed.
== END 2023-04-19 15:39 | disposition home or self-care (01) ==
LOC: HO.CT 15:38
PROVIDERS: PCP Internal Medicine Geriatric Medicine; Visit Provider Internal Medicine
DX: C18.0 Malignant neoplasm of cecum (principal)
CPT/HCPCS: 71045; 74177; Q9967

== ENCOUNTER 2023-06-20 19:38 | Observation (INO) | payer MEDICAID, SELFPAY ==
--- NOTE | 2023-06-20 | ECG_ITS ---
Test Reason : CHEST PAIN Blood Pressure : / mmHG Vent. Rate : 093 BPM Atrial Rate : 093 BPM P-R Int : 138 ms QRS Dur : 076 ms QT Int : 340 ms P-R-T Axes : 069 052 087 degrees QTc Int : 422 ms Normal sinus rhythm Possible Left atrial enlargement Low voltage QRS Cannot rule out Anteroseptal infarct (cited on or before 29-JUL-2021) T wave abnormality, consider lateral ischemia Abnormal ECG When compared with ECG of 15-AUG-2022 07:39, T wave inversion more evident in Anterior leads Referred By: Generic ED Physician Electronically Signed By:BRINA CLEARY
--- NOTE | ~2023-06-20 | CT_ITS ---
EXAMINATION: CT HEAD WITHOUT CONTRAST CLINICAL INFORMATION: Syncope. History of colon cancer. COMPARISON: None available. TECHNIQUE: Contiguous axial imaging was performed from the skull base to vertex without intravenous administration of contrast. This CT examination was performed using dose optimization techniques as appropriate, variously including the following: *Automated exposure control *Adjustment of mA and/or kV according to patient size (this includes techniques or standardized protocols for targeted exams where dose is matched to indication/reason for exam; i.e. extremities or head) *Use of iterative reconstruction technique DLP: 696 mGy-cm FINDINGS: The lateral, third and fourth ventricles are normally outlined. The cortical sulci and basal cisterns are normally outlined as well. There is no acute territorial defects, hemorrhage or midline shift. The extra-axial spaces are unremarkable. Calvarium: Intact. Maxillofacial sinuses and mastoids: Clear as visualized. CT/CT head/brain wo IV con IMPRESSION: No acute intracranial pathology.
--- NOTE | ~2023-06-20 | XR_ITS ---
EXAMINATION: XR CHEST CLINICAL INFORMATION: Syncope. COMPARISON: None available. TECHNIQUE: Frontal view of the chest was obtained. FINDINGS: The cardiomediastinal silhouette is normal. There is an apparent coronary artery stent. There is no focal lung consolidation or pleural effusion. The bony structures and soft tissues are unremarkable. XR/XR chest 1V IMPRESSION: No active cardiopulmonary disease.
--- NOTE | ~2023-06-20 | NM_ITS ---
EXERCISE MYOCARDIAL PERFUSION STUDY INDICATION: Coronary disease, history of anterior STEMI, assess for ischemia TECHNIQUE: The patient was brought in for an exercise perfusion study on 06/22/2023. Patient performed exercise as per Prudencio protocol and was injected 30 mCi of sestamibi once target heart rate was achieved. Images were obtained using the SPECT gamma camera interlaced with the gating device. Images were obtained in supine position. Resting perfusion study was performed on 06/22/2023. Patient was administered 10 mCi of sestamibi intravenously at rest. Images were then obtained in supine position. Images were processed with the software and compared side to side in short axis, horizontal long axis and vertical long axis views. Total DLP 77mGy-cm. FINDINGS: Raw images were reviewed. The stress perfusion study showed absent tracer uptake in the mid to distal anterior wall and adjacent parts of apex. No major change with CT attenuation correction. The gated study shows diminished LV systolic function with calculated LVEF of 37%. LV cavity is dilated in size. The gated study absent tracer uptake in the mid to distal anterior wall and adjacent apex. Resting study shows absent tracer uptake in the mid to distal anterior wall and adjacent apex. No significant change with CT attenuation correction. Gating at rest reveals LVEF 40%. The findings are consistent with fixed perfusion defect in the mid to distal anterior wall and adjacent parts of apex. No clear reversible defects. NM/NM farzad perf SPECT rest & str IMPRESSION: 1. Myocardial perfusion imaging study shows large LAD territory infarction. No clear evidence of ischemia. 2. Gated LVEF is 37% during stress and 40% during rest. 3. Transient ischemic dilatation not present. EKG component of the test reported separately.
[2023-06-20 20:24] VITALS: BP 112/58; PULSE 99; RESP 20; TEMP 36.7; O2SAT 100; BMI 23.6
[2023-06-20 20:35] LABS: Hemoglobin 11.1 g/dl (14.0-18.0); Mean Corpuscular HGB Conc 32.6 g/dl (31.0-36.0); Mean Corpuscular Hemoglobin 27.2 pg (27.0-33.0); Mean Corpuscular Volume 83.3 fL (80.0-98.0); Mean Platelet Volume 11.3 fL (9.4-12.4); Platelet Count 191 X10*3/uL (160-400); Red Blood Count 4.08 X10*6/uL (4.60-5.80); Red Cell Distribution Width 15.1 % (11.0-16.0); White Blood Count 4.7 X10*3/uL (4.8-10.8)
[2023-06-20 20:57] LABS: Alanine Aminotransferase 15 U/L (0-40); Albumin Level 4.3 g/dL (3.5-5.0); Alkaline Phosphatase 85 U/L (39-117); Anion Gap 9 (12-20); Aspartate Amino Transferase 19 U/L (5-37); Bilirubin Total 0.4 mg/dL (0.0-1.0); Blood Urea Nitrogen 11 mg/dL (9-16); Calcium 9.5 mg/dL (8.4-10.2); Carbon Dioxide 29 mmol/L (22-29); Chloride 105 mmol/L (96-108); Creatinine Clr Calc Pharmacy 111.2; Estimated Glomerular Filt Rate > 60; Glucose Random 98 mg/dL (60-115); Potassium 4.1 mmol/L (3.3-5.1); Sodium 139 mmol/L (135-145); Total Protein 7.2 g/dL (6.5-8.0)
[2023-06-20 21:04] LABS: Troponin-I High Sensitivity < 2.7 ng/L (<3.5-35.0)
[2023-06-21] VITALS (10 sets, daily range): BP systolic 91–121; BP diastolic 57–78; PULSE 55–91; RESP 11–18; TEMP 36–37; O2SAT 97–100; BMI 23.0
--- NOTE | 2023-06-21 01:40 | ED_ITS ---
HPI - Dizziness General Chief Complaint: Dizziness Stated Complaint: Back pain/Hx of Heart attacks Time Seen by Provider: 06/21/23 01:31 Source: patient Mode of arrival: ambulatory Limitations: no limitations History of Present Illness HPI Narrative: 37-year-old male with history of CAD s/p DC with stenting, history of cocaine use last use was yesterday, history of colon cancer s/p colectomy and right colostomy, came in for evaluation of lightheadedness and syncopal episode for the past 10 days, nothing trigger his syncopal episode the patient had multiple loss of consciousness over the past 10 days, feeling left-sided chest pain/left shoulder pain and a half for the past 10 days, no fever, no chills, no nausea, no vomiting has been eating and drinking normally, colostomy bag is functioning with normal color stool with no bleeding, no dysuria, no frequency urination, no abdominal pain. Patient has been having intermittent headaches. Related Data Home Medications Medication Instructions Recorded Confirmed atorvastatin 80 mg tablet 80 mg PO BEDTIME 07/29/21 03/01/23 metoprolol succinate 25 mg 25 mg PO DAILY 07/29/21 03/01/23 tablet,extended release 24 hr aspirin 81 mg tablet,delayed 1 tab PO DAILY 07/14/22 03/01/23 release buprenorphine 8 mg-naloxone 2 mg 1 strip sublingual DAILY 07/14/22 03/01/23 sublingual film (Suboxone) bupropion HCl 150 mg 24 hr tablet, 150 mg PO DAILY 07/14/22 03/01/23 extended release nicotine 21 mg/24 hr daily 1 patch topical DAILY 07/14/22 03/01/23 transdermal patch pantoprazole 40 mg tablet,delayed 1 tab PO DAILY 07/14/22 03/01/23 release trazodone 100 mg tablet 1 tab PO BEDTIME 07/14/22 03/01/23 sacubitril 24 mg-valsartan 26 mg 1 tab PO BID 12/06/22 03/01/23 tablet (Entresto) Previous Rx's Medication Instructions Recorded cane #1 ea 08/23/22 ferrous sulfate 325 mg (65 mg 325 mg PO DAILY #30 tabs 12/06/22 iron) tablet (iron) Allergies Allergy/AdvReac Type Severity Reaction Status Date / Time No Known Allergies Allergy Verified 12/15/22 14:14 Review of Systems Review of Systems: All other systems are reviewed and are negative Constitutional: Reports as per HPI and Reports no additional constitutional complaints Eyes: Reports as per HPI and Reports no additional eye complaints Reports system reviewed and no additional complaints, except as documented Cardiovascular: Reports as per HPI and Reports no additional cardiovascular complaints Respiratory: Reports as per HPI and Reports no additional respiratory complaints Gastrointestinal: Reports as per HPI and Reports no additional gastrointestinal complaints Genitourinary: Reports no additional female genitourinary complaints Musculoskeletal: Reports no additional musculoskeletal complaints Skin/Breast: Reports system reviewed and no additional complaints, except as docu Psychiatric: Reports no additional psychiatric complaints Endocrine: Reports no additional endocrine complaints Hematologic/Lymphatic: Reports no additional hematologic/lymphatic complaints Allergic/Immunologic: Reports no additional allergic/immunologic complaints Reports system reviewed and no additional complaints, except as documented and Reports Abnormal speech present [facility] Past Medical History Medical History CAD (coronary artery disease) HTN (hypertension) Ischemic cardiomyopathy Polysubstance dependence Preop cardiovascular exam STEMI (ST elevation myocardial infarction) Surgical History History of colonoscopy (07/15/22) Status post proctocolectomy (08/15/22) Family History Family History Family/Other CAD (coronary artery disease) Colon cancer, Onset Age: 30 Mother Stomach cancer Brother Colon cancer Social History Social History Household Members: Family Housing: House Do you presently have visiting nurse or other home services: No Alcohol intake: never Patient Tobacco Use Status: Current everyday Tobacco user Tobacco use type: Cigarette Cigarettes Per Day: 7 Years Smoked: 15 Smoked in Last 30 Days: Yes Second Hand Smoke Exposure: Yes Use of substances other than those prescribed or required for medical reasons: Yes Substance Use Type: Crack/Cocaine Advance Directives: No Advance Directives Information Provided: No service: No Current occupational status: unemployed Physical Exam Vital Signs: Vital Signs: Last Vital Signs Temp 98.2 F 06/21/23 00:15 Pulse 85 06/21/23 02:51 Resp 11 L 06/21/23 02:51 BP 96/60 06/21/23 02:51 Pulse Ox 99 06/21/23 02:51 O2 Del Method Room Air 06/21/23 02:51 BMI result Body Mass Index 23.6 Vital signs have been reviewed as appeared to be correct. Blood pressure normal . Heart rate normal. Respiration rate normal. Temperature normal. Oxygen saturation normal. Appearance: Alert. Oriented X3. No acute distress. Head: Normal external exam. Normocephalic. Atraumatic. No Diaz signs noted. No raccoon eyes noted Eyes: PERRLA. EOMI. Conjunctiva and sclera normal. Eyelids normal. ENT: TM's Normal. Pharynx normal. Uvula midline. Moist mucous membranes. No trismus noted. No drooling noted. No muffled voice noted. Neck: Normal inspection. Neck supple. FROM. No adenopathy. Thyroid Normal. No meningeal signs. No neck mass noted. CVS: Normal heart rate and rhythm. Heart sound normal. No murmurs noted. Pulses normal throughout. Respiratory: No respiratory distress. Painless inspiration. Breath sounds normal. No wheezes/rales/rhonchi noted. Chest nontender. No accessory muscle usage noted or decreased air movement noted. Abdomen: Soft and nontender. Bowel sounds normal in all 4 quadrants. No distention noted. No organomegaly noted. No visible injury noted. Back: No CVA tenderness. Full range of motion noted. Skin: Skin warm and dry. Normal skin color. Normal skin turgor. No rashes/lesions/lacerations noted. Extremities: No lower extremity edema. Extremities exhibit normal range of motion. Extremities nontender. Neuro: Oriented X 3. Cranial nerve exam: II-XII are grossly intact No motor deficit. No sensory deficit. Reflexes normal. Course Course Course Narrative: 37-year-old male with multiple comorbidity and cocaine abuse history presented with multiple episodes of syncope for the last 10 days. History of ACS, with abnormal EKG negative troponin. Given the patient history will admit the steven carreon for further workup of syncope and cardiac monitoring. Medications Administered Discontinued Medications Generic Name Dose Route Start Last Admin Trade Name Freq PRN Reason Stop Dose Admin Sodium Chloride 1,000 mls @ 999 mls/hr 06/21/23 01:46 06/21/23 02:09 Ns IV 06/21/23 02:46 999 mls/hr .Q1H1M ONE Administration Medical Decision Making Differential Diagnosis Differential Diagnoses: The differential diagnosis associated with the presentation includes (ACS, dehydration, intracranial metastases or pathology, drug abuse , electrolyte abnormality, dehydration, severe anemia.) Admission/Observation Consideration of admission/observation: Escalation of care including admi ssion/observation considered Consult Healthcare Provider Management of the patient was discussed with: Hospitalist (Dr. Fraire) Lab Data MDM Lab Attestation statement: I reviewed the patient's lab results. 06/20/23 20:30 06/20/23 20:30 Labs: Lab Results 06/20/23 06/20/23 06/20/23 Range/Units 20:30 20:30 20:30 WBC 4.7 L (4.8-10.8) X10*3/uL RBC 4.08 L (4.60-5.80) X10*6/uL Hgb 11.1 L (14.0-18.0) g/dl Hct 34.0 L (42.0-52.0) % MCV 83.3 (80.0-98.0) fL MCH 27.2 (27.0-33.0) pg MCHC 32.6 (31.0-36.0) g/dl RDW 15.1 (11.0-16.0) % Plt Count 191 (160-400) X10*3/uL MPV 11.3 (9.4-12.4) fL Absolute Nucleated RBC 0.000 (0.0-0.012) X10*3/uL Nucleated RBC % (auto) 0.0 (0.0-0.2) /100WBC Sodium 139 (135-145) mmol/L Potassium 4.1 (3.3-5.1) mmol/L Chloride 105 (96-108) mmol/L Carbon Dioxide 29 (22-29) mmol/L Anion Gap 9 L (12-20) BUN 11 (9-16) mg/dL Creatinine 0.85 (0.5-1.4) mg/dL Estim Creat Clear Calc 111.2 Estimated GFR > 60 Random Glucose 98 (60-115) mg/dL Calcium 9.5 (8.4-10.2) mg/dL Total Bilirubin 0.4 (0.0-1.0) mg/dL AST 19 (5-37) U/L ALT 15 (0-40) U/L Alkaline Phosphatase 85 (39-117) U/L Troponin I High Sens < 2.7 (<3.5-35.0) ng/L Total Protein 7.2 (6.5-8.0) g/dL Albumin 4.3 (3.5-5.0) g/dL Influenza Type A (PCR) (Negative) Influenza Type B (PCR) (Negative) RSV RNA Qual (PCR) (Negative) SARS-CoV-2 RNA (RT-PCR) (Negative) 06/21/23 06/21/23 Range/Units 02:08 02:08 WBC (4.8-10.8) X10*3/uL RBC (4.60-5.80) X10*6/uL Hgb (14.0-18.0) g/dl Hct (42.0-52.0) % MCV (80.0-98.0) fL MCH (27.0-33.0) pg MCHC (31.0-36.0) g/dl RDW (11.0-16.0) % Plt Count (160-400) X10*3/uL MPV (9.4-12.4) fL Absolute Nucleated RBC (0.0-0.012) X10*3/uL Nucleated RBC % (auto) (0.0-0.2) /100WBC Sodium (135-145) mmol/L Potassium (3.3-5.1) mmol/L Chloride (96-108) mmol/L Carbon Dioxide (22-29) mmol/L Anion Gap (12-20) BUN (9-16) mg/dL Creatinine (0.5-1.4) mg/dL Estim Creat Clear Calc Estimated GFR Random Glucose (60-115) mg/dL Calcium (8.4-10.2) mg/dL Total Bilirubin (0.0-1.0) mg/dL AST (5-37) U/L ALT (0-40) U/L Alkaline Phosphatase (39-117) U/L Troponin I High Sens < 2.7 (<3.5-35.0) ng/L Total Protein (6.5-8.0) g/dL Albumin (3.5-5.0) g/dL Influenza Type A (PCR) NEGATIVE (Negative) Influenza Type B (PCR) NEGATIVE (Negative) RSV RNA Qual (PCR) NEGATIVE (Negative) SARS-CoV-2 RNA (RT-PCR) NEGATIVE (Negative) Independent Interpretation I performed an independent interpretation of an: EKG (Normal sinus rhythm at 93 beats per minutes, normal axis deviation, normal intervals, subtle ST elevation in V 2, 4, 5 with T-wave inversion which has changed from previous EKG.), Plain X-Ray (Chest: No acute intrathoracic pathology.) and CT Scan (Head CT: No acute intracranial pathology.) Radiology Impression Discussion of test interpretation with radiology: I have reviewed the radiologist's reading. Chronic Conditions Patient?s care impacted by: Cancer and Other (Drug abuse.) Discharge Plan Discharge Clinical Impression: Syncope Patient Disposition: Admitted As Inpatient Prescriptions: No Action atorvastatin 80 mg Tablet 80 mg PO BEDTIME metoprolol succinate 25 mg Tablet Extended Release 24 Hr 25 mg PO DAILY aspirin 81 mg tablet,delayed release (DR/EC) 1 tab PO DAILY Hold Instructions: Hold for 4 days, resume wednesday 07/18 trazodone 100 mg tablet 1 tab PO BEDTIME pantoprazole 40 mg tablet,delayed release (DR/EC) 1 tab PO DAILY buprenorphine-naloxone [Suboxone] 8-2 mg film 1 strip sublingual DAILY nicotine 21 mg/24 hr patch 24 hour 1 patch topical DAILY bupropion HCl 150 mg tablet extended release 24 hr 150 mg PO DAILY Entresto 24-26 mg tablet 1 tab PO BID ferrous sulfate [iron] 325 mg (65 mg iron) Tablet 325 mg PO DAILY Qty: 30 3RF (DME) cane Device See Rx Instructions .Route Qty: 1 0RF Rx Instructions: As directed
[2023-06-21] MEDS: 0.9 % Sodium Chloride 1,000 ML 999 ML IV (02:09)
[2023-06-21 02:37] LABS: Troponin-I High Sensitivity < 2.7 ng/L (<3.5-35.0)
[2023-06-21 02:51] LABS: Influenza A PCR NEGATIVE (Negative); Influenza B PCR NEGATIVE (Negative); Resp Syncy Virus RNA Qual PCR NEGATIVE (Negative); SARS COV2 PCR INHOUSE NEGATIVE (Negative)
--- NOTE | 2023-06-21 05:25 | P.HPHOSP_ITS ---
History of Present Illness Date of Service: 06/21/23 Chief Complaint: syncope, chest pain 37-year-old male with history drug use, actively using cocaine, colon cancer s/p colectomy, history of STEMI in 2020 and had LAD stent, cardiomyopathy EF 45 to 50%. He is presenting with vague chest discomfort and reporting that he has been having dizzy spells with multiple episodes of loss of consciousness on daily basis for the last 10 days, he relates that he deoes feel dizzy upon standing and so frequently had to sit before grabing on to objects to stand and amulae. ECG show no acute concerning finding, troponin is normal, unfortunately orthostatic BP is not checked. Review of Systems 2 Review of Systems: dizziness, vague chest pain, no sob PMFSH Medical History CAD (coronary artery disease) HTN (hypertension) Ischemic cardiomyopathy Polysubstance dependence Preop cardiovascular exam STEMI (ST elevation myocardial infarction) Family History Family/Other CAD (coronary artery disease) Colon cancer, Onset Age: 30 Mother Stomach cancer Brother Colon cancer Surgical History History of colonoscopy (07/15/22) Status post proctocolectomy (08/15/22) Social History Household Members: Family Housing: House Do you presently have visiting nurse or other home services: No Alcohol intake: never Patient Tobacco Use Status: Current everyday Tobacco user Tobacco use type: Cigarette Cigarettes Per Day: 7 Years Smoked: 15 Smoked in Last 30 Days: Yes Second Hand Smoke Exposure: Yes Use of substances other than those prescribed or required for medical reasons: Yes Substance Use Type: Crack/Cocaine Advance Directives: No Advance Directives Information Provided: No service: No Current occupational status: unemployed Meds Allergies Allergy/AdvReac Type Severity Reaction Status Date / Time No Known Allergies Allergy Verified 09/29/22 14:14 Home Medications Medication Instructions Recorded Confirmed Last Taken Type atorvastatin 80 mg tablet 80 mg PO BEDTIME 07/29/21 03/01/23 07/27/21 21:00 History metoprolol succinate 25 mg 25 mg PO DAILY 07/29/21 03/01/23 07/28/21 09:00 History tablet,extended release 24 hr aspirin 81 mg tablet,delayed 1 tab PO DAILY 07/14/22 03/01/23 Unknown History release buprenorphine 8 mg-naloxone 2 mg 1 strip sublingual DAILY 07/14/22 03/01/23 Unknown History sublingual film (Suboxone) bupropion HCl 150 mg 24 hr tablet, 150 mg PO DAILY 07/14/22 03/01/23 Unknown History extended release nicotine 21 mg/24 hr daily 1 patch topical DAILY 07/14/22 03/01/23 Unknown History transdermal patch pantoprazole 40 mg tablet,delayed 1 tab PO DAILY 07/14/22 03/01/23 Unknown History release trazodone 100 mg tablet 1 tab PO BEDTIME 07/14/22 03/01/23 Unknown History sacubitril 24 mg-valsartan 26 mg 1 tab PO BID 12/06/22 03/01/23 Unknown History tablet (Entresto) Physical Exam 2 Vital Signs and Narrative: Vital Signs: Last Vital Signs Temp 98.2 F 06/21/23 00:15 Pulse 85 06/21/23 02:51 Resp 11 L 06/21/23 02:51 BP 96/60 06/21/23 02:51 Pulse Ox 99 06/21/23 02:51 O2 Del Method Room Air 06/21/23 02:51 BMI result Body Mass Index 23.6 Const: Other: Constitutional: Alert, in no distress, Mental Status: Oriented to person, place and time. Eyes: Pupils are equal, round and reactive to light. Ear, Nose and Throat: Oropharynx clear, mucous membranes moist. Respiratory: Clear to auscultation. No wheezing, rales or rhonchi. Cardiovascular: S1 S2 regular. No murmurs, rubs or gallops. Gastrointestinal: Abdomen soft, non-tender, non-distended. Normal bowel sounds.? Neurologic: Cranial nerves II-XII grossly intact. No focal neurological deficits. Moves all extremities spontaneously.? Skin: No rashes or lesions.? Musculoskeletal: No cyanosis or clubbing. Psychiatric: Normal mood and affect? Results Labs 06/20/23 20:30 06/20/23 20:30 Labs: Laboratory Results - last 24 hr 06/20/23 06/20/23 06/21/23 20:30 20:30 02:08 MCV 83.3 MCH 27.2 MCHC 32.6 RDW 15.1 Plt Count 191 MPV 11.3 Absolute Nucleated RBC 0.000 Nucleated RBC % (auto) 0.0 Anion Gap 9 L Estim Creat Clear Calc 111.2 Estimated GFR > 60 Random Glucose 98 Calcium 9.5 Total Bilirubin 0.4 AST 19 ALT 15 Alkaline Phosphatase 85 Total Protein 7.2 Albumin 4.3 Influenza Type A (PCR) NEGATIVE Influenza Type B (PCR) NEGATIVE RSV RNA Qual (PCR) NEGATIVE SARS-CoV-2 RNA (RT-PCR) NEGATIVE Imaging Radiologist's Impressions: Impressions Head CT 06/21/23 01:58 IMPRESSION: No acute intracranial pathology. Chest X-Ray 06/21/23 03:10 IMPRESSION: No active cardiopulmonary disease. Assessment and Plan (1) Syncope: Status: Acute Plan 36-year-old male with history drug use, actively using cocaine, colon cancer s/p colectomy, history of STEMI in 2020 and had LAD stent, cardiomyopathy EF 45 to 50%. He is presenting with vague chest discomfort and reporting that he has been having dizzy spells with multiple episodes of loss of consciousness on daily basis for the last 10 days, he relates that he deos feel dizzy upon standing and so frequently had to sit before grabing on to objects to stand and walk. Dizzy, syncope--doublt arrythmia, check orthostatic, monitor on tele, consider cardiac eval h/o CAD, cardiomyopathy--order meds once med rec completed DVT prophylaxis--lovenox Obs Time Spent With Patient Time: Total time managing care of this patient today ____ minutes. Quality Stroke Does the patient have a stroke diagnosis?: No VTE Prior VTE?: No VTE Risk Level:: Medical - low VTE Device Contraindication: Treatment Not Indicated VTE Drug Contraindication: N/A - Med Ordered
--- NOTE | 2023-06-21 07:00 | CA_ITS ---
Transthoracic Echocardiogram Patient (Last, First, Middle): Lyndon Resendez L Gender: Male Date of : 1985 Age: 37 Procedure Date: 06/21/2023 Procedure Type: Transthoracic Echocardiogram [place] [facility] [place]: 170.18 cm Weight: 68.04 kg BSA: 1.79 m2 Heart Rate: 71 bpm BP: 121 / 74 mmHg Technical Spec: Referring MD: Katarzyna Aguirre MD Director Of Nursing: Chemo Romeo MD Symptoms: Syncope Study Quality: Adequate ECG Rhythm: Sinus Conclusions: - 1. LV systolic function measured by Rivera's formula after contrast injection is significantly reduced at 15-20% with regional wall motion abnormality consistent with ischemic cardiomyopathy 2. Normal cardiac valvular Doppler 3. No gross pericardial effusion 4. Normal RV systolic pressure Findings Procedure Information Contrast agent, definity, is being given per protocol without apparent complications. Left Ventricle Normal left ventricular cavity size. There is normal left ventricular wall thickness. The left ventricular systolic function is severely decreased. The visually estimated ejection fraction is between 15-20%. Spectral Doppler is indicative of a normal filling pattern. Wall Motion Rest Echo Findings The basal anterior segment is hypokinetic. The entire apex, the mid anterior, and mid anteroseptal segments are akinetic. All other scored wall segments showed normal motion. Right Ventricle Normal right ventricular cavity size and systolic function. Atria The left atrium is normal in size. Interatrial shunt cannot be excluded. The right atrium is normal in size. Aortic Valve Normal aortic valve structure and function. There is no aortic valve stenosis. There is no aortic valve regurgitation. Mitral Valve Likely normal mitral valve structure and function. There is trace mitral valve regurgitation. There is no mitral valve stenosis. Pulmonic Valve The pulmonic valve was not well visualized. Tricuspid Valve Likely normal tricuspid valve structure and function. There is trace tricuspid valve regurgitation. The right ventricular systolic pressure is normal. The right ventricular systolic pressure is 18 mmHg. Normal right atrial pressure. There is no evidence of pulmonary hypertension. Great Vessels All visible segments of the aorta are normal in size. The pulmonary artery was not well visualized. Venous The inferior vena cava is normal in size and collapses greater than 50% with inspiration. Pericardium/Pleural There is no evidence of pericardial effusion. Prior Study Comparison Changes noted compared to prior study dated: 07/15/2022. LV systolic function appears to be significantly reduced Measurements 2D Linear Measurements IVSd: 1.16 0.6-0.9/0.6-1.0 cm LVIDd: 4.99 3.9-5.3/4.2-5.9 cm LVIDd Index: 2.79 2.4-3.2/2.2-3.1 cm/m2 LVIDs: 3.63 2.0-3.6 cm LVPWd: 1.17 0.7-1.1 cm LA Diam: 2.90 2.7-3.8/3.0-4.0 cm LAIDs Index: 1.62 1.5-2.3 cm/m2 LV Mass: 278.69 67-162/88-224 g LV Mass Index: 155.69 43-95/49-115 g/m2 LVOT Diam: 2.10 3.0+(-)1.3 cm 2D Systolic Function EF 4C: 20.40 >55% EF 2C: 15.50 >55% EF BiP: 18.50 >55% Mitral Valve MV Pk E: 0.87 MV PK A: 0.59 MV Decel Time: 263.00 E/A: 1.50 E'Lateral: 6.31 E'Medial: 10.80 E/E' Med: 8.10 E/E' Lat: 13.80 PHT: 77.00 MVA PHT: 2.86 Decel Boyd: 3.31 Aortic Valve AoV Pk Param: 1.22 AoV Mn Param: 0.77 AoV VTI: 0.23 AoV Pk Grad: 6.00 Aov Mn Grad: 3.00 FLACO Cont.VTI: 3.52 LVOT LVOT Pk Param: 1.05 LVOT Mn Param: 0.67 LVOT VTI: 0.23 LVOT Pk Grad: 4.00 LVOT Mn Grad: 2.00 LVOT Diam: 2.10 LVOT Area: 3.46 Diastolic Function MV Pk E: 0.87 MV Pk A: 0.59 E/A: 1.50 E'Medial: 10.80 E/E' Med: 8.10 E' Laterial: 6.31 E/E' Lat: 13.80 Right Ventricle TVS' Param: 10.40 Tricuspid Valve TR Pk Param: 1.55 TR Pk Grad: 10.00 RA Press: 8.00 RVSP: 18.00 Great Vessels Aorta Sinus of Valsalva: 3.50 2.0-3.5 cm Ao Asc: 3.40 2.1-3.4 cm Updated in Other Vendor System with Status of Final Chemo Romeo MD electronically signed on 06/21/2023 4:34:27 PM with status of Final
--- NOTE | 2023-06-21 07:38 | PC.NURSE ---
patient resting in bed, awake and alert. respirations equal and unlabored.
--- NOTE | 2023-06-21 09:18 | PC.NURSE ---
patient refused lovenox injection
--- NOTE | 2023-06-21 10:13 | MHC.CM.PN ---
CM MET WITH PT IN ED13 PT REPORTS HE LIVES WITH HIS SISTER AND IS INDEPENDENT WITH CARE AFTER ONE QUESTION, PT STATED HE WANTED TO SIGN OUT HE HAS NOT YET RECEIVED HIS MEDS AND NO LONGER WANTED TO BE IN THE ED HE WAS ABLE TO BE CALMED AND COMPLETED ASSESSMENT CM ASSURED HIM THESE THINGS WOULD BE LOOKED INTO RIGHT AFTER PT HAS NO SERVICES AND USES A CANE TO AMBULATE HE HAS A HCP ON FILE PCP: SONIA GARDNER OBSERVATION NOTICE DELIVERED DCP: HOME WITH NO NEW SERVICES PTS CAR IS IN THE LOT PT WAS INFORMED HIS [facility] ROOM WAS ASSIGNED AND THE [facility] WAS NOTIFIED ABOUT HIS MEDS
--- NOTE | 2023-06-21 10:38 | PM.CNCAR ---
History of Present Illness History of Present Illness Date of Service: 06/21/23 Requesting physician: Katarzyna Aguirre Consult reason: other (Syncope) Chief complaint: Syncope Narrative: I was consulted to see Lyndon in cardiology consultation today for syncopal episode. 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 Subsequently started on heart failure meds with neurohormonal modulation with improved LV ejection fraction to 45% by echocardiogram last year. He has not had any recurrent cardiac events. He has been taking all his medications including Entresto, metoprolol, atorvastatin, aspirin, Suboxone and antidepressant medications. He says about 10 days ago while he was at home when he got out of bed at nighttime to go to the bathroom he passed out. He sister came into the room. He got up subsequently immediately within a minute or so and was conscious. Did not have any seizure-like activity. He was tremulous at that time. He was not diaphoretic or had any bowel or bladder incontinence at that time. He did not seek emergency room care at that time. Since then he has been any symptoms of significant orthostatic lightheadedness and dizziness feels like he will pass out whenever he gets up suddenly. He therefore came to the emergency room. In the emergency room last night there were orthostatic vitals done with some drop from sitting to standing blood pressure but no significant orthostatic hypertension. Blood pressures been low end of normal. He has been taking all his medications. He also admits to using cocaine intermittently, says that he gets depressed. He drinks plenty of water but reduced salt intake. He has had no major bleeding issues. His troponins are negative. EKG shows anterior Q-waves. He did complete a week chest pressure on presentation. Currently not having any chest pain. Review of Systems Constitutional: Constitutional: Reports no additional constitutional complaints Eyes: Eyes: Reports no additional eye complaints Cardiovascular: Cardiovascular: Reports chest pain at rest, Denies leg edema, Reports lightheadedness, Reports Loss of Consciousness, Denies palpitations and Denies dyspnea Respiratory: Respiratory: Reports no additional respiratory complaints and Denies dyspnea Gastrointestinal: Gastrointestinal: Reports no additional gastrointestinal complaints Genitourinary: Genitourinary: Reports no additional male genitourinary complaints Musculoskeletal: Musculoskeletal: Reports no additional musculoskeletal complaints Integumentary/Breasts: Skin/Breast: Reports system reviewed and no additional complaints, except as docu Neurologic: Reports system reviewed and no additional complaints, except as documented Psychiatric: Psychiatric: Reports change in appetite and Reports depression Endocrine: Endocrine: Denies palpitations [facility] Past Medical History Medical History CAD (coronary artery disease) HTN (hypertension) Ischemic cardiomyopathy Polysubstance dependence Preop cardiovascular exam STEMI (ST elevation myocardial infarction) Family History Family History Family/Other CAD (coronary artery disease) Colon cancer, Onset Age: 30 Mother Stomach cancer Brother Colon cancer Surgical History Surgical History History of colonoscopy (07/15/22) Status post proctocolectomy (08/15/22) Social History Social History Household Members: Family Housing: House Do you presently have visiting nurse or other home services: No Alcohol intake: never Patient Tobacco Use Status: Current everyday Tobacco user Tobacco use type: Cigarette Cigarettes Per Day: 7 Years Smoked: 15 Smoked in Last 30 Days: Yes Second Hand Smoke Exposure: Yes Use of substances other than those prescribed or required for medical reasons: Yes Substance Use Type: Crack/Cocaine Advance Directives: No Advance Directives Information Provided: No service: No Current occupational status: unemployed Meds Allergies Allergy/AdvReac Type Severity Reaction Status Date / Time No Known Allergies Allergy Verified 09/29/22 14:14 Active Medications: Current Medications Acetaminophen (Acetaminophen 325 Mg Tablet) 650 mg PO Q6H PRN PRN Reason: Pain, Mild (Pain Scale 1-3) Enoxaparin Sodium (Enoxaparin Sodium 40 Mg/0.4 Ml Syringe) 40 mg SUBCUT Q24H PETR Last Admin: 06/21/23 09:18 Dose: Not Given Sodium Chloride (Ns) 1,000 mls @ 100 mls/hr IVCONT .Q10H PETR Melatonin (Melatonin 3 Mg Tablet) 6 mg PO BEDTIME PRN PRN Reason: Insomnia Ondansetron HCl (Ondansetron Hcl 4 Mg/2 Ml Vial) 4 mg IVPUSH Q8H PRN PRN Reason: Nausea and Vomiting Home Medications Medication Instructions Recorded Confirmed Last Taken Type atorvastatin 80 mg tablet 80 mg PO BEDTIME 07/29/21 03/01/23 07/27/21 21:00 History metoprolol succinate 25 mg 25 mg PO DAILY 07/29/21 03/01/23 07/28/21 09:00 History tablet,extended release 24 hr aspirin 81 mg tablet,delayed 1 tab PO DAILY 07/14/22 03/01/23 Unknown History release buprenorphine 8 mg-naloxone 2 mg 1 strip sublingual DAILY 07/14/22 03/01/23 Unknown History sublingual film (Suboxone) bupropion HCl 150 mg 24 hr tablet, 150 mg PO DAILY 07/14/22 03/01/23 Unknown History extended release nicotine 21 mg/24 hr daily 1 patch topical DAILY 07/14/22 03/01/23 Unknown History transdermal patch pantoprazole 40 mg tablet,delayed 1 tab PO DAILY 07/14/22 03/01/23 Unknown History release trazodone 100 mg tablet 1 tab PO BEDTIME 07/14/22 03/01/23 Unknown History benzoyl peroxide 5 % topical 1 appl topical BEDTIME 06/21/23 Unknown History cleanser (BP Wash) bupropion HCl 300 mg 24 hr tablet, 300 mg PO DAILY 06/21/23 Unknown History extended release ezetimibe 10 mg tablet 10 mg PO DAILY 06/21/23 Unknown History mirtazapine 7.5 mg tablet 7.5 mg PO BEDTIME 06/21/23 Unknown History sacubitril 49 mg-valsartan 51 mg 1 tab PO BID 06/21/23 Unknown History tablet (Entresto) Physical Exam Vital Signs: Vital Signs: Last Vital Signs Temp 97.8 F 06/21/23 06:20 Pulse 60 06/21/23 06:20 Resp 13 06/21/23 06:20 BP 116/61 06/21/23 06:20 Pulse Ox 100 06/21/23 06:20 O2 Del Method Room Air 06/21/23 06:20 BMI result Body Mass Index 23.6 Const: General: cooperative, comfortable, no acute distress, alert and awake Nutritional Appearance: thin Orientation/consciousness: patient oriented x3 Limitations: no limitations HEENT: Head: Yes normocephalic and Yes atraumatic Neck: Neck: Yes trachea midline, Yes supple and Yes no JVD Resp: Effort & Inspection: normal respiratory effort Auscultation: clear to auscultation bilaterally Cardio: Jugular venous distension: no JVD Palpation: normal PMI Rate: regular rate Rhythm: regular rhythm Heart sounds: S1 normal heart sound present, S2 normal heart sound present, no click, no gallops, no murmurs and no rubs GI: Auscultation: normal bowel sounds Skin: General skin exam: no rashes or lesions noted Neuro: General: patient oriented x3 and no focal motor deficits Extrem: General: Yes no clubbing, cyanosis or edema Objective Labs and Meds 06/20/23 20:30 06/20/23 20:30 Lab results: Laboratory Results - last 24 hr 06/20/23 06/20/23 06/20/23 20:30 20:30 20:30 WBC 4.7 L RBC 4.08 L Hgb 11.1 L Hct 34.0 L MCV 83.3 MCH 27.2 MCHC 32.6 RDW 15.1 Plt Count 191 MPV 11.3 Absolute Nucleated RBC 0.000 Nucleated RBC % (auto) 0.0 Sodium 139 Potassium 4.1 Chloride 105 Carbon Dioxide 29 Anion Gap 9 L BUN 11 Creatinine 0.85 Estim Creat Clear Calc 111.2 Estimated GFR > 60 Random Glucose 98 Calcium 9.5 Total Bilirubin 0.4 AST 19 ALT 15 Alkaline Phosphatase 85 Troponin I High Sens < 2.7 Total Protein 7.2 Albumin 4.3 Influenza Type A (PCR) Influenza Type B (PCR) RSV RNA Qual (PCR) SARS-CoV-2 RNA (RT-PCR) 06/21/23 06/21/23 02:08 02:08 WBC RBC Hgb Hct MCV MCH MCHC RDW Plt Count MPV Absolute Nucleated RBC Nucleated RBC % (auto) Sodium Potassium Chloride Carbon Dioxide Anion Gap BUN Creatinine Estim Creat Clear Calc Estimated GFR Random Glucose Calcium Total Bilirubin AST ALT Alkaline Phosphatase Troponin I High Sens < 2.7 Total Protein Albumin Influenza Type A (PCR) NEGATIVE Influenza Type B (PCR) NEGATIVE RSV RNA Qual (PCR) NEGATIVE SARS-CoV-2 RNA (RT-PCR) NEGATIVE EKG shows normal sinus rhythm with anterior Q-waves Imaging Radiologist's impression: Impressions Head CT 06/21/23 01:58 IMPRESSION: No acute intracranial pathology. Chest X-Ray 06/21/23 03:10 IMPRESSION: No active cardiopulmonary disease. Assessment and Plan (1) Syncope: Status: Acute Syncope in this young man with prior CAD status post VA and mild ischemic cardiomyopathy by last echocardiogram, historically appears to be orthostatic in nature and probably related to over medications with Entresto. He takes 49-51 mg b.i.d. at home as per him. He does take adequate oral intake as per his admission but not adequate salt intake. He also admits to using cocaine intermittently. We discussed about completely abstaining from cocaine use. Continue low-dose aspirin therapy. Continue high-intensity statin therapy with along with ezetimibe. Continue metoprolol therapy. Would reduce Entresto to 24-26 mg b.i.d.. Obtain an echocardiogram. I will also hydrate him IV normal saline 100 cc an hour till tomorrow. Full disclosure cardiac monitoring. There is low likelihood of cardiac arrhythmias although possible given his apical dyskinetic segment. Will follow with you. Thank you for allowing me to partake in his care Time Spent With Patient Time: Total time managing care of this patient today ____ minutes. Procedures Date of Service Date of Service: 06/21/23
--- NOTE | 2023-06-21 11:28 | PHA.MEDREC ---
Pharmacy Consult ? Medication Reconciliation Pharmacy has completed the medication reconciliation. Spoke to pt to confirm meds. He was able to list them and states he took last dose of all meds 06/20 (bedtime meds 06/19)
[2023-06-21] MEDS: Ezetimibe 10 MG TABLET PO (11:59)
[2023-06-21] MEDS: Buprenorphine/Naloxone 8/2 mg FILM 1 FILM SUBLINGUAL (11:59)
[2023-06-21] MEDS: Nicotine 21 MG PATCH.TD24 TRANSDERMA (11:59)
[2023-06-21] MEDS: Aspirin Enteric Coated 81 MG TABLET.DR PO (11:59)
[2023-06-21] MEDS: 0.9 % Sodium Chloride 1,000 ML 100 ML IVCONT (12:03)
--- NOTE | 2023-06-21 18:01 | PC.NURSE ---
Patient arrived from ED in wheelchair approx 1030 oriented to room, call lee system and staff. A&OX4. Neurologically intact. LSCTA denies SOB or CP, NSR on tele. BS+X4 abdomen soft non-tender, colostomy bag in place pt completes self care. Voiding without difficulty urine sample sent late evening. OOB with steady gait occasional episode of dizziness. NSR on tele. Bedside Echo completed this shift. IV fluids infusing per order. Meds ordered and given this am. Pt educated on need for bed alarm and use of call lee for safety, agrees to have camera in room for safety. Will continue to monitor and report changes
--- NOTE | 2023-06-21 18:28 | PM.EVENT ---
Event Note Date of Service: 06/21/23 Event Note: Patient was admitted for syncope -seen by Cardiology seems like patient has fluctuating blood pressures secondary to blood pressure medication use, in addition admits to using cocaine intermittently. Physical exam: Unchanged from H&P no new symptoms now Plan: Urine drug screen needs to be sent Will get an echo for syncope workup, IV fluid, adjust Entresto dosing, patient was strongly advised to abstain from cocaine use. Time Spent With Patient Time: Total time managing care of this patient today ____ minutes.
[2023-06-21 18:48] LABS: Appearance Urine Clear; Color Urine Yellow; Glucose Urine UA Negative (Negative); Leukocyte Esterase Urine Negative (Negative); Nitrite Urine Negative (Negative); Specific Gravity - Urine 1.015 (1.005-1.025); Urine Blood Negative (Negative); Urine Ketones Negative (Negative); Urine Protein Negative (Neg-Trace)
[2023-06-21 18:56] LABS: Amphetamine Screen Urine Not Detected (Not Detect); Barbiturates, Urine Not Detected (Not Detect); Benzodiazepines Screen Urine Not Detected (Not Detect); Cannabinoid Screen Urine POSITIVE (Not Detect); Cocaine Screen Urine POSITIVE (Not Detect); Fentanyl, urine Not Detected (Not Detect); Opiate Screen Urine Not Detected (Not Detect); Phencyclidine Screen Urine Not Detected (Not Detect)
[2023-06-21] MEDS: traZODone HCL 100 MG TABLET PO (21:03)
[2023-06-21] MEDS: Atorvastatin Calcium 80 MG TABLET PO (21:03)
--- NOTE | 2023-06-22 | CA_ITS ---
Acquisition Time: 2023-06-22 12:52:43 Total Exercise Time: 00:06:25 Test Indications: Ischemic cardiomyopathy, Syncope Medications: Protocol: DALTON Max HR: 171 BPM 93% of Pred: 183 BPM Max BP: 128/066 mmHG Max Work Load: 7.6 METS Exercise stress test exercise 6 min 25 sec of Dalton protocol achieving 93% MPHR, without anginal symptoms, with isolated PVCs, with normotensive repsonse to exercise, without EKG changes. Nuclear images pending. Test reviewed with Dr. Romeo. Referred By: Chemo Romeo Overread By: CHRISTEN PALACIOS
[2023-06-22] MEDS: 0.9 % Sodium Chloride 1,000 ML 100 ML IVCONT ×2 (02:59→16:17)
[2023-06-22 03:58] VITALS: BP 93/50; PULSE 64; RESP 18; TEMP 36.5; O2SAT 99
[2023-06-22 07:54] VITALS: BP 116/69; PULSE 65; RESP 18; TEMP 37.1; O2SAT 100
[2023-06-22] MEDS: Aspirin Enteric Coated 81 MG TABLET.DR PO (09:15)
[2023-06-22] MEDS: Ezetimibe 10 MG TABLET PO (09:16)
[2023-06-22] MEDS: Buprenorphine/Naloxone 8/2 mg FILM 1 FILM SUBLINGUAL (09:16)
[2023-06-22] MEDS: Metoprolol Succinate ER 25 MG TAB.ER.24H PO (09:16)
[2023-06-22] MEDS: Nicotine 21 MG PATCH.TD24 TRANSDERMA (09:16)
[2023-06-22] MEDS: Acetaminophen 325 MG TABLET 650 MG PO (09:22)
[2023-06-22 09:53] VITALS: BP 123/82; BP 136/91; BP 146/89; PULSE 67; PULSE 69; PULSE 81
--- NOTE | 2023-06-22 09:55 | P.PNCA_ITS ---
Subjective Subjective Date of Service: 06/22/23 Principal diagnosis: Syncope, ischemic cardiomyopathy. Interval history: Echocardiogram shows significant reductions LV ejection fraction which is surprising. He was complaining some vague chest discomfort. Today he does not complain of anything. He is very frustrated to be in the hospital. He does not have any more lightheadedness. Blood pressures improved. No overnight arrhythmias noted Review of Systems Constitutional: Reports no additional constitutional complaints Physical Exam Vital Signs: Last Vital Signs Temp 98.7 F 06/22/23 07:54 Pulse 67 06/22/23 09:53 Resp 18 06/22/23 07:54 BP 146/89 H 06/22/23 09:53 Pulse Ox 100 06/22/23 07:54 O2 Del Method Room Air 06/22/23 07:54 BMI result Body Mass Index 23.0 Const General: cooperative, comfortable, no acute distress, alert and awake Nutritional Appearance: thin Orientation/consciousness: patient oriented x3 Limitations: no limitations HEENT Head: Yes normocephalic and Yes atraumatic Neck Neck: Yes trachea midline, Yes supple and Yes no JVD Resp Effort & Inspection: normal respiratory effort Auscultation: clear to auscultation bilaterally Cardio Jugular venous distension: no JVD Palpation: normal PMI Rate: regular rate Rhythm: regular rhythm Heart sounds: S1 normal heart sound present, S2 normal heart sound present, no click, no gallops, no murmurs and no rubs GI Auscultation: normal bowel sounds Skin General skin exam: no rashes or lesions noted Neuro General: patient oriented x3 and no focal motor deficits Extrem General: Yes no clubbing, cyanosis or edema Objective Labs and Meds 06/20/23 20:30 06/20/23 20:30 Lab results: Laboratory Results - last 24 hr 06/21/23 18:17 Urine Color Yellow Urine Appearance Clear Urine pH 6.0 Ur Specific [place] 1.015 Urine Protein Negative Urine Glucose (UA) Negative Urine Ketones Negative Urine Blood Negative Urine Nitrite Negative Ur Leukocyte Esterase Negative Urine Opiates Screen Not Detected Urine Fentanyl Screen Not Detected Ur Barbiturates Screen Not Detected Ur Phencyclidine Scrn Not Detected Ur Amphetamines Screen Not Detected U Benzodiazepines Scrn Not Detected Urine Cocaine Screen POSITIVE H U Marijuana (THC) Screen POSITIVE H Progress Note: A&P Assessment and plan (1) Ischemic cardiomyopathy: Status: Acute Assessment and Plan: Patient with significant ischemic cardiomyopathy significant reduction LV ejection fraction, on explain. Requires inpatient myocardial perfusion imaging. Will try to perform 1 day myocardial perfusion imaging today with exercise if possible. Continue current neurohormonal modulation with metoprolol on Entresto. Reduce the dose of Entresto to 24-26 mg b.i.d.. Hold off on diuretic regimen. Advised to maintain adequate hydration as well as salt intake to be able to use neurohormonal modulation. (2) Syncope: Status: Acute Assessment and Plan: Syncope appears to be orthostatic in nature. Advised to increase salt and water intake. Although given significant reduction in his LV ejection fraction will need outpatient workup. Advised to follow-up with his cardiology team as outpatient with Holter monitor and should consider ICD placement if his LV ejection fraction remained significantly reduced. Will follow after stress testing Time Spent With Patient Time: Total time managing care of this patient today ____ minutes. Progress Note: Quality Stroke Does the patient have a stroke diagnosis?: No Procedures Date of Service Date of Service: 06/22/23
[2023-06-22] MEDS: Sacubitril/Valsartan 24/26 1 TAB TABLET PO (10:24)
[2023-06-22 11:40] VITALS: BP 140/76; PULSE 65; RESP 18; TEMP 36.9; O2SAT 100
--- NOTE | 2023-06-22 15:33 | PM.DS ---
DS: Providers Provider Date of Service: 06/22/23 Date of admission: 06/21/23 05:38 Date of discharge: 06/22/23 Primary care physician: ROJELIO Almendarez Consults: 06/21/23 09:22 Consult to Cardiology Routine Consulting Provider[place] [facility] [place] [facility] Reason for consultation: syncope Has provider been notified: No 06/21/23 18:32 Addiction Medicine Routine Consulting Provider: Addiction Covering Reason for consultation: coacine use Has provider been notified: No Attending physician on discharge: Katarzyna Aguirre Discharging clinician: Katarzyna Aguirre DS: Diagnosis Discharge Diagnosis (1) Ischemic cardiomyopathy: Status: Acute (2) Syncope: Status: Acute DS: Summary Hospital Course Hospital Course: 37-year-old male with history drug use, actively using cocaine, colon cancer s/p colectomy, history of STEMI in 2020 and had LAD stent, cardiomyopathy EF 45 to 50%. He is presenting with vague chest discomfort and reporting that he has been having dizzy spells with multiple episodes of loss of consciousness on daily basis for the last 10 days, he relates that he deoes feel dizzy upon standing and so frequently had to sit before grabing on to objects to stand and amulae. ECG show no acute concerning finding, troponin is normal, unfortunately orthostatic BP is not checked. hopsital course: Patient was initially admitted for dizziness, syncopal episodes: Which seems to be multifactorial including drug use( urine drug screen positive for cocaine, possible component orthostasis, blood pressure medication): Patient was given IV hydration, his Entresto adjusted to lower dose: Telemetry seems fine, no new episode of syncope. Echo: EF is around 15-20% which is significantly decreased from his previous echo. Patient will be going for stress test today-no ischemia. LVEF by gated study 37%. discussed with cardiology -patient needs to follow up with his cardiology. Advised to follow-up with his cardiology team as outpatient management including repeat echo in 6 months. Advised to increase salt and water intake. Patient was strongly advised to abstain from cocaine use. plan: please take entersto () tab po bid. follow up with his cardiology-Advised to follow-up with his cardiology team as outpatient -management including repeat echo in 6 months. Assessment plan coordination time spent 50 minute. Time Spent with Patient Time attestation: Total time managing care of this patient today ____ minutes. Discharge coordination time: Greater than 30 minutes Quality: Safe Use of Opioids Does Pt have an Active Cancer Diagnosis on the Problem List?: No Quality: Stroke Does the patient have a stroke diagnosis?: No Physical Exam Vital Signs: Vital Signs: Last Vital Signs Temp 98.4 F 06/22/23 11:40 Pulse 65 06/22/23 11:40 Resp 18 06/22/23 11:40 BP 140/76 H 06/22/23 11:40 Pulse Ox 100 06/22/23 11:40 O2 Del Method Room Air 06/22/23 11:40 BMI result Body Mass Index 23.0 Appearance: Alert.? Oriented X3.? not in distress.?s. cvs: rrr, [id number]. res: clear to auscultation ,no rhonchii or wheezing abd: no rebound or guarding ,nt, bs present. ext pulses present , no cyanosis. neuro: axo3 , nonfocal. DS: Data Data Completed and Pending Completed studies during hospitalization [Text1]: Procedures Bypass Ileum to Cutaneous, Open Approach (08/15/22) Resection of Rectum, Open Approach (08/15/22) Resection of Right Large Intestine, Open Approach (08/15/22) Labs on day of discharge: Laboratory Results - last 24 hr 06/21/23 18:17 Urine Color Yellow Urine Appearance Clear Urine pH 6.0 Ur Specific [place] 1.015 Urine Protein Negative Urine Glucose (UA) Negative Urine Ketones Negative Urine Blood Negative Urine Nitrite Negative Ur Leukocyte Esterase Negative Urine Opiates Screen Not Detected Urine Fentanyl Screen Not Detected Ur Barbiturates Screen Not Detected Ur Phencyclidine Scrn Not Detected Ur Amphetamines Screen Not Detected U Benzodiazepines Scrn Not Detected Urine Cocaine Screen POSITIVE H U Marijuana (THC) Screen POSITIVE H Imaging Chest x-ray: Radiologist's impression: ITS Impressions Head CT 06/21/23 01:58 IMPRESSION: No acute intracranial pathology. Chest X-Ray 06/21/23 03:10 IMPRESSION: No active cardiopulmonary disease. Myocardial Perfusion Scan Nuc Med 06/22/23 14:00 IMPRESSION: 1. Myocardial perfusion imaging study shows large LAD territory infarction. No clear evidence of ischemia. 2. Gated LVEF is 37% during stress and 40% during rest. 3. Transient ischemic dilatation not present. EKG component of the test reported separately. Discharge Plan Discharge Anticipated Discharge Date/Time: 06/22/23 13:39 Patient Disposition: Home, Self-Care Discharge Diagnosis: Cardiomyopathy, syncopal-possible multifactorial(drug use, possible component of orthostasis) Referrals: Gayathri Maravilla FNP [Primary Care Provider] - 1 Week Discharge Medications: New Entresto 24-26 mg Tablet 1 tab PO BID Qty: 60 0RF Protocol: Hold for SBP< HOLD for SBP < : 90 Continued atorvastatin 80 mg Tablet 80 mg PO BEDTIME metoprolol succinate 25 mg Tablet Extended Release 24 Hr 25 mg PO DAILY aspirin 81 mg tablet,delayed release (DR/EC) 1 tab PO DAILY Hold Instructions: Hold for 4 days, resume wednesday 07/18 trazodone 100 mg tablet 1 tab PO BEDTIME buprenorphine-naloxone [Suboxone] 8-2 mg film 1 strip sublingual DAILY nicotine 21 mg/24 hr patch 24 hour 1 patch topical DAILY (DME) cane Device See Rx Instructions .Route Qty: 1 0RF Rx Instructions: As directed benzoyl peroxide [BP Wash] 5 % cleanser 1 appl topical BEDTIME ezetimibe 10 mg tablet 10 mg PO DAILY bupropion HCl 300 mg tablet extended release 24 hr 300 mg PO DAILY mirtazapine 7.5 mg tablet 7.5 mg PO BEDTIME Discontinued Entresto 49-51 mg tablet 1 tab PO BID Discharge Orders: Discharge Order (Routine); Ordered 06/22/23 Ordered By: Katarzyna Aguirre Diet: Advance to usual diet Activity on Discharge: As tolerated Stand Alone Forms: Patient Portal Discharge page Care Plan Goals: Patient was initially admitted for dizziness, syncopal episodes: Which seems to be multifactorial including drug use, possible component orthostasis, blood pressure medication: Patient was given IV hydration, his Entresto adjusted to lower dose: Telemetry seems fine, no new episode of syncope. Echo: EF is around 15-20% which is significantly decreased from his previous echo. Patient will be going for stress test today-no ischemia. LVEF by gated study 37%. Can discharge and follow up with his cardiology. Advised to increase salt and water intake. Patient was strongly advised to abstain from cocaine use. Health Concerns: As above. Plan of Treatment: As above. Assessment: As above.
--- NOTE | 2023-06-22 15:40 | MHC.CM.PN ---
Patient has been medically cleared for dc to home today, self care.
[2023-06-22 15:45] VITALS: BP 107/56; PULSE 62; RESP 14; TEMP 36.7; O2SAT 98
--- NOTE | 2023-06-22 17:08 | MHC.RECOVRN ---
This commercial loan underwriter met with patient after receiving addiction consult. Pt admitted for syncope. Pt reports hx of cardiac events. Pt reports daily use IN ERNIE, $20 worth daily. Pt states longest period of recovery, 2 months when hospitalized for heart attack. Pt reports goal to abstain, reviewed medications for stimulant use, treatment options. Pt verbalized understanding. This commercial loan underwriter and patient reviewed harm reduction strategies, pt verbalized understanding. Pt encouraged to call the Addiction/Recovery team with questions/concerns, harm reduction/recovery materials left with patient.
== END 2023-06-22 17:16 | disposition home or self-care (01) ==
LOC: HO.ED 06-21 03:03 → HO.EDOVER 06-21 05:42 → HO.IMC 06-21 09:30
PROVIDERS: Admitting Provider Internal Medicine; Emergency Provider Emergency Medicine; PCP Registered Nurse; Visit Provider Internal Medicine
DX: I25.5 Ischemic cardiomyopathy (principal); I25.10 Atherosclerotic heart disease of native coronary artery without angina pectoris; I25.2 Old myocardial infarction; I10 Essential (primary) hypertension; R55 Syncope and collapse; R42 Dizziness and giddiness; F14.90 Cocaine use, unspecified, uncomplicated; Z20.828 Contact with and (suspected) exposure to other viral communicable diseases; Z85.038 Personal history of other malignant neoplasm of large intestine; F19.20 Other psychoactive substance dependence, uncomplicated; Z79.899 Other long term (current) drug therapy
CPT/HCPCS: 0241U; 36415; 70450; 71045; 78452; 80053; 80307; 81003; 84484; 85027; 93005; 93017; 93306; 96360; 96361; 99222; 99285; A9500; Q9957

== ENCOUNTER 2023-06-21 05:38 | Outpatient (BNV) | payer MEDICAID, SELFPAY | END 2023-06-22 12:52 | PROVIDERS: Admitting Provider Internal Medicine; Emergency Provider Emergency Medicine; PCP Registered Nurse; Visit Provider Internal Medicine | DX: I25.10 Atherosclerotic heart disease of native coronary artery without angina pectoris (principal) | CPT/HCPCS: 78452; 93016; 93018 ==

== ENCOUNTER → 2023-06-21 05:38 | Outpatient (BNV) | payer MEDICAID, SELFPAY | PROVIDERS: Admitting Provider Internal Medicine; Emergency Provider Emergency Medicine; PCP Registered Nurse; Visit Provider Internal Medicine Cardiovascular Disease | DX: I25.5 Ischemic cardiomyopathy (principal); R55 Syncope and collapse | CPT/HCPCS: 93306; 99221; 99233 ==

== ENCOUNTER → 2023-06-21 05:38 | Outpatient (BNV) | payer MEDICAID, SELFPAY | PROVIDERS: Admitting Provider Internal Medicine; Emergency Provider Emergency Medicine; PCP Registered Nurse; Visit Provider Internal Medicine | DX: I25.5 Ischemic cardiomyopathy (principal); R55 Syncope and collapse | CPT/HCPCS: 99222; 99239; 99499 ==

== ENCOUNTER → 2023-10-17 09:27 | Day surgery (SDC) | payer MEDICAID, SELFPAY ==
--- NOTE | 2023-09-25 09:22 | HO.ANESPROP2 ---
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 Follows with [facility] oncology, No current tx CAD s/p DE and Stent 05/2021. Ischemic cardiomyopathy (EF 15-20 on ECHO and 37 - 40 on Nuc Stress). Follows at [facility]. Last office visit 07/2023 + Current Cocaine use Suboxone daily PMFSH Active Problems Active Problems: All Active Problems (Updated 06/30/23 @ 00:03 by Background Daemon) Ischemic cardiomyopathy (Acute) Syncope (Acute) S/P total colectomy (Acute) Jose syndrome (Acute) Carcinoma of cecum (Chronic) Family history of colon cancer (Acute) Colonic mass (Acute) Hematochezia (Acute) Microcytic anemia (Acute) Polysubstance dependence (Acute) Chest pain (Acute) Past Medical History Medical History (Updated 06/30/23 @ 00:03 by Background Daemon) Ischemic cardiomyopathy Preop cardiovascular exam Polysubstance dependence STEMI (ST elevation myocardial infarction) CAD (coronary artery disease) HTN (hypertension) Family History Family History Family/Other CAD (coronary artery disease) Colon cancer, Onset Age: 30 Mother Stomach cancer Brother Colon cancer Family history of problems with anesthesia: No Surgical History Surgical History (Updated 06/30/23 @ 00:03 by Background Daemon) Status post proctocolectomy (08/15/22) History of colonoscopy (07/15/22) History of Problems with Anesthesia: No Social History Social History Household Members: Family Housing: Apartment Do you presently have visiting nurse or other home services: No Alcohol intake: never Comment: Xray ordered for incorrect count. Xray clear. Patient Tobacco Use Status: Current everyday Tobacco user Tobacco use type: Cigarette Cigarettes Per Day: 10 Years Smoked: 15 Second Hand Smoke Exposure: Yes Substance Use Type: Crack/Cocaine service: No Current occupational status: unemployed Meds Allergies Allergy/AdvReac Type Severity Reaction Status Date / Time No Known Allergies Allergy Verified 09/29/22 14:14 Home Medications Medication Instructions Recorded Confirmed Last Taken Type metoprolol succinate 25 mg 25 mg PO DAILY 07/29/21 08/25/23 06/20/23 History tablet,extended release 24 hr aspirin 81 mg tablet,delayed 1 tab PO DAILY 07/14/22 08/25/23 06/20/23 History release buprenorphine 8 mg-naloxone 2 mg 1 strip sublingual DAILY 07/14/22 08/25/23 06/20/23 History sublingual film (Suboxone) nicotine 21 mg/24 hr daily 1 patch topical DAILY 07/14/22 06/21/23 Unknown History transdermal patch trazodone 100 mg tablet 1 tab PO BEDTIME 07/14/22 06/21/23 06/19/23 History benzoyl peroxide 5 % topical 1 appl topical BEDTIME 06/21/23 06/21/23 Unknown History cleanser (BP Wash) bupropion HCl 300 mg 24 hr tablet, 300 mg PO DAILY 06/21/23 06/21/23 06/20/23 History extended release ezetimibe 10 mg tablet 10 mg PO DAILY 06/21/23 08/25/23 06/20/23 History mirtazapine 7.5 mg tablet 7.5 mg PO BEDTIME 06/21/23 06/21/23 06/20/23 History furosemide 20 mg tablet 20 mg PO DAILY swelling 08/25/23 08/25/23 Unknown History pantoprazole 40 mg tablet,delayed 40 mg PO DAILY 08/25/23 08/25/23 Unknown History release rosuvastatin 40 mg tablet 40 mg PO DAILY 08/25/23 08/25/23 Unknown History Exam Pertinent Lab Results Pertinent Lab Results: Laboratory Tests 06/20/23 20:30 WBC 4.7 L Hgb 11.1 L Hct 34.0 L Plt Count 191 Sodium 139 Potassium 4.1 Chloride 105 Carbon Dioxide 29 BUN 11 Creatinine 0.85 Narrative Narrative: EKG 06/2023 Vent. Rate : 093 BPM Atrial Rate : 093 BPM P-R Int : 138 ms QRS Dur : 076 ms QT Int : 340 ms P-R-T Axes : 069 052 087 degrees QTc Int : 422 ms Normal sinus rhythm Possible Left atrial enlargement Low voltage QRS Cannot rule out Anteroseptal infarct (cited on or before 29-JUL-2021) T wave abnormality, consider lateral ischemia Abnormal ECG When compared with ECG of 15-AUG-2022 07:39, T wave inversion more evident in Anterior leads ECHO 06/2023 Conclusions: - 1. LV systolic function measured by Rivera's formula after contrast injection is significantly reduced at 15-20% with regional wall motion abnormality consistent with ischemic cardiomyopathy 2. Normal cardiac valvular Doppler 3. No gross pericardial effusion 4. Normal RV systolic pressure NM farzad perf SPECT rest & str 06/2023 IMPRESSION: 1. Myocardial perfusion imaging study shows large LAD territory infarction. No clear evidence of ischemia. 2. Gated LVEF is 37% during stress and 40% during rest. 3. Transient ischemic dilatation not present. EKG component of the test reported separately. Assessment and Plan Assessment Anesthesia Assessment: Chart Reviewed Final Anesthetic Review Family History of Problems with Anesthesia: No History of Problems with Anesthesia: No Documented by User: Gerardo Espinal MD 09/26/23 10:13 [facility] Past Medical History Medical History (Updated 06/30/23 @ 00:03 by Background Daemon) Ischemic cardiomyopathy Preop cardiovascular exam Polysubstance dependence STEMI (ST elevation myocardial infarction) CAD (coronary artery disease) HTN (hypertension) Family History Family History Family/Other CAD (coronary artery disease) Colon cancer, Onset Age: 30 Mother Stomach cancer Brother Colon cancer Surgical History Surgical History (Updated 06/30/23 @ 00:03 by Background Daemon) Status post proctocolectomy (08/15/22) History of colonoscopy (07/15/22) Social History Social History Household Members: Family Housing: Apartment Do you presently have visiting nurse or other home services: No Alcohol intake: never Comment: Xray ordered for incorrect count. Xray clear. Patient Tobacco Use Status: Current everyday Tobacco user Tobacco use type: Cigarette Cigarettes Per Day: 10 Years Smoked: 15 Second Hand Smoke Exposure: Yes Substance Use Type: Crack/Cocaine service: No Current occupational status: unemployed Meds Allergies Allergy/AdvReac Type Severity Reaction Status Date / Time No Known Allergies Allergy Verified 09/29/22 14:14 Home Medications Medication Instructions Recorded Confirmed Last Taken Type metoprolol succinate 25 mg 25 mg PO DAILY 07/29/21 08/25/23 06/20/23 History tablet,extended release 24 hr aspirin 81 mg tablet,delayed 1 tab PO DAILY 07/14/22 08/25/23 06/20/23 History release buprenorphine 8 mg-naloxone 2 mg 1 strip sublingual DAILY 07/14/22 08/25/23 06/20/23 History sublingual film (Suboxone) nicotine 21 mg/24 hr daily 1 patch topical DAILY 07/14/22 06/21/23 Unknown History transdermal patch trazodone 100 mg tablet 1 tab PO BEDTIME 07/14/22 06/21/23 06/19/23 History benzoyl peroxide 5 % topical 1 appl topical BEDTIME 06/21/23 06/21/23 Unknown History cleanser (BP Wash) bupropion HCl 300 mg 24 hr tablet, 300 mg PO DAILY 06/21/23 06/21/23 06/20/23 History extended release ezetimibe 10 mg tablet 10 mg PO DAILY 06/21/23 08/25/23 06/20/23 History mirtazapine 7.5 mg tablet 7.5 mg PO BEDTIME 06/21/23 06/21/23 06/20/23 History furosemide 20 mg tablet 20 mg PO DAILY swelling 08/25/23 08/25/23 Unknown History pantoprazole 40 mg tablet,delayed 40 mg PO DAILY 08/25/23 08/25/23 Unknown History release rosuvastatin 40 mg tablet 40 mg PO DAILY 08/25/23 08/25/23 Unknown History Exam Airway Mallampati Class: II TM Dist: >3cm Neck ROM: Limited Heart: rrr Lungs: cta Assessment and Plan Final Anesthetic Review NPO: Yes ASA Class: IV Final Preanesthetic Review: No Changes in Pt Med Stat, Meds/Allgs Chart Reviewed, Consent Obtained/Reviewed and Anes Risks/Benef Reviewed Patient Risk: High Procedure Risk: Intermediate Anesthetic Plan Anesthetic Plan: GA and Agree w/ Assess. and Plan Disposition: Standard PACU
--- NOTE | 2023-10-13 09:40 | HO.ANESPROP2 ---
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 Follows with [facility] oncology, No current tx CAD s/p [place] and Stent 05/2021. Ischemic cardiomyopathy (EF 15-20 on ECHO and 37 - 40 on Nuc Stress). Follows at [facility]. Last office visit 07/2023 + Current Cocaine use Suboxone daily PMFSH Active Problems Active Problems: All Active Problems (Updated 06/30/23 @ 00:03 by Background Daemon) Ischemic cardiomyopathy (Acute) Syncope (Acute) S/P total colectomy (Acute) Jose syndrome (Acute) Carcinoma of cecum (Chronic) Family history of colon cancer (Acute) Colonic mass (Acute) Hematochezia (Acute) Microcytic anemia (Acute) Polysubstance dependence (Acute) Chest pain (Acute) Past Medical History Medical History Ischemic cardiomyopathy Preop cardiovascular exam Polysubstance dependence STEMI (ST elevation myocardial infarction) CAD (coronary artery disease) HTN (hypertension) Family History Family History Family/Other CAD (coronary artery disease) Colon cancer, Onset Age: 30 Mother Stomach cancer Brother Colon cancer Family history of problems with anesthesia: No Surgical History Surgical History (Updated 06/30/23 @ 00:03 by Background Daemon) Status post proctocolectomy (08/15/22) History of colonoscopy (07/15/22) History of Problems with Anesthesia: No Social History Social History Household Members: Family Housing: Apartment Do you presently have visiting nurse or other home services: No Alcohol intake: never Comment: Xray ordered for incorrect count. Xray clear. Patient Tobacco Use Status: Current everyday Tobacco user Tobacco use type: Cigarette Years Smoked: 15 Second Hand Smoke Exposure: Yes Substance Use Type: Crack/Cocaine service: No Current occupational status: unemployed Meds Allergies Allergy/AdvReac Type Severity Reaction Status Date / Time No Known Allergies Allergy Verified 10/11/23 11:03 Home Medications Medication Instructions Recorded Confirmed Last Taken Type metoprolol succinate 25 mg 25 mg PO DAILY 07/29/21 10/11/23 06/20/23 History tablet,extended release 24 hr aspirin 81 mg tablet,delayed 1 tab PO DAILY 07/14/22 10/11/23 06/20/23 History release buprenorphine 8 mg-naloxone 2 mg 1 strip sublingual DAILY 07/14/22 10/11/23 06/20/23 History sublingual film (Suboxone) nicotine 21 mg/24 hr daily 1 patch topical DAILY 07/14/22 10/11/23 Unknown History transdermal patch trazodone 100 mg tablet 1 tab PO BEDTIME 07/14/22 10/11/23 06/19/23 History benzoyl peroxide 5 % topical 1 appl topical BEDTIME 06/21/23 10/11/23 Unknown History cleanser (BP Wash) bupropion HCl 300 mg 24 hr tablet, 300 mg PO DAILY 06/21/23 10/11/23 06/20/23 History extended release ezetimibe 10 mg tablet 10 mg PO DAILY 06/21/23 10/11/23 06/20/23 History mirtazapine 7.5 mg tablet 7.5 mg PO BEDTIME 06/21/23 10/11/23 06/20/23 History furosemide 20 mg tablet 20 mg PO DAILY swelling 08/25/23 10/11/23 Unknown History pantoprazole 40 mg tablet,delayed 40 mg PO DAILY 08/25/23 10/11/23 Unknown History release rosuvastatin 40 mg tablet 40 mg PO DAILY 08/25/23 10/11/23 Unknown History Exam Pertinent Lab Results Pertinent Lab Results: Laboratory Tests 10/11/23 10:59 WBC 7.9 Hgb 11.3 L Hct 34.7 L Plt Count 168 Sodium 141 Potassium 4.1 Chloride 104 Carbon Dioxide 31 H BUN 9 Creatinine 0.76 Narrative Narrative: EKG 06/2023 Vent. Rate : 093 BPM Atrial Rate : 093 BPM P-R Int : 138 ms QRS Dur : 076 ms QT Int : 340 ms P-R-T Axes : 069 052 087 degrees QTc Int : 422 ms Normal sinus rhythm Possible Left atrial enlargement Low voltage QRS Cannot rule out Anteroseptal infarct (cited on or before 29-JUL-2021) T wave abnormality, consider lateral ischemia Abnormal ECG When compared with ECG of 15-AUG-2022 07:39, T wave inversion more evident in Anterior leads ECHO 06/2023 Conclusions: - 1. LV systolic function measured by Rivera's formula after contrast injection is significantly reduced at 15-20% with regional wall motion abnormality consistent with ischemic cardiomyopathy 2. Normal cardiac valvular Doppler 3. No gross pericardial effusion 4. Normal RV systolic pressure NM farzad perf SPECT rest & str 06/2023 IMPRESSION: 1. Myocardial perfusion imaging study shows large LAD territory infarction. No clear evidence of ischemia. 2. Gated LVEF is 37% during stress and 40% during rest. 3. Transient ischemic dilatation not present. EKG component of the test reported separately. Assessment and Plan Assessment Anesthesia Assessment: Chart Reviewed Final Anesthetic Review Family History of Problems with Anesthesia: No History of Problems with Anesthesia: No
[2023-10-17 09:36] VITALS: BMI 24.2
--- NOTE | 2023-10-17 09:41 | PC.NURSE ---
patient states he did cocaine on [place].
== END ==
PROVIDERS: PCP Registered Nurse; Visit Provider Internal Medicine Gastroenterology
DX: Z15.09 Genetic susceptibility to other malignant neoplasm (principal); Z53.8 Procedure and treatment not carried out for other reasons; R82.5 Elevated urine levels of drugs, medicaments and biological substances; K21.9 Gastro-esophageal reflux disease without esophagitis

== ENCOUNTER 2023-11-06 00:59 | Emergency (ER) | payer MEDICAID, SELFPAY ==
--- NOTE | ~2023-11-06 | XR_ITS ---
EXAMINATION: XR CHEST CLINICAL INFORMATION: Shortness of breath. COMPARISON: 06/21/2023 TECHNIQUE: Frontal view of the chest was obtained. FINDINGS: The cardiomediastinal silhouette is within normal limits and stable. Coronary artery stent is again noted. There is no focal lung consolidation or pleural effusion. The bony structures and soft tissues are unremarkable. XR/XR chest 1V IMPRESSION: No acute cardiopulmonary process.
[2023-11-06 01:03] VITALS: BP 120/69; BP 150/90; PULSE 85; PULSE 88; RESP 17; TEMP 37.2; O2SAT 100; O2SAT 99; BMI 21.3
--- NOTE | 2023-11-06 01:03 | ECG_ITS ---
Test Reason : DIZZINESS Blood Pressure : / mmHG Vent. Rate : 078 BPM Atrial Rate : 078 BPM P-R Int : 150 ms QRS Dur : 084 ms QT Int : 356 ms P-R-T Axes : 062 052 094 degrees QTc Int : 405 ms Normal sinus rhythm Anteroseptal infarct (cited on or before 29-JUL-2021) Abnormal ECG When compared with ECG of 20-JUN-2023 19:45, No significant change was found Referred By: Lorraine Porras Electronically Signed By:Jose Alfredo Hawley
--- NOTE | 2023-11-06 01:37 | ED.GENADULT ---
HPI - General Adult General Chief complaint: General Medical Stated complaint: HTN Time Seen by Provider: 11/06/23 01:01 Source: patient Mode of arrival: EMS History of Present Illness HPI narrative: 38-year-old male states that he was dizzy at home he does endorse that he used cocaine this afternoon, he denies any chest pain or palpitations and states he has been short of breath for a couple of weeks. Otherwise he denies any difficulty with eating, drinking, stool output in his ostomy and denies any urinary symptoms. Patient denies any sick contacts, cough or sore throat. Related Data Home Medications Medication Instructions Recorded Confirmed metoprolol succinate 25 mg 25 mg PO DAILY 07/29/21 10/11/23 tablet,extended release 24 hr aspirin 81 mg tablet,delayed 1 tab PO DAILY 07/14/22 10/11/23 release buprenorphine 8 mg-naloxone 2 mg 1 strip sublingual DAILY 07/14/22 10/17/23 sublingual film (Suboxone) nicotine 21 mg/24 hr daily 1 patch topical DAILY 07/14/22 10/11/23 transdermal patch trazodone 100 mg tablet 1 tab PO BEDTIME 07/14/22 10/11/23 benzoyl peroxide 5 % topical 1 appl topical BEDTIME 06/21/23 10/11/23 cleanser (BP Wash) bupropion HCl 300 mg 24 hr tablet, 300 mg PO DAILY 06/21/23 10/11/23 extended release ezetimibe 10 mg tablet 10 mg PO DAILY 06/21/23 10/11/23 mirtazapine 7.5 mg tablet 7.5 mg PO BEDTIME 06/21/23 10/11/23 furosemide 20 mg tablet 20 mg PO DAILY swelling 08/25/23 10/11/23 pantoprazole 40 mg tablet,delayed 40 mg PO DAILY 08/25/23 10/11/23 release rosuvastatin 40 mg tablet 40 mg PO DAILY 08/25/23 10/11/23 Previous Rx's Medication Instructions Recorded cane #1 ea 08/23/22 sacubitril 24 mg-valsartan 26 mg 1 tab PO BID #60 tabs 06/22/23 tablet (Entresto) Allergies Allergy/AdvReac Type Severity Reaction Status Date / Time No Known Allergies Allergy Verified 10/11/23 11:03 Review of Systems Review of Systems: Pertinent positives and negatives as stated in the HPI PMFSH Past Medical History Source: nursing notes reviewed Onset Date is defined in the Problem List Problems that require an onset date and time if occurred within 24 hrs of arrival to the ED Aortic Dissection and Rupture; Neurologic impairment; Cardiopulmonary Arrest; Endotracheal Intubation; Insertion or Replacement of Mechanical Circulatory Assist Device Medical History Colostomy in place Preop cardiovascular exam Ischemic cardiomyopathy Polysubstance dependence STEMI (ST elevation myocardial infarction) CAD (coronary artery disease) HTN (hypertension) Surgical History Status post proctocolectomy (08/15/22) History of colonoscopy (07/15/22) Family History Family History Family/Other CAD (coronary artery disease) Colon cancer, Onset Age: 30 Mother Stomach cancer Brother Colon cancer Social History Social History Household Members: Family Housing: Apartment Do you presently have visiting nurse or other home services: No Alcohol intake: never Comment: Xray ordered for incorrect count. Xray clear. Patient Tobacco Use Status: Current everyday Tobacco user Tobacco use type: Cigarette Cigarettes Per Day: 10 Years Smoked: 15 Smoked in Last 30 Days: Yes Second Hand Smoke Exposure: Yes Use of substances other than those prescribed or required for medical reasons: Yes Substance Use Type: Crack/Cocaine and Marijuana Advance Directives: No Advance Directives Information Provided: Yes service: No Current occupational status: unemployed Physical Exam ED Vital Signs: Vital Signs - 24 hr 11/06/23 01:03 11/06/23 03:38 Temperature 98.9 F 98.7 F Pulse Rate 85 80 Respiratory Rate 17 16 Blood Pressure 120/69 111/72 Pulse Oximetry 100 100 Oxygen Delivery Method Room Air Room Air BMI result Body Mass Index 21.3 VITAL SIGNS: Reviewed. GENERAL: Well developed, well nourished, in no acute distress. HEAD: Normocephalic/atraumatic EYES: PERRLA, EOMI EARS: Ext canals without abnormality NOSE: Nares patent bilateral OROPHARYNX: no oral lesions noted, posterior pharynx clear NECK: Supple, no adenopathy LUNGS: Normal breath sounds. No adventitious sounds or accessory muscle use. SpO2<100> CARDIOVASCULAR: Regular rate and rhythm without noted murmurs ABDOMEN: Soft, non-tender, non-distended with bowel sounds. MUSCULOSKELETAL: No tenderness, deformities, or effusions noted on gross inspection. EXTREMITIES: No cyanosis, clubbing or edema. SKIN: Inspection of the skin reveals no rashes NEUROLOGIC: Alert and oriented x 4. Strength and sensation to light touch were grossly intact x 4. Medical Decision Making Medical Decision Making [facility] Narrative: 38-year-old male with history and clinical presentation, DDX: CHF, viral illness, ACS, cocaine Reviewed all investigations and hematologic indices are grossly stable with normocytic anemia and no leukocytosis/left shift/thrombocytopenia. Chemistry indices do not demonstrate an HOMA or electrolyte/liver enzyme derangements. I sensitivity troponin is noted to be mildly elevated at 18.9 and no significant changes on EKG when compared to prior but will proceed with repeat troponin as well as EKG to evaluate for dynamic changes. Viral testing negative for COVID-19/influenza. Chest x-ray negative for infiltrate or venous congestion otherwise my interpretation is in agreement with radiology's impression. 0330: Repeat EKG does not demonstrate any dynamic changes. Second troponin has decreased, patient remains asymptomatic and is otherwise discharged home and he has been strongly encouraged to follow-up with cardiology in the next 1-2 days. Differential Diagnosis Differential Diagnoses: The differential diagnosis associated with the presentation includes Please see the discussion above Admission/Observation Consideration of admission/observation: Escalation of care including admission/observation considered Please see the discussion above Lab Data [facility] Lab Attestation statement: I reviewed the patient's lab results. Please see the discussion above 11/06/23 01:34 11/06/23 01:34 Labs: Lab Results 11/06/23 11/06/23 11/06/23 Range/Units 01:34 01:59 03:32 WBC 6.5 (4.8-10.8) X10*3/uL RBC 4.24 L (4.60-5.80) X10*6/uL Hgb 11.6 L (14.0-18.0) g/dl Hct 35.9 L (42.0-52.0) % MCV 84.7 (80.0-98.0) fL MCH 27.4 (27.0-33.0) pg MCHC 32.3 (31.0-36.0) g/dl RDW 13.7 (11.0-16.0) % Plt Count 171 (160-400) X10*3/uL MPV 11.2 (9.4-12.4) fL Immature Gran % (Auto) 0.3 (0.0-0.4) % Neut % (Auto) 64.2 (45-73) % Lymph % (Auto) 24.9 (20-40) % Wright % (Auto) 5.8 (2-11) % Eos % (Auto) 4.0 (0-4) % Baso % (Auto) 0.8 (0-2) % Lymph # (Auto) 1.6 (1.2-4.9) X10*3/uL Wright # (Auto) 0.4 (0.1-1.2) X10*3/uL Eos # (Auto) 0.3 (0.0-0.4) X10*3/uL Baso # (Auto) 0.1 (0.0-0.2) X10*3/uL Abs Immat Gran (auto) 0.02 (0.00-0.03) X10*3/uL Absolute Neuts (auto) 4.2 (2.0-8.3) x10*3/uL Absolute Nucleated RBC 0.000 (0.0-0.012) X10*3/uL Nucleated RBC % (auto) 0.0 (0.0-0.2) /100WBC Sodium 141 (135-145) mmol/L Potassium 4.1 (3.3-5.1) mmol/L Chloride 103 (96-108) mmol/L Carbon Dioxide 28 (22-29) mmol/L Anion Gap 14 (12-20) BUN 12 (9-16) mg/dL Creatinine 0.93 (0.5-1.4) mg/dL Estim Creat Clear Calc 96.7 Estimated GFR > 60 Random Glucose 89 (60-115) mg/dL Calcium 9.3 (8.4-10.2) mg/dL Total Bilirubin 0.3 (0.0-1.0) mg/dL AST 29 (5-37) U/L ALT 44 H (0-40) U/L Alkaline Phosphatase 73 (39-117) U/L Troponin I High Sens 18.9 D 2.7 D (<3.5-35.0) ng/L B-Natriuretic Peptide 36 (<100) pg/mL Total Protein 7.3 (6.5-8.0) g/dL Albumin 4.4 (3.5-5.0) g/dL Urine Opiates Screen Not Detected (Not Detect) Urine Fentanyl Screen Not Detected (Not Detect) Ur Barbiturates Screen Not Detected (Not Detect) Ur Phencyclidine Scrn Not Detected (Not Detect) Ur Amphetamines Screen Not Detected (Not Detect) U Benzodiazepines Scrn Not Detected (Not Detect) Urine Cocaine Screen POSITIVE H (Not Detect) U Marijuana (THC) Screen POSITIVE H (Not Detect) COVID-19 (INDU) Negative (Negative) COVID-19 Clin Com See Note Influenza Type A (CHETNA) Negative (Negative) Influenza Type B (CHETNA) Negative (Negative) Influenza A & B Note See Note Independent Interpretation I performed an independent interpretation of an: EKG Interpretation: Normal sinus rhythm, no STEMI, NV/QRS/QTC is within normal limits, review of this EKG although there are deep waves in V2-V4 there are no noted reciprocal changes in importantly no significant changes when compared to prior EKG. Radiology Impression Discussion of test interpretation with radiology: I have reviewed the radiologist's reading. 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 Discharge Plan Discharge Clinical Impression: Lightheaded, Cocaine abuse Patient Disposition: Home, Self-Care Instructions: Lightheadedness (ED) Additional Instructions: 1. Resume all home medications as prescribed. 2. Please follow-up with cardiology in the next 1-2 days. 3. Please follow-up with your primary care doctor in the next 1-2 days. Return to the ER for any worsening symptoms. Prescriptions: No Action metoprolol succinate 25 mg Tablet Extended Release 24 Hr 25 mg PO DAILY aspirin 81 mg tablet,delayed release (DR/EC) 1 tab PO DAILY Hold Instructions: Hold for 4 days, resume wednesday 07/18 trazodone 100 mg tablet 1 tab PO BEDTIME buprenorphine-naloxone [Suboxone] 8-2 mg film 1 strip sublingual DAILY nicotine 21 mg/24 hr patch 24 hour 1 patch topical DAILY (DME) cane Device See Rx Instructions .Route Qty: 1 0RF Rx Instructions: As directed pantoprazole 40 mg tablet,delayed release (DR/EC) 40 mg PO DAILY furosemide 20 mg tablet 20 mg PO DAILY rosuvastatin 40 mg tablet 40 mg PO DAILY benzoyl peroxide [BP Wash] 5 % cleanser 1 appl topical BEDTIME ezetimibe 10 mg tablet 10 mg PO DAILY bupropion HCl 300 mg tablet extended release 24 hr 300 mg PO DAILY mirtazapine 7.5 mg tablet 7.5 mg PO BEDTIME Entresto 24-26 mg Tablet 1 tab PO BID Qty: 60 0RF Protocol: Hold for SBP< HOLD for SBP < : 90 Referrals: [facility] [Primary Care Provider] -
[2023-11-06 01:40] LABS: MANUAL DIFF FLAG NO
[2023-11-06 01:41] LABS: Basophils Absolute Auto 0.1 X10*3/uL (0.0-0.2); Basophils Percent Auto 0.8 % (0-2); Eosinophils Absolute Auto 0.3 X10*3/uL (0.0-0.4); Hematocrit 35.9 % (42.0-52.0); Hemoglobin 11.6 g/dl (14.0-18.0); Imm Gran Abs Auto 0.02 X10*3/uL (0.00-0.03); Imm Gran Pct Auto 0.3 % (0.0-0.4); Lymphocytes Absolute Auto 1.6 X10*3/uL (1.2-4.9); Lymphocytes Percent Auto 24.9 % (20-40); Mean Corpuscular HGB Conc 32.3 g/dl (31.0-36.0); Mean Corpuscular Hemoglobin 27.4 pg (27.0-33.0); Mean Corpuscular Volume 84.7 fL (80.0-98.0); Mean Platelet Volume 11.2 fL (9.4-12.4); Monocytes Absolute Auto 0.4 X10*3/uL (0.1-1.2); Monocytes Percent Auto 5.8 % (2-11); Neutrophils Absolute Auto 4.2 x10*3/uL (2.0-8.3); Neutrophils Percent Auto 64.2 % (45-73); Platelet Count 171 X10*3/uL (160-400); Red Blood Count 4.24 X10*6/uL (4.60-5.80); Red Cell Distribution Width 13.7 % (11.0-16.0); White Blood Count 6.5 X10*3/uL (4.8-10.8)
[2023-11-06 01:54] LABS: COVID-19 Test Negative (Negative); IDNOW Serial# 08D9AD1C
[2023-11-06 01:58] LABS: Alanine Aminotransferase 44 U/L (0-40); Albumin Level 4.4 g/dL (3.5-5.0); Alkaline Phosphatase 73 U/L (39-117); Anion Gap 14 (12-20); Aspartate Amino Transferase 29 U/L (5-37); Bilirubin Total 0.3 mg/dL (0.0-1.0); Blood Urea Nitrogen 12 mg/dL (9-16); Calcium 9.3 mg/dL (8.4-10.2); Carbon Dioxide 28 mmol/L (22-29); Chloride 103 mmol/L (96-108); Creatinine Clr Calc Pharmacy 96.7; Estimated Glomerular Filt Rate > 60; Glucose Random 89 mg/dL (60-115); Potassium 4.1 mmol/L (3.3-5.1); Sodium 141 mmol/L (135-145); Total Protein 7.3 g/dL (6.5-8.0)
[2023-11-06 01:59] LABS: IDNOW Serial# 152EDE1D; Influenza A Negative (Negative); Influenza B2 Negative (Negative)
[2023-11-06 02:01] LABS: B Type Natriuretic Peptide 36 pg/mL (<100)
[2023-11-06 02:05] LABS: Troponin-I High Sensitivity 18.9 ng/L (<3.5-35.0)
--- NOTE | 2023-11-06 03:19 | PC.NURSE ---
Addendum entered by Keshia Murphy 11/06/23 03:34: dr porras to pt bedside, pt agreeable to repeat labs and ekg if done now. Dr Porras okay with this plan. Original Note: pt states that he does not want to stay for repeat 0400 EKG and troponin. this rn made dr porras aware. md to bedside to discuss disposition
[2023-11-06 03:28] LABS: Amphetamine Screen Urine Not Detected (Not Detect); Barbiturates, Urine Not Detected (Not Detect); Benzodiazepines Screen Urine Not Detected (Not Detect); Cannabinoid Screen Urine POSITIVE (Not Detect); Cocaine Screen Urine POSITIVE (Not Detect); Fentanyl, urine Not Detected (Not Detect); Opiate Screen Urine Not Detected (Not Detect); Phencyclidine Screen Urine Not Detected (Not Detect)
[2023-11-06 03:38] VITALS: BP 111/72; PULSE 80; RESP 16; TEMP 37.1; O2SAT 100
[2023-11-06 03:59] LABS: Troponin-I High Sensitivity 2.7 ng/L (<3.5-35.0)
--- NOTE | 2023-11-06 04:00 | ECG_ITS ---
Test Reason : REPECT Blood Pressure : / mmHG Vent. Rate : 080 BPM Atrial Rate : 080 BPM P-R Int : 146 ms QRS Dur : 084 ms QT Int : 362 ms P-R-T Axes : 065 054 093 degrees QTc Int : 417 ms Normal sinus rhythm Anteroseptal infarct (cited on or before 29-JUL-2021) Abnormal ECG When compared with ECG of 06-NOV-2023 01:21, No significant change was found Referred By: Lorraine Porras Electronically Signed By:Jose Alfredo Hawley
--- NOTE | 2023-11-06 04:16 | PC.NURSE ---
pt calm and cooperative. pt ambulatory. pt provided with discharge packet. pt verbalized understanding of discharge plan.
== END 2023-11-06 04:20 | disposition home or self-care (01) ==
PROVIDERS: Emergency Provider Student in an Organized Health Care Education/Training Program
DX: R42 Dizziness and giddiness (principal); F14.10 Cocaine abuse, uncomplicated; Z11.52 Encounter for screening for COVID-19; I10 Essential (primary) hypertension; F11.20 Opioid dependence, uncomplicated; F17.210 Nicotine dependence, cigarettes, uncomplicated; Z90.49 Acquired absence of other specified parts of digestive tract; Z79.82 Long term (current) use of aspirin; Z79.02 Long term (current) use of antithrombotics/antiplatelets
CPT/HCPCS: 36415; 71045; 80053; 80307; 83880; 84484; 85025; 87502; 87635; 93005; 99284

== ENCOUNTER → 2023-11-06 01:03 | Outpatient (BNV) | payer MEDICAID, SELFPAY | PROVIDERS: Emergency Provider Student in an Organized Health Care Education/Training Program; Visit Provider Internal Medicine Cardiovascular Disease | DX: R42 Dizziness and giddiness (principal) | CPT/HCPCS: 93010 ==

== ENCOUNTER 2024-01-10 14:50 | Outpatient (AMB) | payer MEDICAID, SELFPAY ==
--- NOTE | 2024-01-10 14:54 | MHC.OFFVIS ---
Intake Vital Signs 01/10/24 14:55 Height 5 ft 8 in Weight 141 lb 1.533 oz BMI 21.5 BP 97/61 Blood Pressure Location Lt brachial Position Sitting Pulse 68 Intake Visit Reasons: Patient needs follow-up endoscopy, Jose syndrome Intake Note: Lyndon presents in the office as a new patient for jose syndrome. CC: He states that he is not having any concerns at this time. 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 Currently no GI complaints including abd pain, N,V, blood in ostomy. Empties it around 5-8 times per day. Mostly liquid to semi solid. No unintentional weight loss. Fam hx: Father: no crc or gastric ca Mother: possibly gastric ca Brother: colon ca at 33 y.o PFSH Medical History Colostomy in place Preop cardiovascular exam Ischemic cardiomyopathy Polysubstance dependence STEMI (ST elevation myocardial infarction) CAD (coronary artery disease) HTN (hypertension) Surgical History History of esophagogastroduodenoscopy (EGD) Status post proctocolectomy (08/15/22) History of colonoscopy (07/15/22) Family History Family/Other CAD (coronary artery disease) Colon cancer, Onset Age: 30 Mother Stomach cancer Brother Colon cancer Social History Household Members: Family Housing: Apartment Do you presently have visiting nurse or other home services: No Alcohol intake: never Comment: Xray ordered for incorrect count. Xray clear. Patient Tobacco Use Status: Current everyday Tobacco user Tobacco use type: Cigarette Cigarettes Per Day: 10 Years Smoked: 15 Second Hand Smoke Exposure: Yes Substance Use Type: Crack/Cocaine and Marijuana service: No Current occupational status: unemployed Review of Systems Const All systems reviewed & are unremarkable except as noted in HPI and below Physical Exam Vital Signs: Last Vital Signs Pulse 68 01/10/24 14:55 BP 97/61 01/10/24 14:55 BMI result Body Mass Index 21.5 NAD Nonicteric lungs CTA abd soft, nontender, nondistended mild pitting edema b/l Assessment & Plan Assessment & Plan (1) S/P total colectomy: Comment: total proctocolectomy with end ileostomy 08/15/22 Code(s): Z90.49 - Acquired absence of other specified parts of digestive tract (2) Jose syndrome: Code(s): Z15.09 - Genetic susceptibility to other malignant neoplasm (3) Family history of colon cancer: Code(s): Z80.0 - Family history of malignant neoplasm of digestive organs (4) Ischemic cardiomyopathy: Code(s): I25.5 - Ischemic cardiomyopathy (5) Polysubstance dependence: Comment: cocaine, opiates Code(s): F19.20 - Other psychoactive substance dependence, uncomplicated Plan Jose syndrome iwth personal and fam hx of CRC possible fam hx of gastric ca No fam hx of panc ca Plan: - pt is s/p total proctocolectomy however does need screening for gastric ca. - However since he also has significant CAD hx with worsening of ICM based [place] [facility] [place] need to follow up with cardiology for cardiac function optimization including eval for ?ICD for primary prophylaxis. - Pt also has never had genetics consultation for counseling and for screening of FDRs for Jose syndrome. Referral to [facility] genetics requested Follow up after EGD Orders: Referrals Genetics Referral Z15.09 - Genetic susceptibility to other malignant neoplasm Coding Level of Care Code New Pt Level 4 (63539) Diagnoses S/P total colectomy Z90.49 Jose syndrome Z15.09 Family history of colon cancer Z80.0 Ischemic cardiomyopathy I25.5 Polysubstance dependence F19.20
[2024-01-10 14:55] VITALS: BP 97/61; PULSE 68; BMI 21.5
== END 2024-01-10 15:39 | disposition home or self-care (01) ==
PROVIDERS: Visit Provider Internal Medicine
DX: Z90.49 Acquired absence of other specified parts of digestive tract (principal); Z15.09 Genetic susceptibility to other malignant neoplasm; Z80.0 Family history of malignant neoplasm of digestive organs; I25.5 Ischemic cardiomyopathy; F19.20 Other psychoactive substance dependence, uncomplicated
CPT/HCPCS: 99204

== ENCOUNTER → 2024-01-10 14:50 | Outpatient (BNVA) | payer MEDICAID, SELFPAY | PROVIDERS: Visit Provider Internal Medicine | DX: I25.5 Ischemic cardiomyopathy (principal); F19.20 Other psychoactive substance dependence, uncomplicated; Z15.09 Genetic susceptibility to other malignant neoplasm; Z80.0 Family history of malignant neoplasm of digestive organs; Z90.49 Acquired absence of other specified parts of digestive tract; Z93.3 Colostomy status | CPT/HCPCS: 99202 ==

== ENCOUNTER → 2024-05-30 08:12 | Day surgery (SDC) | payer MEDICAID, SELFPAY ==
[2024-05-28 08:50] VITALS: BMI 28.5
--- NOTE | 2024-05-29 09:00 | P.CONAN_ITS ---
Documented by User: Malena Luis NP 05/29/24 09:06 HPI - Anesthesia Eval Consult details Narrative: 38yo M for Upper Endoscopy Previous multiple cancels d/t +Utox Follows [facility] cardiology, optmized to proceed. Ischemic CMP. Last EF 30-35% 01/2023 LAD STEMI 05/2021 in setting of cocaine use. s/p BK. Brillinta and ASA. 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 Ischemic cardiomyopathy Polysubstance dependence STEMI (ST elevation myocardial infarction) CAD (coronary artery disease) HTN (hypertension) Family History Family History Family/Other CAD (coronary artery disease) Colon cancer, Onset Age: 30 Mother Stomach cancer Brother Colon cancer Family history of problems with anesthesia: No Surgical History Surgical History Hx of heart artery stent History of esophagogastroduodenoscopy (EGD) Status post proctocolectomy (08/15/22) History of colonoscopy (07/15/22) History of Problems with Anesthesia: No Social History Social History Household Members: Family Housing: Apartment Do you presently have visiting nurse or other home services: No Alcohol intake: never Comment: Xray ordered for incorrect count. Xray clear. Patient Tobacco Use Status: Current everyday Tobacco user Tobacco use type: Cigarette Cigarettes Per Day: 10 Years Smoked: 15 Second Hand Smoke Exposure: Yes Use of substances other than those prescribed or required for medical reasons: Yes Substance Use Type: Crack/Cocaine and Marijuana Substance Use Type Other:: Smoke Substance Use Frequency: Daily Are you DNR?: No Advance Directives: No Advance Directives Information Provided: Yes service: No Current occupational status: unemployed Meds Allergies Allergy/AdvReac Type Severity Reaction Status Date / Time No Known Allergies Allergy Verified 05/30/24 08:29 Home Medications ?Medication ?Instructions ?Recorded ?Confirmed ?Last Taken ?Type aspirin 81 mg tablet,delayed 1 tab PO DAILY 07/14/22 05/30/24 05/29/24 History release buprenorphine 8 mg-naloxone 2 mg 1 strip sublingual DAILY 07/14/22 05/30/24 05/30/24 History sublingual film (Suboxone) benzoyl peroxide 5 % topical 1 appl topical BEDTIME 06/21/23 05/15/24 Unknown History cleanser (BP Wash) bupropion HCl 300 mg 24 hr tablet, 300 mg PO DAILY 06/21/23 05/30/24 05/29/24 History extended release ezetimibe 10 mg tablet 10 mg PO DAILY 06/21/23 05/30/24 05/29/24 History furosemide 20 mg tablet 20 mg PO DAILY swelling 08/25/23 05/30/24 05/29/24 History pantoprazole 40 mg tablet,delayed 40 mg PO DAILY 08/25/23 05/30/24 05/30/24 History release rosuvastatin 40 mg tablet 40 mg PO DAILY 08/25/23 05/30/24 05/29/24 History evolocumab 140 mg/mL subcutaneous 140 mg subcut Q2W 01/10/24 05/28/24 Unknown History pen injector (Repatha Driss) ipratropium bromide 21 mcg (0.03 1 spray intranasal BID PRN 01/10/24 05/28/24 Unknown History %) nasal spray congestion mirtazapine 15 mg tablet 15 mg PO BEDTIME 01/10/24 05/30/24 05/29/24 History nicotine 14 mg/24 hr daily 1 patch topical QAM 01/10/24 05/15/24 Unknown History transdermal patch carvedilol 3.125 mg tablet 3.125 mg PO BID 05/30/24 05/30/24 05/30/24 History Exam Height,Weight and Vital Signs: Height 5 ft 8 in Weight 85 kg Narrative Narrative: EKG 10/2023 Vent. Rate : 080 BPM Atrial Rate : 080 BPM P-R Int : 146 ms QRS Dur : 084 ms QT Int : 362 ms P-R-T Axes : 065 054 093 degrees QTc Int : 417 ms Normal sinus rhythm Anteroseptal infarct (cited on or before 29-JUL-2021) Abnormal ECG When compared with ECG of 06-NOV-2023 01:21, No significant change was found ECHO 01/2023 Summary The left ventricle is dilated. Left ventricular wall thickness is normal. The LV systolic function is moderately reduced . The left ventricular ejection fraction is 30-35 %. Intravenous contrast was injected. There is inferior and inferolateral hypokinesis. There is distal anteroseptal apical anterior, apical inferior and apical akinesis. There is no evidence of thrombus. Grade I, mild diastolic dysfunction with impaired LV relaxation. The right ventricle is normal in size and function. There are no significant valvular abnormalities. The inferior vena cava appears normal. The pulmonary artery systolic pressure estimation is within normal limits. Assessment and Plan Assessment Anesthesia Assessment: Chart Reviewed Final Anesthetic Review Family History of Problems with Anesthesia: No History of Problems with Anesthesia: No Documented by User: Melba Mckinley MD 05/30/24 09:22 HPI - Anesthesia Eval Consult details Narrative: 38yo M for Upper Endoscopy Previous multiple cancels d/t +Utox Follows [facility] cardiology, optmized to proceed. Ischemic CMP. Last EF 30-35% 01/2023 LAD STEMI 05/2021 in setting of cocaine use. s/p BK. Brillinta and ASA. 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 Ischemic cardiomyopathy Polysubstance dependence STEMI (ST elevation myocardial infarction) CAD (coronary artery disease) HTN (hypertension) Family History Family History Family/Other CAD (coronary artery disease) Colon cancer, Onset Age: 30 Mother Stomach cancer Brother Colon cancer Family history of problems with anesthesia: No Surgical History Surgical History Hx of heart artery stent History of esophagogastroduodenoscopy (EGD) Status post proctocolectomy (08/15/22) History of colonoscopy (07/15/22) History of Problems with Anesthesia: No Social History Social History Household Members: Family Housing: Apartment Do you presently have visiting nurse or other home services: No Alcohol intake: never Comment: Xray ordered for incorrect count. Xray clear. Patient Tobacco Use Status: Current everyday Tobacco user Tobacco use type: Cigarette Cigarettes Per Day: 10 Years Smoked: 15 Second Hand Smoke Exposure: Yes Use of substances other than those prescribed or required for medical reasons: Yes Substance Use Type: Crack/Cocaine and Marijuana Substance Use Type Other:: Smoke Substance Use Frequency: Daily Are you DNR?: No Advance Directives: No Advance Directives Information Provided: Yes service: No Current occupational status: unemployed Meds Allergies Allergy/AdvReac Type Severity Reaction Status Date / Time No Known Allergies Allergy Verified 05/30/24 08:29 Home Medications ?Medication ?Instructions ?Recorded ?Confirmed ?Last Taken ?Type aspirin 81 mg tablet,delayed 1 tab PO DAILY 07/14/22 05/30/24 05/29/24 History release buprenorphine 8 mg-naloxone 2 mg 1 strip sublingual DAILY 07/14/22 05/30/24 05/30/24 History sublingual film (Suboxone) benzoyl peroxide 5 % topical 1 appl topical BEDTIME 06/21/23 05/15/24 Unknown History cleanser (BP Wash) bupropion HCl 300 mg 24 hr tablet, 300 mg PO DAILY 06/21/23 05/30/24 05/29/24 History extended release ezetimibe 10 mg tablet 10 mg PO DAILY 06/21/23 05/30/24 05/29/24 History furosemide 20 mg tablet 20 mg PO DAILY swelling 08/25/23 05/30/24 05/29/24 History pantoprazole 40 mg tablet,delayed 40 mg PO DAILY 08/25/23 05/30/24 05/30/24 History release rosuvastatin 40 mg tablet 40 mg PO DAILY 08/25/23 05/30/24 05/29/24 History evolocumab 140 mg/mL subcutaneous 140 mg subcut Q2W 01/10/24 05/28/24 Unknown History pen injector (Manishaa Aleydaick) ipratropium bromide 21 mcg (0.03 1 spray intranasal BID PRN 01/10/24 05/28/24 Unknown History %) nasal spray congestion mirtazapine 15 mg tablet 15 mg PO BEDTIME 01/10/24 05/30/24 05/29/24 History nicotine 14 mg/24 hr daily 1 patch topical QAM 01/10/24 05/15/24 Unknown History transdermal patch carvedilol 3.125 mg tablet 3.125 mg PO BID 05/30/24 05/30/24 05/30/24 History Exam Height,Weight and Vital Signs: Height 5 ft 8 in Weight 85 kg Vital Signs Temp Pulse Resp BP Pulse Ox O2 Del Method 05/30/24 08:45 97.1 F 86 16 129/79 98 Room Air Pertinent Lab Results Pertinent Lab Results: Lab Results 05/30/24 Range/Units 08:24 Urine Opiates Screen Not Detected (Not Detect) Ur Buprenorphine Scrn Positive H (Not Detect) ng/mL Ur Oxycodone Screen Not Detected (Not Detect) ng/mL Urine Methadone Screen Not Detected (Not Detect) ng/mL Urine Fentanyl Screen Not Detected (Not Detect) Ur Barbiturates Screen Not Detected (Not Detect) Ur Phencyclidine Scrn Not Detected (Not Detect) Ur Amphetamines Screen Not Detected (Not Detect) U Benzodiazepines Scrn Not Detected (Not Detect) Urine Cocaine Screen POSITIVE H (Not Detect) U Marijuana (THC) Screen POSITIVE H (Not Detect) Airway Mallampati Class: II Loose/Missing/Broken Teeth: Yes (Broken tooth top right back) Assessment and Plan Assessment Anesthesia Assessment: Anesthesia Plan Discussed and Chart Reviewed Final Anesthetic Review Family History of Problems with Anesthesia: No History of Problems with Anesthesia: No NPO: Yes ASA Class: III Final Preanesthetic Review: No Changes in Pt Med Stat, Meds/Allgs Chart Reviewed, Consent Obtained/Reviewed and Anes Risks/Benef Reviewed Patient Risk: High Procedure Risk: Low Assessment/Block/Sedation in SS: Assess/Block/Sedation-SS Anesthetic Plan Anesthetic Plan: TIVA (pending results of utox ) Disposition: Standard PACU
[2024-05-30 08:17] VITALS: BMI 30.3
[2024-05-30 08:45] VITALS: BP 129/79; PULSE 86; RESP 16; TEMP 36.2; O2SAT 98
[2024-05-30] MEDS: Lactated Ringers 1,000 ML 50 ML IVCONT (08:52)
[2024-05-30 09:00] LABS: Amphetamine Screen Urine Not Detected (Not Detect); Barbiturates, Urine Not Detected (Not Detect); Benzodiazepines Screen Urine Not Detected (Not Detect); Buprenorphine Scr Positive (Not Detect); Cannabinoid Screen Urine POSITIVE (Not Detect); Cocaine Screen Urine POSITIVE (Not Detect); Fentanyl, urine Not Detected (Not Detect); Methadone Screen, Urine Not Detected (Not Detect); Opiate Screen Urine Not Detected (Not Detect); Oxycodone Screen Urine Not Detected (Not Detect); Phencyclidine Screen Urine Not Detected (Not Detect)
--- NOTE | 2024-05-30 09:18 | PC.NURSE ---
Pt cancelled due to positive UTox. Pt educated to abstain from Cocaine use prior to procedure. Pt educated to call Dr Keane's office to reschedule. Pt verbalized understanding of plan. Pt left stable with all belongings.
== END ==
LOC: HO.SSS 08:13
PROVIDERS: Nurse Practitioner; PCP Registered Nurse; Visit Provider Internal Medicine
DX: C18.0 Malignant neoplasm of cecum (principal); Z15.09 Genetic susceptibility to other malignant neoplasm; Z53.8 Procedure and treatment not carried out for other reasons; R82.5 Elevated urine levels of drugs, medicaments and biological substances; F19.20 Other psychoactive substance dependence, uncomplicated
CPT/HCPCS: 80307

== ENCOUNTER 2024-06-27 15:53 | Outpatient (REF) | payer MEDICAID, SELFPAY ==
--- NOTE | ~2024-06-27 | CT_ITS ---
EXAMINATION: CT ABDOMEN AND PELVIS WITH CONTRAST CLINICAL INFORMATION: History of colon cancer. Surveillance. COMPARISON: CT dated April 19, 2023. TECHNIQUE: Multidetector volumetric images were obtained from the superior aspect of the liver through the pubic symphysis following administration 85 mL of Omnipaque 350 intravenous contrast. Sagittal and coronal reformatted images were obtained on the technologist's workstation. Oral contrast: No This CT examination was performed using dose optimization techniques as appropriate, variously including the following: *Automated exposure control *Adjustment of mA and/or kV according to patient size (this includes techniques or standardized protocols for targeted exams where dose is matched to indication/reason for exam; i.e. extremities or head) *Use of iterative reconstruction technique DLP: 444 mGy-cm FINDINGS: Examination is being submitted for interpretation on August 09, 2024 at 1:57 PM. LUNG BASES: No gross pulmonary nodules or acute airspace disease. Scarring in the right middle lobe and lingula. LIVER, GALLBLADDER, AND BILIARY TREE: Liver measures 15 cm. There is a 1 cm peripheral low density in the right hepatic lobe. Main portal vein and hepatic veins are patent. Intrahepatic portion of the apices patent. No intrahepatic biliary ductal dilatation. No pericholecystic fluid collection or gallbladder wall thickening. Contracted gallbladder. PANCREAS: No focal mass. No peripancreatic fluid collection. No main pancreatic ductal dilatation. Fat density in the head and uncinate process. SPLEEN: Measures 8 cm. No focal mass. ADRENAL GLANDS: No nodular lesions. KIDNEYS AND URETERS: No gross renal mass. No hydronephrosis. BLADDER: Fluid filled and collapsed. GASTROINTESTINAL TRACT: Postsurgical changes with an ostomy site on the right lower abdomen and probably total colectomy. No intestinal obstruction pattern. No ascites. No pneumoperitoneum. ABDOMINAL WALL: Ostomy right Midline abdomen wall likely ileostomy. Small fat-containing umbilical hernia. LYMPH NODES: Nonspecific less than 1 cm lymph nodes, retroperitoneum and mesentery. VASCULAR: Throughout the abdominal aorta wall and iliac arteries without aneurysm or dissection. PELVIC VISCERA: Normal-sized prostate gland. OSSEOUS STRUCTURES: No lytic or blastic lesions. No acute fracture or listhesis in the axial skeleton. CT/CT abdomen pelvis w IV con IMPRESSION: No tumor recurrence. Nonspecific stable lymph nodes, mesenteric and retroperitoneal Electronically signed by: Abad Shirley MD 08/09/2024 02:04 PM EDT RP
[2024-06-27] MEDS: iohexoL 350 MG/ML 100 ML INFUS..BTL IV (16:28)
== END 2024-06-27 15:54 | disposition home or self-care (01) ==
LOC: HO.CT 15:53
PROVIDERS: PCP Registered Nurse; Visit Provider Internal Medicine
DX: C18.0 Malignant neoplasm of cecum (principal)
CPT/HCPCS: 74177; Q9967

== ENCOUNTER → 2024-06-27 15:54 | Outpatient (BNV) | payer MEDICAID, SELFPAY | PROVIDERS: PCP Registered Nurse; Visit Provider Radiology Diagnostic Radiology | DX: Z85.038 Personal history of other malignant neoplasm of large intestine (principal) | CPT/HCPCS: 74177 ==

== ENCOUNTER → 2024-09-26 10:35 | Day surgery (SDC) | payer MEDICAID, SELFPAY ==
[2024-09-24 13:42] VITALS: BMI 31.9
--- NOTE | 2024-09-24 14:25 | P.CONAN_ITS ---
HPI - Anesthesia Eval Consult details Narrative: 39yo M for Upper Endoscopy Previous multiple cancels d/t +Utox - last cancel 05/2024 for +Utox Follows [facility] cardiology, optmized to proceed. Ischemic CMP. Last EF 30-35% 01/2023; severely reduced on 06/2024 ECHO LAD STEMI 05/2021 in setting of cocaine use. s/p BK. Brillinta and ASA. 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 Ischemic cardiomyopathy Polysubstance dependence STEMI (ST elevation myocardial infarction) CAD (coronary artery disease) HTN (hypertension) Family History Family History Family/Other CAD (coronary artery disease) Colon cancer, Onset Age: 30 Mother Stomach cancer Brother Colon cancer Family history of problems with anesthesia: No Surgical History Surgical History Hx of heart artery stent History of esophagogastroduodenoscopy (EGD) Status post proctocolectomy (08/15/22) History of colonoscopy (07/15/22) History of Problems with Anesthesia: No Social History Social History Household Members: Family Housing: Apartment Do you presently have visiting nurse or other home services: No Alcohol intake: never Comment: Xray ordered for incorrect count. Xray clear. Patient Tobacco Use Status: Current everyday Tobacco user Tobacco use type: Cigarette Cigarettes Per Day: 10 Years Smoked: 15 Second Hand Smoke Exposure: Yes Substance Use Type: Crack/Cocaine and Marijuana service: No Current occupational status: unemployed Meds Allergies Allergy/AdvReac Type Severity Reaction Status Date / Time No Known Allergies Allergy Verified 05/30/24 08:29 Home Medications ?Medication ?Instructions ?Recorded ?Confirmed ?Last Taken ?Type aspirin 81 mg tablet,delayed 1 tab PO DAILY 07/14/22 05/30/24 05/29/24 History release buprenorphine 8 mg-naloxone 2 mg 1 strip sublingual DAILY 07/14/22 05/30/24 05/30/24 History sublingual film (Suboxone) benzoyl peroxide 5 % topical 1 appl topical BEDTIME 06/21/23 05/15/24 Unknown History cleanser (BP Wash) bupropion HCl 300 mg 24 hr tablet, 300 mg PO DAILY 06/21/23 05/30/24 05/29/24 History extended release ezetimibe 10 mg tablet 10 mg PO DAILY 06/21/23 05/30/24 05/29/24 History furosemide 20 mg tablet 20 mg PO DAILY swelling 08/25/23 05/30/24 05/29/24 History pantoprazole 40 mg tablet,delayed 40 mg PO DAILY 08/25/23 05/30/24 05/30/24 History release rosuvastatin 40 mg tablet 40 mg PO DAILY 08/25/23 05/30/24 05/29/24 History evolocumab 140 mg/mL subcutaneous 140 mg subcut Q2W 01/10/24 05/28/24 Unknown History pen injector (Manishastefano Driss) ipratropium bromide 21 mcg (0.03 1 spray intranasal BID PRN 01/10/24 05/28/24 Unknown History %) nasal spray congestion mirtazapine 15 mg tablet 15 mg PO BEDTIME 01/10/24 05/30/24 05/29/24 History nicotine 14 mg/24 hr daily 1 patch topical QAM 01/10/24 05/15/24 Unknown History transdermal patch carvedilol 3.125 mg tablet 3.125 mg PO BID 05/30/24 05/30/24 05/30/24 History Exam Height,Weight and Vital Signs: Height 5 ft 6.93 in Weight 92.2 kg Pertinent Lab Results Pertinent Lab Results: Laboratory Tests 05/15/24 14:13 WBC 5.3 Hgb 12.5 L Hct 37.3 L Plt Count 154 L Sodium 139 Potassium 4.0 Chloride 103 Carbon Dioxide 30 H BUN 9 Creatinine 0.80 Narrative Narrative: EKG 10/2023 Vent. Rate : 080 BPM Atrial Rate : 080 BPM P-R Int : 146 ms QRS Dur : 084 ms QT Int : 362 ms P-R-T Axes : 065 054 093 degrees QTc Int : 417 ms Normal sinus rhythm Anteroseptal infarct (cited on or before 29-JUL-2021) Abnormal ECG When compared with ECG of 06-NOV-2023 01:21, No significant change was found ECHO 06/2024 EchoEchocardiogram - Complete ? 13:14:33 Summary 1) Technically difficult study 2) The left ventricle is moderately dilated. The LV systolic function appears severely reduced. The apex and distal septal wall are akinetic. Further assessment of regional wall motion is limited by poor endocardial definition. 3) The right ventricular size and function appears grossly normal. 4) No significant valvular abnormalities. Comparison Comparison is made to the study of February 06, 2023. Comparison is challenging. However, LV appears dilated and on limited views, function appears worse Would consider repeating a test with echo contrast ECHO 01/2023 Summary The left ventricle is dilated. Left ventricular wall thickness is normal. The LV systolic function is moderately reduced . The left ventricular ejection fraction is 30-35 %. Intravenous contrast was injected. There is inferior and inferolateral hypokinesis. There is distal anteroseptal apical anterior, apical inferior and apical akinesis. There is no evidence of thrombus. Grade I, mild diastolic dysfunction with impaired LV relaxation. The right ventricle is normal in size and function. There are no significant valvular abnormalities. The inferior vena cava appears normal. The pulmonary artery systolic pressure estimation is within normal limits. Assessment and Plan Assessment Anesthesia Assessment: Chart Reviewed Final Anesthetic Review Family History of Problems with Anesthesia: No History of Problems with Anesthesia: No
[2024-09-26 10:48] VITALS: BMI 30.3
--- NOTE | 2024-09-26 11:46 | MHC.SHP ---
Pre-Procedural Eval Section A - 24 Hr Update-Section A only Date of Service: 09/26/24 Section B - Complete if H&P > 30 days Chief Complaint: Jose syndrome - gastric ca screening Details of Present Illness: PMH Ischemic cardiomyopathy Polysubstance dependence STEMI (ST elevation myocardial infarction) CAD (coronary artery disease) HTN (hypertension) Surgical History History of esophagogastroduodenoscopy (EGD) Status post proctocolectomy (08/15/22) History of colonoscopy (07/15/22) Present Medications: see Short Stay Collaborative assessment Allergies: Allergies Allergy/AdvReac Type Severity Reaction Status Date / Time No Known Allergies Allergy Verified 09/26/24 10:46 Review of Systems Review of Systems Comment: Ten point ROS negative Exam Exam Comment: Gen appear: No acute distress HEENT: no icterus Chest: No overt resp distress Abd: soft, nontender, nondistended Psych: Stable affect, answering questions appropriately Neuro: A/Ox3 noted to move all extremities spontaneously Ext: no peripheral edema Plan Diagnosis/Plan: Change I have reviewed the history and physical and performed a pertinent physical examination on my patient. No changes have occurred unless specified. Procedure had to be canceled again due to positive cocaine and pt's hx of recent use. Had a detailed discussion with him. Interested in rehab and recovery. Will refer to comprehensive care center. Time Spent With Patient Time: Total time managing care of this patient today ____ minutes.
[2024-09-26 12:15] LABS: Amphetamine Screen Urine Not Detected (Not Detect); Barbiturates, Urine Not Detected (Not Detect); Benzodiazepines Screen Urine Not Detected (Not Detect); Buprenorphine Scr Positive (Not Detect); Cannabinoid Screen Urine Not Detected (Not Detect); Cocaine Screen Urine POSITIVE (Not Detect); Fentanyl, urine Not Detected (Not Detect); Methadone Screen, Urine Not Detected (Not Detect); Opiate Screen Urine Not Detected (Not Detect); Oxycodone Screen Urine Not Detected (Not Detect); Phencyclidine Screen Urine Not Detected (Not Detect)
--- NOTE | 2024-09-26 12:50 | PC.NURSE ---
pt's urine came back positive for cocaine. states hadn't used for 1 week. md and anesthesia aware. dr. manrique cancelling due to significant cardiac hx. spoke with pt about future plans.
== END | disposition home or self-care (01) ==
PROVIDERS: Nurse Practitioner; PCP Registered Nurse; Visit Provider Internal Medicine
DX: Z15.09 Genetic susceptibility to other malignant neoplasm (principal); Z53.8 Procedure and treatment not carried out for other reasons; R82.5 Elevated urine levels of drugs, medicaments and biological substances; Z90.49 Acquired absence of other specified parts of digestive tract; Z80.0 Family history of malignant neoplasm of digestive organs; I25.5 Ischemic cardiomyopathy; I10 Essential (primary) hypertension; F17.210 Nicotine dependence, cigarettes, uncomplicated
CPT/HCPCS: 80307

== ENCOUNTER 2024-10-15 13:22 | Outpatient (AMB) | payer MEDICAID, SELFPAY ==
[2024-10-15 13:49] VITALS: BP 118/82; PULSE 78; RESP 16; O2SAT 94
--- NOTE | 2024-10-15 13:49 | MHC.AM.SUB ---
Vital Signs 10/15/24 13:49 BP 118/82 Blood Pressure Location Lt brachial Position Sitting Respiration 16 Pulse 78 Pulse Source Pulse Oximeter Pulse Oximetry (%) 94 Oxygen Delivery Method Room Air Intake Visit Reasons: Intake Allergies No Known Allergies Allergy (Verified 09/26/24 10:46) HPI HPI Intake: Details: Patient presents for evaluation and treatment of stimulant use disorder (cocaine) Referred by GI provider He reports using 6-7 bumps of cocaine IN daily Started using at 21 years old Also reports history of OUD and engage in treatment with [facility] Suboxone dose 8mg BID Reports abstinence from opiates for over a year Discussed current cocaine use and goals related to this HE states that would like to abstain completely He reports attempting to cut down, but has difficulty as he feels that it allows him to focus and significantly decreases his anxiety. *He does report a history of ADHD diagnosis, unclear when or what medications he was prescribed He is aware that ongoing cocaine use is impacting his health, including preventing him from moving forward with an endoscopy. Medical history reviewed and medication list updated in EMR and below. trazodone 100mg daily aspirin 81mg daily ezetinibe 10mg topirimate 25mg carvediol 6.25mg rosuvastatin 40mg suboxone 8mg BID Review of Systems Const Reports as per HPI and Reports no additional complaints Physical Exam Vital Signs: Last Vital Signs Pulse 78 10/15/24 13:49 Resp 16 10/15/24 13:49 BP 118/82 10/15/24 13:49 Pulse Ox 94 10/15/24 13:49 Oxygen Delivery Method Room Air 10/15/24 13:49 Const General: cooperative, healthy appearing and well groomed Nutritional Appearance: average body habitus Orientation/consciousness: patient oriented x3 Limitations: no limitations Neuro General: patient oriented x3 Psych Appearance: well kempt Speech and movement: Normal speech and movement present Affect: normal affect Attitude: cooperative Thought process: Normal thought process present Thought content: Normal thought content present Insight: Good insight present (Psych) Judgement: Good judgement present (Psych) Assessment & Plan Assessment & Plan (1) Cocaine use disorder: Code(s): F14.10 - Cocaine abuse, uncomplicated Category: Medical Plan: discussed potentially increasing current topomax dose to 25mg BID also discussed IOP admission or [employer] sports coach referral to address early recovery supports and building recovery capitol referred back to [facility] where his current STEVEN provider is--will send this note, which patient is aware of. 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 Ischemic cardiomyopathy Polysubstance dependence STEMI (ST elevation myocardial infarction) CAD (coronary artery disease) HTN (hypertension) Surgical History Hx of heart artery stent History of esophagogastroduodenoscopy (EGD) Status post proctocolectomy (08/15/22) History of colonoscopy (07/15/22) Family History Family/Other CAD (coronary artery disease) Colon cancer, Onset Age: 30 Mother Stomach cancer Brother Colon cancer Social History Household Members: Family Housing: Apartment Do you presently have visiting nurse or other home services: No Alcohol intake: never Comment: Xray ordered for incorrect count. Xray clear. Patient Tobacco Use Status: Current everyday Tobacco user Tobacco use type: Cigarette Cigarettes Per Day: 6 Years Smoked: 15 Second Hand Smoke Exposure: Yes Substance Use Type: Crack/Cocaine and Marijuana service: No Current occupational status: unemployed MAT Intake Nursing Intake Reason for visit: support with stopping Cocaine use Are you currently using?: Yes What are you taking?: cocaine When was your last use?: yesterday How much?: a few bumps What is your source of income?: SSI What is your current relationship status?: single Current PCP: [facility] Date of last visit: a few months ago. Next appt scheduled for 10/21 Referral Source: Gastro. Details: Pt needs a procedure to f/u on colon CA and GI will not perform until he tests negative for cocaine. Pt. also wants to stop use. Substance Abuse History Substance Abuse History (includes route, frequency and quantity): Oxycodone product (Pt was using Percocet prior to incarceration. Once incarcerated in 2013 he received treatment for OUD and is now taking suboxone 8mg BID with good effect. ), Cocaine (Pt currently actively using cocaine via nasal route. a 20 lasts 1.5 days I use a few bumps t/o the day to keep me focused.) and Marijuana ( a few puffs here and there from dispensary for panic ) Age of first use: first used cocaine at age 21 Social History Domestic Violence concerns: N/A Children: 3 Do you have a support system?: No- I do not let myself get close to anyone Current mode of transportation?: car Where are you currently residing?: sisters apt. in [place] LMP: N/A Details: Did not obtain information IV Drug Use Have you ever shared needles?: No Have you ever belonged to a needle exchange program?: No Do you buy needles at a pharmacy?: No Have you ever overdosed?: No Have you ever been hospitalized for an overdose?: Yes (Pt reports he was hospitalized following a SD from fentanyl in his cocaine but denies OD/Narcan. He currently has stents placed. This was in 2021) Was Naloxone administered?: No Recovery History Have you had any periods of recovery?: Yes What is your longest time in recovery?: After SD pt reports he stopped using cocaine for approx 3 months but then started again to help him relax and focus. When was the last time you were in recovery?: 2 years ago Have you ever had inpatient treatment for your substance abuse disorder?: No Have you been in an inpatient detoxification program?: No Have you been in an inpatient Rehab/Penitentiary house?: No Have you been in an outpatient Methadone Maintenance program?: No Have you been in an outpatient Suboxone Maintenance program?: Yes (Pt receives suboxone 16mg/day from [facility]) Have you been in an AA/NA support program?: No Have you had a Recovery Support Ripsawyer?: No Have you had Peer Support?: No Details: Pt declines any type of community support for addiction. Behavioral Health History Do you have a current provider? If so, who?: [facility]-psychiatrist diagnosis: per pt report-depression and anxiety History of other addictive behavior: Denies History of inpatient psychiatric hospitalization? If so, how many? Most Recent? Where?: Denies History of self harming thoughts?: No History of homicidal or suicidal intentions?: No Medical Conditions Endocarditis?: No Skin Infection: No Seizure related to withdrawal or overdose: No Head or brain injury: No Hepatitis A (if yes, have you been treated?): No Hepatitis B (if yes, have you been treated?): No Hepatitis C (if yes, have you been treated?): No HIV (if yes, have you been treated?): No TB (if yes, have you been treated?): No Other: Yes (Pt has colostomy from sx r/t colon Ca. Pt had SD in 2021 and has stents placed as result. Needs further testing for Ca dx but provider will not do until cocaine use stops.) Do you have any chronic pain conditions?: N/A Legal History History of incarceration: Yes (Around 2013 for sale of drugs) Currently on parole or probation: No Court mandated programs: No Pending court cases: No DCF involvement: No
== END 2024-10-15 16:38 | disposition home or self-care (01) ==
PROVIDERS: PCP Registered Nurse; Visit Provider Nurse Practitioner Psychiatric/Mental Health
DX: F14.10 Cocaine abuse, uncomplicated (principal)
CPT/HCPCS: 99204

== ENCOUNTER → 2024-10-15 13:22 | Outpatient (BNVA) | payer MEDICAID, SELFPAY | PROVIDERS: PCP Registered Nurse; Visit Provider Nurse Practitioner Psychiatric/Mental Health | DX: F14.10 Cocaine abuse, uncomplicated (principal) | CPT/HCPCS: 99212 ==

== ENCOUNTER 2024-10-18 15:20 | Outpatient (REF) | payer MEDICAID, SELFPAY ==
[2024-10-18 17:12] LABS: Alanine Aminotransferase 21 U/L (0-40); Albumin Level 4.5 g/dL (3.5-5.0); Alkaline Phosphatase 84 U/L (39-117); Aspartate Amino Transferase 25 U/L (5-37); Bilirubin Direct 0.1 mg/dL (0.0-0.5); Bilirubin Total 0.4 mg/dL (0.0-1.0); Total Protein 7.5 g/dL (6.5-8.0)
[2024-10-19 03:40] LABS: Syphilis Screen Nonreactive (Nonreactive)
[2024-10-19 04:04] LABS: HIV AB/AG Nonreactive (Nonreactive); HIV Num 1 0.06 S/CO (0.00-0.99); ~HepC Num1 0.13 S/CO (0.00-0.79); ~Hepatitis C Antibody Nonreactive (Nonreactive)
[2024-10-21 18:47] LABS: TS Negative Control Passed; TS Panel A 0; TS Panel B 0; TS Positive Control Passed; TSpotTB Negative (Negative)
== END 2024-10-18 15:21 | disposition home or self-care (01) ==
LOC: HO.HHCL 15:20
PROVIDERS: Visit Provider Emergency Medicine
DX: F11.20 Opioid dependence, uncomplicated (principal)
CPT/HCPCS: 36415; 80076; 86481; 86780; 86803; 87389

== ENCOUNTER → 2024-11-04 14:47 | Outpatient (REF) | payer MEDICAID, SELFPAY ==
--- NOTE | 2024-11-04 14:51 | CA_ITS ---
Transthoracic Echocardiogram Patient (Last, First, Middle): Lyndon Resendez L Gender: Male Date of : 1985 Age: 39 Procedure Date: 11/04/2024 Procedure Type: Transthoracic Echocardiogram Location: OP Height: 170.18 cm Weight: 86.18 kg BSA: 1.98 m2 Heart Rate: bpm BP: 130 / 80 mmHg Order Filler: KENDAL Referring MD: Gayathri SERRATO Vocational Aide: Chemo Romeo MD Symptoms: R06.01 ORTHOPNEA COPD CHRISTEN Study Quality: Adequate ECG Rhythm: Sinus Conclusions: - 1. Technically limited study despite use of contrast agent 2. Moderate to severe LV systolic dysfunction with LVEF of 30-35% with mild LVH with regional wall motion abnormality consistent with ischemic cardiomyopathy 3. Cardiac valvular Dopplers within normal limits Findings Left Ventricle Normal left ventricular cavity size. There is mildly increased left ventricular wall thickness. The left ventricular systolic function is moderate to severely decreased. The visually estimated ejection fraction is between 30-35%. Spectral Doppler is indicative of an impaired relaxation filling pattern. E/E prime ratio is between 8 and 15 consistent with indeterminate filling pressures. Wall Motion Rest Echo Findings The mid anterior and mid inferoseptal segments are hypokinetic. The apex, apical anterior, apical septum, and mid anteroseptal segments are akinetic. All other scored wall segments showed normal motion. Right Ventricle The right ventricle was not well visualized. Atria The left atrium was not well visualized. Interatrial shunt cannot be excluded. The right atrium was not well visualized. Aortic Valve The aortic valve was not well visualized. There is no aortic valve stenosis. There is no aortic valve regurgitation. Mitral Valve The mitral valve was not well visualized. There is trace mitral valve regurgitation. There is no mitral valve stenosis. Pulmonic Valve The pulmonic valve was not well visualized. Tricuspid Valve Likely normal tricuspid valve structure and function. There is trace tricuspid valve regurgitation. The right ventricular systolic pressure is normal. The right ventricular systolic pressure is 18 mmHg. Normal right atrial pressure. There is no evidence of pulmonary hypertension. Great Vessels All visible segments of the aorta are normal in size. The pulmonary artery was not well visualized. There is no dilatation of the ascending aorta measuring 2.90 cm. Venous The inferior vena cava is normal in size and collapses greater than 50% with inspiration. Pericardium/Pleural The pericardium was not well visualized. Measurements 2D Linear Measurements IVSd: 1.22 0.6-0.9/0.6-1.0 cm LVIDd: 4.86 3.9-5.3/4.2-5.9 cm LVIDd Index: 2.45 2.4-3.2/2.2-3.1 cm/m2 LVIDs: 3.12 2.0-3.6 cm LVPWd: 1.22 0.7-1.1 cm Ao Root: 3.40 2.1-3.5 cm LA Diam: 3.40 2.7-3.8/3.0-4.0 cm LAIDs Index: 1.72 1.5-2.3 cm/m2 LV Mass: 285.19 67-162/88-224 g LV Mass Index: 144.04 43-95/49-115 g/m2 LVOT Diam: 2.10 3.0+(-)1.3 cm 2D Systolic Function EF 4C: 35.50 >55% EF 2C: 31.10 >55% EF BiP: 34.20 >55% Mitral Valve MV Pk E: 0.88 MV PK A: 0.82 MV Decel Time: 143.00 E/A: 1.10 E'Lateral: 6.96 E'Medial: 8.49 E/E' Med: 10.30 E/E' Lat: 12.60 PHT: 42.00 MVA PHT: 5.24 Decel Schoolcraft: 6.13 Aortic Valve AoV Pk Param: 1.27 AoV Mn Param: 0.84 AoV VTI: 0.28 AoV Pk Grad: 6.00 Aov Mn Grad: 3.00 FLACO Cont.VTI: 1.89 LVOT LVOT Pk Param: 0.71 LVOT Mn Param: 0.52 LVOT VTI: 0.15 LVOT Pk Grad: 2.00 LVOT Mn Grad: 1.00 LVOT Diam: 2.10 LVOT Area: 3.46 Diastolic Function MV Pk E: 0.88 MV Pk A: 0.82 E/A: 1.10 E'Medial: 8.49 E/E' Med: 10.30 E' Laterial: 6.96 E/E' Lat: 12.60 Right Ventricle TVS' Param: 12.00 Tricuspid Valve TR Pk Param: 1.93 TR Pk Grad: 15.00 RA Press: 3.00 RVSP: 18.00 Great Vessels Aorta Ao Root-2D: 3.40 2.0-3.7 cm Ao Asc: 2.90 2.1-3.4 cm Pulmonary Valve PV Pk Param: 0.94 Peak PV Grad: 4.00 Updated in Other Vendor System with Status of Final Chemo Romeo MD electronically signed on 11/05/2024 12:31:14 PM with status of Final
== END ==
LOC: HO.CARD 14:47
PROVIDERS: PCP Registered Nurse; Visit Provider Registered Nurse
DX: R06.01 Orthopnea (principal)
CPT/HCPCS: 93306; Q9957

== ENCOUNTER → 2024-11-04 14:51 | Outpatient (BNV) | payer MEDICAID, SELFPAY | PROVIDERS: PCP Registered Nurse; Visit Provider Internal Medicine Cardiovascular Disease | DX: I51.89 Other ill-defined heart diseases (principal); I25.5 Ischemic cardiomyopathy | CPT/HCPCS: 93306 ==

== ENCOUNTER 2025-02-17 13:31 | Outpatient (REF) | payer MEDICAID, SELFPAY ==
--- OUTSIDE RECORDS SUMMARY | 2025-02-17 15:01 | XMS_ITS | Encounter Summary ---
Author Organization [employer] Address [address] [place] [address] Care Team Providers Care Automotive Mechanic Name Role Phone Gayathri Maravilla Primary Care Provider [phone] Lora Yarbrough MD Unavailable [phone] Reason for Visit * Reason Onset Date Comments Call Back Request 09/26/2023 Encounter Details Date Type Department Care Team ([facility] st Contact Info) Description 09/26/2023 Telephone [facility] MEDICINE [address] [place] [address] Gayathri Maravilla FNP [address] [place], [place] [id number] Call Back Request Social History Tobacco Use Types Packs/Day Years Used Date Smoking Tobacco: Every Day Cigarettes Smokeless Tobacco: Never Alcohol Use Standard Drinks/Week Comments Never 0 (1 standard drink = 0.6 oz pur e alcohol) Depression Answer Date Recorded Patient Health Questionnaire-9 Score 6 03/22/2023 Housing Stability Answer Date Recorded What is your housing situation today? I have carol peace 08/01/[address] you li ve. Do you have problems with any of the following? None of the above 08/01/2023 Food Insecurity Answer Date Recorded Within the past 12 months, y ou worried that your food would run out before you got money to buy more: Never True 08/01/2023 Within the past 12 months,th e food you bought just didn't last and you didn't have enough money to get more: Never True Transportation Answer Date Recorded In the past 12 months, has l ack of transportation kept you from medical appts, meetings, work or from getting things needed for daily living? No 08/01/2023 Utilities Answer Date Recorded In the past 12 months, has t he electric, gas, oil or water company threatened to shut off services in your home? No 08/01/2023 Depression Answer Date Recorded Patient Health Questionnaire-2 Score 2 03/22/2023 Sex and Gender Information Value Date Recorded Sex Assigned at Male 08/15/2022 10:19 AM EDT Legal Sex Male 10:19 AM EDT Gender Identity Male 08/15/2022 10:19 AM EDT Sexual Orientation Straight 08/15/2022 10 :19 AM EDT documented as of this encounter Miscellaneous Notes * Telephone Encounter - Michelle Edmonds - 10/17/2023 10:49 AM EST Tc from pt requesting status in regards to referral. * Telephone Encounter - Michelle Edmonds - 10/11/2023 11:25 AM EST Tc from pt calling in regards to message above. * Telephone Encounter - Odin Jefferson - 09/26/2023 11:53 AM EST Tc from patient call in regards to care management stated PCP made referral but has not been contact please verify documented in this encounter Plan of Treatment Upcoming Encounters Date Type Department Care Team (Late st Contact Info) Description 02/25/2025 2:45 PM EDT Office Visit [facility] MEDICINE [address] [place] [address] James Heredia MD [address] [place] [address] 05/23/2025 1:45 PM EDT Office Visit [facility] CHC MED & PEDS [address] [place] [address] Gayathri Maravilla FNP [address] [place] [address] documented as of this encounter Visit Diagnoses Not on filedocumented in this encounter Additional Health Concerns Assessment Noted Time PHQ-9 Depression Total Score: 6 03/22/20 23 11:14 AM EDT documented as of this encounter Care Teams Automotive Mechanic Relationship Specialty Start Date End Date Gayathri Maravilla FNP [address] [place] [address] PCP - General Family Medicine 06/13/22 Lora Yarbrough MD [address] [place] [address] Hematology and Oncology 10/24/24 documented as of this encounter
--- OUTSIDE RECORDS SUMMARY | 2025-02-17 15:01 | XMS_ITS | Encounter Summary ---
Author Organization [employer] Address [address] [facility] [address] [place] [address] Care Team Providers Care Kennel Helper Name Role Phone Gayathri Maravilla Primary Care Provider [phone] Lora Yarbrough MD Unavailable [phone] Reason for Visit * Reason Onset Date Comments PCP change 07/13/2023 Encounter Details Date Type Department Care Team (Late st Contact Info) Description 07/13/2023 Telephone [facility] MEDICINE [address] [facility] [place] [address] Gayathri Maravilla FNP [address] [place] [address] PCP change Social History Tobacco Use Types Packs/Day Years Used Date Smoking Tobacco: Every Day Cigarettes Smokeless Tobacco: Never Alcohol Use Standard Drinks/Week Comments Never 0 (1 standard drink = 0.6 oz pur e alcohol) Depression Answer Date Recorded Patient Health Questionnaire-9 Score 6 03/22/2023 Depression Answer Date Recorded Patient Health Questionnaire-2 Score 2 03/22/2023 Sex and Gender Information Value Date Recorded Sex Assigned at Male 08/15/2022 10:19 AM EDT Legal Sex Male 10:19 AM EDT Gender Identity Male 08/15/2022 10:19 AM EDT Sexual Orientation Straight 08/15/2022 10 :19 AM EDT documented as of this encounter Miscellaneous Notes * Telephone Encounter - Vanessa Delatorre - 07/13/2023 9:30 AM EDT Tc from patient requesting a different PCP due to PCP changing location to [facility] and PCP's availability in [facility]. documented in this encounter Plan of Treatment Upcoming Encounters Date Type Department Care Team (Late st Contact Info) Description 02/25/2025 2:45 PM EDT Office Visit [facility] MEDICINE [address] [place] [address] James Heredia MD [address] [place] [address] 05/23/2025 1:45 PM EDT Office Visit [facility] CHC MED & PEDS [address] [place] [address] Gayathri Maravilla FNP [address] [place] [address] documented as of this encounter Visit Diagnoses Not on filedocumented in this encounter Additional Health Concerns Assessment Noted Time PHQ-9 Depression Total Score: 6 03/22/20 23 11:14 AM EDT documented as of this encounter Care Teams Kennel Helper Relationship Specialty Start Date End Date Gayathri Maravilla FNP [address] [place] [address] PCP - General Family Medicine 06/13/22 Lora Yarbrough MD [address] [place] [address] Hematology and Oncology 10/24/24 documented as of this encounter
--- OUTSIDE RECORDS SUMMARY | 2025-02-17 15:01 | XMS_ITS | Encounter Summary ---
Author Organization [employer] Address [address] [facility] [address] [place] [address] Care Team Providers Care Job Boss Name Role Phone Gayathri Maravilla GAS DISPENSER Primary Care Provider [phone] Lora Yarbrough MD Unavailable [phone] Reason for Visit * Reason Onset Date Comments Chart Prep 02/17/2025 Encounter Details Date Type Department Care Team ([facility] st Contact Info) Description 02/17/2025 Telephone [facility] CHC MED & PEDS [address] [place], [place] [phone] Gayathri Maravilla FNP [address] [place], [place] [phone] Chart Prep Social History Tobacco Use Types Packs/Day Years Used Date Smoking Tobacco: Every Day Cigarettes Passive Smoke Exposure: Current Smokeless Tobacco: Never Alcohol Use Standard Drinks/Week Comments Never 0 (1 standard drink = 0.6 oz pur e alcohol) Depression Answer Date Recorded Patient Health Questionnaire-9 Score 9 07/17/2024 Patient Health Questionnaire-9 Score 9 07/17/2024 Last PHQ-9: Questionnaire Data Not on file 1 Housing Stability Answer Date Recorded What is [...] Date Recorded Patient Health Questionnaire-2 Score 2 07/17/2024 Sex and Gender Information Value Date Recorded Sex Assigned at Male 08/15/2022 10:19 AM EDT Legal Sex Male 10:19 AM EDT Gender Identity Male 08/15/2022 10:19 AM EDT Sexual Orientation Straight 08/15/2022 10 :19 AM EDT documented as of this encounter Miscellaneous Notes * Telephone Encounter - Matt Oliveira MA - 02/17/2025 9:03 AM EDT Chart Prep Labs: done Images: not done Referrals: complete Vaccines due: PCV20 and Hep B Screenings: not applicable Overdue care gaps: SBIRT, SDOH, Disability screen, and PISQ documented in this encounter Plan of Treatment Upcoming Encounters Date Type Department Care Team (Late st Contact Info) Description 02/25/2025 2:45 PM EDT Office Visit [facility] MEDICINE [address] [place] [address] James Heredia MD [address] [place] [address] 05/23/2025 1:45 PM EDT Office Visit [facility] CHC MED & PEDS [address] [place], [place] [phone] Gayathri Maravilla FNP [address] [place], [place] [phone] documented as of this encounter Visit Diagnoses Not on filedocumented in this encounter Additional Health Concerns Assessment Noted Time PHQ-9 Depression Total Score: 9 07/17/20 24 12:18 PM EDT documented as of this encounter Care Teams Job Boss Relationship Specialty Start Date End Date Gayathri Maravilla FNP [address] [place] [address] PCP - General Family Medicine 06/13/22 Lora Yarbrough MD [address] [place] [address] Hematology and Oncology 10/24/24 documented as of this encounter
--- OUTSIDE RECORDS SUMMARY | 2025-02-17 15:01 | XMS_ITS | Encounter Summary ---
Author Organization [employer] Address [address] [place] [address] Care Team Providers Care Mold Capper Name Role Phone Gayathri Maravilla ROJELIO Primary Care Provider [phone] Lora Yarbrough MD Unavailable [phone] Encounter Details Date Type Department Care Team (Late st Contact Info) Description 02/14/2025 Telephone [facility] MEDICINE [address] [place] [address] Sandra Patel RN Social History Tobacco Use Types Packs/Day Years [...] encounter Miscellaneous Notes * Telephone Encounter - Sandra Patel RN - 02/14/2025 12:02 PM EDT Telephone call received from patient stating he missed his appt on 02/11/25. States he has enough suboxone for today. He will come in on 02/17 at 3:00 p.m. Called the pharmacy and released two days worth of suboxone from his 02/11/25 script already at the pharmacy. Will send an 8 day supply on Monday to cover him until his next appt on 02/25/25. documented in this encounter Plan of Treatment Upcoming Encounters Date Type Department Care Team (Late st Contact Info) Description 02/25/2025 2:45 PM EDT Office Visit [facility] MEDICINE [address] [place] [address] James Heredia MD [address] [place] [address] 05/23/2025 1:45 PM EDT Office Visit [facility] CHC MED & PEDS [address] [place] [address] Gayathri Maravilla FNP [address] [place] [address] documented as of this encounter Visit Diagnoses Not on filedocumented in this encounter Additional Health Concerns Assessment Noted Time PHQ-9 Depression Total Score: 9 07/17/20 24 12:18 PM EDT documented as of this encounter Care Teams Mold Capper Relationship Specialty Start Date End Date Gayathri Maravilla FNP [address] [place] [address] PCP - General Family Medicine 06/13/22 Lora Yarbrough MD [address] [place] [address] Hematology and Oncology 10/24/24 documented as of this encounter
--- OUTSIDE RECORDS SUMMARY | 2025-02-17 15:01 | XMS_ITS | Encounter Summary ---
Author Organization [employer] Address [address] 7t [place] [address] Care Team Providers Care Behavioral Instructor Name Role Phone Gayathri Maravilla THERMAL CUTTING MACHINE OPERATOR Primary Care Provider [phone] Lora Yarbrough MD Unavailable [phone] Encounter Details Date Type Department Care Team (Latest Contact Info) Description 02/17/2025 1:00 PM EDT Office Visit [facility] MED & PEDS [address] [place], [place] [phone] Gayathri Maravilla FNP [address] [place] [address] Gastroenteritis (Primary Dx) Social History Tobacco Use Types Packs/Day Years [...] AM EDT documented as of this encounter Last Filed Vital Signs Vital Sign Reading Time Taken Comments Blood Pressure 109/68 02/17/2025 1:07 PM EDT Pulse 93 02/17/2025 1:07 PM EDT Temperature 36 ??C (96.8 ??F) 02/17/2025 1:07 PM EDT Respiratory Rate 20 02/17/2025 1:07 PM EDT Oxygen Saturation 98% 02/17/2025 1:07 PM EDT Inhaled Oxygen Concentration - - Weight 82.3 kg (181 lb 6 oz) 02/17/2025 1:07 PM EDT Height 170.2 cm (5' 7 ) 02/17/2025 1:07 PM EDT Body Mass Index 28.41 02/17/2025 1:07 PM EDT documented in this encounter Progress Notes * ROJELIO Almendarez - 02/17/2025 1:00 PM EDT Subjective: Lyndon Resendez is a 39 y.o. male PMH Jose syndrome, colon cancer, s/p ileostomy creation Jul 2022, OUD on Suboxone, STEMI, and ischemic cardiomyopathy presents who presents to the office for a follow up visit: chronic conditions. Interim History: Last PCP visit: 10/21/24 11/04/24: [facility] demonstrated LVEF of 30-35%. Copy provided to patient today. Following with [employer]. 12/18/2024: [facility] heme/onc -Dr. Cruz. Follow-up for carcinoma of cecum. Plan to follow by surveillance scans, blood work, physical exam. Last CT abdomen/pelvis with contrast in June 2024 was negative. Advised to complete upper endoscopy. Return to clinic 6 months. Previously unable to complete endoscopy 2/2 cocaine use. Reports currently not using cocaine and encouraged to call to reschedule. 12/17/2024: Sleep study performed at [facility]. Recommend reassurance given that the study only found mild CHRISTEN and CO2 was normal. If he is willing to try PAP therapy, consider ordering auto CPAP 7-14. Ordered by Casey Prakash CNP Current concerns: GI symptoms: Symptom onset-2 days. Symptoms include fatigue, intermittent dizziness, liquid throughostomy site, and nausea. No new foods/triggering foods can be identified. No known sick contacts. Possible chills/subjective fever. Reports good fluid intake. Continues with adequate hydration and food intake. Previously collected history included below for reference: Colon CA - C eval Jun 2022 for rectal bleeding and strong FH of colon cancer. Rectal mass was biospied and confirmed colon CA- invasive adenocarcinoma with mucinous differentiation arising in high-grade dysplasia. Jose positive. Following with Dr. Yarbrough. S/p surgery - total proctocolectomy with end ileostomy performed on 08/15/22. Reports managing ileostomy at home. Reports generalized weakness in BUE and BLE following surgery, walking with a cane. Denies any falls, although gait unsteady. Received DME: Arm bars and shower chair for falls prevention in bathroom. Following with psych team - therapist & psych prescriber - Dr. Peraza. Denies SI/HI/thoughts of self harm. STEMI 06/02/2021. Stent placement 2020 at [facility]. Diagnosed with cardiomyopathy with EF of 25-30%, although Echo 07/15/22 showed EF of 45-50% Family History Problem Relation Name Age of Onset Cervical cancer Mother 50 Other (colorectal cancer) Brother 31 Other (metastatic colorectal cancer) Mother's Brother Pancreatic cancer Maternal Grandmother Social History Social History Narrative Living situation: currently living with family member Substance use: following with [facility] OBAT program - Suboxone. Mental health: Denies SI/HI/thoughts of self harm. Established with psych team through [facility]. Previously incarcerated from [id number] No Known Allergies Review of Systems Constitutional: Positive for chills and fever (Subjective). HENT: Negative for congestion. Respiratory: Negative for shortness of breath and wheezing. Cardiovascular: Negative for palpitations. Gastrointestinal: Positive for diarrhea and nausea. Negative for vomiting. Neurological: Positive for dizziness. Visit Vitals BP 109/68 (BP Location: Left arm, Patient Position: Sitting, BP Cuff Size: Adult) Pulse 93 Temp 96.8 ??F (36 ??C) (Oral) Resp 20 Ht 5' 7 (1.702 m) Wt 181 lb 6 oz (82.3 kg) SpO2 98% BMI 28.41 kg/m?? Smoking Status Every Day BSA 1.97 m?? Physical Exam Vitals reviewed. Constitutional: Appearance: Normal appearance. Comments: Well-appearing on exam, no acute distress HENT: Head: Atraumatic. Right Ear: External ear normal. Left Ear: External ear normal. Cardiovascular: Rate and Rhythm: Normal rate and regular rhythm. Pulmonary: Effort: Pulmonary effort is normal. No respiratory distress. Breath sounds: Normal breath sounds. No wheezing, rhonchi or rales. Abdominal: General: There is no distension. Tenderness: There is no abdominal tenderness. There is no guarding. Comments: Ileostomy bag RLQ Neurological: Mental Status: He is alert and oriented to person, place, and time. Psychiatric: Mood and Affect: Mood normal. Behavior: Behavior normal. Problem List Items Addressed This Visit Visit Diagnoses Gastroenteritis - Primary - Symptoms consistent with gastroenteritis - Encouraged good hydration and intake of bland foods - Check BMP - Zofran as needed nausea reviewed med safety and SE - Follow-up/ED precautions reviewed Relevant Medications ondansetron ODT (Zofran-ODT) 4 MG disintegrating tablet Other Relevant Orders Basic Metabolic Panel Follow up: 3 months, sooner as needed documented in this encounter Plan of Treatment Upcoming Encounters Date Type Department Care Team (Late st Contact Info) Description 02/25/2025 2:45 PM EDT Office Visit [facility] MEDICINE [address] [place] [address] James Heredia MD [address] [place] [address] 05/23/2025 1:45 PM EDT Office Visit [facility] [address] [place] [address] Gayathri Maravilla FNP [address] [place] [address] Scheduled Orders Name Type Priority Associated Diagnoses Orde r Schedule Basic Metabolic Panel Lab Routine Gastroenteritis Expected: 02/17/2025 (Approximate), Expires: 02/17/2026 documented as of this encounter Visit Diagnoses Diagnosis Gastroenteritis- Primary Other and unspecified noninfectious gastroenteritis and colitis documented in this encounter Additional Health Concerns Assessment Noted Time PHQ-9 Depression Total Score: 9 07/17/20 24 12:18 PM EDT documented as of this encounter Care Teams Behavioral Instructor Relationship Specialty Start Date End Date Gayathri Maravilla FNP [address] [place] [address] PCP - General Family Medicine 06/13/22 Lora Yarbrough MD [address] [place] [address] Hematology and Oncology 10/24/24 documented as of this encounter
--- OUTSIDE RECORDS SUMMARY | 2025-02-17 15:01 | XMS_ITS | Encounter Summary ---
Author Organization [employer] Address [address] [facility] 7t [place] [address] Care Team Providers Care Fitter Helper Name Role Phone Gayathri Mraavilla ROJELIO Primary Care Provider [phone] Lora Yarbrough MD Unavailable [phone] Encounter Details Date Type Department Care Team (Late Contact Info) Description 03/03/2023 Telephone [facility] [address] [place] [address] [phone] Cindy Bowman RN Social History Tobacco Use Types Packs/Day Years Used Date Smoking Tobacco: Every Day Cigarettes Smokeless Tobacco: Never Alcohol Use Standard Drinks/Week Comments Never 0 (1 standard drink = 0.6 oz pur e alcohol) Sex and Gender Information Value Date Recorded Sex Assigned at Male 08/15/2022 10:19 AM EDT Legal Sex Male 10:19 AM EDT Gender Identity Male 08/15/2022 10:19 AM EDT Sexual Orientation Straight 08/15/2022 10 :19 AM EDT COVID-19 Exposure Response Date Recorded In the last 10 days, have yo u been in contact with someone who was confirmed or suspected to have Coronavirus/COVID-19? No / Unsure 02/28/2023 3:37 PM EDT documented as of this encounter Plan of Treatment Upcoming Encounters Date Type Department Care Team (Late Contact Info) Description 02/25/2025 2:45 PM EDT Office Visit [facility] [address] [place] [address] [phone] James Heredia MD [address] [place] [address] [phone] 05/23/2025 1:45 PM EDT Office Visit [facility]EDS [address] [place] [address] Gayathri Maravilla FNP [address] [place] [address] documented as of this encounter Visit Diagnoses Not on filedocumented in this encounter Additional Health Concerns Assessment Noted Time PHQ-9 Depression Total Score: 0 02/21/20 23 4:02 PM EDT documented as of this encounter Care Teams Fitter Helper Relationship Specialty Start Date End Date Gayathri Maravilla FNP [address] [place] [address] PCP - General Family Medicine 06/13/22 Lora Yarbrough MD [address] [place] [address] Hematology and Oncology 10/24/24 documented as of this encounter
--- OUTSIDE RECORDS SUMMARY | 2025-02-17 15:01 | XMS_ITS | Encounter Summary ---
Author Organization [employer] Address [address] [facility] 7t [place] [address] Care Team Providers Care Medical Insurance Claims Specialist Name Role Phone Gayathri Maravilla ROJELIO Primary Care Provider [phone] Lora Yarbrough MD Unavailable [phone] Encounter Details Date Type Department Care Team (Late Contact Info) Description 06/14/2023 Orders Only [facility] MED[facility] [address] [place] [address] [phone] Sandra Patel RN Uncomplicated opioid dependence (CMS/[facility]) (Primary Dx) Social History Tobacco Use Types [...] AM EDT documented as of this encounter Plan of Treatment Upcoming Encounters Date Type Department Care Team (Late Contact Info) Description 02/25/2025 2:45 PM EDT Office Visit [facility] MED[facility] [address] [place] [address] [phone] James Heredia MD [address] [place], [place] [phone] 05/23/2025 1:45 PM EDT Office Visit [facility] MED & PEDS [address] [place] [address] Gayathri Maravilla FNP [address] [place] [address] Scheduled Orders Name Type Priority Associated Diagnoses Orde r Schedule Hepatic Function Panel Lab Routine Uncomplicated opioid dependence (CMS/HCC) Expected: 06/14/2023 (Approximate), Expires: 06/14/2024 Hepatitis C Antibody with Reflex to HCV, RNA, Quantitative, Real-Time PCR Lab Routine Uncomplicated opioid dependence (CMS/HCC) Expected: 06/14/2023 (Approximate), Expires: 06/14/2024 HIV-1/2 Antigen and Antibodies, Fourth Generation, with Reflexes Lab Routine Uncomplicated opioid dependence (CMS/HCC) Expected: 06/14/2023 (Approximate), Expires: 06/14/2024 QuantiFERON TB Gold Lab Routine Uncomplicated opioid dependence (CMS/HCC) Expected: 06/14/2023 (Approximate), Expires: 06/14/2024 Syphilis Screen Lab Routine Uncomplicated opioid dependence (CMS/HCC) Expected: 06/14/2023 (Approximate), Expires: 06/14/2024 T-SPOT??.TB Lab Routine Uncomplicated opioid dependence (CMS/HCC) Expected: 06/14/2023 (Approximate), Expires: 06/14/2024 documented as of this encounter Visit Diagnoses Diagnosis Uncomplicated opioid dependence (CMS/HCC)- Primary documented in this encounter Additional Health Concerns Assessment Noted Time PHQ-9 Depression Total Score: 6 03/22/20 23 11:14 AM EDT documented as of this encounter Care Teams Medical Insurance Claims Specialist Relationship Specialty Start Date End Date Gayathri Maravilla FNP [address] [place] [address] PCP - General Family Medicine 06/13/22 Lora Yarbrough MD [address] [place] [address] Hematology and Oncology 10/24/24 documented as of this encounter
--- OUTSIDE RECORDS SUMMARY | 2025-02-17 15:01 | XMS_ITS | Encounter Summary ---
Author Organization [employer] Address [address] 7[address] [place] [address] Care Team Providers Care Tacker Off Name Role Phone Gayathri Maravilla ROJELIO Primary Care Provider [phone] Lora Yarbrough MD Unavailable [phone] Reason for Visit * Reason Comments Med Refill Encounter Details Date Type Department Care Team ([facility] st Contact Info) Description 05/21/2024 Refill [facility] MEDICINE [address] [place], [place] [phone] James Heredia MD [address] [place], [place] [phone] Uncomplicated opioid dependence (CMS/HCC) Social History Tobacco Use Types Packs/Day Years [...] Description 02/25/2025 2:45 PM EDT Office Visit [facility] MEDICINE [address] [place] [address] James Heredia MD [address] [place] [address] 05/23/2025 1:45 PM EDT Office Visit [facility] MED & PEDS [address] [place] [address] Gayathri Maravlila FNP [address] [place] [address] documented as of this encounter Visit Diagnoses Diagnosis Uncomplicated opioid dependence (CMS/HCC) documented in this encounter Additional Health Concerns Assessment Noted Time PHQ-9 Depression Total Score: 6 03/22/20 23 11:14 AM EDT documented as of this encounter Care Teams Tacker Off Relationship Specialty Start Date End Date Gayathri Maravilla FNP [address] [place] [address] PCP - General Family Medicine 06/13/22 Lora Yarbrough MD [address] [place] [address] Hematology and Oncology 10/24/24 documented as of this encounter
--- OUTSIDE RECORDS SUMMARY | 2025-02-17 15:01 | XMS_ITS | Encounter Summary ---
Author Organization [employer] Address [address] [facility] 7t [place] [address] Care Team Providers Care Court Interpreter Name Role Phone Gayathri Maravilla Primary Care Provider [phone] Lora Yarbrough MD Unavailable Reason for Visit * Reason Onset Date Comments Nurse Triage 06/30/2023 Encounter Details Date Type Department Care Team (Late st Contact Info) Description 06/30/2023 Telephone [facility] MEDICINE [address] [place] [address] Gayathri Maravilla FNP [address] [place] [address] Nurse Triage Social History Tobacco Use Types Packs/Day Years [...] encounter Miscellaneous Notes * Telephone Encounter - Juanjo Castillo - 06/30/2023 2:43 PM EDT Tc from pt requesting to r/s appt on 06/30/2023 @ 9:00 Am for a sick on site visit. Please contact pt at [phone] documented in this encounter Plan of Treatment Upcoming Encounters Date Type Department Care Team (Late st Contact Info) Description 02/25/2025 2:45 PM EDT Office Visit [facility] MEDICINE [address] [place] [address] James Heredia MD [address] [place] [address] 05/23/2025 1:45 PM EDT Office Visit [facility] MED & PEDS [address] [place], [place] [phone] Gayathri Maravilla FNP [address] [place], [place] [phone] documented as of this encounter Visit Diagnoses Not on filedocumented in this encounter Additional Health Concerns Assessment Noted Time PHQ-9 Depression Total Score: 6 03/22/20 23 11:14 AM EDT documented as of this encounter Care Teams Court Interpreter Relationship Specialty Start Date End Date Gayathri Maravilla FNP [address] [place] [address] PCP - General Family Medicine 06/13/22 Lora Yarbrough MD [address] [place] [address] Hematology and Oncology 10/24/24 documented as of this encounter
--- OUTSIDE RECORDS SUMMARY | 2025-02-17 15:01 | XMS_ITS | Encounter Summary ---
Author Organization [employer] Address [address] [facility] [address] [place] [address] Care Team Providers Care Intermediate Manager Name Role Phone Gayathri Maravilla ROJELIO Primary Care Provider [phone] Lora Yarbrough MD Unavailable [phone] Reason for Visit * Reason Comments OBAT F/U Encounter Details Date Type Department Care Team (Latest Contact Info) Description 02/17/2025 3:00 PM EDT Office Visit [facility] MEDICINE [address] [place] [address] James Heredia MD [address] [place] [address] Uncomplicated opioid dependence (CMS/HCC) (Primary Dx) Social History Tobacco Use Types [...] AM EDT documented as of this encounter Progress Notes * James Heredia MD - 02/17/2025 3:00 PM EDT Subjective Patient ID: Lyndon Resendez is a 39 y.o. male. HPI HPI Lyndon Resendez is a 37 y.o. male who presents for OBAT F/U. HPI Patient has been in the MAT program for 3 years, 8 months Intake date: 06/08/21. Current Suboxone dose of 16/4 mg daily. Schedule: 2 weeks Behavioral health therapist: Thanh Psychiatrist: Dr. Peraza [place] Bone Roller: suhas LFT's: 10/18/24 Hep A status: Immune Hep B status: Immune Hep C status: 11/06/23: non-reactive HIV status: 11/06/23: non-reactive Covid Vaccine status: Vaccinated 03/21/21 and 07/13/21: Pfizer PCP: 02/28/23 [facility] PAT reviewed by provide UTOX: +bup, farideh Taking Suboxone as prescribed. Lives at sister's place, and she also uses cocaine. Has fentanyl test strips. States uses cocaine with someone present with Narcan. Has Narcan. Rebecca saw his PCP today at [facility] for GI symptoms, felt to have gastroenteritis. Hewas prescribed Zofran and labs were ordered. States that he missed appointment with [facility] behavioral health clinician. I spoke with Beatriz and she will call patient to schedule an appointment. Met with pipe recovery specialist Al today. Sees Dr. Yarbrough s/p colectomy/colostomy. Feels well. Last office visit with Dr. Leonard (GI) was 10/17/2023. Smoking 1/2 PPD, is using nicotine patches when he remembers. Declined lozenges and gum. No EtOH. 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 Stent placement 2020 at [facility]. Diagnosed with cardiomyopathy withEF of 25-30%, Echo 11/04/2024 Read as Moderate to severe LV systolic dysfunction with LVEF of 30-35% with mild LVH with regional wall motion abnormality consistent with ischemic cardiomyopathy. States was told that ICD insertion is planned. The following portions of the chart were reviewed this encounter and updated as appropriate: Review of Systems Constitutional: Negative for fever. Respiratory: Negative for shortness of breath. Cardiovascular: Negative for chest pain. Gastrointestinal: Positive for nausea. Negative for abdominal pain. Skin: Negative for rash. Neurological: Positive for dizziness. Negative for headaches. Objective Physical Exam Vitals and nursing note reviewed. Constitutional: Appearance: Normal appearance. HENT: Head: Normocephalic and atraumatic. Nose: Nose normal. Eyes: Conjunctiva/sclera: Conjunctivae normal. Pupils: Pupils are equal, round, and reactive to light. Pulmonary: Effort: Pulmonary effort is normal. Skin: General: Skin is warm and dry. Neurological: Mental Status: He is alert. Gait: Gait is intact. Psychiatric: Mood and Affect: Mood and affect normal. Behavior: Behavior normal. Procedures Assessment/Plan Diagnoses and all orders for this visit: Uncomplicated opioid dependence ([facility]) Recovery support, harm reduction (including Narcan) and behavioral health attendance reviewed. Continue Suboxone 16/4 mg on 2 week schedule. We discussed going to the ED now because of his GI symptoms, but he declined. Discussed goal of stopping all illicit substances, potential presence of Fentanyl in cocaine (have someone present with Narcan), and possibility of heart attack or stroke caused by cocaine use. documented in this encounter Plan of Treatment Upcoming Encounters Date Type Department Care Team (Late st Contact Info) Description 02/25/2025 2:45 PM EDT Office Visit [facility] MEDICINE [address] [place] [address] James Heredia MD [address] [place] [address] 05/23/2025 1:45 PM EDT Office Visit [facility] MED & PEDS [address] [place] [address] Gayathri Maravilla FNP [address] [place] [address] documented as of this encounter Procedures Procedure Name Priority Date/Time Associated Diagnosis Comments POCT ANDRE-14 URINE DRUG SCREEN Routine 02/17/2025 2:27 PM EDT Uncomplicated opioid dependence (CMS/HCC) documented in this encounter Results * POCT ANDRE-14 Urine Drug Screen (02/17/2025 2:27 PM EDT) THC Negative Cocaine Screen, Urine Positive Opiate Screen, Urine Negative Methamphetamine Screen Urine Negative Amphetamine Screen, Urine Negative Benzodiazepines Screen, Urine Negative Barbiturate Screen, Urine Negative Methadone Screen, Urine Negative Buprenophine Screen, Urine Positive TCA, Urine Negative MDMA Urine Negative ng/mL Oxycodone Screen, Urine Negative Phencyclidine (PCP), Urine Negative Fentanyl, Urine Negative Urine Urine specimen obtained by clean catch procedure / Unknown 02/17/2025 2:27 PM EDT James Heredia MD POINT OF CARE TEST ENTER/EDIT OR DERABLES Final Result documented in this encounter Visit Diagnoses Diagnosis Uncomplicated opioid dependence (CMS/HCC)- Primary documented in this encounter Additional Health Concerns Assessment Noted Time PHQ-9 Depression Total Score: 9 07/17/20 24 12:18 PM EDT documented as of this encounter Care Teams Intermediate Manager Relationship Specialty Start Date End Date Gayathri Maravilla FNP [address] [place] [address] PCP - General Family Medicine 06/13/22 Lora Yarbrough MD [address] [place] [address] Hematology and Oncology 1/9/25 documented as of this encounter
--- OUTSIDE RECORDS SUMMARY | 2025-02-17 15:01 | XMS_ITS | Encounter Summary ---
Author Organization [employer] Address [address] [facility] [address] [place] [address] Care Team Providers Care Transaction Processor Name Role Phone Gayathri Maravilla ROJELIO Primary Care Provider [phone] Lora Yarbrough MD Unavailable [phone] Encounter Details Date Type Department Care Team (Late st Contact Info) Description 02/14/2025 Telephone [facility] MEDICINE [address] [place] [address] Sandra Patel RN Social History Tobacco Use [...] Description 02/25/2025 2:45 PM EDT Office Visit [facility] MEDICINE [address] [place] [address] James Heredia MD [address] [place] [address] 05/23/2025 1:45 PM EDT Office Visit [facility] MED & PEDS [address] [place] [address] Gayathri Maravilla FNP [address] [place] [address] documented as of this encounter Visit Diagnoses Not on filedocumented in this encounter Additional Health Concerns Assessment Noted Time PHQ-9 Depression Total Score: 9 07/17/20 24 12:18 PM EDT documented as of this encounter Care Teams Transaction Processor Relationship Specialty Start Date End Date Gayathri Maravilla FNP [address] [place] [address] PCP - General Family Medicine 06/13/22 Lora Yarbrough MD [address] [place] [address] Hematology and Oncology 10/24/24 documented as of this encounter
--- OUTSIDE RECORDS SUMMARY | 2025-02-17 15:01 | XMS_ITS | Encounter Summary ---
Author Organization [employer] Address [address] [facility] [address] [place] [address] Care Team Providers Care Force Variation Equipment Tender Name Role Phone Gayathri Maravilla ROJELIO Primary Care Provider [phone] Lora Yarbrough MD Unavailable [phone] Reason for Visit * Reason Comments [facility] Encounter Details Date Type Department Care Team ([facility] Contact Info) Description 02/17/2025 Patient Outreach [facility] [address] [place], [place] [id number] Haroon Restrepo [address] [place] [address] [facility] Social History Tobacco Use Types Packs/Day Years [...] as of this encounter Progress Notes * Haroon Restrepo - 02/17/2025 2:47 PM EDT Completed [facility] f/u. documented in this encounter Plan of Treatment Upcoming Encounters Date Type Department Care Team (Late st Contact Info) Description 02/25/2025 2:45 PM EDT Office Visit [facility] [address] [place] [address] James Heredia MD [address] [place] [address] 05/23/2025 1:45 PM EDT Office Visit [facility] [address] [place] [address] Gayathri Maravilla FNP [address] [place] [address] documented as of this encounter Visit Diagnoses Not on filedocumented in this encounter Additional Health Concerns Assessment Noted Time PHQ-9 Depression Total Score: 9 07/17/20 24 12:18 PM EDT documented as of this encounter Care Teams Force Variation Equipment Tender Relationship Specialty Start Date End Date Gayathri Maravilla FNP [address] [place] [address] PCP - General Family Medicine 06/13/22 Lora Yarbrough MD [address] [place] [address] Hematology and Oncology 10/24/24 documented as of this encounter
--- OUTSIDE RECORDS SUMMARY | 2025-02-17 15:01 | XMS_ITS | Encounter Summary ---
Author Organization [employer] Address [address] [facility] [address] [place] [address] Care Team Providers Care Leather Coverer Name Role Phone Gayathri Maravilla ROJELIO Primary Care Provider [phone] Lora Yarbrough MD Unavailable [phone] Encounter Details Date Type Department Care Team (Latest Contact Info) Description 02/17/2025 Travel Social History Tobacco Use Types Packs/Day Years [...] is your housing situation today? I have [employer]ol[employer] peace 08/01/[address] you [...] 02/25/2025 2:45 PM EDT Office Visit [facility] [address] [place] [address] James Heredia MD [address] [place] [address] 05/23/2025 1:45 PM EDT Office Visit [facility] [address] [place] [address] Gayathri Maravilla FNP [address] [place] [address] documented as of this encounter Visit Diagnoses Not on filedocumented in this encounter Additional Health Concerns Assessment Noted Time PHQ-9 Depression Total Score: 9 07/17/20 24 12:18 PM EDT documented as of this encounter Care Teams Leather Coverer Relationship Specialty Start Date End Date Gayathri Maravilla FNP [address] [place] [address] PCP - General Family Medicine 06/13/22 Lora Yarbrough MD [address] [place] [address] Hematology and Oncology 10/24/24 documented as of this encounter
--- OUTSIDE RECORDS SUMMARY | 2025-02-17 15:01 | XMS_ITS | Encounter Summary ---
Author Organization [employer] Address [address] [facility] [address] [place] [address] Care Team Providers Care Student Ambassador Name Role Phone Gayathri Maravilla ROJELIO Primary Care Provider [phone] Lora Yarbrough MD Unavailable Reason for Visit * Reason Onset Date Comments Med Refill 02/14/2025 Encounter Details Date Type Department Care Team (Late st Contact Info) Description 02/14/2025 Refill [facility] [address] [place] [address] Sandra Patel RN Uncomplicated opioid dependence (CMS/[facility]) Social History Tobacco Use Types Packs/Day Years [...] Office Visit [facility] [address] [place] [address] James Heredia MD [address] [place] [address] 05/23/2025 1:45 PM EDT Office Visit [facility] [address] [place] [address] Gayathri Maravilla FNP [address] [place] [address] documented as of this encounter Visit Diagnoses Diagnosis Uncomplicated opioid dependence (CMS/HCC) documented in this encounter Additional Health Concerns Assessment Noted Time PHQ-9 Depression Total Score: 9 07/17/20 24 12:18 PM EDT documented as of this encounter Care Teams Student Ambassador Relationship Specialty Start Date End Date Gayathri Maravilla FNP [address] [place] [address] PCP - General Family Medicine 06/13/22 Lora Yarbrough MD [address] [place] [address] Hematology and Oncology 10/24/24 documented as of this encounter
--- OUTSIDE RECORDS SUMMARY | 2025-02-17 15:01 | XMS_ITS | Clinical Summary ---
Author Organization [employer] Address [address] [facility] [address] [place] [address] Care Team Providers Care Contact Assembler Name Role Phone RaymonGayathri espinal ROJELIO Primary Care Provider [phone] Lora Yarbrough MD Unavailable [phone] Allergies No known active allergies Medications * This document contains information received from the source organization and may not represent a complete record from that organization. lidocaine (Lidoderm) 5 % patch Place 1 patch on the skin. 022 Active sacubitril-valsar zavala (Entresto) 49-51 MG tablet Take 1 tab by mouth twice a day Active buPROPion SR (Wellbutrin SR) 150 MG 12 hr tablet Take 1 tablet by mouth in the morning. Active Blood Pressure kit Active ferrous sulfate 325 (65 Fe) MG EC tabletIndications :Iron deficiency anemia, unspecified iron deficiency anemia type take 1 tablet every other day with large glass of OJ or water 45 tablet 1 023 Active aspirin (Aspirin Low Dose) 81 MG chewable tabletIndications :HFrEF (heart failure with reduced ejection fraction) (CMS/HCC),History of ST elevation myocardial infarction (STEMI) CHEW 1 TABLET BY MOUTH EVERY DAY 90 tablet 3 023 Active nicotine (Nicoderm CQ) 14 MG/24HR patch Place 1 patch on the skin 1 (one) time each day at the same time. 42 patch 023 Active nicotine (Nicoderm CQ) 7 MG/24HR patch Place 1 patch on the skin 1 (one) time each day at the same time. 14 patch 023 Active naloxone (Narcan) 4 mg/0.1 mL nasal sprayIndications: Uncomplicated opioid dependence (CMS/HCC) FOR SUSPECTED OPIOID OVERDOSE. SPRAY 0.1mL IN ONE NOSTRIL. REPEAT IN ALTERNATE NOSTRIL 2-3 MINUTES IF NEEDED. SEEK MEDICAL ATTENTION IMMEDIATELY EVEN IF PATIENT RESPONDS. 2 each 2 Active pantoprazole (ProtoNix) 40 MG EC tabletIndications :Gastroesophageal reflux disease, unspecified whether esophagitis present YULIANA 1 TABLETA POR LA BOCA ANA VEZ AL LALO 90 tablet 3 Active carvedilol (Coreg) 3.125 MG tablet Take 3.125 mg by mouth 2 times daily. Active Repatha SureClick 140 MG/ML injection Inject 140 mg under the skin every 14 (fourteen) days. Active ezetimibe (Zetia) 10 MG tablet Active furosemide (Lasix) 20 MG tablet Take 10 mg by mouth Once per day. Active rosuvastatin (Crestor) 40 MG tablet Take 40 mg by mouth at bedtime. (Cholesterol) Active traZODone (Desyrel) 100 MG tablet Take 100 mg by mouth if needed at bedtime for sleep. Active topiramate (Topamax) 25 MG tablet Take 25 mg by mouth at bedtime. Active Buprenorphine HCl-Naloxone HCl (Suboxone) 8-2 MG SL filmIndications:U ncomplicated opioid dependence (CMS/HCC) Place 1 Film under the tongue 2 times daily for 14 days. Do not start before February 18, 2025. 28 Film 025 2024 Active D3 Super Strength 50 MCG (1999 UT) capsule Take 1 capsule by mouth Once per day. Active spironolactone (Aldactone) 25 MG tablet Active ondansetron ODT (Zofran-ODT) 4 MG disintegrating tabletIndications :Gastroenteritis Take 1 tablet (4 mg) by mouth every 8 (eight) hours if needed for nausea or vomiting for up to 7 days. 20 tablet 025 2024 Active Buprenorphine HCl-Naloxone HCl (Suboxone) 8-2 MG SL filmIndications:U ncomplicated opioid dependence (CMS/HCC) Place 1 Film under the tongue 2 times daily for 14 days. 28 Film 025 2024 Discontinued(R eorder (will not trigger notification to Pharmacy)) Buprenorphine HCl-Naloxone HCl (Suboxone) 8-2 MG SL filmIndications:U ncomplicated opioid dependence (CMS/HCC) Place 1 Film under the tongue 2 times daily for 14 days. 28 Film 025 2024 Discontinued(R eorder (will not trigger notification to Pharmacy)) Buprenorphine HCl-Naloxone HCl (Suboxone) 8-2 MG SL filmIndications:U ncomplicated opioid dependence (CMS/HCC) Place 1 Film under the tongue 2 times daily for 14 days. 28 Film 025 2024 Discontinued(R eorder (will not trigger notification to Pharmacy)) Active Problems Problem Noted Date Diagnosed Date Mixed hyperlipidemia 07/17/2024 Overview (07/17/2024): Followed by [facility], checking lipid panels through their office LDL 110 mg/dL on 07/31/23 Med regimen: Rosuvastatin 40mg nightly Zetia 10mg daily Evolocumab (Repatha) every other week Hypertensive retinopathy of both eyes 04/17/2024 Assessment & Plan (04/17/2024 7:21 AM EDT): Followed by Dr. Mojica. CEE on 12/21/23 w/ impression of Hypertensive retinopathy bilateral Healthcare maintenance 01/09/2024 Overview (04/17/2024): OPH: 12/21/23 - SARAH w/ [facility]. Dr. Mojica. Hypertensive retinopathy bilateral. Assessment & Plan (07/17/2024 6:44 PM EDT): Weight gain attributed to increased appetite while on mirtazapine. Encouraged healthy lifestyle interventions. Continue to trend weight. Follow up precautions reviewed. Assessment & Plan (01/09/2024 7:48 PM EDT): Declined COVID and PCV20 vaccine, may request if interested in the future Cocaine use 07/18/2023 Assessment & Plan (10/24/2024 6:07 PM EST): -Discussed risks and potential harms of cocaine use. Lyndon is interested in decreasing use, and has goal to decrease/stop using cocaine -May consider inpatient program -Planning to follow-up with psych regarding topiramate Assessment & Plan (07/17/2024 6:43 PM EDT): -Discussed risks and potential harms of cocaine use. Lyndon is interested in decreasing use, and has goal to decrease/stop using cocaine by Sep 2024. History of ST elevation myocardial infarction (S DAYANA) 10/31/2022 Overview (01/09/2024): -Anterior STEMI in May 2021 -[place] [facility] [place]Reports adherence to cardiac medications -Denies any current chest pain -Continue following with [facility] -06/21/23- stress test. Large LAD territory infarction. EF 37% during stress, 40% at rest. Assessment & Plan (07/17/2024 12:27 PM EDT): Continues with the following medications through Cards: Aspirin 81mg daily Atorvastatin 80mg nightly Metoprolol XL 25mg daily Entresto 49-51mg BID Encouraged heart healthy dietary choices Assessment & Plan (04/17/2024 3:55 PM EDT): Continues with the following medications through Cards: Aspirin 81mg daily Atorvastatin 80mg nightly Metoprolol XL 25mg daily Entresto 49-51mg BID Encouraged heart healthy dietary choices Assessment & Plan (01/09/2024 7:20 PM EDT): Continues with the following medications through Cards: Aspirin 81mg daily Atorvastatin 80mg nightly Metoprolol XL 25mg daily Entresto 49-51mg BID Encouraged heart healthy dietary choices Assessment & Plan (10/31/2022 1:29 PM EST): -Anterior STEMI in May 2021 -Stenting [place] in 2020 [place] [facility] [place] -Reports adherence to cardiac medications -Denies any current chest pain -Continue following with [facility] HFrEF (heart failure with reduced ejection fract ion) 10/31/2022 Overview (07/17/2024): Suspect resulted from STEMI Echo Jun 2024 with severely reduced LVEF, LVEED 6.2 cm (LV function worse and LV more dilated) Continue following with [facility] - Dr. Sepulveda HF Specific medications: - Entresto 49-51 BID - Carvedilol 6.25 BID - Lasix 20mg PRN weight gain/leg swelling Assessment & Plan (07/17/2024 6:42 PM EDT): Assessment & Plan (04/17/2024 3:53 PM EDT): Diagnosed with cardiomyopathy with EF of 25-30%, although Echo 07/15/22 showed EF of 45-50% Continue following with Cardiology Cardiomyopathy 10/31/2022 Ileostomy present 08/25/2022 Assessment & Plan (07/17/2024 6:42 PM EDT): -RLQ -Following with GI Assessment & Plan (04/17/2024 3:51 PM EDT): -RLQ -Following with GI Assessment & Plan (01/09/2024 7:53 PM EDT): -RLQ -Following with GI Assessment & Plan (02/20/2023 6:08 PM EDT): -RLQ, managing independently at home -Referral to establish with new GI practice, emphasized importance of calling office if need to reschedule appt. 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 Children would be eligible for genetic testing given hx of Jose syndrome ?? Plan to be followed by surveillance scans, blood work, and PE - will need annual UA, and rec EGD and H. 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 Yarbrough -Per consult recommendations: ?? 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 Children would be eligible for genetic testing given hx of Jose syndrome ?? Plan to be followed by surveillance scans, blood work, and PE - will need annual UA, and rec EGD and H. 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 Children would be eligible for genetic testing given hx of Joes syndrome ?? Plan to be followed by surveillance scans, blood work, and PE - will need annual UA, and rec EGD and H. Pylori testing at 40 y/o Mixed anxiety and depressive disorder 08/21/2017 Overview (07/17/2024): -Following with psych - Dr. Peraza Assessment & Plan (07/17/2024 12:28 PM EDT): Denies SI/HI/thoughts of self harm Assessment & Plan (04/17/2024 3:52 PM EDT): -Following with psych - Dr. Peraza Assessment & Plan (03/22/2023 11:32 AM EDT): Assessment and Plan: Lyndon was engaged with active reflective listening and open-ended questions. Assessed symptoms, risks, and social supports with direct questions. Discussed current symptoms intensity and frequency. Emotions were normalized and validated. Provided psychoeducation around urge surfing. Discussed OP therapy and he agreed to referral. Provided education around integrated medicine and the options of follow up BE's as needed. Provided contact information should questions or concerns arise. Plan: Lyndon will engage in effective coping mechanisms discussed to avoid cocoaine use. He will be referred to OP services for Ind. Therapy. Patient with lack motivation, trouble concentrating, passive thought without plan or intention, persistent worry, unable to seat still, reported used cocaine yesterday 1 $20, after few mons sober, discussed trigger but he is not able to identify trigger, he just had the thought and went to get it. He denies SI, HI, or self-harm. Living alone, torres sa daughter who he share custody with the mother, trying to get SSI, after been denied, has cardiac issues. Patient will benefit from Ind. Therapy. At this time Lyndon Resendez meets criteria for Visit Diagnoses: Problem List Items Addressed This Visit Other Mixed anxiety and depressive disorder Patient ready to address current needs Yes Strengths include Lyndon is in action state of change and is willing to engage in services. PLAN: 1. Follow up with [facility]: Recommended for follow-up: During OBAT appt 2. Patient goal is become mentally stable 3. Behavioral Recommendations a. Ind. Therapy b. Coping skills c. [facility] during OBAT appts for extra support Vitamin D deficiency 08/21/2017 Essential hypertension 06/22/2017 Opioid dependence, uncomplicated 06/22/2017 Resolved Problems Problem Noted Date Diagnosed Date Resolved Date Acute ST elevation myocardia l infarction (STEMI) of anterior wall 10/31/2022 10/31/2022 Cocaine dependence 08/21/2017 4 Major depressive disorder wi th single episode, in full remission 06/22/2017 07/17/2024 Assessment & Plan (10/31/2022 1:31 PM EST): -Continue following with therapist and psychiatrist through [facility] -Denies SI/HI/thoughts of self harm Encounters Date Type Department Care Team Description 02/17/2025 3:00 PM EDT Office Visit [facility] [address] [place] [phone] James Heredia MD Uncomplicated opioid dependence (CMS/HCC) (Primary Dx) 02/17/2025 1:00 PM EDT Office Visit [facility] [address] [place] [address] Gayathri Maravilla FNP Gastroenteritis (Primary Dx) 02/17/2025 Patient Outreach [facility] [address] [place] [phone] Haroon Restrepo RC Recovery Supports 02/17/2025 Travel 02/17/2025 Telephone [facility] [address] [place] [address] Gayathri Maravilla FNP Chart Prep 02/14/2025 Telephone [facility] [address] [place] [phone] Sandra Patel, CELI 02/14/2025 Telephone [facility] [address] [place] [phone] Sandra Patel, CELI 02/14/2025 Refill [facility] [address] [place] [phone] Sandra Patel, RN Uncomplicated opioid dependence (CMS/HCC) 02/04/2025 Refill [facility] [address] [place] [phone] Sandra Patel RN Uncomplicated opioid dependence ([facility]/HCC) 01/28/2025 1:30 PM EDT Office Visit [facility] [address] [place] [address] James Heredia MD Opioid dependence, uncomplicated (CMS/HCC) (Primary Dx) 01/28/2025 Travel 01/22/2025 Refill [facility] [address] [place] [address] Sandra Patel RN Uncomplicated opioid dependence ([facility]/HCC) 01/20/2025 Telephone [facility] [address] [place] [address] Sandra Patel RN 01/20/2025 Telephone [facility] [address] [place] [address] Sandra Patel RN 01/09/2025 Refill [facility] [address] [place] [address] Sandra Patel RN Uncomplicated opioid dependence (CMS/HCC) 12/31/2024 1:45 PM EDT Clinical Support [facility] [address] [place] [address] Sandra Patel RN Uncomplicated opioid dependence ([facility]/HCC) (Primary Dx) 12/31/2024 Refill [facility] [address] [place] [address] Sandra Patel RN Uncomplicated opioid dependence ([facility]/HCC) 12/31/2024 Travel 12/27/20[address] Score [facility] () Department [address] [place] [phone] Provider, Population Health Generic 12/20/2024 Telephone [facility] [address] [place] [address] Sandra Patel RN 12/19/2024 Telephone [facility] [address], [place] [phone] Gayathri Maravilla FNP December12/05/2024 Refill [facility] [address] [place] [address] Sandra Patel RN Uncomplicated opioid dependence ([facility]/HCC) 12/03/2024 9:00 AM EST Clinical Support [facility] [address] [facility] [place] [address] Sandra Patel RN Opioid type dependence, continuous ([facility]) (Primary Dx) 12/03/2024 Travel 11/27/2024 Refill [facility] [address] [facility] [place] [address] Sandra Patel RN Uncomplicated opioid dependence ([facility]) 11/27/2024 Refill [facility] [address] [facility] [place] [address] Sandra Patel RN from Last 3 Months Immunizations Name Administration Dates Next Due Hep B, Adolescent or Pediatric 08/13/1999,1998 Influenza injectable quadriv alent IIV4 with preservative 08/21/2017 Influenza injectable quadrivalent preservative f ree 07/27/2021 Influenza, IIV3, injectable 08/21/2017 Pfizer Covid-19 Vaccine 12+ 07/13/2021, 1 Pneumococcal Polysaccharide PPSV23 12/10/2014 TD (adult), 2 Lf tetanus tox oid, preservative free, adsorbed 08/13/2019 Td (adult), 5 Lf tetanus tox oid, preservative free, adsorbed 07/16/1999,07/13/1999 Td (adult), unspecified 08/13/2019 Tdap 10/06/2020 Family History Medical History Relation Name Comments colorectal cancer Brother Pancreatic cancer Maternal Grandmother Cervical cancer Mother metastatic colorectal cancer Mother's Brother Relation Name Status Comments Brother Maternal Grandmother Mother Mother's Brother Social History Tobacco Use Types Packs/Day Years Used Date Smoking Tobacco: Every Day Cigarettes Passive Smoke Exposure: Current Smokeless Tobacco: Never Tobacco Cessation:Ready to Q uit: Not Asked; Counseling Given: Not Answered Alcohol Use Standard Drinks/Week Comments Never 0 [...] Orientation Straight 08/15/2022 10 :19 AM EDT Last Filed Vital Signs Vital Sign Reading [...] Mass Index 28.41 02/17/2025 1:07 PM EDT Plan of Treatment Upcoming Encounters Date Type Department Care Team (Late st Contact Info) Description 02/25/2025 2:45 PM EDT Office Visit [facility] [address] [place] [address] James Heredia MD [address] [place] [address] 05/23/2025 1:45 PM EDT Office Visit [facility] [address] [place] [address] Renita Gayathri, FORMING [employer]ER [address] [place] [address] Health Maintenance Due Date Last Done Comments Lipid Panel 1985 Alcohol/Substance Use Screening 1997 Hepatitis B Vaccines (3 of 3 - 3-dose series) 11/02/1999 08/13/1999, 07/13/1999 Family Planning (PISQ) 2000 Pneumococcal Vaccine: Pediatrics (0 to 5 Years) and At-Risk Patients (6 to 49) Years) (2 of 2 - PCV) 12/10/2015 12/10/2014 SDOH Screening 02/21/2024 02/20/2023 Influenza Vaccine (#1) 2025 , 08/21/2017, 08/21/2017 Postponed from 06/16/2024 (Patient Refused) Depression Screening 07/17/2025 07/17/2024, 07/17/20 24 COVID-19 Vaccine (3 - season) 2025 07/13/2021, 03/21/2021 Postponed from 06/16/2024 (Patient Refused) Tobacco Screening 02/17/2026 02/17/2025 DTaP/Tdap/Td Vaccines (3 - Td or Tdap) 10/06/2030 10/06/2020, 08/13/2019, 08/13/2019, Additional history exists Zoster Vaccines (1 of 2) 2035 RSV Patients and Patients Aged 60 years or older (1 - 1-dose 75+ series) 2060 HIV Screening Completed 10/18/2024, 07/13/2021 Hepatitis C Screening Completed 10/18/2024, 021 HIB Vaccines Aged Out No longer eligi ble based on patient's age to complete this topic HPV Vaccines Aged Out No longer eligi ble based on patient's age to complete this topic Hepatitis A Vaccines Aged Out No long er eligible based on patient's age to complete this topic IPV Vaccines Aged Out No longer eligi ble based on patient's age to complete this topic Meningococcal Vaccine Aged Out No stephanie liyah eligible based on patient's age to complete this topic RSV under 20 months Aged Out No longe r eligible based on patient's age to complete this topic Rotavirus Vaccines Aged Out No longer eligible based on patient's age to complete this topic Procedures Procedure Name Priority Date/Time Associated Diagnosis Comments POCT ANDRE-14 URINE DRUG SCREEN Routine 02/17/2025 2:27 PM EDT Uncomplicated opioid dependence (CMS/HCC) POCT ANDRE-14 URINE DRUG SCREEN Routine 01/28/2025 2:31 PM EDT Opioid dependence, uncomplicated (CMS/HCC) POCT ANDRE-14 URINE DRUG SCREEN Routine 12/31/2024 1:41 PM EDT Uncomplicated opioid dependence (CMS/HCC) POCT ANDRE-14 URINE DRUG SCREEN Routine 12/03/2024 9:43 AM EST Opioid type dependence, continuous (CMS/HCC) HEPATITIS C AB W/REFL TO HCV RNA, QN, PCR Routine 10/18/2024 3:22 PM EST HIV 1/2 ANTIGEN/ANTIBODY, FOURTH GENERATION W/RFL Routine 10/18/2024 3:22 PM EST from Last 3 Months or Most Recently Relevant to Health Maintenance Results * POCT ANDRE-14 Urine Drug Screen (02/17/2025 2:27 PM EDT) Only the most recent of4 resultswithin the time period is included. THC Negative Cocaine Screen, Urine Positive Opiate [...] procedure / Unknown 02/17/2025 2:27 PM EDT us James Heredia MD POINT OF CARE TEST ENTER/EDIT OR DERABLES Final Result * Hepatitis C Antibody with Reflex to HCV, RNA, Quantitative, Real-Time PCR (10/18/2024 3:22 PM EST) Hepatitis C Antibody Nonreactive Nonreactive [facility] Comment:Antibodies to HCV no t detected; does not exclude early acuteHCV infection. 10/18/2024 3:22 PM EST 10/18/2024 4:08 PM EST us James Heredia MD LAB BLOOD ORDERABLES Final Resul t Performing Organization Address [facility] de Phone Number [facility] [address] [place] [phone] * HIV-1/2 Antigen and Antibodies, Fourth Generation, with Reflexes (10/18/2024 3:22 PM EST) HIV AB/AG Nonreactive Nonreactive [facility] Comment:HIV-1 p24 Ag and/or HIV-1/HIV-2 Ab not detected.A test result that is nonreactive does not exclude thepossibility of exposure to or infection with HIV-1 and/orHIV-2. Nonreactive results in this assay for individualswith prior exposure to HIV-1 and/or HIV-2 may be due toantigen and antibody levels that are below the limit ofdetection of this assay.The [employer] HIV Ag/Ab Combo assay result andsupplemental assay results should be interpreted inconjunction with the patient's clinical presentation,history and other laboratory results. If the results areinconsistent with clinical evidence, additional testing issuggested to confirm the result. 10/18/2024 3:22 PM EST 10/18/2024 4:08 PM EST us James Heredia MD LAB BLOOD ORDERABLES Final Resul t Performing Organization Address [facility] Co de Phone Number [facility] [address] [place] [address] [phone] from Last 3 Months or Most Recently Relevant to Health Maintenance Insurance [id number] Care Teams Contact Assembler Relationship Specialty Start Date End Date Gayathri Maravilla FNP [address] [place] [address] PCP - General Family Medicine 06/13/22 Lora Yarbrough MD [address] [place] [phone] Hematology and Oncology 10/24/24
--- OUTSIDE RECORDS SUMMARY | 2025-02-17 15:01 | XMS_ITS | Encounter Summary ---
Author Organization [employer] Address [address] [facility] [address] 7t [place] [address] Care Team Providers Care Real Estate Appraiser Name Role Phone Gayathri Maravilla ROJELIO Primary Care Provider [phone] Lora Yarbrough MD Unavailable [phone] Encounter Details Date Type Department Care Team (Late st Contact Info) Description 01/25/2024 Orders Only [facility] [address] [place] [address] Sandra Patel RN Uncomplicated opioid dependence (CMS/[facility]) Social History Tobacco Use Types Packs/Day Years [...] Description 02/25/2025 2:45 PM EDT Office Visit [facility] [address] [place] [address] James Heredia MD [address] [place] [address] 05/23/2025 1:45 PM EDT Office Visit [facility]S [address] [place], [place] [phone] Gayathri Maravilla FNP 505 [place], [place] [phone] Scheduled Orders Name Type Priority Associated Diagnoses Orde r Schedule Hepatic Function Panel Lab Routine Uncomplicated opioid dependence (CMS/HCC) Expected: 01/25/2024 (Approximate), Expires: 01/24/2025 Hepatitis C Antibody with Reflex to HCV, RNA, Quantitative, Real-Time PCR Lab Routine Uncomplicated opioid dependence (CMS/HCC) Expected: 01/25/2024 (Approximate), Expires: 01/24/2025 HIV-1/2 Antigen and Antibodies, Fourth Generation, with Reflexes Lab Routine Uncomplicated opioid dependence (CMS/HCC) Expected: 01/25/2024 (Approximate), Expires: 01/24/2025 Syphilis Screen Lab Routine Uncomplicated opioid dependence (CMS/HCC) Expected: 01/25/2024 (Approximate), Expires: 01/24/2025 T-SPOT??.TB Lab Routine Uncomplicated opioid dependence (CMS/HCC) Expected: 01/25/2024 (Approximate), Expires: 01/24/2025 documented as of this encounter Visit Diagnoses Diagnosis Uncomplicated opioid dependence (CMS/HCC) documented in this encounter Additional Health Concerns Assessment Noted Time PHQ-9 Depression Total Score: 6 03/22/20 23 11:14 AM EDT documented as of this encounter Care Teams Real Estate Appraiser Relationship Specialty Start Date End Date Gayathri Maravilla FNP [address] [place] [address] PCP - General Family Medicine 06/13/22 Lora Yarbrough MD [address] [place] [address] Hematology and Oncology 10/24/24 documented as of this encounter
[2025-02-17 15:22] LABS: Anion Gap 14 (12-20); Blood Urea Nitrogen 13 mg/dL (9-16); Calcium 9.9 mg/dL (8.4-10.2); Carbon Dioxide 23 mmol/L (22-29); Chloride 101 mmol/L (96-108); Estimated Glomerular Filt Rate > 60; Glucose Random 134 mg/dL (60-115); Potassium 4.1 mmol/L (3.3-5.1); Sodium 134 mmol/L (135-145)
== END 2025-02-17 13:32 | disposition home or self-care (01) ==
LOC: HO.CHCLDS 13:31
PROVIDERS: Visit Provider Registered Nurse
DX: K52.9 Noninfective gastroenteritis and colitis, unspecified (principal)
CPT/HCPCS: 36415; 80048

== ENCOUNTER 2025-04-15 08:38 | Day surgery (SDC) | payer MEDICAID, SELFPAY ==
--- OUTSIDE RECORDS SUMMARY | 2025-02-18 09:07 | XMS_ITS | Encounter Summary ---
Author Organization [employer] Address [address] [facility] 7t [place] [address] Care Team Providers Care Tobacco Grader Name Role Phone Gayathri Maravilla ROJELIO Primary Care Provider [phone] Lora Yarbrough MD Unavailable [phone] Encounter Details Date Type Department Care Team (Late Contact Info) Description 06/14/2023 Orders Only [facility] [address] [place] [address] [phone] Sandra Patel RN Uncomplicated opioid dependence (CMS/[facility]) (Primary Dx) Social History Tobacco Use Types [...] Description 02/25/2025 2:45 PM EDT Office Visit [facility] [address] [place] [address] [phone] James Heredia MD 230 [place], [place] [phone] 05/23/2025 1:45 PM EDT Office Visit [facility] & PEDS [address] [place] [address] Gayathri Maravilla FNP [address] [place] [address] Scheduled Orders Name Type Priority Associated Diagnoses [...] documented as of this encounter Care Teams Tobacco Grader Relationship Specialty Start Date End Date Gayathri Maravilla FNP 230 [place] [address] PCP - General Family Medicine 06/13/22 Lora Yarbrough MD [address] [place] [address] Hematology and Oncology 10/24/24 documented as of this encounter
--- OUTSIDE RECORDS SUMMARY | 2025-02-18 09:07 | XMS_ITS | Encounter Summary ---
Author Organization [employer] Address [address] [facility] 7t [place] [address] Care Team Providers Care Dressmaker Or Tailor Name Role Phone Gayathri Maravilla Primary Care Provider [phone] Lora Yarbrough MD Unavailable [phone] Reason for Visit * Reason Onset Date Comments Nurse Triage 06/30/2023 Encounter Details Date Type Department Care Team (Late st Contact Info) Description 06/30/2023 Telephone [facility] [address] [place] [address] Gayathri Maravilla FNP [address] [place] [address] Nurse Triage Social History Tobacco Use Types [...] on site visit. Please contact pt at [phone] documented in this encounter Plan of Treatment Upcoming Encounters Date Type Department Care Team (Late st Contact Info) Description 02/25/2025 2:45 PM EDT Office Visit [facility] 230 [place] [address] James Heredia MD 230 [place] [address] 05/23/2025 1:45 PM EDT Office Visit [facility]EDS [address] [place], [place] [phone] Gayathri Maravilla FNP 505 [place], [place] [phone] documented as of this encounter Visit Diagnoses Not on filedocumented in this encounter Additional Health Concerns Assessment Noted Time PHQ-9 Depression Total Score: 6 03/22/20 23 11:14 AM EDT documented as of this encounter Care Teams Dressmaker Or Tailor Relationship Specialty Start Date End Date Gayathri Maravilla FNP 230 [place] [address] PCP - General Family Medicine 06/13/22 Lora Yarbrough MD [address] [place] [address] Hematology and Oncology 10/24/24 documented as of this encounter
--- OUTSIDE RECORDS SUMMARY | 2025-02-18 09:07 | XMS_ITS | Encounter Summary ---
Author Organization [employer] Address [address] [facility] [address] 7[address] [place] [address] Care Team Providers Care Catering Associate Name Role Phone Gayathri Maravilla SCOW HAND Primary Care Provider [phone] Lora Yarbrough MD Unavailable [phone] Encounter Details Date Type Department Care Team (Latest Contact Info) Description 02/17/2025 1:00 PM EDT Office Visit [facility] & PEDS [address] [place], [place] [phone] Gayathri Maravilla FNP 505 [place] [address] Gastroenteritis (Primary Dx) Social History Tobacco Use [...] Copy provided to patient today. Following with [facility]. 12/18/2024: [facility] [place]. Cruz. Follow-up for carcinoma of cecum. Plan to follow by surveillance scans, blood work, physical exam. Last CT abdomen/pelvis with contrast in June 2024 was negative. Advised to complete upper endoscopy. Return to clinic 6 months. Previously unable to complete endoscopy 2/2 cocaine use. Reports currently not using cocaine and encouraged to call to reschedule. 12/17/2024: Sleep study performed at [facility]. Recommend reassurance given that the study only [...] harm. STEMI 06/02/2021. [place] [facility] 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 Mental health: Denies SI/HI/thoughts of self harm. Established with psych team through [facility]. Previously incarcerated from [id number] No Known Allergies Review of Systems Constitutional: [...] 2:45 PM EDT Office Visit [facility] 230 [place] [address] James Heredia MD [address] [place] [address] 05/23/2025 1:45 PM EDT Office Visit [facility] [address] [place] [address] Gayathri Maravilla, ROJELIO [address] [place] [address] documented as of this encounter Procedures Procedure Name Priority Date/Time Associated Diagnosis Comments BASIC METABOLIC PANEL Routine 02/17/2025 1:33 PM EDT Gastroenteritis documented in this encounter Results * (ABNORMAL) Basic Metabolic Panel (02/17/2025 1:33 PM EDT) Sodium 134(L) 135 - 145 mmol/L [facility] Potassium 4.1 3.3 - 5.1 mmol/L [facility] Chloride 101 96 - 108 mmol/L [facility] Carbon Dioxide 23 22 - 29 mmol/L [facility] Anion Gap 14 12 - 20 [facility] Urea Nitrogen (BUN) 13 9 - 16 mg/dL [facility] Creatinine, Serum 1.24 0.5 - 1.4 mg/dL [facility] Estimated Glomerular Filt Rate >60 [facility] Comment:Chronic Kidney Disea se: Estimated GFR < 60 mL/min/1.47s3Gychql Kidney Disease: Estimated GFR < 15 mL/min/1.73m2 Glucose 134(H) 60 - 115 mg/dL [facility] Calcium 9.9 8.4 - 10.2 mg/dL [facility] Blood Venous blood specimen / Unknown 02/17/2025 1:33 PM EDT 02/17/2025 2:46 PM EDT us Gayathri Maravilla SCOW HAND LAB BLOOD ORDERABLES Final Res ult [facility] [address] [place] [address] [phone] documented in this encounter Visit Diagnoses Diagnosis Gastroenteritis- Primary Other and unspecified noninfectious gastroenteritis and colitis documented in this encounter Additional Health Concerns Assessment Noted Time PHQ-9 Depression Total Score: 9 07/17/20 24 12:18 PM EDT documented as of this encounter Care Teams Catering Associate Relationship Specialty Start Date End Date Gayathri Maravilla FNP 230 [place] [address] PCP - General Family Medicine 06/13/22 Lora Yarbrough MD [address] [place] [address] Hematology and Oncology 10/24/24 documented as of this encounter
--- OUTSIDE RECORDS SUMMARY | 2025-02-18 09:07 | XMS_ITS | Encounter Summary ---
Author Organization [employer] Address [address] [facility] [address] 7t [place] [address] Care Team Providers Care Studio Designer Name Role Phone Gayathri Maravilla ROJELIO Primary Care Provider [phone] Lora Yarbrough MD Unavailable [phone] Reason for Visit * Reason Comments OBAT F/U Encounter Details Date Type Department Care Team (Latest Contact Info) Description 02/17/2025 3:00 PM EDT Office Visit [facility] [address] [place] [address] James Heredia MD [address] [place] [address] Uncomplicated opioid dependence (CMS/HCC) (Primary Dx) Social [...] Behavioral health therapist: Thanh Psychiatrist: Dr. Peraza Sanitor: suhas LFT's: 10/18/24 Hep A status: Immune [...] Narcan. Rebecca saw his PCP today at [facility] for GI symptoms, felt to have gastroenteritis. Hewas prescribed Zofran and labs were ordered. States that he missed appointment with [facility] behavioral health clinician. I spoke with Beatriz and she will call patient to schedule an appointment. Met with wellness health coach Al today. Sees Dr. Yarbrough s/p colectomy/colostomy. Feels well. Last office visit with Dr. Leonard (GI) was 10/17/2023. Smoking 1/2 PPD, is using nicotine patches when he remembers. Declined lozenges and gum. No EtOH. 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 Stent placement 2020 at [facility]. Diagnosed with cardiomyopathy withEF of 25-30%, Echo [...] orders for this visit: Uncomplicated opioid dependence ([facility]) Recovery support, harm reduction (including Narcan) and [...] Description 02/25/2025 2:45 PM EDT Office Visit [facility] [address] [place] [address] James Heredia MD [address] [place] [address] 05/23/2025 1:45 PM EDT Office Visit [facility] MED [facility] PEDS [address] [place] [address] Gayathri Maravilla FNP [address] [place] [address] documented as of this encounter Procedures Procedure [...] documented as of this encounter Care Teams Studio Designer Relationship Specialty Start Date End Date Gayathri Maravilla FNP [address] [place] [address] PCP - General Family Medicine 06/13/22 Lora Yarbrough MD [address] [place] [address] Hematology and Oncology 1/9/25 documented as of this encounter
--- OUTSIDE RECORDS SUMMARY | 2025-02-18 09:07 | XMS_ITS | Encounter Summary ---
Author Organization [employer] Address [address] [facility] [address] 7[address] [place] [address] Care Team Providers Care Enforcement Manager Name Role Phone Gayathri Maravilla ROJELIO Primary Care Provider [phone] Lora Yarbrough MD Unavailable [phone] Reason for Visit * Reason Onset Date Comments Med Refill 02/14/2025 Encounter Details Date Type Department Care Team (Late st Contact Info) Description 02/14/[address] [facility] [address] [place] [address] Sandra Patel RN Uncomplicated opioid dependence (CMS/[facility]) Social History Tobacco Use Types Packs/Day Years [...] Description 02/25/2025 2:45 PM EDT Office Visit [facility] [address] [place] [address] James Heredia MD [address] [place] [address] 05/23/2025 1:45 PM EDT Office Visit [facility] & PEDS [address] [place] [address] Gayathri Maravilla FNP [address] [place] [address] documented as of this encounter Visit Diagnoses Diagnosis Uncomplicated opioid dependence (CMS/HCC) documented in this encounter Additional Health Concerns Assessment Noted Time PHQ-9 Depression Total Score: 9 07/17/20 24 12:18 PM EDT documented as of this encounter Care Teams Enforcement Manager Relationship Specialty Start Date End Date Gayathri Maravilla FNP [address] [place] [address] PCP - General Family Medicine 06/13/22 Lora Yarbrough MD [address] [place] [address] Hematology and Oncology 10/24/24 documented as of this encounter
--- OUTSIDE RECORDS SUMMARY | 2025-02-18 09:07 | XMS_ITS | Encounter Summary ---
Author Organization [employer] Address [address] [facility] 7t [place] [address] Care Team Providers Care Assistant Professor Of Forestry Name Role Phone Gayathri Maravilla ROJELIO Primary Care Provider [phone] Lora Yarbrough MD Unavailable [phone] Reason for Visit * Reason Comments [facility] Recovery Supports Encounter Details Date Type Department Care Team ([facility] Contact Info) Description 02/17/2025 Patient Outreach [facility] [address] [place], [place] [phone] Haroon Restrepo [address] [place] [address] RC Recovery Supports Social History Tobacco Use [...] Visit [facility] [address] [place] [address] James Heredia MD [address] [place] [address] 05/23/2025 1:45 PM EDT Office Visit [facility] [address] [place] [address] Gayathri Maravilla FNP [address] [place] [address] documented as of this encounter Visit Diagnoses Not on filedocumented in this encounter Additional Health Concerns Assessment Noted Time PHQ-9 Depression Total Score: 9 07/17/20 24 12:18 PM EDT documented as of this encounter Care Teams Assistant Professor Of Forestry Relationship Specialty Start Date End Date Gayathri Maravilla FNP [address] [place] [address] PCP - General Family Medicine 06/13/22 Lora Yarbrough MD [address] [place] [address] Hematology and Oncology 10/24/24 documented as of this encounter
--- OUTSIDE RECORDS SUMMARY | 2025-02-18 09:07 | XMS_ITS | Encounter Summary ---
Author Organization [employer] Address [address] [facility] [address] 7t [place] [address] Care Team Providers Care Industrial Refrigeration Mechanic Name Role Phone Gayathri Maravilla ROJELIO Primary Care Provider [phone] Lora Yarbrough MD Unavailable [phone] Encounter Details Date Type Department Care Team (Late st Contact Info) Description 02/14/2025 Telephone [facility] [address] [place] [address] Sandra Patel RN Social History Tobacco Use [...] 2:45 PM EDT Office Visit [facility] [address] [place] [address] James Heredia MD [address] [place] [address] 05/23/2025 1:45 PM EDT Office Visit [facility] MED & PEDS [address] [place] [address] Gayathri Maravilla FNP [address] [place] [address] documented as of this encounter Visit Diagnoses Not on filedocumented in this encounter Additional Health Concerns Assessment Noted Time PHQ-9 Depression Total Score: 9 07/17/20 24 12:18 PM EDT documented as of this encounter Care Teams Industrial Refrigeration Mechanic Relationship Specialty Start Date End Date Gayathri Maravilla FNP [address] [place] [address] PCP - General Family Medicine 06/13/22 Lora Yarbrough MD [address] [place] [address] Hematology and Oncology 10/24/24 documented as of this encounter
--- OUTSIDE RECORDS SUMMARY | 2025-02-18 09:07 | XMS_ITS | Encounter Summary ---
Author Organization [employer] Address [address] [facility] [address] 7t [place] [address] Care Team Providers Care Water Taxi Boat Mate Name Role Phone Gayathri Maravilla ROJELIO Primary Care Provider [phone] Lora Yarbrough MD Unavailable [phone] Encounter Details Date Type Department Care [...] is your housing situation today? I have [employer] peace 08/01/[address] you [...] Description 02/25/2025 2:45 PM EDT Office Visit [facility] [address] [place] [address] James Heredia MD 230 [place] [address] 05/23/2025 1:45 PM EDT Office Visit [facility] MED & PEDS [address] [place] [address] Gayathri Maravilla FNP [address] [place] [address] documented as of this encounter Visit Diagnoses Not on filedocumented in this encounter Additional Health Concerns Assessment Noted Time PHQ-9 Depression Total Score: 9 07/17/20 24 12:18 PM EDT documented as of this encounter Care Teams Water Taxi Boat Mate Relationship Specialty Start Date End Date Gayathri Maravilla FNP [address] [place] [address] PCP - General Family Medicine 06/13/22 Lora Yarbrough MD [address] [place] [address] Hematology and Oncology 10/24/24 documented as of this encounter
--- OUTSIDE RECORDS SUMMARY | 2025-02-18 09:07 | XMS_ITS | Encounter Summary ---
Author Organization [employer] Address [address] [facility] [address] 7t [place] [address] Care Team Providers Care Clinical Geneticist Name Role Phone Gayathri Maravilla ROJELIO Primary Care Provider [phone] Lora Yarbrough MD Unavailable [phone] Encounter Details Date Type Department Care Team (Late st Contact Info) Description 01/25/[address] [facility] [address] [place] [address] Sandra Patel RN Uncomplicated opioid dependence (CMS/[facility]) Social History Tobacco Use Types Packs/Day [...] Description 02/25/2025 2:45 PM EDT Office Visit [facility] [address] [place] [address] James Heredia MD [address] [place] [address] 05/23/2025 1:45 PM EDT Office Visit [facility] MED [facility] PEDS [address] [place], [place] [phone] Gayathri Maravilla FNP [address] [place], [place] [phone] Scheduled Orders Name Type Priority Associated Diagnoses [...] documented as of this encounter Care Teams Clinical Geneticist Relationship Specialty Start Date End Date Gayathri Maravilla FNP [address] [place] [address] PCP - General Family Medicine 06/13/22 Lora Yarbrough MD [address] [place] [address] Hematology and Oncology 10/24/24 documented as of this encounter
--- OUTSIDE RECORDS SUMMARY | 2025-02-18 09:07 | XMS_ITS | Encounter Summary ---
Author Organization [employer] Address [address] [facility] [address] 7t [place] [address] Care Team Providers Care Finish Machine Tender Name Role Phone Gayathri Maravilla SUPERVISOR CHEMICAL Primary Care Provider [phone] Lora Yarbrough MD Unavailable [phone] Reason for Visit * Reason Onset Date Comments Chart Prep 02/17/2025 Encounter Details Date Type Department Care Team ([facility] st Contact Info) Description 02/17/2025 Telephone [facility] PEDS 505 [place], [place] [phone] Gayathri Maravilla FNP 505 [place], [place] [phone] Chart Prep Social History Tobacco Use Types [...] Description 02/25/2025 2:45 PM EDT Office Visit [facility] MEDICINE 230 [place] [address] James Heredia MD 230 [place] [address] 05/23/2025 1:45 PM EDT Office Visit [facility] PEDS [address] [place], [place] [phone] Gayathri Maravilla FNP [address] [place], [place] [phone] documented as of this encounter Visit Diagnoses Not on filedocumented in this encounter Additional Health Concerns Assessment Noted Time PHQ-9 Depression Total Score: 9 07/17/20 24 12:18 PM EDT documented as of this encounter Care Teams Finish Machine Tender Relationship Specialty Start Date End Date Gayathri Maravilla FNP [address] [place] [address] PCP - General Family Medicine 06/13/22 Lora Yarbrough MD [address] [place] [address] Hematology and Oncology 10/24/24 documented as of this encounter
--- OUTSIDE RECORDS SUMMARY | 2025-02-18 09:07 | XMS_ITS | Encounter Summary ---
Author Organization [employer] Address [address] [facility] 7t [place] [address] Care Team Providers Care Spud Grader Name Role Phone Gayathri Maravilla Primary Care Provider [phone] Lora Yarbrough MD Unavailable [phone] Reason for Visit * Reason Onset Date Comments PCP change 07/13/2023 Encounter Details Date Type Department Care Team (Late st Contact Info) Description 07/13/2023 Telephone [facility] [address] [facility] [place] [address] Gayathri Maravilla FNP [address] [place] [address] PCP change Social History Tobacco Use Types [...] PCP due to PCP changing location to [facility] and PCP's availability in [facility]. documented in this encounter Plan of Treatment Upcoming Encounters Date Type Department Care Team (Late st Contact Info) Description 02/25/2025 2:45 PM EDT Office Visit [facility] MEDICINE 230 [place] [address] James Heredia MD 230 [place] [address] 05/23/2025 1:45 PM EDT Office Visit [facility] MED & PEDS 505 [place] [address] Gayathri Maravilla FNP 505 [place] [address] documented as of this encounter Visit Diagnoses Not on filedocumented in this encounter Additional Health Concerns Assessment Noted Time PHQ-9 Depression Total Score: 6 03/22/20 23 11:14 AM EDT documented as of this encounter Care Teams Spud Grader Relationship Specialty Start Date End Date Gayathri Maravilla FNP 230 [place] [address] PCP - General Family Medicine 06/13/22 Lora Yarbrough MD [address] [place] [address] Hematology and Oncology 10/24/24 documented as of this encounter
--- OUTSIDE RECORDS SUMMARY | 2025-02-18 09:07 | XMS_ITS | Encounter Summary ---
Author Organization [employer] Address [address] 7t [place] [address] Care Team Providers Care Middle School Director Name Role Phone Gayathri Maravilla Primary Care Provider [phone] Lora Yarbrough MD Unavailable [phone] Reason for Visit * Reason Onset Date Comments Call Back Request 09/26/2023 Encounter Details Date Type Department Care Team ([facility] st Contact Info) Description 09/26/2023 Telephone [facility] [address] [place] [address] Gayathri Maravilla FNP [address] [place], [place] [phone] Call Back Request Social History Tobacco Use [...] Description 02/25/2025 2:45 PM EDT Office Visit [facility] [address] [place] [address] James Heredia MD [address] [place] [address] 05/23/2025 1:45 PM EDT Office Visit [facility]EDS [address] [place] [address] Gayathri Maravilla FNP 505 [place] [address] documented as of this encounter Visit Diagnoses Not on filedocumented in this encounter Additional Health Concerns Assessment Noted Time PHQ-9 Depression Total Score: 6 03/22/20 23 11:14 AM EDT documented as of this encounter Care Teams Middle School Director Relationship Specialty Start Date End Date Gayathri Maravilla FNP [address] [place] [address] PCP - General Family Medicine 06/13/22 Lora Yarbrough MD [address] [place] [address] Hematology and Oncology 10/24/24 documented as of this encounter
--- OUTSIDE RECORDS SUMMARY | 2025-02-18 09:07 | XMS_ITS | Clinical Summary ---
Author Organization [employer] Address [address] [facility] 7t [place] [address] Care Team Providers Care Specialty Foods Cook Name Role Phone RaymonGayathri espinal ROJELIO Primary Care Provider [phone] Lora Yarbrough MD Unavailable [phone] Allergies No known active allergies Medications [...] Mixed hyperlipidemia 07/17/2024 Overview (07/17/2024): Followed by [facility], checking lipid panels through their office LDL 110 mg/dL on 07/31/23 Med regimen: Rosuvastatin 40mg nightly Zetia 10mg daily Evolocumab (Repatha) every other week Hypertensive retinopathy of both eyes 04/17/2024 Assessment & Plan (04/17/2024 7:21 AM EDT): Followed by Dr. Mojica. CEE on 12/21/23 w/ impression of Hypertensive retinopathy bilateral Healthcare maintenance 01/09/2024 Overview (04/17/2024): OPH: 12/21/23 - SARAH w/ [facility]. Dr. Mojica. Hypertensive retinopathy bilateral. [...] 2021 [place] [facility] [place]Reports adherence to cardiac medications -Denies any current chest pain -Continue following with Lamina Searcher -06/21/23- stress test. Large LAD territory infarction. [...] 2021 -[place] 2020 [place] [facility] [place]Reports adherence to cardiac medications -Denies any current chest pain -Continue following with Lamina Searcher HFrEF (heart failure with reduced ejection fract ion) 10/31/2022 Overview (07/17/2024): Suspect resulted from STEMI Echo Jun 2024 with severely reduced LVEF, LVEED 6.2 cm (LV function worse and LV more dilated) Continue following with [facility] - Dr. 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 [...] in services. PLAN: 1. Follow up with [facility]: Recommended for follow-up: During [facility] appt 2. [...] -Continue following with therapist and psychiatrist through [facility] -Denies SI/HI/thoughts of self harm Encounters Date Type Department Care Team Description 02/17/2025 3:00 PM EDT Office Visit [facility] MED[facility]INE [address] [place] [phone] James Heredia MD Uncomplicated opioid dependence (CMS/HCC) (Primary Dx) 02/17/2025 1:00 PM EDT Office Visit [facility] MED & PEDS [address] [place] [address] Gayathri Maravilla FNP Gastroenteritis (Primary Dx) 02/17/2025 Patient Outreach [facility] [address] [place] [phone] Haroon Restrepo RC Recovery Supports 02/17/2025 Travel 02/17/2025 Telephone [facility] MED & PEDS [address] [place] [address] Gayathri Maravilla FNP Chart Prep 02/14/2025 Telephone [facility]INE [address] [place] [address] Sandra Patel, CELI 02/14/2025 Telephone [facility] [address] [place] [address] Sandra Patel, CELI 02/14/2025 Refill [facility] [address] [place] [address] Sandra Patel, RN Uncomplicated opioid dependence (CMS/HCC) 02/04/2025 Refill [facility] [address] [place] [address] Sandra Patel RN Uncomplicated opioid dependence ([facility]/HCC) 01/28/2025 1:30 PM EDT Office Visit [facility] MEDICINE [address] [place] [address] James Heredia MD Opioid dependence, uncomplicated (CMS/HCC) (Primary Dx) 01/28/2025 Travel 01/22/2025 Refill [facility] [address] [place] [address] Sandra Patel RN Uncomplicated opioid dependence ([facility]/HCC) 01/20/2025 Telephone [facility] [address] [place] [address] Sandra Patel RN 01/20/2025 Telephone [facility] [address] [place] [address] Sandra Patel RN 01/09/2025 Refill [facility] [address] [place] [address] Sandra Patel RN Uncomplicated opioid dependence (CMS/HCC) 12/31/2024 1:45 PM EDT Clinical Support [facility] [address] [place] [address] Sandra Patel RN Uncomplicated opioid dependence ([facility]/HCC) (Primary Dx) 12/31/2024 Refill [facility] [address] [place] [address] Sandra Patel RN Uncomplicated opioid dependence ([facility]/HCC) 12/31/2024 Travel 12/27/2024 Population Health Risk Score [facility] () Department [address] [place] [phone] Provider, Population Health Generic 12/20/2024 Telephone [facility] [address] [place] [address] Sandra Patel RN 12/19/2024 Telephone [facility]S [address] [place], [place] [phone] Gayathri Maravilla FNP December12/05/2024 Refill [facility] [address] [place] [address] Sandra Patel RN Uncomplicated opioid dependence ([facility]/HCC) 12/03/2024 9:00 AM EST Clinical Support [facility] [address] [facility] [place] [address] Sandra Patel RN Opioid type dependence, continuous ([facility]) (Primary Dx) 12/03/2024 Travel 11/27/2024 Refill [facility] [address] [facility] [place] [address] Sandra Patel RN Uncomplicated opioid dependence ([facility]) 11/27/2024 Refill [facility] [address] [facility] [place] [address] Sandra Patel RN from Last 3 Months [...] Description 02/25/2025 2:45 PM EDT Office Visit [facility] [address] [place] [address] James Heredia MD [address] [place] [address] 05/23/2025 1:45 PM EDT Office Visit [facility] PEDS [address] [place] [address] Renita Gayathri, SITE PHYSICIAN [address] [place] [address] Health Maintenance Due Date Last Done Comments [...] 2:27 PM EDT Uncomplicated opioid dependence (CMS/HCC) BASIC METABOLIC PANEL Routine 02/17/2025 1:33 PM EDT Gastroenteritis POCT ANDRE-14 URINE DRUG SCREEN Routine 01/28/2025 [...] TEST ENTER/EDIT OR DERABLES Final Result * (ABNORMAL) Basic Metabolic Panel (02/17/2025 1:33 PM EDT) Sodium 134(L) 135 - 145 mmol/L [facility] Potassium 4.1 3.3 - 5.1 mmol/L [facility] Chloride 101 96 - 108 mmol/L [facility] Carbon Dioxide 23 22 - 29 mmol/L [facility] Anion Gap 14 12 - 20 [facility] Urea Nitrogen (BUN) 13 9 - 16 mg/dL [facility] Creatinine, Serum 1.24 0.5 - 1.4 mg/dL [facility] Estimated Glomerular Filt Rate >60 [facility] Comment:Chronic Kidney Disea se: Estimated GFR < 60 mL/min/1.24f5Igncjv Kidney Disease: Estimated GFR < 15 mL/min/1.73m2 Glucose 134(H) 60 - 115 mg/dL [facility] Calcium 9.9 8.4 - 10.2 mg/dL [facility] Blood Venous blood specimen / Unknown 02/17/2025 1:33 PM EDT 02/17/2025 2:46 PM EDT Gayathri Maravilla SITE PHYSICIAN LAB BLOOD ORDERABLES Final Res ult [facility] [address] [place], [place] [phone] * Hepatitis C Antibody with Reflex to HCV, RNA, Quantitative, Real-Time PCR (10/18/2024 3:22 PM EST) Hepatitis C Antibody Nonreactive Nonreactive [facility] Comment:Antibodies to HCV no t detected; does not exclude early acuteHCV infection. 10/18/2024 3:22 PM EST 10/18/2024 4:08 PM EST James Heredia MD LAB BLOOD ORDERABLES Final Resul t Performing Organization Address [facility]/ZIP Co de Phone Number [facility] [address] [place] [address] [phone] * HIV-1/2 Antigen and Antibodies, Fourth Generation, with Reflexes (10/18/2024 3:22 PM EST) HIV AB/AG Nonreactive Nonreactive [facility] Comment:HIV-1 p24 Ag and/or HIV-1/HIV-2 Ab not detected.A test result that is nonreactive does not exclude thepossibility of exposure to or infection with HIV-1 and/orHIV-2. Nonreactive results in this assay for individualswith prior exposure to HIV-1 and/or HIV-2 may be due toantigen and antibody levels that are below the limit ofdetection of this assay.The [employer] HIV Ag/Ab Combo assay result andsupplemental assay results should be interpreted inconjunction with the patient's clinical presentation,history and other laboratory results. If the results areinconsistent with clinical evidence, additional testing issuggested to confirm the result. 10/18/2024 3:22 PM EST 10/18/2024 4:08 PM EST James Heredia MD LAB BLOOD ORDERABLES Final Resul t Performing Organization Address [facility]/ZIP Co de Phone Number [facility] [address] [place] [phone] from Last 3 Months or Most Recently Relevant to Health Maintenance [facility] Care Teams Specialty Foods Cook Relationship Specialty Start Date End Date Gayathri Maravilla FNP [address] [place] [address] PCP - General Family Medicine 06/13/22 Lora Yarbrough MD [address] [place] [phone] Hematology and Oncology 10/24/24
--- OUTSIDE RECORDS SUMMARY | 2025-02-18 09:08 | XMS_ITS | Encounter Summary ---
Author Organization [employer] Address [address] [facility] 7t [place] [address] Care Team Providers Care Stem Cleaning Machine Feeder Name Role Phone Gayathri Maravilla ROJELIO Primary Care Provider Lora Yarbrough MD Unavailable [phone] Encounter Details Date Type Department Care Team (Late Contact Info) Description 03/03/[address] [facility] MEDICINE [address] [place] [address] [phone] Cindy Bowman RN Social History Tobacco Use [...] 2:45 PM EDT Office Visit [facility] MEDICINE [address] [place] [address] [phone] James Heredia MD [address] [place] [address] [phone] 05/23/2025 1:45 PM EDT Office Visit [facility] MED & PEDS [address] [place] [address] Gayathri Maravilla FNP [address] [place] [address] documented as of this encounter Visit Diagnoses Not on filedocumented in this encounter Additional Health Concerns Assessment Noted Time PHQ-9 Depression Total Score: 0 02/21/20 23 4:02 PM EDT documented as of this encounter Care Teams Stem Cleaning Machine Feeder Relationship Specialty Start Date End Date Gayathri Maravilla FNP [address] [place] [address] PCP - General Family Medicine 06/13/22 Lora Yarbrough MD [address] [place] [phone] Hematology and Oncology 10/24/24 documented as of this encounter
--- OUTSIDE RECORDS SUMMARY | 2025-02-18 09:08 | XMS_ITS | Encounter Summary ---
Author Organization [employer] Address [address] [facility] [address] [facility] [address] [place] [address] Care Team Providers Care Dean Of Education Name Role Phone Gayathri Maravilla ROJELIO Primary Care Provider [phone] Lora Yarbrough MD Unavailable [phone] Encounter Details Date Type Department Care Team (Late st Contact Info) Description 02/14/2025 Telephone [facility] MEDICINE [address] [place] [address] Sandra Patel RN Social History Tobacco Use [...] Description 02/25/2025 2:45 PM EDT Office Visit [facility] MEDICINE [address] [place] [address] James Heredia MD [address] [place] [address] 05/23/2025 1:45 PM EDT Office Visit [facility] MED [facility] PEDS [address] [place] [address] Gayathri Maravilla FNP [address] [place] [address] documented as of this encounter Visit Diagnoses Not on filedocumented in this encounter Additional Health Concerns Assessment Noted Time PHQ-9 Depression Total Score: 9 07/17/20 24 12:18 PM EDT documented as of this encounter Care Teams Dean Of Education Relationship Specialty Start Date End Date Gayathri Maravilla FNP [address] [place] [address] PCP - General Family Medicine 06/13/22 Lora Yarbrough MD [address] [place] [phone] Hematology and Oncology 10/24/24 documented as of this encounter
--- OUTSIDE RECORDS SUMMARY | 2025-02-18 09:08 | XMS_ITS | Encounter Summary ---
Author Organization [employer] Address [address] [facility] [address] [place] [address] Care Team Providers Care Foil Wrapper Name Role Phone Gayathri Maravilla ROJELIO Primary Care Provider [phone] Lora Yarbrough MD Unavailable [phone] Reason for Visit * Reason Comments Med Refill Encounter Details Date Type Department Care Team ([facility] st Contact Info) Description 05/21/2024 Refill [facility] MEDICINE [address] [place], [place] [phone] James Heredia MD [address] [place], [place] [phone] Uncomplicated opioid dependence (CMS/HCC) Social History Tobacco [...] PM EDT Office Visit [facility] MEDICINE [address] [place] [address] James Heredia MD [address] [place] [address] 05/23/2025 1:45 PM EDT Office Visit [facility] MED [facility] PEDS [address] [place] [address] Gayathri Maravilla FNP [address] [place] [address] documented as of this encounter Visit Diagnoses Diagnosis Uncomplicated opioid dependence (CMS/HCC) documented in this encounter Additional Health Concerns Assessment Noted Time PHQ-9 Depression Total Score: 6 03/22/20 23 11:14 AM EDT documented as of this encounter Care Teams Foil Wrapper Relationship Specialty Start Date End Date Gayathri Maravilla FNP [address] [place] [address] PCP - General Family Medicine 06/13/22 Lora Yarbrough MD [address] [place] [address] Hematology and Oncology 10/24/24 documented as of this encounter
--- NOTE | 2025-04-14 12:12 | HO.ANESPROP2 ---
Documented by User: Malena Luis NP 04/14/25 12:23 HPI - Anesthesia Eval Consult details Narrative: 39yo M for Upper Endoscopy Previous multiple cancels d/t +Utox - last cancel 09/2024 for +Utox Suboxone daily LAD STEMI 05/2021 in setting of cocaine use. s/p BK. Brillinta and ASA. OK to hold Brillinta per cardiac clearance note Follows [facility] cardiology. Stable at 03/2025 office visit and abstaining from cocaine. Previously deemed optimized for EGD: Addendum by Casey Prakash NP on March 14, 2025 16:22:30 EDT Patient would be considered low to moderate risk for low to moderate risk?procedure under anesthesia. He is currently well compensated and euvolemic from a heart failure standpoint.?No additional?testing or intervention warranted from a cardiovascular perspective prior to planned surgery. Addendum by Casey Prakash NP on March 03, 2025 15:12:[address] Torres's read of the Outside Echo images, EF is borderline at 30-35%, however we have requested the report. In short, pt likely still qualifies for ICD due to severe reduction of ejection fraction. 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 Ischemic cardiomyopathy Polysubstance dependence STEMI (ST elevation myocardial infarction) CAD (coronary artery disease) HTN (hypertension) Family History Family History Family/Other CAD (coronary artery disease) Colon cancer, Onset Age: 30 Mother Stomach cancer Brother Colon cancer Family history of problems with anesthesia: No Surgical History Surgical History Hx of heart artery stent History of esophagogastroduodenoscopy (EGD) Status post proctocolectomy (08/15/22) History of colonoscopy (07/15/22) History of Problems with Anesthesia: No Social History Social History Household Members: Family Housing: Apartment Do you presently have visiting nurse or other home services: No Alcohol intake: never Comment: Xray ordered for incorrect count. Xray clear. Patient Tobacco Use Status: Current everyday Tobacco user Tobacco use type: Cigarette Cigarettes Per Day: 6 Years Smoked: 15 Second Hand Smoke Exposure: Yes Use of substances other than those prescribed or required for medical reasons: Yes Substance Use Type: Crack/Cocaine and Marijuana Advance Directives: No Advance Directives Information Provided: Yes Poor oral hygiene: No service: No Current occupational status: unemployed Meds Allergies Allergy/AdvReac Type Severity Reaction Status Date / Time No Known Allergies Allergy Verified 09/26/24 10:46 Home Medications ?Medication ?Instructions ?Recorded ?Confirmed ?Last Taken ?Type aspirin 81 mg tablet,delayed 1 tab PO DAILY 07/14/22 09/26/24 05/29/24 History release buprenorphine 8 mg-naloxone 2 mg 1 strip sublingual DAILY 07/14/22 09/26/24 09/26/24 History sublingual film (Suboxone) benzoyl peroxide 5 % topical 1 appl topical BEDTIME 06/21/23 05/15/24 Unknown History cleanser (BP Wash) bupropion HCl 300 mg 24 hr tablet, 300 mg PO DAILY 06/21/23 09/26/24 05/29/24 History extended release ezetimibe 10 mg tablet 10 mg PO DAILY 06/21/23 09/26/24 05/29/24 History furosemide 20 mg tablet 20 mg PO DAILY PRN swelling 08/25/23 09/26/24 05/29/24 History pantoprazole 40 mg tablet,delayed 40 mg PO DAILY 08/25/23 09/26/24 09/26/24 History release rosuvastatin 40 mg tablet 40 mg PO DAILY 08/25/23 09/26/24 05/29/24 History evolocumab 140 mg/mL subcutaneous 140 mg subcut Q2W 01/10/24 09/26/24 Unknown History pen injector (Lizzy Naqvi) ipratropium bromide 21 mcg (0.03 1 spray intranasal BID PRN 01/10/24 09/26/24 Unknown History %) nasal spray congestion mirtazapine 15 mg tablet 15 mg PO BEDTIME 01/10/24 09/26/24 05/29/24 History nicotine 14 mg/24 hr daily 1 patch topical QAM 01/10/24 09/26/24 Unknown History transdermal patch carvedilol 3.125 mg tablet 3.125 mg PO BID 05/30/24 09/26/24 09/26/24 History Exam Pertinent Lab Results Pertinent Lab Results: Laboratory Tests 12/18/24 02/17/25 15:23 13:33 WBC 7.8 Hgb 12.8 L Hct 39.2 L Plt Count 205 D Sodium 134 L Potassium 4.1 Chloride 101 Carbon Dioxide 23 BUN 13 Creatinine 1.24 Narrative Narrative: ECHO 10/2024 Conclusions: - 1. Technically limited study despite use of contrast agent 2. Moderate to severe LV systolic dysfunction with LVEF of 30-35% with mild LVH with regional wall motion abnormality consistent with ischemic cardiomyopathy 3. Cardiac valvular Dopplers within normal limits EKG 10/2024 Ventricular Rate: 76 BPM Atrial Rate: 76 BPM P-R Interval: 144 ms QRS Duration: 80 ms Q-T Interval: 364 ms QTC Calculation(Bazett): 409 ms P [place]: 41 degrees R [place]: 13 degrees T [place]: 92 degrees Normal sinus rhythm Anteroseptal infarct (cited on or before 02-Jun-2021) T wave abnormality, consider lateral ischemia Abnormal ECG When compared with ECG of 11-Apr-2023 15:40, No significant change was found Confirmed by Lalit Patel ([id number]) on 11/01/2024 7:27:24 AM Assessment and Plan Assessment Anesthesia Assessment: Chart Reviewed Final Anesthetic Review Family History of Problems with Anesthesia: No History of Problems with Anesthesia: No Documented by User: Lorraine Ogden MD 04/15/25 09:24 [facility] Past Medical History 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 Ischemic cardiomyopathy Polysubstance dependence STEMI (ST elevation myocardial infarction) CAD (coronary artery disease) HTN (hypertension) Family History Family History Family/Other CAD (coronary artery disease) Colon cancer, Onset Age: 30 Mother Stomach cancer Brother Colon cancer Surgical History Surgical History Hx of heart artery stent History of esophagogastroduodenoscopy (EGD) Status post proctocolectomy (08/15/22) History of colonoscopy (07/15/22) History of Problems with Anesthesia: No Social History Social History Household Members: Family Housing: Apartment Do you presently have visiting nurse or other home services: No Alcohol intake: never Comment: Xray ordered for incorrect count. Xray clear. Patient Tobacco Use Status: Current everyday Tobacco user Tobacco use type: Cigarette Cigarettes Per Day: 6 Years Smoked: 15 Second Hand Smoke Exposure: Yes Use of substances other than those prescribed or required for medical reasons: Yes Substance Use Type: Crack/Cocaine and Marijuana Advance Directives: No Advance Directives Information Provided: Yes Poor oral hygiene: No service: No Current occupational status: unemployed Meds Allergies Allergy/AdvReac Type Severity Reaction Status Date / Time No Known Allergies Allergy Verified 09/26/24 10:46 Home Medications ?Medication ?Instructions ?Recorded ?Confirmed ?Last Taken ?Type aspirin 81 mg tablet,delayed 1 tab PO DAILY 07/14/22 09/26/24 05/29/24 History release buprenorphine 8 mg-naloxone 2 mg 1 strip sublingual DAILY 07/14/22 09/26/24 09/26/24 History sublingual film (Suboxone) benzoyl peroxide 5 % topical 1 appl topical BEDTIME 06/21/23 05/15/24 Unknown History cleanser (BP Wash) bupropion HCl 300 mg 24 hr tablet, 300 mg PO DAILY 06/21/23 09/26/24 05/29/24 History extended release ezetimibe 10 mg tablet 10 mg PO DAILY 06/21/23 09/26/24 05/29/24 History furosemide 20 mg tablet 20 mg PO DAILY PRN swelling 08/25/23 09/26/24 05/29/24 History pantoprazole 40 mg tablet,delayed 40 mg PO DAILY 08/25/23 09/26/24 09/26/24 History release rosuvastatin 40 mg tablet 40 mg PO DAILY 08/25/23 09/26/24 05/29/24 History evolocumab 140 mg/mL subcutaneous 140 mg subcut Q2W 01/10/24 09/26/24 Unknown History pen injector (Lizzy Naqvi) ipratropium bromide 21 mcg (0.03 1 spray intranasal BID PRN 01/10/24 09/26/24 Unknown History %) nasal spray congestion mirtazapine 15 mg tablet 15 mg PO BEDTIME 01/10/24 09/26/24 05/29/24 History nicotine 14 mg/24 hr daily 1 patch topical QAM 01/10/24 09/26/24 Unknown History transdermal patch carvedilol 3.125 mg tablet 3.125 mg PO BID 05/30/24 09/26/24 09/26/24 History Exam Airway Mallampati Class: III TM Dist: >3cm Neck ROM: Full Denture: Upper Loose/Missing/Broken Teeth: Yes and Upper Heart: RRR Lungs: CTA Assessment and Plan Assessment Anesthesia Assessment: Anesthesia Plan Discussed Final Anesthetic Review History of Problems with Anesthesia: No NPO: Yes ASA Class: IV Final Preanesthetic Review: Meds/Allgs Chart Reviewed, Consent Obtained/Reviewed and Anes Risks/Benef Reviewed Patient Risk: High Procedure Risk: Intermediate Anesthetic Plan Anesthetic Plan: MAC: Disposition: Standard PACU
--- NOTE | 2025-04-15 09:00 | MHC.SHP ---
Pre-Procedural Eval Section A - 24 Hr Update-Section A only Date of Service: 04/15/25 Section B - Complete if H&P > 30 days Chief Complaint: Jose syndrome - screen for gastric ca Details of Present Illness: PMH Ischemic cardiomyopathy Polysubstance dependence STEMI (ST elevation myocardial infarction) CAD (coronary artery disease) HTN (hypertension) Surgical History History of esophagogastroduodenoscopy (EGD) Status post proctocolectomy (08/15/22) History of colonoscopy (07/15/22) Present Medications: see Short Stay Collaborative assessment Allergies: Allergies Allergy/AdvReac Type Severity Reaction Status Date / Time No Known Allergies Allergy Verified 09/26/24 10:46 Review of Systems Review of Systems Comment: Ten point ROS negative Exam Exam Comment: Gen appear: No acute distress HEENT: no icterus Chest: No overt resp distress Abd: soft, nontender, nondistended Psych: Stable affect, answering questions appropriately Neuro: A/Ox3 noted to move all extremities spontaneously Ext: no peripheral edema Plan Diagnosis/Plan: Unchanged I have reviewed the history and physical and performed a pertinent physical examination on my patient. No changes have occurred unless specified. Time Spent With Patient Time: Total time managing care of this patient today ____ minutes.
[2025-04-15 09:15] VITALS: BP 124/86; PULSE 82; RESP 16; TEMP 36.8; O2SAT 97; BMI 28.2
[2025-04-15] MEDS: Lactated Ringers 1,000 ML 50 ML IVCONT (09:20)
[2025-04-15 09:28] LABS: Cannabinoid Screen Urine POSITIVE (Not Detect)
[2025-04-15 09:55] VITALS: BP 85/50; PULSE 73; RESP 12; TEMP 36.6; O2SAT 100
--- NOTE | 2025-04-15 09:58 | P.OP_ITS ---
Operative Note Operative Note Date of Service: 04/15/25 Narrative: Procedure: Esophagogastroduodenoscopy Endoscopist: Shila Keane MD Indication: Jose syndrome, screen for gastric ca Anesthesia Provider: Dr Lorraine Ogden Anesthesia Type: MAC ?? EGD Procedure:?? The procedure, indications, preparation and potential complications were reviewed with the patient, who indicated understanding and gave written informed consent to proceed. A physical exam was performed. The endoscope was introduced through the mouth, and advanced to the second part of duodenum. The mucosa was carefully examined on slow withdrawal of the endoscope. The patient tolerated the procedure well. There were no immediate complications.? ? EGD Findings:? * Esophagus:? Normal mucosa noted in the entire esophagus. The Z line was at 40 cm. M * Stomach:? Normal mucosa was noted in the stomach. Retroflexion was performed in the cardia. Cold forceps biopsies were taken as per Savita protocol for gastric mapping. * Duodenum:? Mild erythema and edema noted in the duodenal bulb, remaining mucosa normal in the whole of the examined duodenum. ? EGD Impressions:? * Normal esophagus * Normal stomach (biopsy) * Duodenitis (biopsy) ?? Recommendations:?? * Follow biopsy results. Our office will call or send a letter with results within 7-10 days. * Continue PPI therapy. * If H pylori +, patient will be prescribed eradication therapy followed by test of cure. * If no GIM noted on biopsies, can review indication for future egd for screening with patient * Avoid NSAIDs. Above has been reviewed with the patient.
[2025-04-15 10:10] VITALS: BP 88/65; PULSE 86; RESP 14; O2SAT 100
[2025-04-15 10:25] VITALS: BP 107/46; PULSE 86; RESP 14; TEMP 36.9; O2SAT 100
== END 2025-04-15 11:26 | disposition home or self-care (01) ==
PROVIDERS: Nurse Practitioner; PCP Registered Nurse; Visit Provider Internal Medicine
PROC: 0DJ08ZZ Inspection of Upper Intestinal Tract, Via Natural or Artificial Opening Endoscopic (ICD-10-PCS; CPT 43235; principal; 2025-04-15 09:50)
DX: Z15.09 Genetic susceptibility to other malignant neoplasm (principal); Z80.0 Family history of malignant neoplasm of digestive organs; Z85.038 Personal history of other malignant neoplasm of large intestine; Z90.49 Acquired absence of other specified parts of digestive tract; K29.50 Unspecified chronic gastritis without bleeding; B96.81 Helicobacter pylori [H. pylori] as the cause of diseases classified elsewhere; K29.80 Duodenitis without bleeding; I10 Essential (primary) hypertension; I25.10 Atherosclerotic heart disease of native coronary artery without angina pectoris; I25.2 Old myocardial infarction; Z95.5 Presence of coronary angioplasty implant and graft; I25.5 Ischemic cardiomyopathy; F17.210 Nicotine dependence, cigarettes, uncomplicated; F19.20 Other psychoactive substance dependence, uncomplicated; Z56.0 Unemployment, unspecified; Z79.82 Long term (current) use of aspirin; Z79.01 Long term (current) use of anticoagulants; Z79.899 Other long term (current) drug therapy
CPT/HCPCS: 43239; 80307; 88305; 88313; 88342; J2003; J2250; J2704

== ENCOUNTER → 2025-04-15 08:38 | Outpatient (BNV) | payer MEDICAID, SELFPAY | PROVIDERS: PCP Registered Nurse; Visit Provider Internal Medicine | DX: K29.80 Duodenitis without bleeding (principal) | CPT/HCPCS: 43239 ==

== ENCOUNTER 2025-07-02 11:01 | Outpatient (AMB) | payer MEDICAID, SELFPAY ==
--- OUTSIDE RECORDS SUMMARY | 2025-07-01 14:45 | XMS_ITS | Encounter Summary ---
Author Organization [employer] Address [address] [place] [address] Care Team Providers Care Real Estate Rep Name Role Phone Gayathri Maravilla ROJELIO Primary Care Provider Lora Yarbrough MD Unavailable [phone] Reason for Visit * Reason Comments OBAT Encounter Details Date Type Department Care Team (Latest Contact Info) Description 07/01/2025 2:45 PM EDT Office Visit [facility] [address], [place] [id number] James Heredia MD [address], [place] [phone] Uncomplicated opioid dependence (CMS/HCC) (Primary Dx) Social History Tobacco Use Types Packs/Day Years Used Date Smoking Tobacco: Every Day Cigarettes Passive Smoke Exposure: Current Smokeless Tobacco: Never Alcohol Use Standard Drinks/Week Comments Never 0 (1 standard drink = 0.6 oz pur e alcohol) Depression Answer Date Recorded Patient Health Questionnaire-9 Score 8 03/17/2025 Patient Health Questionnaire-9 Score 8 03/17/2025 Last PHQ-9: Questionnaire Data Not on file 0 03/17/2025 Housing Stability Answer Date Recorded What is [...] enough money to get more: Never True 10/ Transportation Answer Date Recorded In the past [...] Date Recorded Patient Health Questionnaire-2 Score 2 03/17/2025 Sex and Gender Information Value Date Recorded Sex Assigned at Male 08/15/2022 10:19 AM EDT Legal Sex Male 10:19 AM EDT Gender Identity Male 08/15/2022 10:19 AM EDT Sexual Orientation Straight 08/15/2022 10 :19 AM EDT documented as of this encounter Progress Notes * James Heredia MD - 07/01/2025 2:45 PM EDT Subjective Patient ID: Lyndon Resendez is a 39 y.o. male. HPI Lyndon Resendez presents for OBAT F/U. Patient has been in the OBAT program for 4 years. Intake date: 06/08/21. Current Suboxone dose of 16/4 mg daily. Schedule: 2 weeks Behavioral health therapist: Psychiatrist: Dr. Peraza Tape Folding Machine Operator: suhas LFT's: 10/18/24 Hep A status: Immune Hep B status: Immune Hep C status: 10/18/24: non-reactive HIV status: 10/18/24: non-reactive Covid Vaccine status: Vaccinated 03/21/21 and 07/13/21: Pfizer PCP: 02/17/25 [place] PAT reviewed by provider UTOX: +bup, farideh Taking Suboxone as prescribed. Lives at sister's place, and she also uses cocaine. Has fentanyl test strips. States uses cocaine with someone present with Narcan. Has Narcan. [facility] psychiatrist prescribed Topamax for anxiety which she states may also help him stop using cocaine. States he is using less now since starting Topamax 6 months ago. Meet with therapist Beat[facility]. Declines speaking with recovery collector today. Sees Dr. Yarbrough s/p colectomy/colostomy. Feels well. [place] (04/15/2025) [place] [facility], states was told that there were no cancerous cells on biopsy. Also states that he had a bacteria in his stomach, (presumptively H. Pylori), and has appointment with GI to be prescribed treatment. There are no biopsy or H. [facility] at this [facility]. Smoking 1/2 PPD, is using nicotine patches when he remembers. Declined lozenges and gum. No EtOH. 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 [place] [facility] Diagnosed with cardiomyopathy withEF of 25-30%, Echo 11/04/2024 Read as Moderate to severe LV systolic dysfunction with LVEF of 30-35% with mild LVH with regional wall motion abnormality consistent with ischemic cardiomyopathy. States was told that ICD insertion is planned if recent Entresto dose increase does not improve LVEF. The following portions of the chart were reviewed this encounter and updated as appropriate: Tobacco Allergies Meds Problems Med Hx Surg Hx Fam Hx Review of Systems Constitutional: Negative for fever. Respiratory: Negative for shortness of breath. Cardiovascular: Negative for chest pain. Gastrointestinal: Negative for abdominal pain. Skin: Negative for rash. Neurological: Negative for headaches. Objective Physical Exam Vitals [...] orders for this visit: Uncomplicated opioid dependence ([facility]) Recovery support, harm reduction (including Narcan) and behavioral health attendance reviewed. Continue Suboxone 16/4 mg on 2 week schedule. Has Narcan. - POCT ANDRE-14 Urine Drug Screen documented in this encounter Plan of Treatment Upcoming Encounters Date Type Department Care Team (Late st Contact Info) Description 07/15/2025 2:00 PM EDT Office Visit [facility] [address] [place] [address] James Heredia MD [address] [place] [address] documented as of this encounter Goals Goal Patient Goal Type Associated Problems Recent Progress Patient-Stated? Author Increase coping skills to promote long-term recovery and improve ability to perform daily activities General No Cassius Contreras, RN documented as of this encounter Procedures Procedure Name Priority Date/Time Associated Diagnosis Comments POCT ANDRE-14 URINE DRUG SCREEN Routine 07/01/2025 3:08 PM EDT Uncomplicated opioid dependence (CMS/HCC) documented in this encounter Results * (ABNORMAL) POCT ANDRE-14 Urine Drug Screen (07/01/2025 3:08 PM EDT) THC Negative Negative Cocaine Screen, Urine Positive(A) Negative Opiate Screen, Urine Negative Negative Methamphetamine Screen Urine Negative Negative Amphetamine Screen, Urine Negative Negative Benzodiazepines Screen, Urine Negative Negative Barbiturate Screen, Urine Negative Negative Methadone Screen, Urine Negative Negative Buprenophine Screen, Urine Positive(A) Negative TCA, Urine Negative Negative MDMA Urine Negative Negative ng/mL Oxycodone Screen, Urine Negative Negative Phencyclidine (PCP), Urine Negative Negative Fentanyl, Urine Negative Negative Urine Urine specimen obtained by clean catch procedure / Unknown 07/01/2025 3:08 PM EDT James Heredia MD POINT OF CARE TEST ENTER/EDIT OR DERABLES Final Result documented in this encounter Visit Diagnoses Diagnosis Uncomplicated opioid dependence (CMS/HCC)- Primary documented in this encounter Additional Health Concerns Assessment Noted Time PHQ-9 Depression Total Score: 8 03/17/20 25 1:43 PM EDT documented as of this encounter Care Teams Real Estate Rep Relationship Specialty Start Date End Date Gayathri Maravilla FNP [address] [place] [address] PCP - General Family Medicine 06/13/22 Lora Yarbrough MD [address] [place] [address] Hematology and Oncology 10/24/24 documented as of this encounter
--- NOTE | 2025-07-02 11:01 | A.OFFVIS_ITS ---
Intake Visit Reasons: H PYLORI TX Intake Note: Lyndon presents as a telehealth today to discuss treatment for the H Pylori. CC: States that he is not having any concerns at this time. 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 Currently no GI complaints including abd pain, N,V, blood in ostomy. Empties it around 5-8 times per day. Mostly liquid to semi solid. No unintentional weight loss. Fam hx: Father: no crc or gastric ca Mother: possibly gastric ca Brother: colon ca at 33 y.o 04/15/25: * Normal esophagus * Normal stomach (biopsy) * Duodenitis (biopsy) Path: A. Duodenum, biopsy: Duodenal mucosa within normal limits; preserved villous architecture and no increased intraepithelial lymphocytes seen. B. Stomach, antrum, greater curvature, biopsy: Gastric antral mucosa with modera te chronic active gastritis and few Helicobacter pylori organisms; negative for intestinal metaplasia and dysplasia. C. Stomach, antrum, lesser curvature, biopsy: Gastric antral mucosa with moderate chronic active gastritis and few Helicobacter pylori organisms; negative for intestinal metaplasia and dysplasia. D. Stomach, incisura, biopsy: Gastric antral mucosa with moderate chronic active gastritis and numerous Helicobacter pylori organisms; negative for intestinal metaplasia and dysplasia. E. Stomach, body, greater curvature, biopsy: Gastric body mucosa with moderate chronic active gastritis and numerous Helicobacter pylori organisms; negative for intestinal metaplasia and dysplasia. F. Stomach, body, lesser curvature, biopsy: Gastric body mucosa with moderate chronic active gastritis and numerous Helicobacter pylori organisms; negative for intestinal metaplasia and dysplasia. 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 Ischemic cardiomyopathy Polysubstance dependence STEMI (ST elevation myocardial infarction) CAD (coronary artery disease) HTN (hypertension) Surgical History Hx of heart artery stent History of esophagogastroduodenoscopy (EGD) Status post proctocolectomy (08/15/22) History of colonoscopy (07/15/22) Family History Family/Other CAD (coronary artery disease) Colon cancer, Onset Age: 30 Mother Stomach cancer Brother Colon cancer Social History Household Members: Family Housing: Apartment Do you presently have visiting nurse or other home services: No Alcohol intake: never Comment: Xray ordered for incorrect count. Xray clear. Patient Tobacco Use Status: Current everyday Tobacco user Tobacco use type: Cigarette Cigarettes Per Day: 6 Years Smoked: 15 Second Hand Smoke Exposure: Yes Substance Use Type: Crack/Cocaine and Marijuana service: No Current occupational status: unemployed Telehealth Telehealth Telehealth Platform: [employer] Location of provider rendering services: practice address Location of patient: address on file Patient Identification confirmed using: Name, : Yes Telehealth method: video Patient verbally consented to treatment: Yes Patient verbally consented to billing insurance company: Yes Patient informed of any privacy concerns related to visit: Yes Minutes spent on Phone/Video with Pt.: 7 Assessment & Plan Assessment & Plan (1) H. pylori infection: Code(s): A04.8 - Other specified bacterial intestinal infections Category: Medical (2) S/P total colectomy: Comment: total proctocolectomy with end ileostomy 08/15/22 Code(s): Z90.49 - Acquired absence of other specified parts of digestive tract Category: Surgical (3) Jose syndrome: Code(s): Z15.09 - Genetic susceptibility to other malignant neoplasm Category: Medical (4) Family history of colon cancer: Code(s): Z80.0 - Family history of malignant neoplasm of digestive organs Category: Medical Plan Jose syndrome iwth personal and fam hx of CRC possible fam hx of gastric ca No fam hx of panc ca Had recent endoscopy which was positive for H pylori gastritis. Given family history of gastric cancer, and underlying Jose syndrome, strongly recommend treatment and eradication. Plan: -quad therapy prescribed as below -instructions reviewed during the visit and letter will be sent as well -patient aware to take this for 14 days followed by test of cure -he will need repeat upper endoscopy in 2 years -we also recommend an MRI pancreas protocol Follow up 2-3 months Medications: New metronidazole 250 mg PO QID 56 tabs 0RF 14 days bismuth subsalicylate 2 tabs PO QID 112 tabs 0RF 14 days omeprazole 20 mg PO BID 28 caps 0RF 14 days A04.8 - Other specified bacterial intestinal infections tetracycline 500 mg PO QID 56 caps 0RF 14 days Coding Level of Care Code Tele Est Pt Level 4 (18560) Complex EM visit Add On G2211 Diagnoses H. pylori infection A04.8 S/P total colectomy Z90.49 Jose syndrome Z15.09 Family history of colon cancer Z80.0
--- OUTSIDE RECORDS SUMMARY | 2025-07-02 14:09 | XMS_ITS | Encounter Summary ---
Author Organization [employer] Address [address] [place] [address] Care Team Providers Care Speech And Language Clinician Name Role Phone Gayathri Maravilla ROJELIO Primary Care Provider [phone] Lora Yarbrough MD Unavailable [phone] Encounter Details Date Type Department Care Team (Late st Contact Info) Description 01/25/2024 Orders Only [facility] [address] [place] [address] Sandra Patel RN Uncomplicated opioid dependence (CMS/[facility]) Social History Tobacco Use Types Packs/Day Years [...] Description 07/15/2025 2:00 PM EDT Office Visit [facility] [address] [place] [address] James Heredia MD [address] [place] [address] Scheduled Orders Name Type Priority Associated Diagnoses [...] dependence (CMS/HCC) Expected: 01/25/2024 (Approximate), Expires: 01/24/2025 [facility] .TB Lab Routine Uncomplicated opioid dependence (CMS/HCC) Expected: 01/25/2024 (Approximate), Expires: 01/24/2025 documented as of this encounter Visit Diagnoses Diagnosis Uncomplicated opioid dependence (CMS/HCC) documented in this encounter Additional Health Concerns Assessment Noted Time PHQ-9 Depression Total Score: 6 03/22/20 23 11:14 AM EDT documented as of this encounter Care Teams Speech And Language Clinician Relationship Specialty Start Date End Date Gayathri Maravilla FNP [address] [place] [address] PCP - General Family Medicine 06/13/22 Lora Yarbrough MD [address] [place] [address] Hematology and Oncology 10/24/24 documented as of this encounter
--- OUTSIDE RECORDS SUMMARY | 2025-07-02 14:09 | XMS_ITS | Clinical Summary ---
Author Organization [employer] Address [address] [place] [address] Care Team Providers Care [employer] T[employer] Name Role Phone Gayathri Maravilla ROJELIO Primary Care Provider [phone] Lora Yarbrough MD Unavailable [phone] Allergies No known active allergies Medications * This document contains information received from the source organization and may not represent a complete record from that organization. lidocaine (Lidoderm) 5 % patch Place 1 patch on the skin. 11/17/19 22 Active sacubitril-alvin sartan (Entresto) 49-51 MG tablet Take 1 tab by mouth twice a day Active buPROPion SR (Wellbutrin SR) 150 MG 12 hr tablet Take 1 tablet by mouth in the morning. Active Blood Pressure kit Active ferrous sulfate 325 (65 Fe) MG EC tabletIndicati ons:Iron deficiency anemia, unspecified iron deficiency anemia type take 1 tablet every other day with large glass of OJ or water 45 tablet 1 11/17/19 23 Active aspirin (Aspirin Low Dose) 81 MG chewable tabletIndicati ons:HFrEF (heart failure with reduced ejection fraction) (CMS/HCC),Hist ory of ST elevation myocardial infarction (STEMI) CHEW 1 TABLET BY MOUTH EVERY DAY 90 tablet 3 09/04/20 23 Active nicotine (Nicoderm CQ) 14 MG/24HR patch Place 1 patch on the skin 1 (one) time each day at the same time. 42 patch 09/12/20 23 Active naloxone (Narcan) 4 mg/0.1 mL nasal sprayIndicatio ns:Uncomplicat ed opioid dependence (CMS/HCC) FOR SUSPECTED OPIOID OVERDOSE. SPRAY 0.1mL IN ONE NOSTRIL. REPEAT IN ALTERNATE NOSTRIL 2-3 MINUTES IF NEEDED. SEEK MEDICAL ATTENTION IMMEDIATELY EVEN IF PATIENT RESPONDS. 2 each 2 01/31/20 24 Active carvedilol (Coreg) 3.125 MG tablet Take 3.125 mg by mouth 2 times daily. 06/24/20 24 Active Repatha SureClick 140 MG/ML injection Inject 140 mg under the skin every 14 (fourteen) days. 06/28/20 24 Active ezetimibe (Zetia) 10 MG tablet 05/07/20 24 Active furosemide (Lasix) 20 MG tablet Take 10 mg by mouth Once per day. 05/07/20 24 Active rosuvastatin (Crestor) 40 MG tablet Take 40 mg by mouth at bedtime. (Cholesterol) 07/10/20 24 Active traZODone (Desyrel) 100 MG tablet Take 100 mg by mouth if needed at bedtime for sleep. 06/18/20 24 Active topiramate (Topamax) 25 MG tablet Take 25 mg by mouth at bedtime. 08/13/20 24 Active D3 Super Strength 50 MCG (2000 UT) capsule Take 1 capsule by mouth Once per day. 12/19/19 25 Active spironolactone (Aldactone) 25 MG tablet 01/28/20 25 Active pantoprazole (ProtoNix) 40 MG EC tabletIndicati ons:Gastroesop hageal reflux disease, unspecified whether esophagitis present TAKE 1 TABLET BY MOUTH EVERY DAY 90 tablet 3 5 9:03 AM EDT 04/22/20 25 Active Buprenorphine HCl-Naloxone HCl (Suboxone) 8-2 MG SL filmIndication s:Uncomplicate d opioid dependence (CMS/HCC) Place 1 Film under the tongue 2 times daily for 14 days. 28 Film 06/25/20 25 025 Active Buprenorphine HCl-Naloxone HCl (Suboxone) 8-2 MG SL filmIndication s:Uncomplicate d opioid dependence (CMS/HCC) Place 1 Film under the tongue 2 times daily for 14 days. 28 Film 06/03/20 25 025 Discontinued(R eorder (will not trigger notification to Pharmacy)) Active Problems Problem Noted Date Diagnosed Date MDD (major depressive disord er), recurrent episode, moderate 03/17/2025 Mixed hyperlipidemia 07/17/2024 Overview (07/17/2024): Followed by [facility], checking lipid panels through their office LDL 110 mg/dL on 07/31/23 Med regimen: Rosuvastatin 40mg nightly Zetia 10mg daily Evolocumab (Repatha) every other week Hypertensive retinopathy of both eyes 04/17/2024 Assessment & Plan (05/25/2025 2:51 PM EDT): Followed by [facility]. CEE on 12/20/24 w/ impression of Hypertensive retinopathy bilateral Assessment & Plan (04/17/2024 7:21 AM EDT): Followed by Dr. Mojica. CEE on 12/21/23 w/ impression of Hypertensive retinopathy bilateral Healthcare maintenance 01/09/2024 Overview (05/25/2025): OPH: 12/20/24 - CEE w/ [facility]. Hypertensive retinopathy bilateral. Assessment & Plan (05/25/2025 2:58 PM EDT): - Plan to complete labs before next appt. Reports that lipids have been managed/followed by Cards. Assessment & Plan (07/17/2024 6:44 PM EDT): [...] 2021 -[place] [facility]Reports adherence to cardiac medications -Denies any current chest pain -Continue following with Outside Physical Damage Appraiser -06/21/23- stress test. Large LAD territory infarction. [...] 2021 -St[place] in 2020 [place] [facility] -Reports adherence to cardiac medications -Denies any current chest pain -Continue following with Outside Physical Damage Appraiser HFrEF (heart failure with reduced ejection fract ion) 10/31/2022 Overview (07/17/2024): Suspect resulted from STEMI Echo Jun 2024 with severely reduced LVEF, LVEED 6.2 cm (LV function worse and LV more dilated) Continue following with [facility] - Dr. 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 Pylori testing at 40 y/o -04/15/25: EGD at [facility] performed by Dr. Fuchs. Normal esophagus. Path: gastritis, (+) H Pylori. Neg for intestinal metaplasia and dysplasia. 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 Yarbrough -Per consult recommendations: [...] 08/15/22 -Positive for Jose Syndrome -Following with [facility] Heme/Onc - Dr. Yarbrouhg -Per consult recommendations: Patient not candidate for [...] 08/15/22 -Positive for Jose Syndrome -Following with [facility] Heme/Onc - Dr. 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 Pylori testing at 40 y/o ARMANDO (generalized anxiety disorder) 08/21/2017 Overview (07/17/2024): -Following with psych - [...] in services. PLAN: 1. Follow up with [facility]: Recommended for follow-up: During OBAT appt 2. [...] following with therapist and psychiatrist through [facility] -Denies SI/HI/thoughts of self harm Encounters Date Type Department Care Team Description 07/01/2025 2:45 PM EDT Office Visit [facility] [address] [place] [phone] James Heredia MD Uncomplicated opioid dependence (CMS/HCC) (Primary Dx) 07/01/2025 Travel 06/25/2025 Refill [facility] [address] [place] [phone] Sandra Patel RN Uncomplicated opioid dependence (CMS/HCC) 06/18/2025 3:00 PM EDT Clinical Support [address] [address] Sandra aPtel RN Uncomplicated opioid dependence (CMS/HCC) 06/18/2025 Travel 06/03/2025 3:00 PM EDT Clinical Support [address] [address] Sandra Patel RN Uncomplicated opioid dependence (CMS/HCC) (Primary Dx) 06/03/2025 Travel 06/02/[address] [address] Sandra Patel RN Uncomplicated opioid dependence (CMS/HCC) 05/30/[address] [address] Sandra Patel RN Uncomplicated opioid dependence ([facility]/HCC) 05/23/2025 1:45 PM EDT Office Visit [facility] [address], [place] [phone] Gayathri Maravilla, ROJELIO Onychauxis (Primary Dx); Healthcare maintenance; Hypertensive retinopathy of both eyes; Malignant neoplasm of colon, unspecified part of colon (CMS/HCC) 05/23/2025 Travel 05/20/2025 3:15 PM EDT Office Visit [address] [address] aJmes Heredia MD Opioid dependence, uncomplicated ([facility]/HCC) (Primary Dx) 05/20/2025 Travel 05/19/2025 Refill [facility] [address] [place] [address] Sandra Patel RN Uncomplicated opioid dependence ([facility]/HCC) 05/07/2025 Refill [facility] [address] [place] [address] Sandra Patel RN Uncomplicated opioid dependence ([facility]/HCC) 05/01/2025 11:00 AM EDT Clinical Support [facility] [address] [place] [address] Sandra Patel RN Uncomplicated opioid dependence ([facility]/HCC) (Primary Dx) 05/01/2025 Travel 04/29/2025 Travel 04/24/2025 Refill [facility] [address] [place] [address] Sandra Patel RN Uncomplicated opioid dependence ([facility]/HCC) 04/21/2025 Refill [facility] [address] [place] [address] Gayathri Maravilla, ROJELIO Gastroesophageal reflux disease, unspecified whether esophagitis present 04/15/2025 1:45 PM EDT Office Visit [facility] [address] [place] [phone] James Heredia MD Uncomplicated opioid dependence ([facility]/HCC) (Primary Dx) 04/15/2025 Travel 04/15/2025 Orders Only GENERIC EXTERNAL DATA DEPARTMENT Provider, Generic External Data 04/08/2025 Refill [facility] [address] [place] [phone] Sandra Patel RN Uncomplicated opioid dependence ([facility]/HCC) 04/01/2025 1:30 PM EDT Clinical Support [facility] [address] [place] [phone] Sandra Patel RN Uncomplicated opioid dependence ([facility]/HCC) (Primary Dx) 04/01/2025 Travel from Last 3 Months Immunizations Immunization Administration Dates Next Due Hep B, Adolescent [...] Sign Reading Time Taken Comments Blood Pressure 108/76 05/23/2025 1:52 PM EDT Pulse 74 05/23/2025 1:52 PM EDT Temperature 36.6 C (97.8 F) 05/23/2025 1:52 PM EDT Respiratory Rate 20 05/23/2025 1:52 PM EDT Oxygen Saturation 98% 05/23/2025 1:52 PM EDT Inhaled Oxygen Concentration - - Weight 85.3 kg (188 lb) 05/23/2025 1:52 PM EDT Height 170.2 cm (5' 7 ) 05/23/2025 1:52 PM EDT Body Mass Index 29.44 05/23/2025 1:52 PM EDT Plan of Treatment Upcoming Encounters Date Type Department Care Team (Late st Contact Info) Description 07/15/2025 2:00 PM EDT Office Visit [facility] [address] [place] [address] James Heredia MD [address] [place] [address] Health Maintenance Due Date Last Done Comments Lipid Panel 1985 Disability Screening 1985 Alcohol/Substance Use Screening 1997 Hepatitis B Vaccines (3 of 3 - 3-dose series) 11/02/1999 08/13/1999, 07/13/1999 Family Planning (PISQ) 2000 HPV Vaccines (1 - Male 3-dose series) 2000 Pneumococcal Vaccine: Pediatrics (0 to 5 Years) and At-Risk Patients (6 to 49) Years (2 of 2 - PCV) 12/10/2015 12/10/2014 SDOH Screening 02/21/2024 02/20/2023 COVID-19 Vaccine (3 - season) 2025 07/13/2021, 03/21/2021 Influenza Vaccine (#1) 2025 , 08/21/2017, 08/21/2017, Additional history exists Depression Screening 03/17/2026 03/17/2025, 03/17/20 Tobacco Screening 07/01/2026 07/01/2025 DTaP/Tdap/Td Vaccines (3 - Td or Tdap) [...] patient's age to complete this topic Meningococcal B Vaccine Aged Out No l onger eligible based on patient's age to complete this topic Meningococcal Vaccine Aged Out No stephanie liyah eligible based on patient's age to complete this topic RSV under 20 months Aged Out No longe r eligible based on patient's age to complete this topic Rotavirus Vaccines Aged Out No longer eligible based on patient's age to complete this topic Goals Goal Patient Goal Type Associated Problems Recent Progress Patient-Stated? Author Increase coping skills to promote long-term recovery and improve ability to perform daily activities General No Cassius Contreras, physical therapy assistant Procedure Name Priority Date/Time Associated Diagnosis Comments POCT ANDRE-14 URINE DRUG SCREEN Routine 07/01/2025 3:08 PM EDT Uncomplicated opioid dependence (CMS/HCC) POCT ANDRE-14 URINE DRUG SCREEN Routine 06/03/2025 3:49 PM EDT Uncomplicated opioid dependence (CMS/HCC) POCT ANDRE-14 URINE DRUG SCREEN Routine 05/01/2025 11:42 AM EDT Uncomplicated opioid dependence (CMS/HCC) POCT ANDRE-14 URINE DRUG SCREEN Routine 04/15/2025 2:44 PM EDT Uncomplicated opioid dependence (CMS/HCC) HEMATOXYLIN AND EOSIN STAIN Routine 04/15/2025 9:56 AM EDT DRUG MONITOR, PANEL 1, SCREEN, URINE Routine 04/15/2025 8:51 AM EDT POCT ANDRE-14 URINE DRUG SCREEN Routine 04/01/2025 2:27 PM EDT Uncomplicated opioid dependence (CMS/HCC) HEPATITIS C AB W/REFL TO HCV RNA, QN, PCR Routine 10/18/2024 3:22 PM EST HIV 1/2 ANTIGEN/ANTIBODY, FOURTH GENERATION W/RFL Routine 10/18/2024 3:22 PM EST from Last 3 Months or Most Recently Relevant to Health Maintenance Results * (ABNORMAL) POCT ANDRE-14 Urine Drug Screen (07/01/2025 3:08 PM EDT) Only the most recent of5 resultswithin the time period is included. THC Negative Negative Cocaine Screen, Urine Positive(A) [...] TEST ENTER/EDIT OR DERABLES Final Result * Hematoxylin and Eosin Stain (04/15/2025 9:56 AM EDT) 04/15/2025 9:56 AM EDT 04/15/2025 10:45 AM EDT Narrative [facility] - 04/16/2025 3:07 PM EDT ----- ------- Name: Lyndon Resendez Age/Sex: 39/M : 1985 Unit#: [id number] Attend Dr: Shila Keane MD Re04/15/25 Status: [facility] Location: [facility] Disch: ----- ------- SPEC : [id number] RECD: 04/15/25-5 STATUS: BRIAN HOOKER NUM: [id number] FRANCIE: 04/15/25-[address] [facility] [address]: Shila Keane MD ENTERED: 04/15/25-1056 SP TYPE: Surgical OTHR DR: Gayathri Maravilla TIME LOCK EXPERT ORDERED: HE Stain/18, Gross Micro L4/6, IHC, Special st. 2/, H. pylori, AB/PAS/6 Diagnosis A. Duodenum, biopsy: Duodenal mucosa within normal limits; preserved villous architecture and no increased intraepithelial lymphocytes seen. B. Stomach, antrum, greater curvature, biopsy: Gastric antral mucosa with moderate chronic active gastritis and few Helicobacter pylori organisms; negative for intestinal metaplasia and dysplasia. C. Stomach, antrum, lesser curvature, biopsy: Gastric antral mucosa with moderate chronic active gastritis and few Helicobacter pylori organisms; negative for intestinal metaplasia and dysplasia. D. Stomach, incisura, biopsy: Gastric antral mucosa with moderate chronic active gastritis and numerous Helicobacter pylori organisms; negative for intestinal metaplasia and dysplasia. E. Stomach, body, greater curvature, biopsy: Gastric body mucosa with moderate chronic active gastritis and numerous Helicobacter pylori organisms; negative for intestinal metaplasia and dysplasia. F. Stomach, body, lesser curvature, biopsy: Gastric body mucosa with moderate chronic active gastritis and numerous Helicobacter pylori organisms; negative for intestinal metaplasia and dysplasia. Clinical History Pre-Op Dx: Jose syndrome Post-Op Dx: Duodenitis Microscopic Description A-F. Microscopic sections examined. No metaplastic changes are seen, supported by AB/PAS stains (A-F); Helicobacter organisms are seen, supported by H. pylori immunostain (B). Material Received A. Duodenum biopsy B. Antrum greater curvature biopsy C. Antrum lesser curvature biopsy D. Incisura biopsy E. Body greater curvature biopsy F. Body lesser curvature biopsy CONTINUED ON NEXT PAGE ----- ------- Name: Lyndon Resendez Age/Sex: 39/M : 1985 Unit#: [id number] Attend Dr: Shila Keane MD Re04/15/25 Status: [facility] Location: [facility] Disch: ----- ------- SPEC : [id number] RECD: 04/15/25 STATUS: BRIAN HOOKER NUM: [id number] FRANCIE: 04/15/250956 [facility] DR: Shila Keane MD ENTERED: 04/15/25-4814 SP TYPE: Surgical OTHR DR: Gayathri Maravilla ORDERED: HE Stain/18, Gross Micro L4/6, IHC, Special st. 2/6, H. pylori, AB/PAS/6 Gross Description Received in six parts. Part A: Received in formalin labeled duodenum bx are three zavala-pink irregular tissue fragments ranging from 0.2-0.35 cm, submitted in toto in a cassette labeled A. Part B: Received in formalin labeled antrum greater curvature are four abrams-zavala irregular and rectangular tissue fragments ranging from 0.2-0.35 cm, submitted in toto in a cassette labeled B. Part C: Received in formalin labeled antrum lesser curvature are two zavala-pink rectangular tissue fragments each measuring 0.35 cm, submitted in toto in a cassette labeled C. Part D: Received in formalin labeled incisura bx are two abrams-pink rectangular tissue fragments each measuring 0.35 cm, submitted in toto in a cassette labeled D. Part E: Received in formalin labeled body greater curvature are three zavala-pink irregular and rectangular tissue fragments ranging from 0.2-0.45 cm, submitted in toto in a cassette labeled E. Part F: Received in formalin labeled body lesser curvature are five zavala-pink irregular and rectangular tissue fragments ranging from 0.1-0.45 cm, submitted in toto in a cassette labeled F. CEDS Special stains ordered and performed: AB/PAS on A-F; immunostain for H. pylori on B. IHC S/NG Disclaimer NOTE: Unless otherwise stated, all tissue is formalin-fixed and paraffin-embedded. Some or all of the immunohistochemical tests reported herein may have been developed and their performance characteristics determined by [facility]. They have not been cleared or approved by the U.S. Food and Drug Administration (FDA). However, the FDA has determined that such clearance or approval is not necessary. This laboratory is certified under the Clinical Laboratory Improvement Amendments of 1988 (CLIA) as qualified to perform high complexity clinical laboratory testing. Copies To: Gayathri Maravilla [address] [address] CONTINUED ON NEXT PAGE ----- ------- Name: Lyndon Resendez Age/Sex: 39/M : 1985 Unit#: [id number] Attend Dr: Shila Keane MD Re04/15/25 Status: [facility] Location: [facility] Disch: ----- ------- SPEC : [id number] RECD: 04/15/25-5 STATUS: BRIAN HOOKER NUM: [id number] FRANCIE: 04/15/[address] [facility] [address]: Shila Keane MD ENTERED: 04/15/25-1053 SP TYPE: Surgical OTHR DR: Gayathri Maravilla TIME LOCK EXPERT ORDERED: HE Stain/18, Gross Micro L4/6, IHC, Special st. 2/6, H. pylori, AB/PAS/6 Copies To: (Continued) Shila Keane MD [facility] [address] [place] [phone] [email or web address] ----- ------- Signed (signature on file) Gina Dunbar MD 04/16/25 1507 ----- ------- END OF REPORT us Generic External Data Provider LAB BLOOD ORDERAB LES Final Result [facility] [address] [place] [address] [phone] * (ABNORMAL) Drug Monitoring, Panel 1, Screen, Urine (04/15/2025 8:51 AM EDT) Opiate Screen Urine Not Detected Not Detect [facility] Comment:Opiate cut-off is 30 0 ng/mL.Positive results are unconfirmed and should not be used fornon-medical purposes. Barbiturates, Urine Not Detected Not Detect [facility] Comment:Barbiturate cut-off is 200 ng/mL.Positive results are unconfirmed and should not be used fornon-medical purposes. Phencyclidine Screen Urine Not Detected Not Detect [facility] Comment:Phencyclidine cut-of f is 25 ng/mL.Positive results are unconfirmed and should not be used fornon-medical purposes. Amphetamine Screen Urine Not Detected Not Detect [facility] Comment:Amphetamine cut-off is 1000 ng/mL.Positive results are unconfirmed and should not be used fornon-medical purposes. Benzodiazepines Screen Urine Not Detected Not Detect [facility] Comment:Benzodiazepine cut-o ff is 200 ng/mL.Positive results are unconfirmed and should not be used fornon-medical purposes. Cocaine Screen Urine Not Detected Not Detect [facility] Comment:Cocaine cut-off is 3 00 ng/mL.Positive results are unconfirmed and should not be used fornon-medical purposes. Cannabinoid Screen Urine POSITIVE(A) Not Detect [facility] Comment:Cannabinoid cut-off is 50 ng/mL.Positive results are unconfirmed and should not be used fornon-medical purposes. Methadone Screen, Urine Not Detected Not Detect ng/mL [facility] Comment:Methadone cut-off is 300 ng/mL.Positive results are unconfirmed and should not be used fornon-medical purposes. FENTANYL URINE Not Detected Not Detect [facility] Comment:Fentanyl cut-off is 1 ng/mL.Positive results are unconfirmed and should not be used fornon-medical purposes. Oxycodone Urine Screen Positive(A) Not Detect ng/mL [facility] Comment:Oxycodone cut-off is 100 ng/mL.Positive results are unconfirmed and should not be used fornon-medical purposes. Buprenorphine Screen Positive(A) Not Detect ng/mL [facility] Comment:Buprenorphine cut-of f is 5 ng/mL.Positive results are unconfirmed and should not be used fornon-medical purposes. 04/15/2025 8:51 AM EDT 04/15/2025 9:02 AM EDT [employer] External Data Provider LAB URINE ORDERAB LES Final Result Performing Organization Address [facility] Co de Phone Number [facility] [address] [place] [phone] * Hepatitis C Antibody with Reflex to HCV, RNA, Quantitative, Real-Time PCR (10/18/2024 3:22 PM EST) Hepatitis C Antibody Nonreactive Nonreactive [facility] Comment:Antibodies to HCV no t detected; does not exclude early acuteHCV infection. 10/18/2024 3:22 PM EST 10/18/2024 4:08 PM EST James Heredia MD LAB BLOOD ORDERABLES Final Resul t Performing Organization Address [facility] Co de Phone Number [facility] [address] [place] [phone] * HIV-1/2 Antigen and Antibodies, Fourth Generation, with Reflexes (10/18/2024 3:22 PM EST) HIV AB/AG Nonreactive Nonreactive [facility] Comment:HIV-1 p24 Ag and/or HIV-1/HIV-2 Ab not detected.A test result that is nonreactive does not exclude thepossibility of exposure to or infection with HIV-1 and/orHIV-2. Nonreactive results in this assay for individualswith prior exposure to HIV-1 and/or HIV-2 may be due toantigen and antibody levels that are below the limit ofdetection of this assay.The Swapper Tradenity HIV Ag/Ab Combo assay result andsupplemental assay results should be interpreted inconjunction with the patient's clinical presentation,history and other laboratory results. If the results areinconsistent with clinical evidence, additional testing issuggested to confirm the result. 10/18/2024 3:22 PM EST 10/18/2024 4:08 PM EST us James Heredia MD LAB BLOOD ORDERABLES Final Resul t [facility] [address] [place] [address] [phone] from Last 3 Months or Most Recently Relevant to Health Maintenance Insurance C3 Care Teams [employer] Foreign Language Tutor Relationship Specialty Start Date End Date Gayathri Maravilla FNP [address] [place] [address] PCP - General Family Medicine 06/13/22 Lora Yarbrough MD [address] [place] [phone] Hematology and Oncology 10/24/24
--- OUTSIDE RECORDS SUMMARY | 2025-07-02 14:09 | XMS_ITS | Encounter Summary ---
Author Organization [employer] Address [address] [facility] [address] [facility] [address] 7t [place] [address] Care Team Providers Care Edi Coordinator Name Role Phone Gayathri Maravilla ROJELIO Primary Care Provider [phone] Lora Yarbrough MD Unavailable [phone] Encounter Details Date Type Department Care Team (Latest Contact Info) Description 07/01/2025 Travel Social History Tobacco Use Types Packs/Day [...] Description 07/15/2025 2:00 PM EDT Office Visit [facility] MEDICINE [address] [place] [address] James Heredia MD 230 [place] [address] documented as of this encounter Goals Goal Patient Goal Type Associated Problems Recent Progress Patient-Stated? Author Increase coping skills to promote long-term recovery and improve ability to perform daily activities General No Cassius Contreras, RN documented as of this encounter Visit Diagnoses Not on filedocumented in this encounter Additional Health Concerns Assessment Noted Time PHQ-9 Depression Total Score: 8 03/17/20 25 1:43 PM EDT documented as of this encounter Care Teams Edi Coordinator Relationship Specialty Start Date End Date Gayathri Maravilla FNP [address] [place] [address] PCP - General Family Medicine 06/13/22 Lora Yarbrough MD [address] [place] [address] Hematology and Oncology 10/24/24 documented as of this encounter
--- OUTSIDE RECORDS SUMMARY | 2025-07-02 14:09 | XMS_ITS | Encounter Summary ---
Author Organization [employer] Address [address] 7t [place] [address] Care Team Providers Care Molded Goods Embossing Press Operator Name Role Phone Gayathri Maravilla ROJELIO Primary Care Provider [phone] Lora Yarbrough MD Unavailable [phone] Reason for Visit * Reason Onset Date Comments Med Refill 05/30/2025 Encounter Details Date Type Department Care Team (Late st Contact Info) Description 05/30/2025 Refill [facility] MEDICINE [address] [place] [address] Sandra Patel RN Uncomplicated opioid dependence (CMS/HCC) Social History Tobacco [...] Description 07/15/2025 2:00 PM EDT Office Visit [facility] MEDICINE [address] [place] [address] James Heredia MD [address] [place] [address] documented as of this encounter Goals Goal [...] documented as of this encounter Care Teams Molded Goods Embossing Press Operator Relationship Specialty Start Date End Date Gayathri Maravilla FNP [address] [place] [address] PCP - General Family Medicine 06/13/22 Lora Yarbrough MD [address] [place] [address] Hematology and Oncology 10/24/24 documented as of this encounter
--- OUTSIDE RECORDS SUMMARY | 2025-07-02 14:09 | XMS_ITS | Encounter Summary ---
Author Organization [employer] Address [address] 7t [place] [address] Care Team Providers Care Novelty Worker Name Role Phone Gayathri Maravilla Primary Care Provider [phone] Lora Yarbrough MD Unavailable Reason for Visit * Reason Onset Date Comments Call Back Request 09/26/2023 Encounter Details Date Type Department Care Team ([facility] st Contact Info) Description 09/26/2023 Telephone [facility] MEDICINE [address] [place] [address] Gayathri Maravilla FNP [address] [place] [address] Call Back Request Social History Tobacco Use [...] Description 07/15/2025 2:00 PM EDT Office Visit [facility] MEDICINE [address] [place] [address] James Heredia MD [address] [place] [address] documented as of this encounter Visit Diagnoses Not on filedocumented in this encounter Additional Health Concerns Assessment Noted Time PHQ-9 Depression Total Score: 6 03/22/20 23 11:14 AM EDT documented as of this encounter Care Teams Novelty Worker Relationship Specialty Start Date End Date Gayathri Maravilla FNP [address] [place] [address] PCP - General Family Medicine 06/13/22 Lora Yarbrough MD [address] [place] [address] Hematology and Oncology 10/24/24 documented as of this encounter
--- OUTSIDE RECORDS SUMMARY | 2025-07-02 14:09 | XMS_ITS | Encounter Summary ---
Author Organization [employer] Address [address] [facility] 7t [place] [address] Care Team Providers Care Residential Sales Manager Name Role Phone Gayathri Maravilla ROJELIO Primary Care Provider [phone] Lora Yarbrough MD Unavailable [phone] Encounter Details Date Type Department Care Team (Late Contact Info) Description 06/14/2023 Orders Only [facility] MEDICINE [address] [place] [address] [phone] Sandra Patel RN Uncomplicated opioid dependence (CMS/HCC) (Primary Dx) Social [...] Department Care Team (Late Contact Info) Description 07/15/2025 2:00 PM EDT Office Visit [facility] MEDICINE [address] [place] [address] [phone] James Heredia MD [address] [place] [address] [phone] Scheduled Orders Name Type Priority Associated Diagnoses [...] dependence (CMS/HCC) Expected: 06/14/2023 (Approximate), Expires: 06/14/2024 T-SPOT .TB Lab Routine Uncomplicated opioid dependence (CMS/HCC) Expected: 06/14/2023 (Approximate), Expires: 06/14/2024 documented as of this encounter Visit Diagnoses Diagnosis Uncomplicated opioid dependence (CMS/HCC)- Primary documented in this encounter Additional Health Concerns Assessment Noted Time PHQ-9 Depression Total Score: 6 03/22/20 23 11:14 AM EDT documented as of this encounter Care Teams Residential Sales Manager Relationship Specialty Start Date End Date Gayathri Maravilla FNP [address] [place] [address] PCP - General Family Medicine 06/13/22 Lora Yarbrough MD [address] [place] [address] Hematology and Oncology 10/24/24 documented as of this encounter
--- OUTSIDE RECORDS SUMMARY | 2025-07-02 14:09 | XMS_ITS | Encounter Summary ---
Author Organization [employer] Address [address] [facility] 7t [place] [address] Care Team Providers Care Wrapping Machine Helper Name Role Phone Gayathri Maravilla Primary Care Provider [phone] Lora Yarbrough MD Unavailable [phone] Reason for Visit * Reason Onset Date Comments Nurse Triage 06/30/2023 Encounter Details Date Type Department Care Team ([facility] st Contact Info) Description 06/30/2023 Telephone [facility]INE [address] [place] [address] Gayathri Maravilla FNP [address] [place] [address] Nurse Triage Social History Tobacco Use Types [...] on site visit. Please contact pt at [phone] documented in this encounter Plan of Treatment Upcoming Encounters Date Type Department Care Team (Late st Contact Info) Description 07/15/2025 2:00 PM EDT Office Visit [facility] [address] [place] [address] James Heredia MD [address] [place] [address] documented as of this encounter Visit Diagnoses Not on filedocumented in this encounter Additional Health Concerns Assessment Noted Time PHQ-9 Depression Total Score: 6 03/22/20 23 11:14 AM EDT documented as of this encounter Care Teams Wrapping Machine Helper Relationship Specialty Start Date End Date Gayathri Maravilla FNP [address] [place] [address] PCP - General Family Medicine 06/13/22 Lora Yarbrough MD [address] [place] [address] Hematology and Oncology 10/24/24 documented as of this encounter
--- OUTSIDE RECORDS SUMMARY | 2025-07-02 14:09 | XMS_ITS | Encounter Summary ---
Author Organization [employer] Address [address] [facility] 7t [place] [address] Care Team Providers Care Research Software Engineer Name Role Phone Gayathri Maravilla Primary Care Provider [phone] Lora Yarbrough MD Unavailable [phone] Reason for Visit * Reason Onset Date Comments PCP change 07/13/2023 Encounter Details Date Type Department Care Team ([facility] st Contact Info) Description 07/13/2023 Telephone [facility] MEDICINE [address] [place] [address] Gayathri Maravilla FNP [address] [place] [address] PCP change Social History Tobacco Use Types [...] PCP due to PCP changing location to [facility] and PCP's availability in [facility]. documented in this encounter Plan of Treatment Upcoming Encounters Date Type Department Care Team (Late st Contact Info) Description 07/15/2025 2:00 PM EDT Office Visit [facility] MEDICINE [address] [place] [address] James Heredia MD [address] [place] [address] documented as of this encounter Visit Diagnoses Not on filedocumented in this encounter Additional Health Concerns Assessment Noted Time PHQ-9 Depression Total Score: 6 03/22/20 23 11:14 AM EDT documented as of this encounter Care Teams Research Software Engineer Relationship Specialty Start Date End Date Gayathri Maravilla FNP [address] [place] [address] PCP - General Family Medicine 06/13/22 Lora Yarbrough MD [address] [place] [address] Hematology and Oncology 10/24/24 documented as of this encounter
--- OUTSIDE RECORDS SUMMARY | 2025-07-02 14:10 | XMS_ITS | Encounter Summary ---
Author Organization [employer] Address [address] [facility] 7t [place] [address] Care Team Providers Care Reimbursement Representative Name Role Phone Gayathri Maravilla ROJELIO Primary Care Provider [phone] Lora Yarbrough MD Unavailable [phone] Reason for Visit * Reason Comments Med Refill Encounter Details Date Type Department Care Team ([facility] st Contact Info) Description 05/21/2024 Refill [facility] MEDICINE [address] [place] [address] James Heredia MD [address] [place], [place] [phone] Uncomplicated opioid dependence (CMS/HCC) Social History Tobacco [...] Description 07/15/2025 2:00 PM EDT Office Visit [facility] MEDICINE [address] [place] [address] James Heredia MD [address] [place] [address] documented as of this encounter Visit Diagnoses Diagnosis Uncomplicated opioid dependence (CMS/HCC) documented in this encounter Additional Health Concerns Assessment Noted Time PHQ-9 Depression Total Score: 6 03/22/20 23 11:14 AM EDT documented as of this encounter Care Teams Reimbursement Representative Relationship Specialty Start Date End Date Gayathri Maravilla FNP [address] [place] [address] PCP - General Family Medicine 06/13/22 Lora Yarbrough MD [address] [place] [address] Hematology and Oncology 10/24/24 documented as of this encounter
== END 2025-07-02 13:47 | disposition home or self-care (01) ==
LOC: HO.HGI 11:01
PROVIDERS: PCP Registered Nurse; Visit Provider Internal Medicine
DX: A04.8 Other specified bacterial intestinal infections (principal); Z90.49 Acquired absence of other specified parts of digestive tract; Z15.09 Genetic susceptibility to other malignant neoplasm; Z80.0 Family history of malignant neoplasm of digestive organs
CPT/HCPCS: 99214

== ENCOUNTER 2025-07-29 15:14 | Outpatient (REF) | payer MEDICAID, SELFPAY ==
--- OUTSIDE RECORDS SUMMARY | 2025-07-29 15:00 | XMS_ITS | Encounter Summary ---
Author Organization [employer] Address [address] 7t [place] [address] Care Team Providers Care Duplex Trimmer Name Role Phone Gayathri Maravilla ROJELIO Primary Care Provider [phone] Lora Yarbrough MD Unavailable [phone] Reason for Visit * Reason Comments OBAT F/U Encounter Details Date Type Department Care Team (Latest Contact Info) Description 07/29/2025 3:00 PM EDT Clinical Support [facility]ICINE [address] [place], [place] [phone] Sandra Patel RN Uncomplicated opioid dependence (CMS/HCC) (HCC) Social History Tobacco Use Types Packs/Day Years [...] housing situation today? I have carol peace 07/29/[address] you li ve. Do you have problems with any of the following? None of the above 07/29/2025 Food Insecurity Answer Date Recorded Within the past 12 months, y ou worried that your food would run out before you got money to buy more: Never True 07/29/2025 Within the past 12 months,th e food you bought just didn't last and you didn't have enough money to get more: Never True Transportation Answer Date Recorded In the past 12 months, has l ack of transportation kept you from medical appts, meetings, work or from getting things needed for daily living? No 07/29/2025 Utilities Answer Date Recorded In the past 12 months, has t he electric, gas, oil or water company threatened to shut off services in your home? No 07/29/2025 Depression Answer Date Recorded Patient Health Questionnaire-2 Score 2 03/17/2025 Internet Access Answer Date Recorded Internet Access Q1 No 07/29/2025 Internet Access Q2 Not on file 07/29/2025 Sex and Gender Information Value Date Recorded Sex Assigned at Male 08/15/2022 10:19 AM EDT Legal Sex Male 10:19 AM EDT Gender Identity Male 08/15/2022 10:19 AM EDT Sexual Orientation Straight 08/15/2022 10 :19 AM EDT documented as of this encounter Progress Notes * Sandra Patel RN - 07/29/2025 3:00 PM EDT LAST VISIT 07/15/25 UTOX not requested Lyndon pesented today for OBAT RN IN PERSON VISIT for Opioid Use Disorder. Pt is alert and oriented.Speech clear, coherent and goal directed. Easily engaged, initiates conversation today. He continues to do well with suboxone. Denies illicit opiate use, cravings or side effects. Again, endorses nothaving used any cocaine in the past week. Saw his daughter last weekend. Is having trouble with hiscar, the transmission needs to be repaired. Plan: Suboxone dosing schedule of 16/4 mg daily and management of side effects reviewed. Recovery support, harm reduction (including Narcan), and behavioral health attendance reviewed. Appointment for 2 weeks given. Patient expressed understanding and agreement with continuing plan of care. TODAY 07/29/25 UTOX: Lyndon presented today for OBAT RN IN PERSON VISIT for Opioid se Disorder. He is alert and oriented.Speech clear, coherent and goal directed. Easily engaged and initiates conversation. Has not used cocaine in four days. He used because it was a long weekend. Requested and received more fentanyl test strips. Completed labwork today. Plan: Suboxone dosing schedule of 16/4 mg daily and management of side effects reviewed. Recovery support, harm reduction (including Narcan), and behavioral health attendance reviewed. Appointment for 2 weeks given. Patient expressed understanding and agreement with continuing plan of care. This information has been disclosed to you from records protected by federal confidentiality rules (42 CFR Part 2). The federal rules prohibit you from making any further disclosure of information inthis record that identifies a patient as having or having had a substance use disorder either directly, by reference to publicly available information, or through verification of such identification by another person unless further disclosure is expressly permitted by the written consent of the individual whose information is being disclosed or as otherwise permitted by (see2.3.1). The federal rules restrict any use of the information to investigate or prosecute with regard to a crime any patient with a substance use disorder, except as provided at 2.12??(5) and 2.65. documented in this encounter Plan of Treatment Upcoming Encounters Date Type Department Care Team (Late st Contact Info) Description 08/12/2025 2:30 PM EDT Office Visit [facility]INE [address] [place] [address] James Heredia MD [address] [place] [address] documented as of this encounter Goals Goal Patient Goal Type Associated Problems Recent Progress Patient-Stated? Author Increase coping skills to promote long-term recovery and improve ability to perform daily activities General No Cassius Contreras RN documented as of this encounter Visit Diagnoses Diagnosis Uncomplicated opioid dependence (CMS/HCC) (HCC) documented in this encounter Additional Health Concerns Assessment Noted Time PHQ-9 Depression Total Score: 8 03/17/20 25 1:43 PM EDT documented as of this encounter Care Teams Duplex Trimmer Relationship Specialty Start Date End Date Gayathri Maravilla FNP [address] [place] [address] PCP - General Family Medicine 06/13/22 Lora Yarbrough MD [address] [place] [address] Hematology and Oncology 10/24/24 documented as of this encounter
[2025-07-29 16:19] LABS: MANUAL DIFF FLAG NO
[2025-07-29 16:33] LABS: Hematocrit 37.3 % (42.0-52.0); Hemoglobin 12.2 g/dl (14.0-18.0); Imm Gran Abs Auto 0.02 X10*3/uL (0.00-0.03); Imm Gran Pct Auto 0.3 % (0.0-0.4); Lymphocytes Absolute Auto 2.4 X10*3/uL (1.2-4.9); Mean Corpuscular HGB Conc 32.7 g/dl (31.0-36.0); Mean Corpuscular Hemoglobin 27.8 pg (27.0-33.0); Mean Corpuscular Volume 85.0 fL (80.0-98.0); NRBC Abs Auto 0.000 X10*3/uL (0.0-0.012); NRBC Pct Auto 0.0 /100WBC (0.0-0.2); Platelet Count 191 X10*3/uL (160-400); Red Blood Count 4.39 X10*6/uL (4.60-5.80); White Blood Count 5.9 X10*3/uL (4.8-10.8)
[2025-07-29 16:43] LABS: Hemoglobin A1C 135.1572 umol/L
[2025-07-29 17:32] LABS: Alanine Aminotransferase 23 U/L (0-40); Albumin Level 4.3 g/dL (3.5-5.0); Alkaline Phosphatase 68 U/L (39-117); Anion Gap 11 (12-20); Aspartate Amino Transferase 31 U/L (5-37); Blood Urea Nitrogen 10 mg/dL (9-16); Calcium 9.0 mg/dL (8.4-10.2); Carbon Dioxide 28 mmol/L (22-29); Chloride 105 mmol/L (96-108); Cholesterol 89 mg/dL (<200); Estimated Glomerular Filt Rate > 60; HDL Cholesterol 35 mg/dL (>40); Potassium 4.0 mmol/L (3.3-5.1); Sodium 140 mmol/L (135-145); Total Protein 6.9 g/dL (6.5-8.0); Triglycerides 83 mg/dL (<150)
--- OUTSIDE RECORDS SUMMARY | 2025-07-29 18:07 | XMS_ITS | Encounter Summary ---
Author Organization [employer] Address [address] [facility] 7t [place] [address] Care Team Providers Care Automotive Window Tinter Name Role Phone Gayathri Maravilla ROJELIO Primary Care Provider [phone] Lora Yarbrough MD Unavailable [phone] Encounter Details Date Type Department Care Team (Late Contact Info) Description 06/14/2023 Orders Only [facility] MEDICINE [address] [place] [address] [phone] Sandra Patel RN Uncomplicated opioid dependence (CMS/HCC) [...] Department Care Team (Late Contact Info) Description 08/12/2025 2:30 PM EDT Office Visit [facility] MEDICINE [address] [place] [address] [phone] James Heredia MD [address] [place] [address] [phone] Scheduled Orders Name Type Priority Associated Diagnoses [...] Visit Diagnoses Diagnosis Uncomplicated opioid dependence (CMS/HCC) (HCC)- Primary documented in this encounter Additional Health Concerns Assessment Noted Time PHQ-9 Depression Total Score: 6 03/22/20 23 11:14 AM EDT documented as of this encounter Care Teams Automotive Window Tinter Relationship Specialty Start Date End Date Gayathri Maravilla FNP [address] [place] [address] PCP - General Family Medicine 06/13/22 Lora Yarbrough MD [address] [place] [address] Hematology and Oncology 10/24/24 documented as of this encounter
--- OUTSIDE RECORDS SUMMARY | 2025-07-29 18:07 | XMS_ITS | Encounter Summary ---
Author Organization [employer] Address [address] [facility] 7t [place] [address] Care Team Providers Care Reservation Agent Name Role Phone Gayathri Maravilla Primary Care Provider [phone] Lora Yarbrough MD Unavailable [phone] Reason for Visit * Reason Onset Date Comments PCP change 07/13/2023 Encounter Details Date Type Department Care Team ([facility] st Contact Info) Description 07/13/2023 Telephone [facility] MEDICINE [address] [place] [address] Gayathri Maravilla FNP [address] [place] [address] PCP change Social History Tobacco Use Types [...] PCP due to PCP changing location to [facility] and PCP's availability in [facility]. documented in this encounter Plan of Treatment Upcoming Encounters Date Type Department Care Team (Late st Contact Info) Description 08/12/2025 2:30 PM EDT Office Visit [facility] MEDICINE [address] [place] [address] James Heredia MD [address] [place] [address] documented as of this encounter Visit Diagnoses Not on filedocumented in this encounter Additional Health Concerns Assessment Noted Time PHQ-9 Depression Total Score: 6 03/22/20 23 11:14 AM EDT documented as of this encounter Care Teams Reservation Agent Relationship Specialty Start Date End Date Gayathri Maravilla FNP [address] [place] [address] PCP - General Family Medicine 06/13/22 Lora Yarbrough MD [address] [place] [address] Hematology and Oncology 10/24/24 documented as of this encounter
--- OUTSIDE RECORDS SUMMARY | 2025-07-29 18:07 | XMS_ITS | Encounter Summary ---
Author Organization [employer] Address [address] [facility] [address] [facility] [address] 7t [place] [address] Care Team Providers Care Resident Buyer Name Role Phone Gayathri Maravilla ROJELIO Primary Care Provider [phone] Lora Yarbrough MD Unavailable [phone] Encounter Details Date Type Department Care Team (Late st Contact Info) Description 01/25/2024 Orders Only [facility] MEDICINE [address] [place] [address] Sandra Patel RN Uncomplicated opioid dependence (CMS/[facility]) Social History Tobacco Use Types [...] Description 08/12/2025 2:30 PM EDT Office Visit [facility] MEDICINE [address] [place] [address] James Heredia MD [address] [place], [place] [phone] Scheduled Orders Name Type Priority Associated Diagnoses [...] documented as of this encounter Care Teams Resident Buyer Relationship Specialty Start Date End Date Gayathri Maravilla FNP [address] [place] [address] PCP - General Family Medicine 06/13/22 Lora Yarbrough MD [address] [place] [address] Hematology and Oncology 10/24/24 documented as of this encounter
--- OUTSIDE RECORDS SUMMARY | 2025-07-29 18:07 | XMS_ITS | Encounter Summary ---
Author Organization [employer] Address [address] [facility] 7t [place] [address] Care Team Providers Care Legal Aide Name Role Phone Gayathri Maravilla ROJELIO Primary Care Provider Lora Yarbrough MD Unavailable [phone] Reason for Visit * Reason Comments Med Refill Encounter Details Date Type Department Care Team ([facility] st Contact Info) Description 05/21/2024 Refill [facility] MEDICINE [address] [place] [address] James Heredia MD [address] [place], [place] [phone] Uncomplicated opioid dependence (CMS/HCC) Social History Tobacco [...] Description 08/12/2025 2:30 PM EDT Office Visit [facility] MEDICINE [address] [place] [address] James Heredia MD [address] [place] [address] documented as of this encounter Visit Diagnoses Diagnosis Uncomplicated opioid dependence (CMS/HCC) (HCC) documented in this encounter Additional Health Concerns Assessment Noted Time PHQ-9 Depression Total Score: 6 03/22/20 23 11:14 AM EDT documented as of this encounter Care Teams Legal Aide Relationship Specialty Start Date End Date Gayathri Maravilla FNP [address] [place] [address] PCP - General Family Medicine 06/13/22 Lora Yarbrough MD [address] [place] [address] Hematology and Oncology 10/24/24 documented as of this encounter
--- OUTSIDE RECORDS SUMMARY | 2025-07-29 18:07 | XMS_ITS | Encounter Summary ---
Author Organization [employer] Address [address] [facility] [address] [address] 7t [place] [address] Care Team Providers Care Credit Correspondence Clerk Name Role Phone Gayathri Maravilla ROJELIO Primary Care Provider [phone] Lora Yarbrough MD Unavailable Encounter Details Date Type Department Care Team (Latest Contact Info) Description 07/29/2025 Travel Social History Tobacco Use Types Packs/Day [...] Description 08/12/2025 2:30 PM EDT Office Visit [facility] MEDICINE [address] [place] [address] James Heredia MD [address] [place] [address] documented as of this encounter Goals Goal [...] documented as of this encounter Care Teams Credit Correspondence Clerk Relationship Specialty Start Date End Date Gayathri Maravilla FNP [address] [place] [address] PCP - General Family Medicine 06/13/22 Lora Yarbrough MD [address] [place] [address] Hematology and Oncology 10/24/24 documented as of this encounter
--- OUTSIDE RECORDS SUMMARY | 2025-07-29 18:07 | XMS_ITS | Clinical Summary ---
Author Organization [employer] Address [address] [facility] 7[address] [place] [address] Care Team Providers Care Automotive Sales Representative Name Role Phone Gayathri Maravilla ROJELIO Primary Care Provider [phone] Lora Yarbrough MD Unavailable [phone] Allergies No known active allergies Medications [...] ons:HFrEF (heart failure with reduced ejection fraction) ([facility]),History of ST elevation myocardial infarction (STEMI) CHEW 1 TABLET BY MOUTH EVERY DAY 90 tablet 3 09/04/20 23 Active nicotine (Nicoderm CQ) 14 MG/24HR patch Place 1 patch on the skin 1 (one) time each day at the same time. 42 patch 09/12/20 23 Active naloxone (Narcan) 4 mg/0.1 mL nasal sprayIndicatio ns:Uncomplicat ed opioid dependence (CMS/HCC) ([facility]) FOR SUSPECTED OPIOID OVERDOSE. SPRAY 0.1mL IN [...] BY MOUTH EVERY DAY 90 tablet 3 04/22/20 25 Active Buprenorphine HCl-Naloxone HCl (Suboxone) 8-2 MG SL filmIndication s:Uncomplicate d opioid dependence (CMS/HCC) ([facility]) Place 1 Film under the tongue 2 times daily for 14 days. 28 Film 07/22/20 25 025 Active Buprenorphine HCl-Naloxone HCl (Suboxone) 8-2 MG SL filmIndication s:Uncomplicate d opioid dependence (CMS/HCC) ([facility]) Place 1 Film under the tongue 2 times daily for 14 days. 28 Film 06/25/20 25 025 Discontinued(R eorder (will not trigger notification to Pharmacy)) Buprenorphine HCl-Naloxone HCl (Suboxone) 8-2 MG SL filmIndication s:Uncomplicate d opioid dependence (CMS/HCC) ([facility]) Place 1 Film under the tongue 2 times daily for 14 days. 28 Film 07/10/20 25 025 Discontinued(R eorder (will not trigger notification to Pharmacy)) Active Problems Problem Noted Date Diagnosed Date MDD (major depressive disord er), recurrent episode, moderate (CMS/HCC) 03/17/2025 Mixed hyperlipidemia 07/17/2024 Overview (07/17/2024): Followed by [facility], checking lipid panels through their office LDL 110 mg/dL on 07/31/23 Med regimen: Rosuvastatin 40mg nightly Zetia 10mg daily Evolocumab (Repatha) every other week Hypertensive retinopathy of both eyes 04/17/2024 Assessment & Plan (05/25/2025 2:51 PM EDT): Followed by [facility]. CEE on 12/20/24 w/ impression of Hypertensive retinopathy bilateral Assessment & Plan (04/17/2024 7:21 AM EDT): Followed by Dr. Mojica. CEMax on 12/21/23 w/ impression of Hypertensive retinopathy bilateral Healthcare maintenance 01/09/2024 Overview (05/25/2025): OPH: 12/20/24 - SARAH w/ [facility]. Hypertensive retinopathy bilateral. [...] 2021 -[place] [facility] [place]Reports adherence to cardiac medications -Denies any current chest pain -Continue following with Learning Support Specialist -06/21/23- stress test. Large LAD territory infarction. [...] 2021 -[place] LAD in 2020 [place] [facility] [place]Reports adherence to cardiac medications -Denies any current chest pain -Continue following with Learning Support Specialist HFrEF (heart failure with reduced ejection fract ion) 10/31/2022 Overview (07/17/2024): Suspect resulted from STEMI Echo Jun 2024 with severely reduced LVEF, LVEED 6.2 cm (LV function worse and LV more dilated) Continue following with [facility] - Dr. 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 Yarbrough -Per consult recommendations: [...] testing at 40 y/o -04/15/25: EGD at [facility] performed by Dr. Fuchs. Normal esophagus. Path: gastritis, (+) H Pylori. Neg for intestinal metaplasia and dysplasia. 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 Yarbrough -Per consult recommendations: [...] 08/15/22 -Positive for Jose Syndrome -Following with [facility]c - Dr. Yarbrough -Per consult recommendations: [...] 08/15/22 -Positive for Jose Syndrome -Following with [facility]c - Dr. Yarbrough -Per consult recommendations: [...] 08/21/2017 Essential hypertension 06/22/2017 Opioid dependence, uncomplicated (CMS/HCC) 06/22 Resolved Problems Problem Noted Date Diagnosed Date Resolved Date Acute ST elevation myocardia l infarction (STEMI) of anterior wall 10/31/2022 10/31/2022 Cocaine dependence 08/21/2017 4 Major depressive disorder wi th single episode, in full remission 06/22/2017 07/17/2024 Assessment & Plan (10/31/2022 1:31 PM EST): -Continue following with therapist and psychiatrist through [facility] -Denies SI/HI/thoughts of self harm Encounters Date Type Department Care Team Description 07/29/2025 3:00 PM EDT Clinical Support [facility] [address] [place] [phone] Sandra Patel RN Uncomplicated opioid dependence (CMS/HCC) (HCC) 07/29/2025 Travel 07/22/2025 Refill [facility] [address] [place] [phone] Sandra Patel RN Uncomplicated opioid dependence (CMS/HCC) (HCC) 07/15/2025 1:00 PM EDT Clinical Support [address] [address] Sandra Patel RN Uncomplicated opioid dependence (CMS/HCC) 07/15/2025 Travel 07/09/2025 Refill [facility] [address] [place] [phone] Sandra Patel RN Uncomplicated opioid dependence (CMS/HCC) 07/01/2025 2:45 PM EDT Office Visit [facility] [address] [place] [phone] James Heredia MD Uncomplicated opioid dependence (CMS/HCC) (Primary Dx) 07/01/2025 Travel 06/25/2025 Refill [facility] [address] [place] [phone] Sandra Patel RN Uncomplicated opioid dependence (CMS/HCC) 06/18/2025 3:00 PM EDT Clinical Support [address] [address] Sandra Patel RN Uncomplicated opioid dependence ([facility]/H[facility]) 06/18/2025 Travel 06/03/2025 3:00 PM EDT Clinical Support [facility] [address] [place] [phone] Sandra Patel RN Uncomplicated opioid dependence ([facility]/HCC) (Primary Dx) 06/03/2025 Travel 06/02/2025 Refill [facility] [address] [place] [address] Sandra Patel RN Uncomplicated opioid dependence ([facility]/HCC) 05/30/2025 Refill [facility] [address] [place] [address] Sandra Patel RN Uncomplicated opioid dependence ([facility]/HCC) 05/23/2025 1:45 PM EDT Office Visit [facility] [address] [place] [address] Gayathri Maravilla, PROFESSIONAL BUILDER Onychauxis (Primary Dx); Healthcare maintenance; Hypertensive retinopathy of both eyes; Malignant neoplasm of colon, unspecified part of colon (CMS/HCC) 05/23/2025 Travel 05/20/2025 3:15 PM EDT Office Visit [facility] [address] [place] [phone] James Heredia MD Opioid dependence, uncomplicated ([facility]/HCC) (Primary Dx) 05/20/2025 Travel 05/19/2025 Refill [facility] [address] [place] [phone] Sandra Patel RN Uncomplicated opioid dependence ([facility]/HCC) 05/07/2025 Refill [facility] [address] [place] [phone] aSndra Patel RN Uncomplicated opioid dependence ([facility]/HCC) 05/01/2025 11:00 AM EDT Clinical Support [facility] [address] [place] [phone] Sandra Patel RN Uncomplicated opioid dependence ([facility]/HCC) (Primary Dx) 05/01/2025 Travel 04/29/2025 Travel from Last 3 Months Immunizations Immunization [...] Description 08/12/2025 2:30 PM EDT Office Visit [facility] [address] [place] [address] James Heredia MD [address] [place] [address] Health Maintenance Due Date Last Done Comments Disability Screening 1985 Hepatitis B Vaccines (3 of 3 - 3-dose series) 11/02/1999 08/13/1999, 07/13/1999 Family Planning (PISQ) 2000 HPV Vaccines (1 - Male 3-dose series) 2000 Pneumococcal Vaccine: Pediatrics (0 to 5 Years) and At-Risk Patients (6 to 49) Years (2 of 2 - PCV) 12/10/2015 12/10/2014 COVID-19 Vaccine (3 - season) 2025 07/13/2021, 03/21/2021 Influenza Vaccine (#1) 2025 , 08/21/2017, 08/21/2017, Additional history exists Depression Screening 03/17/2026 03/17/2025, 03/17/20 25 Tobacco Screening 07/01/2026 07/01/2025 Alcohol/Substance Use Screening 07/29/2026 07/29/2025 Diabetes: Hemoglobin A1C 07/29/2026 07/29/2025 SDOH Screening 07/29/2026 07/29/2025 Lipid Panel 07/29/2030 07/29/2025 DTaP/Tdap/Td Vaccines (3 - Td or Tdap) [...] perform daily activities General No Cassius Contreras, medical review specialist Procedure Name Priority Date/Time Associated Diagnosis Comments CBC WITH AUTO DIFFERENTIAL Routine 07/29/2025 3:22 PM EDT Healthcare maintenance COMPREHENSIVE METABOLIC PANEL Routine 07/29/2025 3:22 PM EDT Healthcare maintenance TSH W/REFLEX TO FT4 Routine 07/29/2025 3 :22 PM EDT Healthcare maintenance HEMOGLOBIN A1C Routine 07/29/2025 3:22 PM EDT Healthcare maintenance LIPID PANEL, STANDARD Routine 07/29/2025 3:22 PM EDT Healthcare maintenance POCT ANDRE-14 URINE DRUG SCREEN Routine 07/01/2025 3:08 PM EDT Uncomplicated opioid dependence (CMS/HCC) POCT ANDRE-14 URINE DRUG SCREEN Routine 06/03/2025 3:49 PM EDT Uncomplicated opioid dependence (CMS/HCC) POCT ANDRE-14 URINE DRUG SCREEN Routine 05/01/2025 11:42 AM EDT Uncomplicated opioid dependence (CMS/HCC) HEPATITIS C AB W/REFL TO HCV RNA, QN, PCR Routine 10/18/2024 3:22 PM EST HIV 1/2 ANTIGEN/ANTIBODY, FOURTH GENERATION W/RFL Routine 10/18/2024 3:22 PM EST from Last 3 Months or Most Recently Relevant to Health Maintenance Results * TSH with Reflex to Free T4 (07/29/2025 3:22 PM EDT) TSH reflex Free T4 1.20 0.32 - 4.0 uIU/mL [facility] Blood 07/29/2025 3:22 PM EDT 07/29/2025 4:15 PM EDT us Gayathri Maravilla PROFESSIONAL BUILDER LAB BLOOD ORDERABLES Final Res ult [facility] [address] [place] [address] [phone] * (ABNORMAL) CBC auto differential (07/29/2025 3:22 PM EDT) White Blood Count 5.9 4.8 - 10.8 X10*3/uL [facility] Red Blood Count 4.39(L) 4.60 - 5.80 X10*6/uL [facility] Hemoglobin 12.2(L) 14.0 - 18.0 g/dl [facility] Hematocrit 37.3(L) 42.0 - 52.0 % [facility] Mean Corpuscular Volume 85.0 80.0 - 98.0 fL [facility] Mean Corpuscular Hemoglobin 27.8 27.0 - 33.0 pg [facility] Mean Corpuscular HGB Conc 32.7 31.0 - 36.0 g/dl [facility] Red Cell Distribution Width 12.7 11.0 - 16.0 % [facility] Platelet Count 191 160 - 400 X10*3/uL [facility] Mean Platelet Volume 11.7 9.4 - 12.4 fL [facility] Neutrophils Percent Auto 44.4(L) 45 - 73 % [facility] Imm Gran Pct Auto 0.3 0.0 - 0.4 % [facility] Lymphocytes Percent Auto 41.6(H) 20 - 40 % [facility] Monocytes Percent Auto 6.0 2 - 11 % [facility] Eosinophils Percent Auto 6.7(H) 0 - 4 % [facility] Basophils Percent Auto 1.0 0 - 2 % [facility] NRBC Pct Auto 0.0 0.0 - 0.2 /100WBC [facility] Neutrophils Absolute Auto 2.6 2.0 - 8.3 x10*3/uL [facility] Imm Gran Abs Auto 0.02 0.00 - 0.03 X10*3/uL [facility] Lymphocytes Absolute Auto 2.4 1.2 - 4.9 X10*3/uL [facility] Monocytes Absolute Auto 0.4 0.1 - 1.2 X10*3/uL [facility] Eosinophils Absolute Auto 0.4 0.0 - 0.4 X10*3/uL [facility] Basophils Absolute Auto 0.1 0.0 - 0.2 X10*3/uL [facility] NRBC Abs Auto 0.000 0.0 - 0.012 X10*3/uL [facility] Blood Venous blood specimen / Unknown 07/29/2025 3:22 PM EDT 07/29/2025 4:15 PM EDT Gayathri Maravilla [facility] LAB BLOOD ORDERABLES Final Res ult Performing Organization Address [facility]/ZIP Co de Phone Number [facility] [address] [place] [phone] * Hemoglobin A1c (07/29/2025 3:22 PM EDT) Hemoglobin A1c 6.0 <6.0 % [facility] Comment:Hemoglobin A1C Refer ence Range Adults: 4.8 - 6.0 % Non diabetic: < 6.0 % Goal: < 7.0 %Additional Action Suggested: > 8.0 %Note: Hemoglobin A1c results are invalid for patients with abnormal amounts of HbF. Blood transfusions may impact the HbA1c concentration in the patient sample. Estimated Average Glucose 126 mg/dL [facility] Comment:eAG = Estimated ave rage glucose which is %A1C expressed asaverage glucose, using the formula of the S1B-HweiyeyArhekco Glucose study (ADAG), Diabetes Care, Vol.31,#8,May. 2007 Blood Venous blood specimen / Unknown 07/29/2025 3:22 PM EDT 07/29/2025 4:15 PM EDT Gayathri Maravilla [facility] LAB BLOOD ORDERABLES Final Res ult Performing Organization Address City/[facility]/ZIP Co de Phone Number [facility] [address] [place] [phone] * (ABNORMAL) Lipid Panel, Standard (07/29/2025 3:22 PM EDT) Triglycerides 83 <150 mg/dL [facility] Comment:Desirable Triglyceri de: less than 150 mg/dLBorderline High Triglyceride 150-199 mg/dLHigh Triglyceride: 200-499 mg/dLVery High Triglyceride: greater than or equal to 5OO mg/dL Cholesterol 89 <200 mg/dL [facility] Comment:Desirable Cholestero l: less than 200 mg/dLBorderline High Cholesterol: 200-239 mg/dLHigh Cholesterol: greater than 239 mg/dL LDL Cholesterol Calculated 38 <100 mg/dL [facility] Comment:Desirable LDL: less than 100 mg/dLNear Optimal/Above Optimal LDL: 110- 129 mg/dLBorderline High LDL: 130-159 mg/dLHigh LDL: 160-189 mg/dLVery High LDL: greater than or equal to 190 mg/dL HDL Cholesterol 35(L) >40 mg/dL [facility] Comment:Desirable HDL: great er than 40 mg/dL Note: This HDL assay may give artificially low results in patients with liver disease. Blood Venous blood specimen / Unknown 07/29/2025 3:22 PM EDT 07/29/2025 4:15 PM EDT us Gayathri Maravilla PROFESSIONAL BUILDER LAB BLOOD ORDERABLES Final Res ult [facility] [address] [place] [phone] * (ABNORMAL) Comprehensive Metabolic Panel (07/29/2025 3:22 PM EDT) Sodium 140 135 - 145 mmol/L [facility] Potassium 4.0 3.3 - 5.1 mmol/L [facility] Chloride 105 96 - 108 mmol/L [facility] Carbon Dioxide 28 22 - 29 mmol/L [facility] Anion Gap 11(L) 12 - 20 [facility] Urea Nitrogen (BUN) 10 9 - 16 mg/dL [facility] Creatinine, Serum 0.83 0.5 - 1.4 mg/dL [facility] Estimated Glomerular Filt Rate >60 [facility] Comment:Chronic Kidney Disea se: Estimated GFR < 60 mL/min/[id number] Kidney Disease: Estimated GFR < 15 mL/min/1.73m2 Glucose 113 60 - 115 mg/dL [facility] Calcium 9.0 8.4 - 10.2 mg/dL [facility] Bilirubin, Total 0.3 0.0 - 1.0 mg/dL [facility] Aspartate Amino Transferase 31 5 - 37 U/L [facility] Alanine Aminotransferase 23 0 - 40 U/L [facility] Total Protein 6.9 6.5 - 8.0 g/dL [facility] Albumin Level 4.3 3.5 - 5.0 g/dL [facility] Alkaline Phosphatase 68 39 - 117 U/L [facility] Blood Venous blood specimen / Unknown 07/29/2025 3:22 PM EDT 07/29/2025 4:15 PM EDT Gayathri Maravilla PROFESSIONAL BUILDER LAB BLOOD ORDERABLES Final Res ult [facility] [address] [place] [phone] * (ABNORMAL) POCT ANDRE-14 Urine Drug Screen (07/01/2025 3:08 PM EDT) Only the most recent of3 resultswithin the time period is included. THC [...] PM EST) Hepatitis C Antibody Nonreactive Nonreactive [facility] Comment:Antibodies to HCV no t detected; does not exclude early acuteHCV infection. 10/18/2024 3:22 PM EST 10/18/2024 4:08 PM EST James Heredia MD LAB BLOOD ORDERABLES Final Resul t Performing Organization Address [facility] Co de Phone Number [facility] [address] [place] [phone] * HIV-1/2 Antigen and Antibodies, Fourth Generation, with Reflexes (10/18/2024 3:22 PM EST) Pathologist [facility] HIV AB/AG Nonreactive Nonreactive [facility] Comment:HIV-1 p24 Ag and/or HIV-1/HIV-2 Ab not detected.A test result that is nonreactive does not exclude thepossibility of exposure to or infection with HIV-1 and/orHIV-2. Nonreactive results in this assay for individualswith prior exposure to HIV-1 and/or HIV-2 may be due toantigen and antibody levels that are below the limit ofdetection of this assay.The [employer] HIV Ag/Ab Combo assay result andsupplemental assay results should be interpreted inconjunction with the patient's clinical presentation,history and other laboratory results. If the results areinconsistent with clinical evidence, additional testing issuggested to confirm the result. 10/18/2024 3:22 PM EST 10/18/2024 4:08 PM EST James Heredia MD LAB BLOOD ORDERABLES Final Resul t Performing Organization Address [facility] Co de Phone Number [facility] [address] [place] [phone] from Last 3 Months or Most Recently Relevant [place] [id number] [facility] [place] [address] [id number] Care Teams Automotive Sales Representative Relationship Specialty Start Date End Date Gayathri Maravilla FNP [address] [place] [address] PCP - General Family Medicine 06/13/22 Lora Yarbrough MD [address] [place] [phone] Hematology and Oncology 10/24/24
--- OUTSIDE RECORDS SUMMARY | 2025-07-29 18:07 | XMS_ITS | Encounter Summary ---
Author Organization [employer] Address [address] [facility] [address] [place] [address] Care Team Providers Care Welding Machine Operator Thermit Name Role Phone Gayathri Maravilla Primary Care Provider [phone] Lora Yarbrough MD Unavailable [phone] Reason for Visit * Reason Onset Date Comments Nurse Triage 06/30/2023 Encounter Details Date Type Department Care Team ([facility] st Contact Info) Description 06/30/2023 Telephone [facility] [address] [place] [address] Gayathri Maravilla FNP [address] [place] [address] Nurse Triage Social History Tobacco Use Types [...] on site visit. Please contact pt at [phone] documented in this encounter Plan of Treatment Upcoming Encounters Date Type Department Care Team (Late st Contact Info) Description 08/12/2025 2:30 PM EDT Office Visit [facility] [address] [place] [address] James Heredia MD [address] [place] [address] documented as of this encounter Visit Diagnoses Not on filedocumented in this encounter Additional Health Concerns Assessment Noted Time PHQ-9 Depression Total Score: 6 03/22/20 23 11:14 AM EDT documented as of this encounter Care Teams Welding Machine Operator Thermit Relationship Specialty Start Date End Date Gayathri Maravilla FNP [address] [place] [address] PCP - General Family Medicine 06/13/22 Lora Yarbrough MD [address] [place] [address] Hematology and Oncology 10/24/24 documented as of this encounter
--- OUTSIDE RECORDS SUMMARY | 2025-07-29 18:07 | XMS_ITS | Encounter Summary ---
Author Organization [employer] Address [address] [facility] [place] [address] Care Team Providers Care Supervisor Mold Shop Name Role Phone Gayathri Maravilla Primary Care Provider [phone] Lora Yarbrough MD Unavailable Reason for Visit * Reason Onset Date Comments Call Back Request 09/26/2023 Encounter Details Date Type Department Care Team ([facility] st Contact Info) Description 09/26/2023 Telephone [facility] [address] [facility] [place] [address] Gayathri Maravilla FNP [address] [place] [address] Call Back Request Social History Tobacco Use [...] Description 08/12/2025 2:30 PM EDT Office Visit [facility] [address] [place] [address] James Heredia MD [address] [place] [address] documented as of this encounter Visit Diagnoses Not on filedocumented in this encounter Additional Health Concerns Assessment Noted Time PHQ-9 Depression Total Score: 6 03/22/20 23 11:14 AM EDT documented as of this encounter Care Teams Supervisor Mold Shop Relationship Specialty Start Date End Date Gayathri Maravilla FNP [address] [place] [address] PCP - General Family Medicine 06/13/22 Lora Yarbrough MD [address] [place] [phone] Hematology and Oncology 10/24/24 documented as of this encounter
[2025-07-30 03:19] LABS: HIV Num 1 0.07 S/CO (0.00-0.99)
[2025-07-31 17:27] LABS: HCV Log PCR <1.18 NOT DETECTED Log IU/mL (NOT DETECTED); HepC Viral Load <15 NOT DETECTED IU/mL (NOT DETECTED)
== END 2025-07-29 15:15 | disposition home or self-care (01) ==
LOC: HO.HHCL 15:14
PROVIDERS: PCP Registered Nurse; Visit Provider Registered Nurse
DX: Z00.00 Encounter for general adult medical examination without abnormal findings (principal); Z11.3 Encounter for screening for infections with a predominantly sexual mode of transmission; Z11.4 Encounter for screening for human immunodeficiency virus [HIV]
CPT/HCPCS: 36415; 80053; 80061; 83036; 84443; 85025; 86592; 87389; 87522

== ENCOUNTER 2025-08-27 13:47 | Outpatient (AMB) | payer MEDICAID, SELFPAY ==
--- OUTSIDE RECORDS SUMMARY | 2025-08-27 11:15 | XMS_ITS | Encounter Summary ---
Author Organization [employer] Address [address] [place] [address] Care Team Providers Care Performance Analyst Name Role Phone Gayathri Maravilla ROJELIO Primary Care Provider [phone] Lora Yarbrough MD Unavailable [phone] Reason for Visit * Reason Comments OBAT Encounter Details Date Type Department Care Team ([facility] st Contact Info) Description 2025 11:15 AM EST Clinical Support [facility] [address] [place] [address] Sandra Patel RN Arrived Social History Tobacco [...] Description 09/09/2025 2:15 PM EST Office Visit [facility] [address] [place] [address] James Heredia MD [address] [place] [address] documented as of this encounter Goals Goal [...] documented as of this encounter Care Teams Performance Analyst Relationship Specialty Start Date End Date Gayathri Maravilla FNP [address] [place] [address] PCP - General Family Medicine 06/13/22 Lora Yarbrough MD [address] [place] [id number] Hematology and Oncology 10/24/24 documented as of this encounter
--- NOTE | 2025-08-27 13:51 | AM.OFFVISNUR ---
Vital Signs 08/27/25 13:51 Height 5 ft 6 in Blood Pressure Location Lt brachial Position Sitting Intake Visit Reasons: h pylori Intake Note: Patient presents for collection of?H Pylori?breath test. Patient has been fasting for 1 hour (nothing to eat, drink, no chewing gum or smoking) has not taken any antacid medication for at least 2 weeks and has no allergies to artificial sweeteners.?? Allergies No Known Allergies Allergy (Verified 07/14/25 16:37) Assessment & Plan Assessment & Plan (1) H. pylori infection: Code(s): A04.8 - Other specified bacterial intestinal infections Category: Medical Plan Patient presents for collection of?H Pylori?breath test. Patient has been fasting for 1 hour (nothing to eat, drink, no chewing gum or smoking) has not taken any antacid medication for at least 2 weeks and has no allergies to artificial sweeteners.???This test checks for an overgrowth of bacteria in your stomach. We all have bacteria but some may have more than others. It is treatable. if the test comes back negative there is nothing else to do. If the test result is positive we will treat you with 2 antibiotics and a medication to decrease the acid in your stomach (PPI) for 2 weeks. Two weeks after you have completed the treatment we will retest you to make sure the overgrowth has resolved. Patient Instructions: Process for specimen collection and reason for testing was explained to the patient. Specimen collection. Patient instructed to take a deep breath and then exhale into the blue bag, filling it up as much as possible. Patient instructed to drink a mixture of water and the artificial sweetener with a straw. A 15 minute wait period was observed. Patient instructed to take a deep breath and then exhale into the pink bag, filling it up as much as possible.?? Coding Level of Care Code Est Pt Level 1 (89779) Diagnoses H. pylori infection A04.8
--- OUTSIDE RECORDS SUMMARY | 2025-08-27 16:51 | XMS_ITS | Encounter Summary ---
Author Organization [employer] Address [address] [place] [address] Care Team Providers Care Animal Control Licensing Worker Name Role Phone Gayathri Maravilla ROJELIO Primary Care Provider [phone] Lora Yarbrough MD Unavailable [phone] Encounter Details Date Type Department Care Team (Late st Contact Info) Description 01/25/2024 Orders Only [facility] [address] [place] [address] Sandra Patel RN Uncomplicated opioid dependence (CMS/[facility]) Social History Tobacco Use Types Packs/Day [...] Description 09/09/2025 2:15 PM EST Office Visit [facility] [address] [place] [address] James Heredia MD [address] [place], [place] [phone] Scheduled Orders Name Type Priority Associated Diagnoses [...] documented as of this encounter Care Teams Animal Control Licensing Worker Relationship Specialty Start Date End Date Gayathri Maravilla FNP [address] [place] [address] PCP - General Family Medicine 06/13/22 Lora Yarbrough MD [address] [place] [address] Hematology and Oncology 10/24/24 documented as of this encounter
--- OUTSIDE RECORDS SUMMARY | 2025-08-27 16:52 | XMS_ITS | Encounter Summary ---
Author Organization [employer] Address [address] [facility] 7t [place] [address] Care Team Providers Care Elevator Erector Name Role Phone Gayathri Maravilla ROJELIO Primary Care Provider [phone] Lora Yarbrough MD Unavailable [phone] Encounter Details Date Type Department Care Team (Late Contact Info) Description 06/14/2023 Orders Only [facility] MEDICINE [address] [place] [address] [phone] Sandra Patel RN Uncomplicated opioid dependence (CMS/HCC) [...] Department Care Team (Late Contact Info) Description 09/09/2025 2:15 PM EST Office Visit [facility]INE [address] [place] [address] [phone] James Heredia MD [address] [place] [address] [phone] Scheduled Orders Name Type Priority Associated Diagnoses [...] documented as of this encounter Care Teams Elevator Erector Relationship Specialty Start Date End Date Gayathri Maravilla FNP [address] [place] [address] PCP - General Family Medicine 06/13/22 Lora Yarbrough MD [address] [place] [address] Hematology and Oncology 10/24/24 documented as of this encounter
--- OUTSIDE RECORDS SUMMARY | 2025-08-27 16:52 | XMS_ITS | Encounter Summary ---
Author Organization [employer] Address [address] [place] [address] Care Team Providers Care Physical Therapy Assistant Instructor Name Role Phone Gayathri Maravilla ROJELIO Primary Care Provider [phone] Lora Yarbrough MD Unavailable [phone] Encounter Details Date Type Department Care Team (Latest Contact Info) Description 2025 Travel Social History Tobacco Use Types Packs/Day [...] Description 09/09/2025 2:15 PM EST Office Visit [facility] [address] [place] [address] James Heredia MD [address] [place] [address] documented as of this encounter Goals Goal [...] documented as of this encounter Care Teams Physical Therapy Assistant Instructor Relationship Specialty Start Date End Date Gayathri Maravilla FNP [address] [place] [address] PCP - General Family Medicine 06/13/22 Lora Yarbrough MD [address] [place] [address] Hematology and Oncology 10/24/24 documented as of this encounter
--- OUTSIDE RECORDS SUMMARY | 2025-08-27 16:52 | XMS_ITS | Encounter Summary ---
Author Organization [employer] Address [address] [facility] [address]t [place] [address] Care Team Providers Care Rn Wound Care Name Role Phone Gayathri Maravilla Primary Care Provider [phone] Lora Yarbrough MD Unavailable [phone] Reason for Visit * Reason Onset Date Comments PCP change 07/13/2023 Encounter Details Date Type Department Care Team ([facility] st Contact Info) Description 07/13/2023 Telephone [facility] MEDICINE [address] [place] [address] Gayathri Maravilla FNP [address] [place] [address] PCP change Social History Tobacco Use Types [...] PCP due to PCP changing location to [facility] and PCP's availability in [facility]. documented in this encounter Plan of Treatment Upcoming Encounters Date Type Department Care Team (Late st Contact Info) Description 09/09/2025 2:15 PM EST Office Visit [facility]INE [address] [place] [address] James Heredia MD [address] [place] [address] documented as of this encounter Visit Diagnoses Not on filedocumented in this encounter Additional Health Concerns Assessment Noted Time PHQ-9 Depression Total Score: 6 03/22/20 23 11:14 AM EDT documented as of this encounter Care Teams Rn Wound Care Relationship Specialty Start Date End Date Gayathri Maravilla FNP [address] [place] [address] PCP - General Family Medicine 06/13/22 Lora Yarbrough MD [address] [place] [id number] Hematology and Oncology 10/24/24 documented as of this encounter
--- OUTSIDE RECORDS SUMMARY | 2025-08-27 16:52 | XMS_ITS | Encounter Summary ---
Author Organization [employer] Address [address] [place] [address] Care Team Providers Care Promotions Assistant Sales Marketing Name Role Phone Gayathri Maravilla Primary Care Provider [phone] Lora Yarbrough MD Unavailable [phone] Reason for Visit * Reason Onset Date Comments Call Back Request 09/26/2023 Encounter Details Date Type Department Care Team ([facility] st Contact Info) Description 09/26/2023 Telephone [facility] [address] [facility] [place] [address] Gayathri Maravilla FNP [address] [place] [address] Call Back Request Social History Tobacco Use [...] Description 09/09/2025 2:15 PM EST Office Visit [facility] [address] [place] [address] James Heredia MD [address] [place] [address] documented as of this encounter Visit Diagnoses Not on filedocumented in this encounter Additional Health Concerns Assessment Noted Time PHQ-9 Depression Total Score: 6 03/22/20 23 11:14 AM EDT documented as of this encounter Care Teams Promotions Assistant Sales Marketing Relationship Specialty Start Date End Date Gayathri Maravilla FNP [address] [place] [address] PCP - General Family Medicine 06/13/22 Lora Yarbrough MD [address] [place] [id number] Hematology and Oncology 10/24/24 documented as of this encounter
--- OUTSIDE RECORDS SUMMARY | 2025-08-27 16:52 | XMS_ITS | Clinical Summary ---
Author Organization [employer] Address [address] [facility] 7[address] [place] [address] Care Team Providers Care Machine Stoppage Frequency Checker Name Role Phone Gayathri Maravilla ROJELIO Primary Care Provider [phone] Lora Yarbrough MD Unavailable [phone] Allergies No known active allergies Medications [...] ons:HFrEF (heart failure with reduced ejection fraction) ([facility]LY [facility]),History of ST elevation myocardial infarction (STEMI) CHEW 1 TABLET BY MOUTH EVERY DAY 90 tablet 3 09/04/20 23 Active nicotine (Nicoderm CQ) 14 MG/24HR patch Place 1 patch on the skin 1 (one) time each day at the same time. 42 patch 09/12/20 23 Active naloxone (Narcan) 4 mg/0.1 mL nasal sprayIndicatio ns:Uncomplicat ed opioid dependence (CMS/HCC) (FORMERLY [facility]) FOR SUSPECTED OPIOID OVERDOSE. SPRAY 0.1mL IN [...] MOUTH EVERY DAY 90 tablet 3 5 8:49 AM EDT 04/22/20 25 Active Buprenorphine HCl-Naloxone HCl (Suboxone) 8-2 MG SL filmIndication s:Uncomplicate d opioid dependence (CMS/HCC) (FORM[facility]LY [facility]) Place 1 Film under the tongue 2 times daily for 14 days. 28 Film 5 11:36 AM EST 08/20/20 25 025 Active Buprenorphine HCl-Naloxone HCl (Suboxone) 8-2 MG SL filmIndication s:Uncomplicate d opioid dependence (CMS/HCC) (FORM[facility]LY [facility]) Place 1 Film under the tongue 2 times daily for 14 days. 28 Film 07/22/20 25 025 Discontinued(R eorder (will not trigger notification to Pharmacy)) Buprenorphine HCl-Naloxone HCl (Suboxone) 8-2 MG SL filmIndication s:Uncomplicate d opioid dependence (CMS/HCC) (FORM[facility]LY [facility]) Place 1 Film under the tongue 2 times daily for 14 days. 28 Film 08/07/20 25 025 Discontinued(R eorder (will not trigger notification to Pharmacy)) Buprenorphine HCl-Naloxone HCl (Suboxone) 8-2 MG SL filmIndication s:Uncomplicate d opioid dependence (CMS/HCC) (HCC) Place 1 Film under the tongue 2 times daily for 2 days. 3 Film 08/11/20 25 025 Discontinued(R eorder (will not trigger notification to Pharmacy)) Buprenorphine HCl-Naloxone HCl (Suboxone) 8-2 MG SL filmIndication s:Uncomplicate d opioid dependence (CMS/HCC) (HCC) Place 1 Film under the tongue 2 times daily for 14 days. 28 Film 08/12/20 25 025 Discontinued(R eorder (will not trigger notification to Pharmacy)) Active Problems Problem Noted Date Diagnosed Date MDD (major depressive disord er), recurrent episode, moderate (CMS/HCC) 03/17/2025 Mixed hyperlipidemia 07/17/2024 Overview (07/17/2024): Followed by [facility], checking lipid panels through their office LDL 110 mg/dL on 07/31/23 Med regimen: Rosuvastatin 40mg nightly Zetia 10mg daily Evolocumab (Repatha) every other week Hypertensive retinopathy of both eyes 04/17/2024 Assessment & Plan (05/25/2025 2:51 PM EDT): Followed by [facility]. SARAH on 12/20/24 w/ impression of Hypertensive retinopathy bilateral Assessment & Plan (04/17/2024 7:21 AM EDT): Followed by Dr. Mojica. SARAH on 12/21/23 w/ impression of Hypertensive retinopathy bilateral Healthcare maintenance 01/09/2024 Overview (05/25/2025): OPH: 12/20/24 - SARAH w/ [facility]. Hypertensive retinopathy bilateral. Assessment & [...] 2021 -Stenting of LAD in 2020 at [facility] -Reports adherence to cardiac medications -Denies any current chest pain -Continue following with Entry Level Project Coordinator -06/21/23- stress test. Large LAD territory infarction. [...] 2021 -Stenting of LAD in 2020 at [facility] [place] -Reports adherence to cardiac medications -Denies any current chest pain -Continue following with Entry Level Project Coordinator HFrEF (heart failure with reduced ejection fract ion) 10/31/2022 Overview (07/17/2024): Suspect resulted from STEMI Echo Jun 2024 with severely reduced LVEF, LVEED 6.2 cm (LV function worse and LV more dilated) Continue following with [facility] - Dr. 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 Yarbrough -Per consult recommendations: [...] testing at 40 y/o -04/15/25: EGD at [facility] performed by Dr. Fuchs. Normal esophagus. Path: gastritis, (+) H Pylori. Neg for intestinal metaplasia and dysplasia. 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 Yarbrough -Per consult recommendations: [...] in services. PLAN: 1. Follow up with [facility]: Recommended for follow-up: During OBAT appt 2. [...] -Continue following with therapist and psychiatrist through [facility] -Denies SI/HI/thoughts of self harm Encounters Date Type Department Care Team Description 2025 11:15 AM EST Clinical Support [facility] [address] [place] [phone] Sandra Patel RN Arrived 2025 Travel 08/20/2025 Telephone [facility] [address] [place], [place] [phone] Gayathri Maravilla FNP Results 08/20/2025 Refill [facility] [address] [place] [address] Sandra Patel, RN Uncomplicated opioid dependence (CMS/HCC) ([facility]) 08/12/2025 2:30 PM EDT Office Visit [facility] [address] [place] [address] [phone] James Heredia MD Uncomplicated opioid dependence (CMS/HCC) (HCC) (Primary Dx) 08/12/2025 Refill [facility] [address] [place] [address] Sandra Patel RN Uncomplicated opioid dependence (CMS/HCC) (HCC) 08/12/2025 Travel 08/11/2025 Telephone [facility] [address] [place] [phone] Sandra Patel RN 08/11/2025 Refill [facility] [address] [place] [address] Sandra Patel RN Uncomplicated opioid dependence (CMS/HCC) (HCC) 08/07/2025 Refill [facility] [address] [place] [phone] Sandra Patel RN Uncomplicated opioid dependence (CMS/HCC) (HCC) 08/01/2025 Results Follow-Up [facility] [address] [place] [phone] Hernan Patel MD Lipid Panel, Standard, Hemoglobin A1c, TSH with Reflex to Free T4, Additional followed-up results: 5 07/29/2025 3:00 PM EDT Clinical Support [facility] [address] [place] [phone] Sandra Patel RN Uncomplicated opioid dependence (CMS/HCC) (HCC) 07/29/2025 Travel 07/22/2025 Refill [facility] [address] [place] [phone] Sandra Patel RN Uncomplicated opioid dependence (CMS/HCC) (HCC) 07/15/2025 1:00 PM EDT Clinical Support [facility] [address] [place] [phone] Sandra Patel RN Uncomplicated opioid dependence (CMS/HCC) 07/15/2025 Travel 07/09/2025 Refill [facility] [address] [place] [phone] Sandra Patel RN Uncomplicated opioid dependence (CMS/HCC) 07/01/2025 2:45 PM EDT Office Visit [facility] [address] [place] [phone] James Heredia MD Uncomplicated opioid dependence (CMS/HCC) (Primary Dx) 07/01/2025 Travel 06/25/2025 Refill [facility] [address] [place] [address] Sandra Patel RN Uncomplicated opioid dependence (CMS/HCC) 06/18/2025 3:00 PM EDT Clinical Support [facility] [address] [place] [address] Sandra Patel RN Uncomplicated opioid dependence (CMS/HCC) 06/18/2025 Travel 06/03/2025 3:00 PM EDT Clinical Support [facility] [address] [place] [address] Sandra Patel RN Uncomplicated opioid dependence (CMS/HCC) (Primary Dx) 06/03/2025 Travel 06/02/2025 Refill [facility] [address] [place] [address] Sandra Patel RN Uncomplicated opioid dependence ([facility]/HCC) 05/30/2025 Refill [facility] [address] [place] [address] Sandra Patel RN Uncomplicated opioid dependence ([facility]/HCC) from Last 3 Months Immunizations Immunization Administration [...] 2:15 PM EST Office Visit [facility] [address] [place] [address] James Heredia MD [address] [place] [address] Health Maintenance Due Date Last Done Comments Disability Screening 1985 HIB Vaccines (1 of 1 - Risk 1-dose series) 11/27/1986 Meningococcal Vaccine (1 - Risk 2-dose series) 1987 Meningococcal B Vaccine (1 of 4 - Increased Risk) 1995 Hepatitis B Vaccines (3 of 3 - [...] history exists Depression Screening 03/17/2026 03/17/2025, 03/17/20 Alcohol/Substance Use Screening 07/29/2026 07/29/2025 Diabetes: Hemoglobin A1C 07/29/2026 07/29/2025 SDOH Screening 07/29/2026 07/29/2025 Tobacco Screening 08/12/2026 08/12/2025 Lipid Panel 07/29/2030 07/29/2025 DTaP/Tdap/Td Vaccines (3 - Td or Tdap) 10/06/2030 10/06/2020, 08/13/2019, 08/13/2019, Additional history exists Zoster Vaccines (1 of 2) 2035 RSV Patients and Patients Aged 60 years or older (1 - 1-dose 75+ series) 2060 HIV Screening Completed 07/29/2025, 12/2024, 07/13/2021 Hepatitis C Screening Completed 07/29/2025 , 10/18/2024, 07/13/2021 Hepatitis A Vaccines Aged Out No long [...] perform daily activities General No Cassius Contreras, planning manager Procedure Name Priority Date/Time Associated Diagnosis Comments POCT ANDRE-14 URINE DRUG SCREEN Routine 08/12/2025 3:09 PM EDT Uncomplicated opioid dependence (CMS/HCC) (HCC) HIV 1/2 ANTIGEN/ANTIBODY, FOURTH GENERATION W/RFL Routine 07/29/2025 3:22 PM EDT Healthcare maintenance RPR (MONITOR) W/REFL TITER Routine 07/29/2025 3:22 PM EDT Healthcare maintenance HEPATITIS C VIRAL RNA, QUANTITATIVE, REAL-TIME PCR Routine 07/29/2025 3:22 PM EDT Healthcare maintenance CBC WITH AUTO DIFFERENTIAL Routine 07/29/2025 3:22 [...] 3:49 PM EDT Uncomplicated opioid dependence (CMS/HCC) from Last 3 Months Results * (ABNORMAL) POCT ANDRE-14 Urine Drug Screen (08/12/2025 3:09 PM EDT) Only the most recent of3 [...] obtained by clean catch procedure / Unknown 08/12/2025 3:09 PM EDT James Heredia MD POINT OF CARE TEST ENTER/EDIT OR DERABLES Final Result * TSH with Reflex to Free T4 (07/29/2025 3:22 PM EDT) TSH reflex Free T4 1.20 0.32 - 4.0 uIU/mL [facility] Blood 07/29/2025 3:22 PM EDT 07/29/2025 4:15 PM EDT us Gayathri BARRYP LAB BLOOD ORDERABLES Final Res ult [facility] [address] [place] [phone] * Hepatitis C Viral RNA, Quantitative, Real-Time PCR (07/29/2025 3:22 PM EDT) [facility] Hepatitis C Viral Load <15 NOT DETECTED NOT DETECTED IU/mL [facility] HCV Log PCR <1.18 NOT DETECTED NOT DETECTED Log IU/mL [facility] Comment:For additional infor jose, please refer [email or web address].[address]/faq/[email or web address](This link is being provided for informational/educational purposes only.)THIS TEST WAS PERFORMED AT:[facility] [place] [phone] MORGAN MD Blood 07/29/2025 3:22 PM EDT 07/29/2025 4:15 PM EDT Gayathri Maravilla SETTER UP LAB BLOOD ORDERABLES Final Res ult [facility] [address] [place] [phone] * (ABNORMAL) CBC auto differential (07/29/2025 3:22 PM EDT) [facility] White Blood Count 5.9 4.8 - 10.8 X10*3/uL [facility] Red Blood Count 4.39(L) 4.60 - 5.80 X10*6/uL [facility] Hemoglobin 12.2(L) 14.0 - 18.0 g/dl [facility] Hematocrit 37.3(L) 42.0 - 52.0 % [facility] Mean Corpuscular Volume 85.0 80.0 - 98.0 fL [facility] Mean Corpuscular Hemoglobin 27.8 27.0 - 33.0 pg [facility] Mean Corpuscular HGB Conc 32.7 31.0 - 36.0 g/dl [facility] Red Cell Distribution Width 12.7 11.0 - 16.0 % [facility] Platelet Count 191 160 - 400 X10*3/uL [facility] Mean Platelet Volume 11.7 9.4 - 12.4 fL [facility] Neutrophils Percent Auto 44.4(L) 45 - 73 % [facility] Imm Gran Pct Auto 0.3 0.0 - 0.4 % [facility] Lymphocytes Percent Auto 41.6(H) 20 - 40 % [facility] Monocytes Percent Auto 6.0 2 - 11 % [facility] Eosinophils Percent Auto 6.7(H) 0 - 4 % [facility] Basophils Percent Auto 1.0 0 - 2 % [facility] NRBC Pct Auto 0.0 0.0 - 0.2 /100WBC [facility] Neutrophils Absolute Auto 2.6 2.0 - 8.3 x10*3/uL [facility] Imm Gran Abs Auto 0.02 0.00 - 0.03 X10*3/uL [facility] Lymphocytes Absolute Auto 2.4 1.2 - 4.9 X10*3/uL [facility] Monocytes Absolute Auto 0.4 0.1 - 1.2 X10*3/uL [facility] Eosinophils Absolute Auto 0.4 0.0 - 0.4 X10*3/uL [facility] Basophils Absolute Auto 0.1 0.0 - 0.2 X10*3/uL [facility] NRBC Abs Auto 0.000 0.0 - 0.012 X10*3/uL [facility] Blood Venous blood specimen / Unknown 07/29/2025 3:22 PM EDT 07/29/2025 4:15 PM EDT us Gayathri Maravilla SETTER UP LAB BLOOD ORDERABLES Final Res ult [facility] [address] [place] [address] [phone] * RPR (Monitor) with Reflex to??Titer (07/29/2025 3:22 PM EDT) RPR (Monitor) w/Refl Titer NON-REACTI VE NON-REACT CARMEL [facility] Comment:THIS TEST WAS PERFOR MED AT:[facility] [place] [phone] MORGAN MD Rapid Plasma Reagin Ab Titer TNP [facility] Blood Venous blood specimen / Unknown 07/29/2025 3:22 PM EDT 07/29/2025 4:15 PM EDT us Gayathri Maravilla SETTER UP LAB BLOOD ORDERABLES Final Res ult [facility] [address] [place] [phone] * HIV-1/2 Antigen and Antibodies, Fourth Generation, with Reflexes (07/29/2025 3:22 PM EDT) Pathologist [facility] HIV AB/AG Nonreactive Nonreactive [facility] Comment:HIV-1 p24 Ag and/or HIV-1/HIV-2 Ab not detected.A test result that is nonreactive does not exclude thepossibility of exposure to or infection with HIV-1 and/orHIV-2. Nonreactive results in this assay for individualswith prior exposure to HIV-1 and/or HIV-2 may be due toantigen and antibody levels that are below the limit ofdetection of this assay.The [employer] HIV Ag/Ab Combo assay result andsupplemental assay results should be interpreted inconjunction with the patient's clinical presentation,history and other laboratory results. If the results areinconsistent with clinical evidence, additional testing issuggested to confirm the result. Blood Venous blood specimen / Unknown 07/29/2025 3:22 PM EDT 07/29/2025 4:15 PM EDT us Gayathri Maravilla SETTER UP LAB BLOOD ORDERABLES Final Res ult [facility] [address] [place] [phone] * Hemoglobin A1c (07/29/2025 3:22 PM EDT) Hemoglobin A1c 6.0 <6.0 % [facility] Comment:Hemoglobin A1C Refer ence Range Adults: 4.8 - 6.0 % Non diabetic: < 6.0 % Goal: < 7.0 %Additional Action Suggested: > 8.0 %Note: Hemoglobin A1c results are invalid for patients with abnormal amounts of HbF. Blood transfusions may impact the HbA1c concentration in the patient sample. Estimated Average Glucose 126 mg/dL [facility] Comment:eAG = Estimated ave rage glucose which is %A1C expressed asaverage glucose, using the formula of the [id number] Glucose study (ADAG), Diabetes Care, Vol.31,#8,May. 2007 Blood Venous blood specimen / Unknown 07/29/2025 3:22 PM EDT 07/29/2025 4:15 PM EDT us Gayathri Maravilla [facility] LAB BLOOD ORDERABLES Final Res ult [facility] [address] [place] [phone] * (ABNORMAL) Lipid Panel, Standard (07/29/2025 3:22 PM EDT) Triglycerides 83 <150 mg/dL [facility] Comment:Desirable Triglyceri de: less than 150 mg/dLBorderline High Triglyceride 150-199 mg/dLHigh Triglyceride: 200-499 mg/dLVery High Triglyceride: greater than or equal to 5OO mg/dL Cholesterol 89 <200 mg/dL [facility] Comment:Desirable Cholestero l: less than 200 mg/dLBorderline High Cholesterol: 200-239 mg/dLHigh Cholesterol: greater than 239 mg/dL LDL Cholesterol Calculated 38 <100 mg/dL [facility] Comment:Desirable LDL: less than 100 mg/dLNear Optimal/Above Optimal LDL: 110- 129 mg/dLBorderline High LDL: 130-159 mg/dLHigh LDL: 160-189 mg/dLVery High LDL: greater than or equal to 190 mg/dL HDL Cholesterol 35(L) >40 mg/dL [facility] Comment:Desirable HDL: great er than 40 mg/dL Note: This HDL assay may give artificially low results in patients with liver disease. Blood Venous blood specimen / Unknown 07/29/2025 3:22 PM EDT 07/29/2025 4:15 PM EDT us Gayathri Maravilla SETTER UP LAB BLOOD ORDERABLES Final Res ult [facility] [address] [place] [phone] * (ABNORMAL) Comprehensive Metabolic Panel (07/29/2025 3:22 PM EDT) Sodium 140 135 - 145 mmol/L [facility] Potassium 4.0 3.3 - 5.1 mmol/L [facility] Chloride 105 96 - 108 mmol/L [facility] Carbon Dioxide 28 22 - 29 mmol/L [facility] Anion Gap 11(L) 12 - 20 [facility] Urea Nitrogen (BUN) 10 9 - 16 mg/dL [facility] Creatinine, Serum 0.83 0.5 - 1.4 mg/dL [facility] Estimated Glomerular Filt Rate >60 [facility] Comment:Chronic Kidney Disea se: Estimated GFR < 60 mL/min/[id number] Kidney Disease: Estimated GFR < 15 mL/min/1.73m2 Glucose 113 60 - 115 mg/dL [facility] Calcium 9.0 8.4 - 10.2 mg/dL [facility] Bilirubin, Total 0.3 0.0 - 1.0 mg/dL [facility] Aspartate Amino Transferase 31 5 - 37 U/L [facility] Alanine Aminotransferase 23 0 - 40 U/L [facility] Total Protein 6.9 6.5 - 8.0 g/dL [facility] Albumin Level 4.3 3.5 - 5.0 g/dL [facility] Alkaline Phosphatase 68 39 - 117 U/L [facility] Blood Venous blood specimen / Unknown 07/29/2025 3:22 PM EDT 07/29/2025 4:15 PM EDT Gayathri SERRATO LAB BLOOD ORDERABLES Final Res ult [facility] [address] [place] [address] [phone] from Last 3 Months Insurance [employer] Care Teams Machine Stoppage Frequency Checker Relationship Specialty Start Date End Date Gayathri Maravilla FNP [address] [place] [address] PCP - General Family Medicine 06/13/22 Lora Yarbrough MD [address] [place] [address] Hematology and Oncology 10/24/24
--- OUTSIDE RECORDS SUMMARY | 2025-08-27 16:52 | XMS_ITS | Encounter Summary ---
Author Organization [employer] Address [address] [facility] [address] [place] [address] Care Team Providers Care Dynamite Reclaimer Name Role Phone Gayathri Maravilla Primary Care Provider [phone] Lora Yarbrough MD Unavailable [phone] Reason for Visit * Reason Onset Date Comments Nurse Triage 06/30/2023 Encounter Details Date Type Department Care Team ([facility] st Contact Info) Description 06/30/2023 Telephone [facility] [address] [place] [address] Gayathri Maravilla FNP [address] [place] [address] Nurse Triage Social History Tobacco Use Types [...] on site visit. Please contact pt at [phone] documented in this encounter Plan of Treatment Upcoming Encounters Date Type Department Care Team (Late st Contact Info) Description 09/09/2025 2:15 PM EST Office Visit [facility] [address] [place] [address] James Heredia MD [address] [place] [address] documented as of this encounter Visit Diagnoses Not on filedocumented in this encounter Additional Health Concerns Assessment Noted Time PHQ-9 Depression Total Score: 6 03/22/20 23 11:14 AM EDT documented as of this encounter Care Teams Dynamite Reclaimer Relationship Specialty Start Date End Date Gayathri Maravilla FNP [address] [place] [address] PCP - General Family Medicine 06/13/22 Lora Yarbrough MD [address] [place] [address] Hematology and Oncology 10/24/24 documented as of this encounter
--- OUTSIDE RECORDS SUMMARY | 2025-08-27 16:52 | XMS_ITS | Encounter Summary ---
Author Organization [employer] Address [address] [place] [address] Care Team Providers Care Real Estate Representative Name Role Phone Gayathri Maravilla DIRECTOR ZONE Primary Care Provider [phone] Lora Yarbrough MD Unavailable [phone] Reason for Visit * Reason Onset Date Comments Results 08/20/2025 Encounter Details Date Type Department Care Team ([facility] Contact Info) Description 08/20/2025 Telephone [facility] P[facility]S [address] [place], [place] [phone] Gayathri Maravilla FNP [address] [place] [address] Results Social History Tobacco Use Types Packs/Day Years [...] encounter Miscellaneous Notes * Telephone Encounter - Lauren Silver RN - 2025 11:35 AM EST TC to pt with [facility] hourly sign language interpreter. Pt answered phone and asked if medication would be prescribed. Advised again no medication at this time and lifestyle interventions. Pt verbalized understandingand agreement with plan. * Telephone Encounter - Lauren Silver RN - 2025 11:34 AM EST TC per PCP. Reviewed results with pt.Reviewed results and lifestyle interventions. Advised no medications at this time Advised will return call with hourly sign language interpreter. Pt requested if author can call back with hourly sign language interpreter to utilized results. * Patient Education Note - Lauren Silver RN - 08/20/2025 2:22 PM EST Images from the original note were not included. Patient Education Table of Contents Prediabetes: What to Know Prediabetes: Eating Plan To view videos and all your education online visit, [email or web address] or scan this QR code with your smartphone. Access to this content will in one year. Clinician Note Good morning Lyndon. Attached is information following up on your results that were communicated via[facility]Chart from [facility]. Please review your MyChart and contact the office if having additional questions. Thank you. Prediabetes: What to Know Prediabetes is when your blood sugar, also called glucose, is at a higher level than normal but nothigh enough for you to be diagnosed with type 2 diabetes (type 2 diabetes mellitus). Having prediabetes puts you at risk for getting type 2 diabetes. By making some healthy changes, you may be able to prevent or delay getting type 2 diabetes. This is important because type 2 diabetes can lead to serious problems. Some of these include: Heart disease. Stroke. Blindness. Kidney disease. Depression. Poor blood flow in the feet and legs. In very bad cases, this could lead to having a leg removed bysurgery (amputation). What are the causes? The exact cause of prediabetes isn't known. It may result from insulin resistance. Insulin resistance happens when cells in the body don't respond properly to insulin that the body makes. This can cause too much sugar to build up in the blood. High blood sugar, also called hyperglycemia, can develop. What increases the risk? Having a family member with type 2 diabetes. Being older than 45 years of age. Having had a temporary form of diabetes during a . This is called gestational diabetes. Having had polycystic ovary syndrome (PCOS). Being overweight or obese. Being inactive and not getting much exercise. Having a history of heart disease. This may include problems with cholesterol levels, high levels of blood fats, or high blood pressure. What are the signs or symptoms? You may have no symptoms. If you do have symptoms, they may include: Increased hunger. Increased thirst. Needing to pee more often. Changes in how you see, like blurry vision. Feeling tired. How is this diagnosed? Prediabetes can be diagnosed with blood tests that check your blood sugar. One or more of these tests may be done: A fasting blood glucose (FBG) test. You won't be allowed to eat (you will fast) for at least 8 hours before a blood sample is taken. An A1C blood test, also called a hemoglobin A1C test. This test shows information about blood sugarlevels over the past 2?3 months. An oral glucose tolerance test (OGTT). This test measures your blood sugar at two points in time: ? After you haven't eaten for a while. This is your baseline level. ? Two hours after you drink a beverage that has sugar in it. You may be diagnosed with prediabetes if: Your FBG is 100?125 mg/dL (5.6?6.9 mmol/L). Your A1C level is 5.7?6.4% (39?46 mmol/mol). Your OGTT result is 140?199 mg/dL (7.8?11 mmol/L). These blood tests may need to be done again to be sure of the diagnosis. How is this treated? Treatment may include making changes to your diet and lifestyle. These changes can help lower your blood sugar and keep you from getting type 2 diabetes. In some cases, medicine may be given to help lower your risk. Follow these instructions at home: Eating and drinking Eat and drink as told. Follow a healthy meal plan. This includes eating lean proteins, whole grains, legumes, fresh fruitsand vegetables, low-fat dairy products, and healthy fats. Meet with an expert in healthy eating called a dietitian. This person can help create a healthy eating plan that's right for you. Lifestyle Do moderate-intensity exercise. ? Do this for at least 30 minutes a day on 5 or more days each week, or as told by your health careprovider. ? A mix of activities may be best. Good choices include brisk walking, swimming, biking, and weightlifting. Try to lose weight if your provider says it's OK. Losing 5?7% of your body weight can help reverse insulin resistance. Do not drink alcohol if: ? Your provider tells you not to drink. ? You're , may be , or plan to become . If you drink alcohol: ? Limit how much you have to: ? 0?1 drink a day if you're female. ? 0?2 drinks a day if you're male. ? Know how much alcohol is in your drink. In the [place] one drink is one 12 oz bottle of beer (355 mL), one 5 oz glass of wine (148 mL), or one 1? oz glass of hard liquor (44 mL). General instructions Take medicines only as told. You may be given medicines that help lower the risk of type 2 diabetes. Do not smoke, vape, or use nicotine or tobacco. Where to find more information [place] Diabetes Association: diabetes.org/about-diabetes/prediabetes Academy of Nutrition and Dietetics: eatright.org [place] Heart Association: ? Go to heart.org. ? Click the search icon. ? Type prediabetes in the search box. Contact a health care provider if: You have any of these symptoms: ? Increased hunger. ? Peeing more often than usual. ? Increased thirst. ? Feeling tired. ? Changes in how you see, like blurry vision. ? Feeling like you may throw up. ? Throwing up. Get help right away if: You have shortness of breath. You feel confused. This information is not intended to replace advice given to you by your health care provider. Make sure you discuss any questions you have with your health care provider. Document Released: 2017-01-23 Document Updated: 2024-05-05 Document Reviewed: 2024-05-05 [employer] Patient Education ? 2024 [employer] Prediabetes: Eating Plan Prediabetes is when your levels of blood sugar, also called glucose, are higher than normal. This can put you at risk for getting type 2 diabetes. When you have prediabetes, making healthy changes can help keep you from getting diabetes. This includes changes in your diet. Work with your health care provider or an expert in healthy eating called a dietitian. They can help you create a healthy eating plan. This plan can help you: Control your blood sugar levels. Improve your cholesterol levels. Manage your blood pressure. What are tips for following this plan? Reading food labels Read food labels to check the amount of fat and sugar in prepackaged foods. Avoid foods that have: ? Saturated fats. ? Trans fats. ? Added sugars. Check food labels for the amount of salt (sodium). ? Avoid foods that have more than 300 milligrams (mg) of salt per serving. ? Limit your salt intake to less than 2,300 mg each day. Shopping Avoid buying pre-made and processed foods. Avoid buying drinks with added sugar. Cooking Cook with olive oil. Do not use: ? Butter. ? Lard. ? Ghee. Bake, broil, grill, steam, or boil foods. Avoid frying. Meal planning Work with your dietitian to create an eating plan that's right for you. This may include tracking how many calories you take in each day. Use a food diary, notebook, or mobile jairo to track what you eat at each meal. Consider following a Mediterranean diet. This includes: ? Eating many servings of fresh fruits and vegetables each day. ? Eating fish at least twice a week. ? Eating one serving each day of whole grains, beans, nuts, and seeds. ? Using olive oil instead of other fats. ? Limiting alcohol. ? Limiting red meat. ? Using nonfat or low-fat dairy products. Consider following a plant-based diet. This means eating mostly: ? Vegetables and fruit. ? Grains. ? Beans. ? Nuts and seeds. If you have high blood pressure, you may need to limit your salt intake or follow a diet called theDASH eating plan. The DASH eating plan can help lower high blood pressure. Lifestyle Set weight loss goals with help from your health care team. Losing 7% of your body weight is a goodgoal for most people with prediabetes. Exercise for at least 30 minutes, 5 or more days a week. For support, think about joining a support group or talking with a mental health counselor. Take medicines only as told. What foods are recommended? Fruits Berries. Bananas. Apples. Oranges. Grapes. Papaya. Dejan. Pomegranate. Kiwi. Grapefruit. Cherries. Vegetables Lettuce. Spinach. Peas. Beets. Cauliflower. Cabbage. Broccoli. Carrots. Tomatoes. Squash. Eggplant.Herbs. Peppers. Onions. Cucumbers. [place] sprouts. Grains Whole grains, such as whole-wheat or whole-grain breads or pasta. Unsweetened oatmeal. Bulgur. Barley. Quinoa. Brown rice. [place] or whole-wheat flour tortillas or taco shells. Meats and other proteins Seafood. Poultry without skin. Lean cuts of pork and beef. Tofu. Eggs. Nuts. Beans. Dairy Low-fat or fat-free dairy products, such as yogurt, cottage cheese, and cheese. Beverages Water. Tea. Coffee. Sugar-free or diet soda. [place] water. Low-fat or nonfat milk. Milk alternatives, such as soy or almond milk. Fats and oils [place] oil. Canola oil. [place] oil. Grapeseed oil. Avocado. Walnuts. Sweets and desserts Sugar-free or low-fat pudding. Sugar-free or low-fat ice cream and other frozen treats. Seasonings and condiments Herbs. Salt-free spices. Mustard. Relish. Low-salt, low-sugar ketchup. Low-salt, low-sugar barbecuesauce. Low-fat or fat-free mayonnaise. The items listed above may not be all the foods and drinks you can have. Talk with a dietitian to learn more. What foods are not recommended? Fruits Fruits canned with syrup. Vegetables Canned vegetables. Frozen vegetables with butter or cream sauce. Grains Refined white flour and flour products, such as bread, pasta, snack foods, and cereals. Meats and other proteins Fatty cuts of meat. Poultry with skin. Breaded or fried meat. Processed meats. Dairy Full-fat yogurt, cheese, or milk. Beverages Sweetened drinks, such as iced tea and soda. Fats and oils Butter. Lard. Ghee. Sweets and desserts Baked goods, such as cake, cupcakes, pastries, cookies, and cheesecake. Seasonings and condiments Spice mixes with added salt. Ketchup. Barbecue sauce. Mayonnaise. The items listed above may not be all the foods and drinks you should avoid. Talk with a dietitian to learn more. Where to find more information [place] Diabetes Association: diabetes.org/food-nutrition This information is not intended to replace advice given to you by your health care provider. Make sure you discuss any questions you have with your health care provider. Document Released: 2016-02-16 Document Updated: 2024-05-05 Document Reviewed: 2024-05-05 Elsevier Patient Education ? 2024 Elsevier Inc. * Telephone Encounter - Lauren Silver RN - 08/20/2025 9:20 AM EST Patient education sent via [employer] and by phone documented in this encounter Plan of Treatment Upcoming Encounters Date Type Department Care Team (Late st Contact Info) Description 09/09/2025 2:15 PM EST Office Visit [facility] MEDICINE [address] [place] [address] James Heredia MD [address] [place] [address] documented as of this encounter Goals Goal Patient Goal Type Associated Problems Recent Progress Patient-Stated? Author Increase coping skills to promote long-term recovery and improve ability to perform daily activities General No Cassius Contreras RN documented as of this encounter Visit Diagnoses Not on filedocumented in this encounter Additional Health Concerns Assessment Noted Time PHQ-9 Depression Total Score: 8 03/17/20 1:43 PM EDT documented as of this encounter Care Teams Real Estate Representative Relationship Specialty Start Date End Date Gayathri Maravilla FNP [address] [place] [address] PCP - General Family Medicine 06/13/22 Lora Yarbrough MD [address] [place] [address] Hematology and Oncology 10/24/24 documented as of this encounter
--- OUTSIDE RECORDS SUMMARY | 2025-08-27 16:52 | XMS_ITS | Encounter Summary ---
Author Organization [employer] Address [address] [facility] [address] [place] [address] Care Team Providers Care Track Leader Name Role Phone Gayathri Maravilla ROJELIO Primary Care Provider [phone] Lora Yarbrough MD Unavailable [phone] Reason for Visit * Reason Comments Med Refill Encounter Details Date Type Department Care Team ([facility] st Contact Info) Description 05/21/2024 Refill [facility] MEDICINE [address] [place] [address] James Heredia MD [address] [place], [place] [id number] Uncomplicated opioid dependence (CMS/HCC) Social History Tobacco Use Types Packs/Day Years Used Date Smoking Tobacco: Every Day Cigarettes Smokeless Tobacco: Never Alcohol Use Standard Drinks/Week Comments Never 0 (1 standard drink = 0.6 oz pur e alcohol) Depression Answer Date Recorded Patient Health Questionnaire-9 Score 6 03/22/2023 Housing Stability Answer Date Recorded What is your housing situation today? I have caorl peace 08/01/[address] you [...] Description 09/09/2025 2:15 PM EST Office Visit [facility] MEDICINE [address] [place] [address] James Heredia MD [address] [place] [address] documented as of this encounter Visit Diagnoses Diagnosis Uncomplicated opioid dependence (CMS/HCC) (HCC) documented in this encounter Additional Health Concerns Assessment Noted Time PHQ-9 Depression Total Score: 6 03/22/20 23 11:14 AM EDT documented as of this encounter Care Teams Track Leader Relationship Specialty Start Date End Date Gayathri Maravilla FNP [address] [place] [address] PCP - General Family Medicine 06/13/22 Lora Yarbrough MD [address] [place] [id number] Hematology and Oncology 10/24/24 documented as of this encounter
== END 2025-08-27 14:22 | disposition home or self-care (01) ==
LOC: HO.HGI 13:48
PROVIDERS: PCP Registered Nurse; Visit Provider Internal Medicine
DX: A04.8 Other specified bacterial intestinal infections (principal)

== ENCOUNTER → 2025-08-27 13:47 | Outpatient (BNVA) | payer MEDICAID, SELFPAY | PROVIDERS: PCP Registered Nurse; Visit Provider Internal Medicine | DX: A04.8 Other specified bacterial intestinal infections (principal) | CPT/HCPCS: 99211 ==

== ENCOUNTER 2025-08-28 08:12 | Outpatient (REF) | payer MEDICAID, SELFPAY ==
--- OUTSIDE RECORDS SUMMARY | 2025-08-27 11:15 | XMS_ITS | Encounter Summary ---
Author Organization [employer] Address [address] 7[address] [place] [address] Care Team Providers Care Small Order Cutter Name Role Phone Gayathri Maravilla ROJELIO Primary Care Provider [phone] Lora Yarbrough MD Unavailable [phone] Reason for Visit * Reason Comments OBAT Encounter Details Date Type Department Care Team ([facility] st Contact Info) Description 2025 11:15 AM EST Clinical Support [facility] [address] [place] [address] Sandra Patel RN Arrived Social History Tobacco Use Types Packs/Day Years [...] Care Team (Late st Contact Info) Description 09/09/2025 2:15 PM EST Office Visit [facility] [address] [place] [address] James Heredia MD [address] [place] [address] documented as of this encounter Goals Goal [...] documented as of this encounter Care Teams Small Order Cutter Relationship Specialty Start Date End Date Gayathri Maravilla FNP [address] [place] [address] PCP - General Family Medicine 06/13/22 Lora Yarbrough MD [address] [place] [phone] Hematology and Oncology 10/24/24 documented as of this encounter
--- OUTSIDE RECORDS SUMMARY | 2025-08-28 08:24 | XMS_ITS | Encounter Summary ---
Author Organization [employer] Address [address] [facility] [address] [place] [address] Care Team Providers Care Resident Doctor Name Role Phone Gayathri Maravilla Primary Care Provider [phone] Lora Yarbrough MD Unavailable [phone] Reason for Visit * Reason Onset Date Comments PCP change 07/13/2023 Encounter Details Date Type Department Care Team ([facility] st Contact Info) Description 07/13/2023 Telephone [facility] MEDICINE [address] [place] [address] Gayathri Maravilla FNP [address] [place] [address] PCP change Social History Tobacco Use Types [...] due to PCP changing location to [facility] and PCP's availability in [facility]. documented in this encounter Plan of Treatment Upcoming Encounters Date Type Department Care Team (Late st Contact Info) Description 09/09/2025 2:15 PM EST Office Visit [facility] MED[facility]INE [address] [place] [address] James Heredia MD [address] [place] [address] documented as of this encounter Visit Diagnoses Not on filedocumented in this encounter Additional Health Concerns Assessment Noted Time PHQ-9 Depression Total Score: 6 03/22/20 23 11:14 AM EDT documented as of this encounter Care Teams Resident Doctor Relationship Specialty Start Date End Date Gayathri Maravilla FNP [address] [place] [address] PCP - General Family Medicine 06/13/22 Lora Yarbrough MD [address] [place] [address] Hematology and Oncology 10/24/24 documented as of this encounter
--- OUTSIDE RECORDS SUMMARY | 2025-08-28 08:24 | XMS_ITS | Encounter Summary ---
Author Organization [employer] Address [address] [place] [address] Care Team Providers Care Station Baggage Agent Name Role Phone Gayathri Maravilla FLAME PLANER Primary Care Provider [phone] Lora Yarbrough MD Unavailable [phone] Reason for Visit * Reason Onset Date Comments Results 08/20/2025 Encounter Details Date Type Department Care Team ([facility] Contact Info) Description 08/20/2025 Telephone [facility] MED & PEDS [address] [place] [address] Gayathri Maravilla FNP [address] [place] [address] Results Social History Tobacco Use Types Packs/Day [...] 11:35 AM EST TC to pt with [facility] weaver apprentice. Pt answered phone and asked if medication would be prescribed. Advised again no medication at this time and lifestyle interventions. Pt verbalized understandingand agreement with plan. * Telephone Encounter - Lauren Silver RN - 2025 11:34 AM EST TC per PCP. Reviewed results with pt.Reviewed results and lifestyle interventions. Advised no medications at this time Advised will return call with weaver apprentice. Pt requested if author can call back with weaver apprentice to utilized results. * Patient Education Note - Lauren Silver RN - 08/20/2025 2:22 PM EST Images from the original note were not included. Patient Education Table of Contents Prediabetes: What to Know Prediabetes: Eating Plan To view videos and all your education online visit, [email or web address] or scan this QR code with your smartphone. Access to this content will in one year. Clinician Note Good morning Lyndon. Attached is information following up on your results that were communicated viaMyChart from [facility]. Please review your MyChart and contact [...] or tobacco. Where to find more information [place] Diabetes Association: diabetes.org/about-diabetes/prediabetes Academy of Nutrition and Dietetics: eatright.org [place] Heart Association: ? Go to heart.org. ? [...] 2017-01-23 Document Updated: 2024-05-05 Document Reviewed: 2024-05-05 [employer] Patient Education ? 2024 [employer] Prediabetes: Eating Plan Prediabetes is when [...] Carrots. Tomatoes. Squash. Eggplant.Herbs. Peppers. Onions. Cucumbers. [place] sprouts. Grains Whole grains, such as whole-wheat or whole-grain breads or pasta. Unsweetened oatmeal. Bulgur. Barley. Quinoa. Brown rice. [place] or whole-wheat flour tortillas or taco shells. Meats and other proteins Seafood. Poultry without skin. Lean cuts of pork and beef. Tofu. Eggs. Nuts. Beans. Dairy Low-fat or fat-free dairy products, such as yogurt, cottage cheese, and cheese. Beverages Water. Tea. Coffee. Sugar-free or diet soda. [place] water. Low-fat or nonfat milk. Milk alternatives, such as soy or almond milk. Fats and oils [place] oil. Canola oil. [place] oil. Grapeseed oil. Avocado. Walnuts. Sweets and [...] learn more. Where to find more information [place] Diabetes Association: diabetes.org/food-nutrition This information is not [...] 9:20 AM EST Patient education sent via [employer] and by phone documented in this encounter Plan of Treatment Upcoming Encounters Date Type Department Care Team (Late st Contact Info) Description 09/09/2025 2:15 PM EST Office Visit [facility] MEDICINE [address] [place] [address] James Heredia MD [address] [place] [address] documented as of this encounter Goals Goal [...] documented as of this encounter Care Teams Station Baggage Agent Relationship Specialty Start Date End Date Gayathri Maravilla FNP [address] [place] [address] PCP - General Family Medicine 06/13/22 Lora Yarbrough MD [address] [place] [address] Hematology and Oncology 10/24/24 documented as of this encounter
--- OUTSIDE RECORDS SUMMARY | 2025-08-28 08:24 | XMS_ITS | Clinical Summary ---
Author Organization [employer] Address [address] [place] [address] Care Team Providers Care Facilities Manager Name Role Phone Gayathri Maravilla ROJELIO Primary Care Provider [phone] Lora Yarbrough MD Unavailable [phone] Allergies No known active allergies Medications [...] ons:HFrEF (heart failure with reduced ejection fraction) ([facility]),History of ST elevation myocardial infarction (STEMI) CHEW 1 TABLET BY MOUTH EVERY DAY 90 tablet 3 09/04/20 23 Active nicotine (Nicoderm CQ) 14 MG/24HR patch Place 1 patch on the skin 1 (one) time each day at the same time. 42 patch 09/12/20 23 Active naloxone (Narcan) 4 mg/0.1 mL nasal sprayIndicatio ns:Uncomplicat ed opioid dependence (CMS/HCC) ([facility]) FOR SUSPECTED OPIOID OVERDOSE. SPRAY 0.1mL IN [...] SL filmIndication s:Uncomplicate d opioid dependence (CMS/HCC) ([facility]) Place 1 Film under the tongue 2 times daily for 14 days. 28 Film 5 11:36 AM EST 08/20/20 25 025 Active Buprenorphine HCl-Naloxone HCl (Suboxone) 8-2 MG SL filmIndication s:Uncomplicate d opioid dependence (CMS/HCC) ([facility]) Place 1 Film under the tongue 2 times daily for 14 days. 28 Film 07/22/20 25 025 Discontinued(R eorder (will not trigger notification to Pharmacy)) Buprenorphine HCl-Naloxone HCl (Suboxone) 8-2 MG SL filmIndication s:Uncomplicate d opioid dependence (CMS/HCC) ([facility]) Place 1 Film under the tongue 2 [...] Mixed hyperlipidemia 07/17/2024 Overview (07/17/2024): Followed by [facility], checking lipid panels through their office LDL 110 mg/dL on 07/31/23 Med regimen: Rosuvastatin 40mg nightly Zetia 10mg daily Evolocumab (Repatha) every other week Hypertensive retinopathy of both eyes 04/17/2024 Assessment & Plan (05/25/2025 2:51 PM EDT): Followed by [facility]. SARAH on 12/20/24 w/ impression of Hypertensive retinopathy bilateral Assessment & Plan (04/17/2024 7:21 AM EDT): Followed by Dr. Mojica. SARAH on 12/21/23 w/ impression of Hypertensive retinopathy bilateral Healthcare maintenance 01/09/2024 Overview (05/25/2025): OPH: 12/20/24 - SARAH w/ [facility]. Hypertensive retinopathy bilateral. Assessment [...] 2021 -Stenting of LAD in 2020 at [facility] -Reports adherence to cardiac medications -Denies any current chest pain -Continue following with [facility] -06/21/23- stress test. Large LAD territory infarction. [...] 2021 -Stenting of LAD in 2020 at [facility] -Reports adherence to cardiac medications -Denies any current chest pain -Continue following with [facility] HFrEF (heart failure with reduced ejection fract ion) 10/31/2022 Overview (07/17/2024): Suspect resulted from STEMI Echo Jun 2024 with severely reduced LVEF, LVEED 6.2 cm (LV function worse and LV more dilated) Continue following with [facility] - Dr. Sepulveda HF Specific medications: - Entresto 49-51 BID - Carvedilol 6.25 BID - Lasix 20mg PRN weight gain/leg swelling Assessment & Plan (07/17/2024 6:42 PM EDT): Assessment & Plan (04/17/2024 3:53 PM EDT): Diagnosed with cardiomyopathy with EF of 25-30%, although Echo 07/15/22 showed EF of 45-50% Continue following with Cardiology Cardiomyopathy 10/31/2022 Ileostomy present ([facility]) 08/25/2022 Assessment & Plan (07/17/2024 6:42 PM [...] for Jose Syndrome -Following with [facility] Heme/Onc - Dr. [...] testing at 40 y/o -04/15/25: EGD at [facility] performed by Dr. [...] for Jose Syndrome -Following with [facility] Heme/Onc - Dr. [...] for Jose Syndrome -Following with [facility] Heme/Onc - Dr. [...] for Jose Syndrome -Following with [facility] Heme/Onc - Dr. [...] in services. PLAN: 1. Follow up with [facility]: Recommended for follow-up: During OBAT appt 2. [...] -Continue following with therapist and psychiatrist through [facility] -Denies SI/HI/thoughts of self harm Encounters Date Type Department Care Team Description 2025 11:15 AM EST Clinical Support [facility] MEDICINE [address] [place] [phone] Sandra aPtel RN Arrived 2025 Travel 08/20/2025 Telephone [facility] MED & PEDS [address] [place], [place] [phone] Gayathri Maravilla FNP Results 08/20/2025 Refill [facility] MEDICINE [address] [place] [address] Sandra Patel, RN Uncomplicated opioid dependence (CMS/HCC) ([facility]) 08/12/2025 2:30 PM EDT Office Visit [facility] MEDICINE [address] [place] [address] [phone] James Heredia MD Uncomplicated opioid dependence (CMS/HCC) (HCC) (Primary Dx) 08/12/2025 Refill [facility] MEDICINE [address] [place] [address] Sandra Patel RN Uncomplicated opioid dependence (CMS/HCC) (HCC) 08/12/2025 Travel 08/11/2025 Telephone [facility] MEDICINE [address] [place] [phone] Sandra Patel RN 08/11/2025 Refill [facility] MEDICINE [address] [place] [address] Sandra Patel RN Uncomplicated opioid dependence (CMS/HCC) (HCC) 08/07/2025 Refill [facility] MEDICINE [address] [place] [phone] Sandra Patel RN Uncomplicated opioid dependence (CMS/HCC) (HCC) 08/01/2025 Results Follow-Up [facility] [address] [place] [phone] Hernan Patel MD Lipid Panel, Standard, Hemoglobin A1c, TSH with Reflex to Free T4, Additional followed-up results: 5 07/29/2025 3:00 PM EDT Clinical Support [facility] MEDICINE [address] [place] [phone] Sandra Patel RN Uncomplicated opioid dependence (CMS/HCC) (HCC) 07/29/2025 Travel 07/22/2025 Refill [facility] MEDICINE [address] [place] [phone] Sandra Patel RN Uncomplicated opioid dependence (CMS/HCC) (HCC) 07/15/2025 1:00 PM EDT Clinical Support [facility] MEDICINE [address] [place] [phone] Sandra Patel RN Uncomplicated opioid dependence (CMS/HCC) 07/15/2025 Travel 07/09/2025 Refill [facility] MEDICINE [address] [place] [phone] Sandra Patel RN Uncomplicated opioid dependence (CMS/HCC) 07/01/2025 2:45 PM EDT Office Visit [facility] MEDICINE [address] [place] [phone] James Heredia MD Uncomplicated opioid dependence (CMS/HCC) (Primary Dx) 07/01/2025 Travel 06/25/2025 Refill [facility] MEDICINE [address] [place] [address] Sandra Patel RN Uncomplicated opioid dependence (CMS/HCC) 06/18/2025 3:00 PM EDT Clinical Support [facility] MEDICINE [address] [place] [address] Sandra Patel RN Uncomplicated opioid dependence (CMS/HCC) 06/18/2025 Travel 06/03/2025 3:00 PM EDT Clinical Support [facility] MEDICINE [address] [place] [address] Sandra Patel RN Uncomplicated opioid dependence (CMS/HCC) (Primary Dx) 06/03/2025 Travel 06/02/2025 Refill [facility] MEDICINE [address] [place] [address] Sandra Patel RN Uncomplicated opioid dependence ([facility]/HCC) 05/30/2025 Refill [facility] MEDICINE [address] [place] [address] Sandra Patel RN Uncomplicated opioid dependence ([facility]/HCC) from Last 3 Months Immunizations Immunization Administration [...] Description 09/09/2025 2:15 PM EST Office Visit [facility] MEDICINE [address] [place], [place] [phone] James Heredia MD [address] [place], [place] [phone] Health Maintenance Due Date Last Done Comments [...] C Screening Completed 07/29/2025 , 10/18/2024, 07/13/2021 HIB Vaccines Aged Out No longer eligi [...] ability to perform daily activities General No Ben, 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, 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 Procedure Name Priority Date/Time Associated Diagnosis Comments [...] Free T4 1.20 0.32 - 4.0 uIU/mL [facility] Blood 07/29/2025 3:22 PM EDT 07/29/2025 4:15 PM EDT Gayathri BARRYP LAB BLOOD ORDERABLES Final Res ult [facility] [address] [place] [address] [phone] * Hepatitis C Viral RNA, Quantitative, Real-Time PCR (07/29/2025 3:22 PM EDT) [facility] Hepatitis C Viral Load <15 NOT DETECTED NOT DETECTED IU/mL [facility] HCV Log PCR <1.18 NOT DETECTED NOT DETECTED Log IU/mL [facility] Comment:For additional infor jose, please refer [email or web address]/[email or web address](This link is being provided for informational/educational purposes only.)THIS TEST WAS PERFORMED AT:[employer] [place] [phone] MORGAN MD Blood 07/29/2025 3:22 PM EDT 07/29/2025 4:15 PM EDT Gayathri Maravilla JUNIOR BUSINESS ANALYST LAB BLOOD ORDERABLES Final Res ult [facility] [address] [place] [phone] [phone] * (ABNORMAL) CBC auto differential (07/29/2025 3:22 PM EDT) [facility] White Blood Count 5.9 4.8 - 10.8 X10*3/uL [facility] Red Blood Count 4.39(L) 4.60 - 5.80 X10*6/uL [facility] Hemoglobin 12.2(L) 14.0 - 18.0 g/dl [facility] Hematocrit 37.3(L) 42.0 - 52.0 % [facility] Mean Corpuscular Volume 85.0 80.0 - 98.0 fL [facility] Mean Corpuscular Hemoglobin 27.8 27.0 - 33.0 pg [facility] Mean Corpuscular HGB Conc 32.7 31.0 - 36.0 g/dl [facility] Red Cell Distribution Width 12.7 11.0 - 16.0 % [facility] Platelet Count 191 160 - 400 X10*3/uL [facility] Mean Platelet Volume 11.7 9.4 - 12.4 fL [facility] Neutrophils Percent Auto 44.4(L) 45 - 73 % [facility] Imm Gran Pct Auto 0.3 0.0 - 0.4 % [facility] Lymphocytes Percent Auto 41.6(H) 20 - 40 % [facility] Monocytes Percent Auto 6.0 2 - 11 % [facility] Eosinophils Percent Auto 6.7(H) 0 - 4 % [facility] Basophils Percent Auto 1.0 0 - 2 % [facility] NRBC Pct Auto 0.0 0.0 - 0.2 /100WBC [facility] Neutrophils Absolute Auto 2.6 2.0 - 8.3 x10*3/uL [facility] Imm Gran Abs Auto 0.02 0.00 - 0.03 X10*3/uL [facility] Lymphocytes Absolute Auto 2.4 1.2 - 4.9 X10*3/uL [facility] Monocytes Absolute Auto 0.4 0.1 - 1.2 X10*3/uL [facility] Eosinophils Absolute Auto 0.4 0.0 - 0.4 X10*3/uL [facility] Basophils Absolute Auto 0.1 0.0 - 0.2 X10*3/uL [facility] NRBC Abs Auto 0.000 0.0 - 0.012 X10*3/uL [facility] Blood Venous blood specimen / Unknown 07/29/2025 3:22 PM EDT 07/29/2025 4:15 PM EDT us Gayathri Maravilla JUNIOR BUSINESS ANALYST LAB BLOOD ORDERABLES Final Res ult [facility] [address] [place] [address] [phone] * RPR (Monitor) with Reflex to??Titer (07/29/2025 3:22 PM EDT) RPR (Monitor) w/Refl Titer NON-REACTI VE NON-REACT CARMEL [facility] Comment:THIS TEST WAS PERFOR MED AT:[employer] [place] [phone] MORGAN MD Rapid Plasma Reagin Ab Titer TNP [facility] Blood Venous blood specimen / Unknown 07/29/2025 3:22 PM EDT 07/29/2025 4:15 PM EDT us Gayathri Maravilla [facility] LAB BLOOD ORDERABLES Final Res ult Performing Organization Address [facility]/ZIP Co de Phone Number [facility] [address] [place] [phone] * HIV-1/2 Antigen and Antibodies, Fourth Generation, with Reflexes (07/29/2025 3:22 PM EDT) Pathologist [facility] HIV AB/AG Nonreactive Nonreactive [facility] Comment:HIV-1 p24 Ag and/or HIV-1/HIV-2 Ab not detected.A test result that is nonreactive does not exclude thepossibility of exposure to or infection with HIV-1 and/orHIV-2. Nonreactive results in this assay for individualswith prior exposure to HIV-1 and/or HIV-2 may be due toantigen and antibody levels that are below the limit ofdetection of this assay.The RFMicronniTalent Flush HIV Ag/Ab Combo assay result andsupplemental assay results should be interpreted inconjunction with the patient's clinical presentation,history and other laboratory results. If the results areinconsistent with clinical evidence, additional testing issuggested to confirm the result. Blood Venous blood specimen / Unknown 07/29/2025 3:22 PM EDT 07/29/2025 4:15 PM EDT us Gayathri Maravilla JUNIOR BUSINESS ANALYST LAB BLOOD ORDERABLES Final Res ult Performing Organization Address City/[facility]/ZIP Co de Phone Number [facility] [address] [place] [address] [phone] * Hemoglobin A1c (07/29/2025 3:22 PM EDT) Hemoglobin A1c 6.0 <6.0 % [facility] Comment:Hemoglobin A1C Refer ence Range Adults: 4.8 - 6.0 % Non diabetic: < 6.0 % Goal: < 7.0 %Additional Action Suggested: > 8.0 %Note: Hemoglobin A1c results are invalid for patients with abnormal amounts of HbF. Blood transfusions may impact the HbA1c concentration in the patient sample. Estimated Average Glucose 126 mg/dL [facility] Comment:eAG = Estimated ave rage glucose which is %A1C expressed asaverage glucose, using the formula of the C0W-YtrbiygQubngmu Glucose study (ADAG), Diabetes Care, Vol.31,#8,May. 2007 Blood Venous blood specimen / Unknown 07/29/2025 3:22 PM EDT 07/29/2025 4:15 PM EDT Gayathri Maravilla JUNIOR BUSINESS ANALYST LAB BLOOD ORDERABLES Final Res ult [facility] [address] [place] [phone] [phone] * (ABNORMAL) Lipid Panel, Standard (07/29/2025 3:22 PM EDT) Triglycerides 83 <150 mg/dL [facility] Comment:Desirable Triglyceri de: less than 150 mg/dLBorderline High Triglyceride 150-199 mg/dLHigh Triglyceride: 200-499 mg/dLVery High Triglyceride: greater than or equal to 5OO mg/dL Cholesterol 89 <200 mg/dL [facility] Comment:Desirable Cholestero l: less than 200 mg/dLBorderline High Cholesterol: 200-239 mg/dLHigh Cholesterol: greater than 239 mg/dL LDL Cholesterol Calculated 38 <100 mg/dL [facility] Comment:Desirable LDL: less than 100 mg/dLNear Optimal/Above Optimal LDL: 110- 129 mg/dLBorderline High LDL: 130-159 mg/dLHigh LDL: 160-189 mg/dLVery High LDL: greater than or equal to 190 mg/dL HDL Cholesterol 35(L) >40 mg/dL [facility] Comment:Desirable HDL: great er than 40 mg/dL Note: This HDL assay may give artificially low results in patients with liver disease. Blood Venous blood specimen / Unknown 07/29/2025 3:22 PM EDT 07/29/2025 4:15 PM EDT us Gayathri Maravilla JUNIOR BUSINESS ANALYST LAB BLOOD ORDERABLES Final Res ult [facility] [address] [place], [place] [phone] * (ABNORMAL) Comprehensive Metabolic Panel (07/29/2025 3:22 PM EDT) Sodium 140 135 - 145 mmol/L [facility] Potassium 4.0 3.3 - 5.1 mmol/L [facility] Chloride 105 96 - 108 mmol/L [facility] Carbon Dioxide 28 22 - 29 mmol/L [facility] Anion Gap 11(L) 12 - 20 [facility] Urea Nitrogen (BUN) 10 9 - 16 mg/dL [facility] Creatinine, Serum 0.83 0.5 - 1.4 mg/dL [facility] Estimated Glomerular Filt Rate >60 [facility] Comment:Chronic Kidney Disea se: Estimated GFR < 60 mL/min/[id number] Kidney Disease: Estimated GFR < 15 mL/min/1.73m2 Glucose 113 60 - 115 mg/dL [facility] Calcium 9.0 8.4 - 10.2 mg/dL [facility] Bilirubin, Total 0.3 0.0 - 1.0 mg/dL [facility] Aspartate Amino Transferase 31 5 - 37 U/L [facility] Alanine Aminotransferase 23 0 - 40 U/L [facility] Total Protein 6.9 6.5 - 8.0 g/dL [facility] Albumin Level 4.3 3.5 - 5.0 g/dL [facility] Alkaline Phosphatase 68 39 - 117 U/L [facility] Blood Venous blood specimen / Unknown 07/29/2025 3:22 PM EDT 07/29/2025 4:15 PM EDT Gayathri SERRATO LAB BLOOD ORDERABLES Final Res ult [facility] [address] [place], [place] [phone] from Last 3 Months Insurance [phone] Care Teams Facilities Manager Relationship Specialty Start Date End Date Gayathri Maravilla FNP [address] [place] [address] PCP - General Family Medicine 06/13/22 Lora Yarbrough MD [address] [place] [address] Hematology and Oncology 10/24/24
--- OUTSIDE RECORDS SUMMARY | 2025-08-28 08:24 | XMS_ITS | Encounter Summary ---
Author Organization [employer] Address [address] [place] [address] Care Team Providers Care Tobacco Buyer Name Role Phone Gayathri Maravilla ROJELIO Primary Care Provider [phone] Lora Yarbrough MD Unavailable [phone] Encounter Details Date Type Department Care Team (Late st Contact Info) Description 01/25/2024 Orders Only [facility] [address] [place] [address] Sandra Patel RN Uncomplicated opioid dependence (CMS/[facility]) Social History Tobacco Use Types Packs/Day Years [...] Description 09/09/2025 2:15 PM EST Office Visit [facility] [address] [place] [address] James Heredia MD [address] [place], [place] [phone] Scheduled Orders Name Type Priority Associated Diagnoses [...] as of this encounter Care Teams Tobacco Buyer Relationship Specialty Start Date End Date Gayathri Maravilla FNP [address] [place] [address] PCP - General Family Medicine 06/13/22 Lora Yarbrough MD [address] [place] [address] Hematology and Oncology 10/24/24 documented as of this encounter
--- OUTSIDE RECORDS SUMMARY | 2025-08-28 08:24 | XMS_ITS | Encounter Summary ---
Author Organization [employer] Address [address] [facility] [address]t [place] [address] Care Team Providers Care Pigment Making Supervisor Name Role Phone Gayathri Maravilla ROJELIO Primary Care Provider [phone] Lora Yarbrough MD Unavailable Encounter Details Date Type Department Care Team (Late Contact Info) Description 06/14/2023 Orders Only [facility] [address] [place] [address] [phone] Sandra Patel RN Uncomplicated opioid dependence (CMS/HCC) [...] Description 09/09/2025 2:15 PM EST Office Visit [facility] [address] [place] [address] [phone] James Heredia MD [address] [place] [address] [phone] Scheduled Orders Name Type Priority Associated Diagnoses [...] documented as of this encounter Care Teams Pigment Making Supervisor Relationship Specialty Start Date End Date Gayathri Maravilla FNP [address] [place] [address] PCP - General Family Medicine 06/13/22 Lora Yarbrough MD [address] [place] [phone] Hematology and Oncology 10/24/24 documented as of this encounter
--- OUTSIDE RECORDS SUMMARY | 2025-08-28 08:24 | XMS_ITS | Encounter Summary ---
Author Organization [employer] Address [address] [place] [address] Care Team Providers Care Administrative Services Specialist Name Role Phone Gayathri Maravilla Primary Care Provider Lora Yarbrough MD Unavailable [phone] Reason for Visit * Reason Onset Date Comments Call Back Request 09/26/2023 Encounter Details Date Type Department Care Team ([facility] st Contact Info) Description 09/26/2023 Telephone [facility] [address] [facility] [place] [address] Gayathri Maravilla FNP [address] [place] [address] Call Back Request Social History Tobacco Use [...] Description 09/09/2025 2:15 PM EST Office Visit [facility] [address] [place] [address] James Heredia MD [address] [place] [address] documented as of this encounter Visit Diagnoses Not on filedocumented in this encounter Additional Health Concerns Assessment Noted Time PHQ-9 Depression Total Score: 6 03/22/20 23 11:14 AM EDT documented as of this encounter Care Teams Administrative Services Specialist Relationship Specialty Start Date End Date Gayathri Maravilla FNP [address] [place] [address] PCP - General Family Medicine 06/13/22 Lora Yarbrough MD [address] [place] [address] Hematology and Oncology 10/24/24 documented as of this encounter
--- OUTSIDE RECORDS SUMMARY | 2025-08-28 08:24 | XMS_ITS | Encounter Summary ---
Author Organization [employer] Address [address] [facility] 7t [place] [address] Care Team Providers Care Voice Engineer Name Role Phone Gayathri Maravilla Primary Care Provider [phone] Lora Yarbrough MD Unavailable [phone] Reason for Visit * Reason Onset Date Comments Nurse Triage 06/30/2023 Encounter Details Date Type Department Care Team ([facility] st Contact Info) Description 06/30/2023 Telephone [facility] [address] [place] [address] Gayathri Maravilla FNP [address] [place] [address] Nurse Triage Social History Tobacco Use Types [...] on site visit. Please contact pt at [phone] documented in this encounter Plan of Treatment Upcoming Encounters Date Type Department Care Team (Late st Contact Info) Description 09/09/2025 2:15 PM EST Office Visit [facility] [address] [place] [address] James Heredia MD [address] [place] [address] documented as of this encounter Visit Diagnoses Not on filedocumented in this encounter Additional Health Concerns Assessment Noted Time PHQ-9 Depression Total Score: 6 03/22/20 23 11:14 AM EDT documented as of this encounter Care Teams Voice Engineer Relationship Specialty Start Date End Date Gayathri Maravilla FNP [address] [place] [address] PCP - General Family Medicine 06/13/22 Lora Yarbrough MD [address] [place] [address] Hematology and Oncology 10/24/24 documented as of this encounter
--- OUTSIDE RECORDS SUMMARY | 2025-08-28 08:24 | XMS_ITS | Encounter Summary ---
Author Organization [employer] Address [address] [facility] 7[address] [place] [address] Care Team Providers Care Carpenter Assistant Installer Name Role Phone Gayathri Maravilla ROJELIO Primary Care Provider [phone] Lora Yarbrough MD Unavailable Reason for Visit * Reason Comments Med Refill Encounter Details Date Type Department Care Team ([facility] st Contact Info) Description 05/21/2024 Refill [facility] [address] [place] [address] James Heredia MD [address] [place], [place] [phone] Uncomplicated opioid dependence (CMS/HCC) Social History Tobacco [...] Description 09/09/2025 2:15 PM EST Office Visit [facility] [address] [place] [address] James Heredia MD [address] [place] [address] documented as of this encounter Visit Diagnoses Diagnosis Uncomplicated opioid dependence (CMS/HCC) (HCC) documented in this encounter Additional Health Concerns Assessment Noted Time PHQ-9 Depression Total Score: 6 03/22/20 23 11:14 AM EDT documented as of this encounter Care Teams Carpenter Assistant Installer Relationship Specialty Start Date End Date Gayathri Maravilla FNP [address] [place] [address] PCP - General Family Medicine 06/13/22 Lora Yarbrough MD [address] [place] [id number] Hematology and Oncology 10/24/24 documented as of this encounter
--- OUTSIDE RECORDS SUMMARY | 2025-08-28 08:24 | XMS_ITS | Encounter Summary ---
Author Organization [employer] Address [address] [facility] [address] [place] [address] Care Team Providers Care Automation Tester Name Role Phone Gayathri Maravilla ROJELIO Primary Care Provider [phone] Lora Yarbrough MD Unavailable [phone] Encounter Details Date Type Department Care [...] Description 09/09/2025 2:15 PM EST Office Visit [facility] [address] [place] [address] James Heredia MD [address] [place] [address] documented as of this encounter Goals Goal [...] documented as of this encounter Care Teams Automation Tester Relationship Specialty Start Date End Date Gayathri Maravilla FNP [address] [place] [address] PCP - General Family Medicine 06/13/22 Lora Yarbrough MD [address] [place] [address] Hematology and Oncology 10/24/24 documented as of this encounter
== END 2025-08-28 08:13 | disposition home or self-care (01) ==
LOC: HO.LNP 08:12
PROVIDERS: Visit Provider Internal Medicine
DX: A04.8 Other specified bacterial intestinal infections (principal)
CPT/HCPCS: 83013

== ENCOUNTER 2025-09-10 14:35 | Outpatient (AMB) | payer MEDICAID, SELFPAY ==
[2025-09-10 14:38] VITALS: BP 113/81; PULSE 80; BMI 30.6
--- NOTE | 2025-09-10 14:38 | A.OFFVIS_ITS ---
Vital Signs 09/10/25 14:38 Height 5 ft 6 in Weight 189 lb 9.561 oz BMI 30.6 BP 113/81 Blood Pressure Location Rt brachial Position Sitting Pulse 80 Intake Visit Reasons: 10wks per hilaria Intake Note: Patient in office today in follow up of Jose disease. CC: Patient reports doing well and denies any new GI concerns. 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 Currently no GI complaints including abd pain, N,V, blood in ostomy. Empties it around 5-8 times per day. Mostly liquid to semi solid. No unintentional weight loss. Fam hx: Father: no crc or gastric ca Mother: possibly gastric ca Brother: colon ca at 33 y.o 04/15/25: * Normal esophagus * Normal stomach (biopsy) * Duodenitis (biopsy) Path: A. Duodenum, biopsy: Duodenal mucosa within normal limits; preserved villous architecture and no increased intraepithelial lymphocytes seen. B. Stomach, antrum, greater curvature, biopsy: Gastric antral mucosa with moderate chronic active gastritis and few Helicobacter pylori organisms; negative for intestinal metaplasia and dysplasia. C. Stomach, antrum, lesser curvature, biopsy: Gastric antral mucosa with moderate chronic active gastritis and few Helicobacter pylori organisms; negative for intestinal metaplasia and dysplasia. D. Stomach, incisura, biopsy: Gastric antral mucosa with moderate chronic active gastritis and numerous Helicobacter pylori organisms; negative for intestinal metaplasia and dysplasia. E. Stomach, body, greater curvature, biopsy: Gastric body mucosa with moderate chronic active gastritis and numerous Helicobacter pylori organisms; negative for intestinal metaplasia and dysplasia. F. Stomach, body, lesser curvature, biopsy: Gastric body mucosa with moderate chronic active gastritis and numerous Helicobacter pylori organisms; negative for intestinal metaplasia and dysplasia. 07/02/25: Here for televisit to review H Pylori treatment. To recall pt with hx of Jose with possible fam hx of gastric ca. Reviewed importance of complete eradication to prevent GIM and reduce gastric ca risk. Of note no GIM noted on mapping bx. 09/10/25: The patient is presenting for a follow-up visit for management of Jose syndrome and review of recent test results. The patient has a known diagnosis of Jose syndrome, which confers an increased lifetime risk of colorectal cancer (up to 50%), as well as kidney, bladder, stomach, small bowel, biliary tract, and pancreatic cancers. Due to this risk, the patient is status post total colectomy and proctectomy. He completed quadruple therapy for H Pylori and TESHA was negative, confirming successful eradication. The patient reports feeling well with no abdominal pain, nausea, vomiting, or weight loss, and maintains a good appetite. --- Pt was informed and consented to the use of ambient scribe for this encounter. 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 Ischemic cardiomyopathy Polysubstance dependence STEMI (ST elevation myocardial infarction) CAD (coronary artery disease) HTN (hypertension) Surgical History Hx of heart artery stent History of esophagogastroduodenoscopy (EGD) Status post proctocolectomy (08/15/22) History of colonoscopy (07/15/22) Family History Family/Other CAD (coronary artery disease) Colon cancer, Onset Age: 30 Mother Stomach cancer Brother Colon cancer Social History Household Members: Family Housing: Apartment Do you presently have visiting nurse or other home services: No Alcohol intake: never Comment: Xray ordered for incorrect count. Xray clear. Patient Tobacco Use Status: Current everyday Tobacco user Tobacco use type: Cigarette Years Smoked: 15 Second Hand Smoke Exposure: Yes Substance Use Type: Crack/Cocaine and Marijuana service: No Current occupational status: unemployed Review of Systems Const All systems reviewed & are unremarkable except as noted in HPI and below Physical Exam Vital Signs: Last Vital Signs Pulse 80 09/10/25 14:38 BP 113/81 09/10/25 14:38 BMI result Body Mass Index 30.6 Const General: no acute distress and well developed Nutritional Appearance: well nourished Orientation/consciousness: patient oriented x3 Limitations: no limitations HEENT Head: Yes normocephalic and Yes atraumatic Resp Effort & Inspection: normal respiratory effort Auscultation: clear to auscultation bilaterally GI Other: Ostomy in the right lower quadrant is functioning well. Midline incision is clean, dry, and intact without evidence of infection. No hernias are identified. Skin Other: Warm, dry, no rash Neuro General: patient oriented x3 Extrem General: Yes no clubbing, cyanosis or edema Assessment & Plan Assessment & Plan (1) Jose syndrome: Code(s): Z15.09 - Genetic susceptibility to other malignant neoplasm Category: Medical (2) S/P total colectomy: Comment: total proctocolectomy with end ileostomy 08/15/22 Code(s): Z90.49 - Acquired absence of other specified parts of digestive tract Category: Surgical (3) Family history of colon cancer: Code(s): Z80.0 - Family history of malignant neoplasm of digestive organs Category: Medical Plan Jose syndrome iwth personal and fam hx of CRC possible fam hx of gastric ca No fam hx of panc ca Plan: - Pancreatic Screening: An MRI of the pancreas will be ordered. if the pancreas appears normal, repeat imaging will not be necessary. - Gastric Screening: The patient will continue EGD surveillance. The next EGD is due in April 2027. If results remain negative, the screening interval may be extended to 3 years and then to 5 years. - Urologic Screening: Due to an increased risk of kidney and bladder cancer (up to 28%), a referral will be placed to Urology for further evaluation and prostate cancer screening. 2. Helicobacter pylori Infection, Eradicated - A recent test confirmed successful eradication of H. pylori. - No further testing or treatment for H. pylori is indicated at this time. Follow up 1 year Orders: Orders MR abdomen wo/w con Today Z15.09 - Genetic susceptibility to other malignant neoplasm Referrals Urology Referral Z15.09 - Genetic susceptibility to other malignant neoplasm Coding Level of Care Code Est Pt Level 4 (12388) Diagnoses Jose syndrome Z15.09 S/P total colectomy Z90.49 Family history of colon cancer Z80.0
== END 2025-09-10 15:15 | disposition home or self-care (01) ==
LOC: HO.HGI 14:36
PROVIDERS: PCP Registered Nurse; Visit Provider Internal Medicine
DX: Z15.09 Genetic susceptibility to other malignant neoplasm (principal); Z90.49 Acquired absence of other specified parts of digestive tract; Z80.0 Family history of malignant neoplasm of digestive organs
CPT/HCPCS: 99214

== ENCOUNTER → 2025-09-10 14:35 | Outpatient (BNVA) | payer MEDICAID, SELFPAY | PROVIDERS: PCP Registered Nurse; Visit Provider Internal Medicine | DX: Z15.09 Genetic susceptibility to other malignant neoplasm (principal); Z90.49 Acquired absence of other specified parts of digestive tract; Z80.0 Family history of malignant neoplasm of digestive organs; Z93.2 Ileostomy status | CPT/HCPCS: 99212 ==

== ENCOUNTER 2025-09-16 20:21 | Emergency (ER) | payer MEDICAID, SELFPAY ==
--- NOTE | ~2025-09-16 | CT_ITS ---
CLINICAL HISTORY: abdominal pain CT abdomen and pelvis with contrast Comparison: CT/REG/SR - CT ABDOMEN PELVIS W IV CON - 06/27/24 16:06 EDT Findings: Minimal atelectasis at the lower lungs. 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 Heart size normal. No pericardial effusion. 2 mm nonobstructing bilateral inferior renal caliceal stones. Gallbladder and solid organs otherwise unremarkable. No bowel obstruction, pneumoperitoneum, or pneumatosis. Mesenteric vessels are patent. Right lower quadrant ostomy site with peristomal hernia. No inflammatory changes or fluid. Pelvic contents unremarkable. Normal appendix. The bones are intact. IMPRESSION: 1. Left ventricular apex hypoenhancing endocardium. This can be seen with prior infarcts. 2. Nonobstructing bilateral renal stones. This document has been electronically signed by: Odessa Granados MD on 09/17/2025 02:38:25
[2025-09-16 20:47] VITALS: BP 114/61; PULSE 72; RESP 16; TEMP 36.6; O2SAT 95; BMI 30.7
[2025-09-16 21:12] LABS: MANUAL DIFF FLAG NO
[2025-09-16 21:14] LABS: Hematocrit 34.7 % (42.0-52.0); Hemoglobin 11.6 g/dl (14.0-18.0); Imm Gran Abs Auto 0.01 X10*3/uL (0.00-0.03); Imm Gran Pct Auto 0.1 % (0.0-0.4); Lymphocytes Absolute Auto 2.6 X10*3/uL (1.2-4.9); Mean Corpuscular HGB Conc 33.4 g/dl (31.0-36.0); Mean Corpuscular Hemoglobin 28.2 pg (27.0-33.0); Mean Corpuscular Volume 84.4 fL (80.0-98.0); NRBC Abs Auto 0.000 X10*3/uL (0.0-0.012); NRBC Pct Auto 0.0 /100WBC (0.0-0.2); Platelet Count 197 X10*3/uL (160-400); Red Blood Count 4.11 X10*6/uL (4.60-5.80); White Blood Count 7.0 X10*3/uL (4.8-10.8)
[2025-09-16 21:28] LABS: Anion Gap 16 (12-20); Blood Urea Nitrogen 13 mg/dL (9-16); Calcium 9.2 mg/dL (8.4-10.2); Carbon Dioxide 25 mmol/L (22-29); Chloride 104 mmol/L (96-108); Creatinine Clr Calc Pharmacy 111.0; Estimated Glomerular Filt Rate > 60; Potassium 4.2 mmol/L (3.3-5.1); Sodium 141 mmol/L (135-145)
--- NOTE | 2025-09-16 21:45 | ED.GENADULT ---
HPI - General Adult General Chief complaint: Nausea/Vomiting/Diarrhea Stated complaint: ostomy bag issues Time Seen by Provider: 09/17/25 01:25 Source: patient Mode of arrival: ambulatory Limitations: no limitations History of Present Illness ED Provider: Dr. Arias HPI narrative: 40-year-old male presented hospital today for evaluation of stool leaking out of the rectum. Patient stated it started yesterday. Patient stated that he has history of subtotal colectomy 2 years ago for colon cancer. Patient also has a ostomy bag in place. He is really not complain of any abdominal pain or nausea at this time. He stated that it is abnormal for him to have stool leaking out his rectum. Related Data Home Medications ?Medication ?Instructions ?Recorded ?Confirmed aspirin 81 mg tablet,delayed 1 tab PO DAILY 07/14/22 07/14/25 release buprenorphine 8 mg-naloxone 2 mg 1 strip sublingual DAILY 07/14/22 07/14/25 sublingual film (Suboxone) benzoyl peroxide 5 % topical 1 appl topical BEDTIME 06/21/23 07/14/25 cleanser (BP Wash) bupropion HCl 300 mg 24 hr tablet, 300 mg PO DAILY 06/21/23 07/14/25 extended release ezetimibe 10 mg tablet 10 mg PO DAILY 06/21/23 07/14/25 furosemide 20 mg tablet 20 mg PO DAILY PRN swelling 08/25/23 07/14/25 pantoprazole 40 mg tablet,delayed 40 mg PO DAILY 08/25/23 07/14/25 release rosuvastatin 40 mg tablet 40 mg PO DAILY 08/25/23 07/14/25 evolocumab 140 mg/mL subcutaneous 140 mg subcut Q2W 01/10/24 07/14/25 pen injector (Lizzy Naqvi) mirtazapine 15 mg tablet 15 mg PO BEDTIME 01/10/24 07/14/25 nicotine 14 mg/24 hr daily 1 patch topical QAM 01/10/24 07/14/25 transdermal patch carvedilol 3.125 mg tablet 3.125 mg PO BID 05/30/24 07/14/25 sacubitril 49 mg-valsartan 51 mg 1 tab PO BID 07/02/25 07/14/25 tablet (Entresto) Previous Rx's ?Medication ?Instructions ?Recorded cane #1 ea 08/23/22 omeprazole 20 mg capsule,delayed 20 mg PO BID 14 days #28 caps 07/02/25 release cholecalciferol (vitamin D3) 50 50 mcg PO DAILY #90 caps 07/14/25 mcg (2,000 unit) capsule (Vitamin D3) Allergies Allergy/AdvReac Type Severity Reaction Status Date / Time No Known Allergies Allergy Verified 09/16/25 20:49 Review of Systems Review of Systems: Pertinent review of systems as mentioned in HPI. All other system otherwise negative. 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 Ischemic cardiomyopathy Polysubstance dependence STEMI (ST elevation myocardial infarction) CAD (coronary artery disease) HTN (hypertension) Surgical History Hx of heart artery stent History of esophagogastroduodenoscopy (EGD) Status post proctocolectomy (08/15/22) History of colonoscopy (07/15/22) Family History Family History Family/Other CAD (coronary artery disease) Colon cancer, Onset Age: 30 Mother Stomach cancer Brother Colon cancer Social History Social History Household Members: Family Housing: Apartment Do you presently have visiting nurse or other home services: No Alcohol intake: never Comment: Xray ordered for incorrect count. Xray clear. Patient Tobacco Use Status: Current everyday Tobacco user Tobacco use type: Cigarette Years Smoked: 15 Second Hand Smoke Exposure: Yes Substance Use Type: Crack/Cocaine service: No Current occupational status: unemployed Physical Exam ED Exam Exam: General: Pleasant, no distress, interacting appropriately Head: Normacephalic, atraumatic ENT: oral mucosa moist, neck supple, no tracheal deviation Cardiovascular: regular rate, regular rhythm, no murmurs, rubbing, gallops Respiratory: CTAB, no wheeze, rales, rhonchi Gastrointestinal: Soft, non distended, non tender, non guarding, surgical scar appreciated on exam Neurological: Awake and alert, no facial droop noted Skin: Warm and dry Psychiatric: Appropriate mood and thoughts Vital Signs: Vital Signs - 24 hr 09/16/25 20:47 09/17/25 01:25 09/17/25 03:01 Temperature 98 F 97.5 F 97.5 F Pulse Rate 72 85 85 Respiratory Rate 16 18 18 Blood Pressure 114/61 101/52 L 101/52 L Pulse Oximetry 95 99 99 Oxygen Delivery Method Room Air Room Air BMI result Body Mass Index 30.7 Course Course Course Narrative: Ceci Arias, DO 09/16/252146 Medical screening exam performed. 40-year-old male history of colon cancer status post subtotal colectomy with ostomy. Approximately 2 years ago. Patient stated that he has normal output through ostomy however he has been having some stool leakage from the rectum. This has started yesterday. Abnormal for him. CT imaging ordered for the patient. Basic lab work will be ordered for the patient as well. Patient is medically stable at time of evaluation. Reevaluation(s) Reevaluation #1: Angelo: The patient is a 40-year-old male with a history of surgery for colon cancer which has left him with the an ileostomy and a Dino pouch. You comes to the emergency room because he had what he thought was stool output from his anus. He says this is never happened to him before and he found it very alarming. A CT scan of the abdomen has been ordered by the previous emergency physician that shows no findings in the region of the Dino pouch. The patient looks well and feels comfortable. He was reassured that there does not seem to be any acute complication of his previous surgery. He is advised to follow up with his general surgeon Dr. Muniz for additional advice on this matter. Time: 03:06 Medications Administered Discontinued Medications Generic Name Dose Route Start Last Admin Trade Name Freq PRN Reason Stop Dose Admin Iohexol 85 ml 09/17/25 01:58 09/17/25 01:59 Iohexol 350 Mg/Ml 100 Ml Infus..Btl IV 09/17/25 01:59 85 ml ONCE ONE Administration Medical Decision Making Medical Decision Making MDM Narrative: 40-year-old male presented hospital today for evaluation of stool coming off from his rectum. Patient has a ileostomy placed 2 years ago. 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 Patient stated that he has normal output from his ileostomy bag. However it is abnormal that his rectum is sleeping was stool. We will obtain basic lab work at this time. We will all obtain a CT imaging. This is may be a possible fistula that is causing the leakage of stool from his rectum. Patient appears to be stable at this time. The patient will be signed out to oncoming provider pending imaging results. Lab Data MDM Lab Attestation statement: I reviewed the patient's lab results. 09/16/25 21:02 09/16/25 21:02 Labs: Lab Results 09/16/25 Range/Units 21:02 WBC 7.0 (4.8-10.8) X10*3/uL RBC 4.11 L (4.60-5.80) X10*6/uL Hgb 11.6 L (14.0-18.0) g/dl Hct 34.7 L (42.0-52.0) % MCV 84.4 (80.0-98.0) fL MCH 28.2 (27.0-33.0) pg MCHC 33.4 (31.0-36.0) g/dl RDW 13.0 (11.0-16.0) % Plt Count 197 (160-400) X10*3/uL MPV 11.2 (9.4-12.4) fL Immature Gran % (Auto) 0.1 (0.0-0.4) % Neut % (Auto) 51.1 (45-73) % Lymph % (Auto) 36.5 (20-40) % Mingo % (Auto) 6.8 (2-11) % Eos % (Auto) 4.6 H (0-4) % Baso % (Auto) 0.9 (0-2) % Lymph # (Auto) 2.6 (1.2-4.9) X10*3/uL Mingo # (Auto) 0.5 (0.1-1.2) X10*3/uL Eos # (Auto) 0.3 (0.0-0.4) X10*3/uL Baso # (Auto) 0.1 (0.0-0.2) X10*3/uL Abs Immat Gran (auto) 0.01 (0.00-0.03) X10*3/uL Absolute Neuts (auto) 3.6 (2.0-8.3) x10*3/uL Absolute Nucleated RBC 0.000 (0.0-0.012) X10*3/uL Nucleated RBC % (auto) 0.0 (0.0-0.2) /100WBC Sodium 141 (135-145) mmol/L Potassium 4.2 (3.3-5.1) mmol/L Chloride 104 (96-108) mmol/L Carbon Dioxide 25 (22-29) mmol/L Anion Gap 16 (12-20) BUN 13 (9-16) mg/dL Creatinine 0.91 (0.5-1.4) mg/dL Estim Creat Clear Calc 111.0 Estimated GFR > 60 Random Glucose 109 (60-115) mg/dL Calcium 9.2 (8.4-10.2) mg/dL C-Reactive Protein 0.33 (< or = 0.50) mg/dL Chronic Conditions colectomy Discharge Plan Discharge Clinical Impression: Attention to Dino's pouch Patient Disposition: Home, Self-Care Additional Instructions: Your CAT scan does not seem to indicate any problem with your previous abdominal surgeries. Please contact your surgeon Dr. Muniz to discuss what is happening with the you for additional advice. Return to the emergency room if significantly worse. Prescriptions: No Action aspirin 81 mg tablet,delayed release (DR/EC) 1 tab PO DAILY buprenorphine-naloxone [Suboxone] 8-2 mg film 1 strip sublingual DAILY cholecalciferol (vitamin D3) [Vitamin D3] 50 mcg (2,000 unit) Capsule 50 mcg PO DAILY Qty: 90 3RF (DME) cane Device See Rx Instructions .Route Qty: 1 0RF Rx Instructions: As directed pantoprazole 40 mg tablet,delayed release (DR/EC) 40 mg PO DAILY furosemide 20 mg tablet 20 mg PO DAILY PRN (Reason: swelling) rosuvastatin 40 mg tablet 40 mg PO DAILY benzoyl peroxide [BP Wash] 5 % cleanser 1 appl topical BEDTIME ezetimibe 10 mg tablet 10 mg PO DAILY bupropion HCl 300 mg tablet extended release 24 hr 300 mg PO DAILY carvedilol 3.125 mg tablet 3.125 mg PO BID mirtazapine 15 mg tablet 15 mg PO BEDTIME nicotine 14 mg/24 hr patch 24 hour 1 patch topical QAM Repatha SureClick 140 mg/mL pen injector 140 mg subcut Q2W sacubitril-valsartan [Entresto] 49-51 mg tablet 1 tab PO BID omeprazole 20 mg capsule,delayed release(DR/EC) 20 mg PO BID 14 Days Qty: 28 0RF Referrals: Chauncey Muniz MD [Physician, General Surgery] Gayathri Maravilla FNP [Primary Care Provider, Family Practice] Interventions: ED Discharge Assessment Last Done: 09/17/25 03:01 Discharge Date/Time: 09/17/25 03:08 Print Language: Mohawk
[2025-09-17 01:25] VITALS: BP 101/52; PULSE 85; RESP 18; TEMP 36.4; O2SAT 99
--- OUTSIDE RECORDS SUMMARY | 2025-09-17 01:44 | XMS_ITS | Encounter Summary ---
Author Organization [employer] Address [address] [place] [address] Care Team Providers Care Lock Up Worker Name Role Phone Gayathri Maravilla ROJELIO Primary Care Provider [phone] Lora Yarbrough MD Unavailable [phone] Reason for Visit * Reason Onset Date Comments Med Refill 09/15/2025 Encounter Details Date Type Department Care Team (Late st Contact Info) Description 09/15/2025 Refill [facility] [address] [place], [place] [phone] Sandra Patel RN Uncomplicated opioid dependence (CMS/HCC) [...] Care Team (Late st Contact Info) Description 09/23/2025 2:00 PM EST Office Visit [facility] [address] [place] [address] James Heredia MD [address] [place] [address] documented as of this encounter Goals Goal [...] documented as of this encounter Care Teams Lock Up Worker Relationship Specialty Start Date End Date Gayathri Maravilla FNP [address] [place] [address] PCP - General Family Medicine 06/13/22 Lora Yarbrough MD [address] [place] [address] Hematology and Oncology 10/24/24 documented as of this encounter
--- OUTSIDE RECORDS SUMMARY | 2025-09-17 01:44 | XMS_ITS | Encounter Summary ---
Author Organization [employer] Address [address] [place] [address] Care Team Providers Care General Distillery Worker Name Role Phone Gayathri Mraavilla ROJELIO Primary Care Provider Lora Yarbrough MD Unavailable [phone] Encounter Details Date Type Department Care Team (Late st Contact Info) Description 09/16/2025 Orders Only GENERIC EXTERNAL DATA DEPARTMENT Provider, Generic External Data Social History Tobacco Use Types Packs/Day Years [...] Description 09/23/2025 2:00 PM EST Office Visit [facility] [address] [place] [address] James Heredia MD [address] [place] [address] documented as of this encounter Goals Goal Patient Goal Type Associated Problems Recent Progress Patient-Stated? Author Increase coping skills to promote long-term recovery and improve ability to perform daily activities General No Cassius Contreras, CELI documented as of this encounter Procedures Procedure Name Priority Date/Time Associated Diagnosis Comments CBC WITH AUTO DIFFERENTIAL Routine 09/16/2025 9:02 PM EST BASIC METABOLIC PANEL Routine 09/16/2025 9:02 PM EST documented in this encounter Results * Basic Metabolic Panel (09/16/2025 9:02 PM EST) Sodium 141 135 - 145 mmol/L [facility] Potassium 4.2 3.3 - 5.1 mmol/L [facility] Chloride 104 96 - 108 mmol/L [facility] Carbon Dioxide 25 22 - 29 mmol/L [facility] Anion Gap 16 12 - 20 [facility] Urea Nitrogen (BUN) 13 9 - 16 mg/dL [facility] Creatinine, Serum 0.91 0.5 - 1.4 mg/dL [facility] Creatinine Clr Calc Pharmacy 111.0 [facility] Comment:eGFR (calculated fro m the MDRD study equation) and eCrCl(calculated from the Cockcroft-Gault equation) are based ondifferent parameters and may not yield comparable results.If eCrCl result is absurd, please check patient'sheight/weight. Estimated Glomerular Filt Rate >60 [facility] Comment:Chronic Kidney Disea se: Estimated GFR < 60 mL/min/[id number] Kidney Disease: Estimated GFR < 15 mL/min/1.73m2 Glucose 109 60 - 115 mg/dL [facility] Calcium 9.2 8.4 - 10.2 mg/dL [facility] 09/16/2025 9:02 PM EST 09/16/2025 9:11 PM EST us Generic External Data Provider LAB BLOOD ORDERAB LES Final Result [facility] [address] [place], [place] [id number] [phone] * (ABNORMAL) CBC auto differential (09/16/2025 9:02 PM EST) White Blood Count 7.0 4.8 - 10.8 X10*3/uL [facility] Red Blood Count 4.11(L) 4.60 - 5.80 X10*6/uL [facility] Hemoglobin 11.6(L) 14.0 - 18.0 g/dl [facility] Hematocrit 34.7(L) 42.0 - 52.0 % [facility] Mean Corpuscular Volume 84.4 80.0 - 98.0 fL [facility] Mean Corpuscular Hemoglobin 28.2 27.0 - 33.0 pg [facility] Mean Corpuscular HGB Conc 33.4 31.0 - 36.0 g/dl [facility] Red Cell Distribution Width 13.0 11.0 - 16.0 % [facility] Platelet Count 197 160 - 400 X10*3/uL [facility] Mean Platelet Volume 11.2 9.4 - 12.4 fL [facility] Neutrophils Percent Auto 51.1 45 - 73 % [facility] Imm Gran Pct Auto 0.1 0.0 - 0.4 % [facility] Lymphocytes Percent Auto 36.5 20 - 40 % [facility] Monocytes Percent Auto 6.8 2 - 11 % [facility] Eosinophils Percent Auto 4.6(H) 0 - 4 % [facility] Basophils Percent Auto 0.9 0 - 2 % [facility] NRBC Pct Auto 0.0 0.0 - 0.2 /100WBC [facility] Neutrophils Absolute Auto 3.6 2.0 - 8.3 x10*3/uL [facility] Imm Gran Abs Auto 0.01 0.00 - 0.03 X10*3/uL [facility] Lymphocytes Absolute Auto 2.6 1.2 - 4.9 X10*3/uL [facility] Monocytes Absolute Auto 0.5 0.1 - 1.2 X10*3/uL [facility] Eosinophils Absolute Auto 0.3 0.0 - 0.4 X10*3/uL [facility] Basophils Absolute Auto 0.1 0.0 - 0.2 X10*3/uL [facility] NRBC Abs Auto 0.000 0.0 - 0.012 X10*3/uL [facility] 09/16/2025 9:02 PM EST 09/16/2025 9:11 PM EST us Generic External Data Provider LAB BLOOD ORDERAB LES Final Result Performing Organization Address City/State/[facility] Co de Phone Number [facility] [address] [place] [phone] documented in this encounter Visit Diagnoses Not on filedocumented in this encounter Additional Health Concerns Assessment Noted Time PHQ-9 Depression Total Score: 8 03/17/20 25 1:43 PM EDT documented as of this encounter Care Teams General Distillery Worker Relationship Specialty Start Date End Date Gayathri Maravilla FNP [address] [place] [address] PCP - General Family Medicine 06/13/22 Lora Yarbrough MD [address] [place] [address] Hematology and Oncology 10/24/24 documented as of this encounter
--- OUTSIDE RECORDS SUMMARY | 2025-09-17 01:44 | XMS_ITS | Clinical Summary ---
Author Organization [employer] Address [address] [facility] 7[address] [place] [address] Care Team Providers Care Bass Guitar Teacher Name Role Phone Gayathri Maravilla ROJELIO Primary Care Provider [phone] Lora Yarbrough MD Unavailable [phone] Allergies No known active allergies Medications [...] failure with reduced ejection fraction) ([facility]),History of ST elevation myocardial infarction (STEMI) CHEW 1 TABLET BY MOUTH EVERY DAY 90 tablet 3 09/04/20 23 Active nicotine (Nicoderm CQ) 14 MG/24HR patch Place 1 patch on the skin 1 (one) time each day at the same time. 42 patch 09/12/20 23 Active naloxone (Narcan) 4 mg/0.1 mL nasal sprayIndicatio ns:Uncomplicat ed opioid dependence (CMS/HCC) ([facility]) FOR SUSPECTED OPIOID OVERDOSE. SPRAY 0.1mL IN [...] s:Uncomplicate d opioid dependence (CMS/HCC) ([facility]) Place 1 Film under the tongue 2 times daily. 28 Film 09/15/20 25 025 Active Buprenorphine HCl-Naloxone HCl (Suboxone) 8-2 MG SL filmIndication s:Uncomplicate d opioid dependence (CMS/HCC) ([facility]) Place 1 Film under the tongue 2 times daily for 14 days. 28 Film 08/12/20 25 025 Discontinued(R eorder (will not trigger notification to Pharmacy)) Buprenorphine HCl-Naloxone HCl (Suboxone) 8-2 MG SL filmIndication s:Uncomplicate d opioid dependence (CMS/HCC) ([facility]) Place 1 Film under the tongue 2 times daily for 14 days. 28 Film 5 11:36 AM EST 08/20/20 025 Discontinued(R eorder (will not trigger notification to Pharmacy)) Buprenorphine HCl-Naloxone HCl (Suboxone) 8-2 MG SL filmIndication s:Uncomplicate d opioid dependence (CMS/HCC) (HCC) Place 1 Film under the tongue 2 times daily. 28 Film 5 3:25 PM EST 09/03/20 025 Discontinued(R eorder (will not trigger notification to Pharmacy)) Active Problems Problem Noted Date Diagnosed Date MDD (major depressive disord er), recurrent episode, moderate (CMS/HCC) 03/17/2025 Mixed hyperlipidemia 07/17/2024 Overview (07/17/2024): Followed by [facility], checking lipid panels through their [...] 2021 -[place] [facility]Reports adherence to cardiac medications -Denies any current chest pain -Continue following with [facility] -06/21/23- stress test. Large LAD territory infarction. [...] 2021 -Stenting of LAD in 2020 at [facility] -Reports adherence to cardiac medications -Denies any current chest pain -Continue following with [facility] HFrEF (heart failure with reduced ejection fract ion) 10/31/2022 Overview (07/17/2024): Suspect resulted from STEMI Echo Jun 2024 with severely reduced LVEF, LVEED 6.2 cm (LV function worse and LV more dilated) Continue following with [facility] - Dr. Sepulveda HF Specific medications: - Entresto 49-51 BID - Carvedilol 6.25 BID - Lasix 20mg PRN weight gain/leg swelling Assessment & Plan (07/17/2024 6:42 PM EDT): Assessment & Plan (04/17/2024 3:53 PM EDT): Diagnosed with cardiomyopathy with EF of 25-30%, although Echo 07/15/22 showed EF of 45-50% Continue following with Cardiology Cardiomyopathy 10/31/2022 Ileostomy present (CMS/HCC) 08/25/2022 Assessment & Plan (07/17/2024 6:42 PM [...] -Positive for Jose Syndrome -[place] [facility] - Dr. Yarbrough -Per consult recommendations: [...] testing at 40 y/o -04/15/25: EGD at [facility] [place]. Fuchs. Normal esophagus. Path: gastritis, (+) H Pylori. Neg for intestinal metaplasia and dysplasia. 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 Yarbrough -Per consult recommendations: [...] -Positive for Jose Syndrome -Following with [facility] - Dr. Yarbrough -Per consult recommendations: [...] -Positive for Jose Syndrome -Following with [facility] - Dr. Yarbrough -Per consult recommendations: [...] (03/22/2023 11:32 AM EDT): Assessment and Plan: Lydnon was engaged with active reflective listening and [...] -Continue following with therapist and psychiatrist through [facility] -Denies SI/HI/thoughts of self harm Encounters Date Type Department Care Team Description 09/16/2025 Orders Only GENERIC EXTERNAL DATA DEPARTMENT Provider, Generic External Data 09/15/2025 Refill [facility] [address] [place] [phone] Sandra Patel RN Uncomplicated opioid dependence ([facility]/HCC) ([facility]) 09/09/2025 2:15 PM EST Office Visit [facility] [address] [place] [phone] James Heredia MD Opioid type dependence, continuous ([facility]/HCC) ([facility]) (Primary Dx); Cocaine use 09/02/2025 Refill [facility] [address] [place] [address] Sandra Patel RN Uncomplicated opioid dependence (CMS/HCC) ([facility]) 2025 11:15 AM EST Clinical Support [facility] [address] [place] [address] Sandra Patel RN Uncomplicated opioid dependence (CMS/HCC) ([facility]) 2025 Travel 08/20/2025 Telephone [facility] [address] [place] [address] Gayathri Maravilla, BERRY PICKER Results 08/20/2025 Refill [facility] [address] [place] [phone] Sandra Patel RN Uncomplicated opioid dependence (CMS/HCC) (HCC) 08/12/2025 2:30 PM EDT Office Visit [facility] [address] [place] [address] [phone] James Heredia MD Uncomplicated opioid dependence (CMS/HCC) ([facility]) (Primary Dx) 08/12/2025 Refill [facility] [address] [place] [address] [phone] Sandra Patel RN Uncomplicated opioid dependence (CMS/HCC) (HCC) 08/12/2025 Travel 08/11/2025 Telephone [facility] [address] [place] [address] [phone] Sandra Patel RN 08/11/2025 Refill [facility] [address] [place] [address] [phone] Sandra Patel RN Uncomplicated opioid dependence (CMS/HCC) (HCC) 08/07/2025 Refill [facility] [address] [place] [address] [phone] Sandra Patel RN Uncomplicated opioid dependence ([facility]/HCC) (HCC) 08/01/2025 Results Follow-Up [facility] [address] [place] [phone] Hernan Patel MD Lipid Panel, Standard, Hemoglobin A1c, TSH with Reflex to Free T4, Additional followed-up results: 5 07/29/2025 3:00 PM EDT Clinical Support [facility] [address] [place] [phone] Sandra Patel RN Uncomplicated opioid dependence (CMS/HCC) (HCC) 07/29/2025 Travel 07/22/2025 Refill [facility] [address] [place] [address] [phone] Sandra Patel RN Uncomplicated opioid dependence (CMS/HCC) (HCC) 07/15/2025 1:00 PM EDT Clinical Support [facility] [address] [place] [address] [phone] Sandra Patel RN Uncomplicated opioid dependence (CMS/HCC) 07/15/2025 Travel 07/09/2025 Refill [facility] [address] [place] [address] [phone] Sandra Patel RN Uncomplicated opioid dependence (CMS/HCC) 07/01/2025 2:45 PM EDT Office Visit [facility] [address] [place] [address] [phone] James Heredia MD Uncomplicated opioid dependence (CMS/HCC) (Primary Dx) 07/01/2025 Travel 06/25/2025 Refill [facility] [address] [place] [address] [phone] Sandra Patel RN Uncomplicated opioid dependence (CMS/HCC) 06/18/2025 3:00 PM EDT Clinical Support [facility] [address] [place] [phone] Sandra Patel RN Uncomplicated opioid dependence ([facility]/HCC) 06/18/2025 Travel from Last 3 Months Immunizations Immunization [...] Description 09/23/2025 2:00 PM EST Office Visit [facility] [address] [place] [address] James Heredia MD [address] [place], [place] [phone] Health Maintenance Due Date Last Done Comments Disability Screening 1985 Hepatitis B Vaccines (3 of 3 - 3-dose series) 11/02/1999 08/13/1999, 07/13/1999 Family Planning (PISQ) 2000 HPV Vaccines (1 - Male 3-dose series) 2000 Pneumococcal Vaccine: Pediatrics (0 to 5 Years) and At-Risk Patients (6 to 49) Years (2 of 2 - PCV) 12/10/2015 12/10/2014 COVID-19 Vaccine (3 - 2024- season) 2025 07/13/2021, 03/21/2021 Influenza Vaccine (#1) [...] perform daily activities General No Cassius Contreras, business office specialist Procedure Name Priority Date/Time Associated Diagnosis Comments BASIC METABOLIC PANEL Routine 09/16/2025 9:02 PM EST CBC WITH AUTO DIFFERENTIAL Routine 09/16/2025 9:02 PM EST POCT ANDRE-14 URINE DRUG SCREEN Routine 09/09/2025 3:08 PM EST Opioid type dependence, continuous (CMS/HCC) (HCC) POCT ANDRE-14 URINE DRUG SCREEN Routine 08/12/2025 [...] 3:08 PM EDT Uncomplicated opioid dependence (CMS/HCC) from Last 3 Months Results * (ABNORMAL) CBC auto differential (09/16/2025 9:02 PM EST) Only the most recent of2 resultswithin the time period is included. White Blood Count 7.0 4.8 - 10.8 X10*3/uL [facility] Red Blood Count 4.11(L) 4.60 - 5.80 X10*6/uL [facility] Hemoglobin 11.6(L) 14.0 - 18.0 g/dl [facility] Hematocrit 34.7(L) 42.0 - 52.0 % [facility] Mean Corpuscular Volume 84.4 80.0 - 98.0 fL [facility] Mean Corpuscular Hemoglobin 28.2 27.0 - 33.0 pg [facility] Mean Corpuscular HGB Conc 33.4 31.0 - 36.0 g/dl [facility] Red Cell Distribution Width 13.0 11.0 - 16.0 % [facility] Platelet Count 197 160 - 400 X10*3/uL [facility] Mean Platelet Volume 11.2 9.4 - 12.4 fL [facility] Neutrophils Percent Auto 51.1 45 - 73 % [facility] Imm Gran Pct Auto 0.1 0.0 - 0.4 % [facility] Lymphocytes Percent Auto 36.5 20 - 40 % [facility] Monocytes Percent Auto 6.8 2 - 11 % [facility] Eosinophils Percent Auto 4.6(H) 0 - 4 % [facility] Basophils Percent Auto 0.9 0 - 2 % [facility] NRBC Pct Auto 0.0 0.0 - 0.2 /100WBC [facility] Neutrophils Absolute Auto 3.6 2.0 - 8.3 x10*3/uL [facility] Imm Gran Abs Auto 0.01 0.00 - 0.03 X10*3/uL [facility] Lymphocytes Absolute Auto 2.6 1.2 - 4.9 X10*3/uL [facility] Monocytes Absolute Auto 0.5 0.1 - 1.2 X10*3/uL [facility] Eosinophils Absolute Auto 0.3 0.0 - 0.4 X10*3/uL [facility] Basophils Absolute Auto 0.1 0.0 - 0.2 X10*3/uL [facility] NRBC Abs Auto 0.000 0.0 - 0.012 X10*3/uL [facility] 09/16/2025 9:02 PM EST 09/16/2025 9:11 PM EST us Generic External Data Provider LAB BLOOD ORDERAB LES Final Result [facility] [address] [place] [address] [phone] * Basic Metabolic Panel (09/16/2025 9:02 PM EST) Sodium 141 135 - 145 mmol/L [facility] Potassium 4.2 3.3 - 5.1 mmol/L [facility] Chloride 104 96 - 108 mmol/L [facility] Carbon Dioxide 25 22 - 29 mmol/L [facility] Anion Gap 16 12 - 20 [facility] Urea Nitrogen (BUN) 13 9 - 16 mg/dL [facility] Creatinine, Serum 0.91 0.5 - 1.4 mg/dL [facility] Creatinine Clr Calc Pharmacy 111.0 [facility] Comment:eGFR (calculated fro m the MDRD study equation) and eCrCl(calculated from the Cockcroft-Gault equation) are based ondifferent parameters and may not yield comparable results.If eCrCl result is absurd, please check patient'sheight/weight. Estimated Glomerular Filt Rate >60 [facility] Comment:Chronic Kidney Disea se: Estimated GFR < 60 mL/min/1.35v7Hfjaek Kidney Disease: Estimated GFR < 15 mL/min/1.73m2 Glucose 109 60 - 115 mg/dL [facility] Calcium 9.2 8.4 - 10.2 mg/dL [facility] 09/16/2025 9:02 PM EST 09/16/2025 9:11 PM EST Generic External Data Provider LAB BLOOD ORDERAB LES Final Result Performing Organization Address City/State/[facility] Co de Phone Number [facility] [address] [place] [phone] * (ABNORMAL) POCT ANDRE-14 Urine Drug Screen (09/09/2025 3:08 PM EST) Only the most recent of3 resultswithin the [...] obtained by clean catch procedure / Unknown 09/09/2025 3:08 PM EST James Heredia MD POINT OF CARE TEST ENTER/EDIT OR DERABLES Final Result * TSH with Reflex to Free T4 (07/29/2025 3:22 PM EDT) TSH reflex Free T4 1.20 0.32 - 4.0 uIU/mL [facility] Blood 07/29/2025 3:22 PM EDT 07/29/2025 4:15 PM EDT Gayathri Maravilla [facility] LAB BLOOD ORDERABLES Final Res ult Performing Organization Address [facility] Co de Phone Number [facility] [address] [place] [phone] * Hepatitis C Viral RNA, Quantitative, Real-Time PCR (07/29/2025 3:22 PM EDT) Pathologist [facility] Hepatitis C Viral Load <15 NOT DETECTED NOT DETECTED IU/mL [facility] HCV Log PCR <1.18 NOT DETECTED NOT DETECTED Log IU/mL [facility] Comment:For additional infor mathector, please refer [email or web address].Dopplr/faq/GXM15r6(This link is being provided for informational/educational purposes only.)THIS TEST WAS PERFORMED AT:[facility] [place] [id number] MORGAN MD Blood 07/29/2025 3:22 PM EDT 07/29/2025 4:15 PM EDT Gayathri Maravilla [facility] LAB BLOOD ORDERABLES Final Res ult Performing Organization Address [facility] Co de Phone Number [facility] [address] [place] [address] [phone] * RPR (Monitor) with Reflex to??Titer (07/29/2025 3:22 PM EDT) Pathologist [facility] RPR (Monitor) w/Refl Titer NON-REACTI VE NON-REACT CARMEL [facility] Comment:THIS TEST WAS PERFOR MED AT:[facility] [place] [id number] MORGAN MD Rapid Plasma Reagin Ab Titer TNP [facility] Blood Venous blood specimen / Unknown 07/29/2025 3:22 PM EDT 07/29/2025 4:15 PM EDT Gayathri Maravilla [facility] LAB BLOOD ORDERABLES Final Res ult Performing Organization Address City/[facility]/ZIP Co de Phone Number [facility] [address] [place] [address] [phone] * HIV-1/2 Antigen and Antibodies, Fourth Generation, with Reflexes (07/29/2025 3:22 PM EDT) HIV AB/AG Nonreactive Nonreactive [facility] Comment:HIV-1 p24 Ag and/or HIV-1/HIV-2 Ab not detected.A test result that is nonreactive does not exclude thepossibility of exposure to or infection with HIV-1 and/orHIV-2. Nonreactive results in this assay for individualswith prior exposure to HIV-1 and/or HIV-2 may be due toantigen and antibody levels that are below the limit ofdetection of this assay.The [employer] HIV Ag/Ab Combo assay result andsupplemental assay results should be interpreted inconjunction with the patient's clinical presentation,history and other laboratory results. If the results areinconsistent with clinical evidence, additional testing issuggested to confirm the result. Blood Venous blood specimen / Unknown 07/29/2025 3:22 PM EDT 07/29/2025 4:15 PM EDT Gayathri Maravilla [facility] LAB BLOOD ORDERABLES Final Res ult Performing Organization Address City/[facility]/ZIP Co de Phone Number [facility] [address] [place] [address] [phone] * Hemoglobin A1c (07/29/2025 3:22 PM EDT) Hemoglobin A1c 6.0 <6.0 % [facility] Comment:Hemoglobin A1C Refer ence Range Adults: 4.8 - 6.0 % Non diabetic: < 6.0 % Goal: < 7.0 %Additional Action Suggested: > 8.0 %Note: Hemoglobin A1c results are invalid for patients with abnormal amounts of HbF. Blood transfusions may impact the HbA1c concentration in the patient sample. Estimated Average Glucose 126 mg/dL [facility] Comment:eAG = Estimated ave rage glucose which is %A1C expressed asaverage glucose, using the formula of the [id number]-[id number] Glucose study (ADAG), Diabetes Care, Vol.31,#8,May. 2007 Blood Venous blood specimen / Unknown 07/29/2025 3:22 PM EDT 07/29/2025 4:15 PM EDT us Gayathri Maravilla BERRY PICKER LAB BLOOD ORDERABLES Final Res ult [facility] [address] [place] [address] [phone] * (ABNORMAL) Lipid Panel, Standard (07/29/2025 3:22 PM EDT) Triglycerides 83 <150 mg/dL [facility] Comment:Desirable Triglyceri de: less than 150 mg/dLBorderline High Triglyceride 150-199 mg/dLHigh Triglyceride: 200-499 mg/dLVery High Triglyceride: greater than or equal to 5OO mg/dL Cholesterol 89 <200 mg/dL [facility] Comment:Desirable Cholestero l: less than 200 mg/dLBorderline High Cholesterol: 200-239 mg/dLHigh Cholesterol: greater than 239 mg/dL LDL Cholesterol Calculated 38 <100 mg/dL [facility] Comment:Desirable LDL: less than 100 mg/dLNear Optimal/Above Optimal LDL: 110- 129 mg/dLBorderline High LDL: 130-159 mg/dLHigh LDL: 160-189 mg/dLVery High LDL: greater than or equal to 190 mg/dL HDL Cholesterol 35(L) >40 mg/dL [facility] Comment:Desirable HDL: great er than 40 mg/dL Note: This HDL assay may give artificially low results in patients with liver disease. Blood Venous blood specimen / Unknown 07/29/2025 3:22 PM EDT 07/29/2025 4:15 PM EDT us Gayathri Maravilla BERRY PICKER LAB BLOOD ORDERABLES Final Res ult Performing Organization Address City/[facility]/ZIP Co de Phone Number [facility] [address] [place] [address] [phone] * (ABNORMAL) Comprehensive Metabolic Panel (07/29/2025 3:22 PM EDT) Sodium 140 135 - 145 mmol/L [facility] Potassium 4.0 3.3 - 5.1 mmol/L [facility] Chloride 105 96 - 108 mmol/L [facility] Carbon Dioxide 28 22 - 29 mmol/L [facility] Anion Gap 11(L) 12 - 20 [facility] Urea Nitrogen (BUN) 10 9 - 16 mg/dL [facility] Creatinine, Serum 0.83 0.5 - 1.4 mg/dL [facility] Estimated Glomerular Filt Rate >60 [facility] Comment:Chronic Kidney Disea se: Estimated GFR < 60 mL/min/1.17x2Sgbxrb Kidney Disease: Estimated GFR < 15 mL/min/1.73m2 Glucose 113 60 - 115 mg/dL [facility] Calcium 9.0 8.4 - 10.2 mg/dL [facility] Bilirubin, Total 0.3 0.0 - 1.0 mg/dL [facility] Aspartate Amino Transferase 31 5 - 37 U/L [facility] Alanine Aminotransferase 23 0 - 40 U/L [facility] Total Protein 6.9 6.5 - 8.0 g/dL [facility] Albumin Level 4.3 3.5 - 5.0 g/dL [facility] Alkaline Phosphatase 68 39 - 117 U/L [facility] Blood Venous blood specimen / Unknown 07/29/2025 3:22 PM EDT 07/29/2025 4:15 PM EDT us Gayathri Maravilla BERRY PICKER LAB BLOOD ORDERABLES Final Res ult [facility] [address], [place] [phone] from Last 3 Months Insurance [id number] Care Teams Bass Guitar Teacher Relationship Specialty Start Date End Date Gayathri Maravilla FNP [address], [place] PCP - General Family Medicine 06/13/22 Lora Yarbrough MD [address] [place] [address] Hematology and Oncology 10/24/24
--- OUTSIDE RECORDS SUMMARY | 2025-09-17 01:44 | XMS_ITS | Encounter Summary ---
Author Organization [employer] Address [address] [facility] [address] [place] [address] Care Team Providers Care Content Development Specialist Name Role Phone Gayathri Maravilla Primary Care Provider [phone] Lora Yarbrough MD Unavailable [phone] Reason for Visit * Reason Onset Date Comments PCP change 07/13/2023 Encounter Details Date Type Department Care Team ([facility] st Contact Info) Description 07/13/2023 Telephone [facility] [address] [place] [address] Gayathri Maravilla FNP [address] [place] [address] PCP change Social History Tobacco Use Types [...] PCP due to PCP changing location to [facility] and PCP's availability in [facility]. documented in this encounter Plan of Treatment Upcoming Encounters Date Type Department Care Team (Late st Contact Info) Description 09/23/2025 2:00 PM EST Office Visit [facility] [address] [place] [address] James Heredia MD [address] [place] [address] documented as of this encounter Visit Diagnoses Not on filedocumented in this encounter Additional Health Concerns Assessment Noted Time PHQ-9 Depression Total Score: 6 03/22/20 23 11:14 AM EDT documented as of this encounter Care Teams Content Development Specialist Relationship Specialty Start Date End Date Gayathri Maravilla FNP [address] [place] [address] PCP - General Family Medicine 06/13/22 Lora Yarbrough MD [address] [place] [phone] Hematology and Oncology 10/24/24 documented as of this encounter
--- OUTSIDE RECORDS SUMMARY | 2025-09-17 01:44 | XMS_ITS | Encounter Summary ---
Author Organization [employer] Address [address] [place] [address] Care Team Providers Care Eye Dropper Assembler Name Role Phone Gayathri Maravilla Primary Care Provider [phone] Lora Yarbrough MD Unavailable [phone] Reason for Visit * Reason Onset Date Comments Call Back Request 09/26/2023 Encounter Details Date Type Department Care Team ([facility] st Contact Info) Description 09/26/2023 Telephone [facility] [address] [facility] [place] [address] Gayathri Maravilla FNP [address] [place] [address] Call Back Request Social History Tobacco Use [...] Description 09/23/2025 2:00 PM EST Office Visit [facility] [address] [place] [address] James Heredia MD [address] [place] [address] documented as of this encounter Visit Diagnoses Not on filedocumented in this encounter Additional Health Concerns Assessment Noted Time PHQ-9 Depression Total Score: 6 03/22/20 23 11:14 AM EDT documented as of this encounter Care Teams Eye Dropper Assembler Relationship Specialty Start Date End Date Gayathri Maravilla FNP [address] [place] [address] PCP - General Family Medicine 06/13/22 Lora Yarbrough MD [address] [place] [address] Hematology and Oncology 10/24/24 documented as of this encounter
--- OUTSIDE RECORDS SUMMARY | 2025-09-17 01:44 | XMS_ITS | Encounter Summary ---
Author Organization [employer] Address [address] [place] [address] Care Team Providers Care Diamond Polisher Name Role Phone Gayathri Maravilla ROJELIO Primary Care Provider Lora Yarbrough MD Unavailable [phone] Encounter Details Date Type Department Care Team (Late st Contact Info) Description 01/25/2024 Orders Only [facility] [address] [place] [address] Sandra Patel RN Uncomplicated opioid dependence (CMS/[facility]) Social History Tobacco Use Types Packs/Day [...] Description 09/23/2025 2:00 PM EST Office Visit [facility] [address] [place] [address] James Heredia MD [address] [place], [place] [phone] Scheduled Orders Name Type Priority Associated Diagnoses [...] documented as of this encounter Care Teams Diamond Polisher Relationship Specialty Start Date End Date Gayathri Maravilla FNP [address] [place] [address] PCP - General Family Medicine 06/13/22 Lora Yarbrough MD [address] [place] [address] Hematology and Oncology 10/24/24 documented as of this encounter
--- OUTSIDE RECORDS SUMMARY | 2025-09-17 01:44 | XMS_ITS | Encounter Summary ---
Author Organization [employer] Address [address] [place] [address] Care Team Providers Care Appeals Writer Name Role Phone Gayathri Maravilla ROJELIO Primary Care Provider [phone] Lora Yarbrough MD Unavailable [phone] Encounter Details Date Type Department Care Team (Late Contact Info) Description 06/14/2023 Orders Only [facility] [address] [place] [address] [phone] Sandra Patel RN Uncomplicated opioid dependence (CMS/HCC) [...] Department Care Team (Late Contact Info) Description 09/23/2025 2:00 PM EST Office Visit [facility] [address] [place] [address] [phone] James Heredia MD [address] [place] [address] [phone] Scheduled Orders Name Type Priority Associated Diagnoses [...] documented as of this encounter Care Teams Appeals Writer Relationship Specialty Start Date End Date Gayathri Maravilla FNP [address] [place] [address] PCP - General Family Medicine 06/13/22 Lora Yarbrough MD [address] [place] [phone] Hematology and Oncology 10/24/24 documented as of this encounter
--- OUTSIDE RECORDS SUMMARY | 2025-09-17 01:44 | XMS_ITS | Encounter Summary ---
Author Organization [employer] Address [address] [facility] 7[address] [place] [address] Care Team Providers Care Icer Air Conditioning Name Role Phone Gayathri Maravilla ROJELIO Primary Care Provider [phone] Lora Yarbrough MD Unavailable [phone] Reason for Visit * Reason Comments Med Refill Encounter Details Date Type Department Care Team ([facility] st Contact Info) Description 05/21/2024 Refill [facility] [address] [place] [address] James Heredia MD [address] [place], [place] [phone] Uncomplicated opioid dependence (CMS/HCC) Social History Tobacco [...] Description 09/23/2025 2:00 PM EST Office Visit [facility] [address] [place] [address] James Heredia MD [address] [place] [address] documented as of this encounter Visit Diagnoses Diagnosis Uncomplicated opioid dependence (CMS/HCC) (HCC) documented in this encounter Additional Health Concerns Assessment Noted Time PHQ-9 Depression Total Score: 6 03/22/20 23 11:14 AM EDT documented as of this encounter Care Teams Icer Air Conditioning Relationship Specialty Start Date End Date Gayathri Maravilla FNP [address] [place] [address] PCP - General Family Medicine 06/13/22 Lora Yarbrough MD [address] [place] [phone] Hematology and Oncology 10/24/24 documented as of this encounter
--- OUTSIDE RECORDS SUMMARY | 2025-09-17 01:44 | XMS_ITS | Encounter Summary ---
Author Organization [employer] Address [address] [facility] 7[address] [place] [address] Care Team Providers Care Bench Grinder Name Role Phone Gayathri Maravilla Primary Care Provider Lora Yarbrough MD Unavailable [phone] Reason for Visit * Reason Onset Date Comments Nurse Triage 06/30/2023 Encounter Details Date Type Department Care Team ([facility] st Contact Info) Description 06/30/2023 Telephone [facility] [address] [place] [address] Gayathri Maravilla FNP [address] [place] [address] Nurse Triage Social History Tobacco Use Types [...] on site visit. Please contact pt at [phone] documented in this encounter Plan of Treatment Upcoming Encounters Date Type Department Care Team (Late st Contact Info) Description 09/23/2025 2:00 PM EST Office Visit [facility] [address] [place] [address] James Heredia MD [address] [place] [address] documented as of this encounter Visit Diagnoses Not on filedocumented in this encounter Additional Health Concerns Assessment Noted Time PHQ-9 Depression Total Score: 6 03/22/20 23 11:14 AM EDT documented as of this encounter Care Teams Bench Grinder Relationship Specialty Start Date End Date Gayathri Maravilla FNP [address] [place] [address] PCP - General Family Medicine 06/13/22 Lora Yarbrough MD [address] [place] [address] Hematology and Oncology 10/24/24 documented as of this encounter
[2025-09-17] MEDS: iohexoL 350 MG/ML 100 ML INFUS..BTL 85 ML IV (01:59)
[2025-09-17 03:01] VITALS: BP 101/52; PULSE 85; RESP 18; TEMP 36.4; O2SAT 99
== END 2025-09-17 03:08 | disposition home or self-care (01) ==
PROVIDERS: Student in an Organized Health Care Education/Training Program; Emergency Provider Emergency Medicine; PCP Registered Nurse
DX: Z43.3 Encounter for attention to colostomy (principal); Z85.038 Personal history of other malignant neoplasm of large intestine; Z79.899 Other long term (current) drug therapy; Z72.0 Tobacco use
CPT/HCPCS: 36415; 74177; 80048; 85025; 86140; 99284; 99285; Q9967

== ENCOUNTER → 2025-09-17 01:56 | Outpatient (BNV) | payer MEDICAID, SELFPAY | PROVIDERS: Emergency Provider Emergency Medicine; PCP Registered Nurse; Visit Provider Radiology Diagnostic Radiology | DX: N20.0 Calculus of kidney (principal) | CPT/HCPCS: 74177 ==